=== PATIENT | male | born 1960 | race Caucasian/White ===

== ENCOUNTER 2017-01-05 01:29 | Inpatient (IN) | payer MEDICARE ==
--- NOTE | 2017-01-05 01:46 | ERPHSYRPT ---
- History of Present Illness Time Seen by Provider: 01/05/17 01:40 Source: patient Exam Limitations: no limitations Physician History: The patient is a 56-year-old male who has increasing shortness of breath for 2 days. He denies cough or fevers. He also complains of abdominal pain. He has past medical history of deep vein phlebitis and DVTs. His past medical history is also of COPD, pneumonia, HTN, DM, and prostatic disease. Timing/Duration: day(s) (2) Activities at Onset: none Severity of Dyspnea-Max: moderate Severity of Dyspnea-Current: moderate Possible Cause: frequent episodes, chronic episodes Modifying Factors: Improves With: exertion Associated Symptoms: wheezing Allergies/Adverse Reactions: No Known Drug Allergies Allergy (Verified 01/05/17 01:47) Home Medications: Diltiazem HCl [Diltiazem ER] 240 mg PO DAILY 05/14/14 [History] Gabapentin 400 mg [Neurontin 400 MG] 400 mg PO TID 05/14/14 [History] Losartan Potassium 50 mg [Cozaar 50 MG] 50 mg PO DAILY 05/14/14 [History] Warfarin Sodium 5 mg [Coumadin 5 MG] 5 mg PO UD 05/14/14 [History] Albuterol Common Canister [Proventil Common Canister] 2 puff IH BID [History] Albuterol/Ipratropium 3ml Neb* [DUONEB 0.5-3 MG/3 ml Neb] 3 ml IH QIDPRN 11/18 [History] Citalopram Hydrobromide [ceLEXa] 20 mg PO BID 11/18/14 [History] Hydrocodone/APAP 10/325 mg [[place] 10/325 MG Tablet] 1 tab PO Q4-6HPRN PRN 11/18/14 [History] Omeprazole 20 MG [Prilosec 20 mg] 20 mg PO BID 11/18/14 [History] Sennosides/Docusate Sodium [Stool Soft-Stimulant Lax Tab] 1 each PO DAILY PRN PRN 11/18/14 [History] Metformin HCl 500 mg [Glucophage 500 MG] 500 mg PO BID 09/13/15 [History] Tamsulosin HCl 0.4 mg [Flomax 0.4 MG] 1 tab PO DAILY 09/13/15 [History] Metoprolol Tartrate 50 mg [Lopressor 50 MG] 25 mg PO BID 01/17/16 [History ] Mirtazapine 15 mg PO HS 01/05/17 [History] Hx Tetanus, Diphtheria Vaccination/Date Given: Yes (w/i last 10 years) Hx Influenza Vaccination/Date Given: Yes Hx Pneumococcal Vaccination/Date Given: Yes - Review of Systems Constitutional: No Fever, No Chills Eyes: No Symptoms Ears, Nose, & Throat: No Symptoms Respiratory: Dyspnea, Dyspnea on Exertion ([place]) Cardiac: No Chest Pain, No Edema, No Syncope Abdominal/Gastrointestinal: Abdominal Pain Genitourinary Symptoms: No Dysuria Musculoskeletal: No Back Pain, No Neck Pain Skin: No Rash Neurological: No Dizziness, No Focal Weakness, No Sensory Changes Psychological: No Symptoms Endocrine: No Symptoms Hematologic/Lymphatic: No Symptoms, Easy Bruising Immunological/Allergic: No Symptoms All Other Systems: Reviewed and Negative - Past Medical History Pertinent Past Medical History: Yes Neurological History: Stroke ENT History: No Pertinent History Cardiac History: Arrhythmia, Hypertension, Myocardial Infarction (VT) Respiratory History: Asthma, Bronchitis, COPD, Pneumonia Endocrine Medical History: Adrenal Insufficiency, Diabetes Type II Musculoskeletal History: Arthritis GI Medical History: GERD, GI Bleed History: No Pertinent History Psycho-Social History: Anxiety, Bipolar, Depression, Panic Disorder Male Reproductive Disorders: No Pertinent History Other Medical History: Strokes in 2013, 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 Ponce. - Past Surgical History Past Surgical History: Yes Neuro Surgical History: No Pertinent History Cardiac: No Pertinent History Respiratory: No Pertinent History Gastrointestinal: Appendectomy, Hernia Repair Genitourinary: No Pertinent History Musculoskeletal: No Pertinent History Male Surgical History: No Pertinent History Other Surgical History: Right leg surgery, Sinus surgery - Social History Smoking Status: Former smoker Exposure to second hand smoke: No (occassional) Drug Use: none Patient Lives Alone: No - Nursing Vital Signs Nursing Vital Signs: Initial Vital Signs Pulse Rate 80 Respiratory Rate 22 Blood Pressure [] 136/77 Pain Intensity 7 - Physical Exam General Appearance: moderate distress Eye Exam: PERRL/EOMI Ears, Nose, Throat Exam: normal pharynx Neck Exam: normal inspection, supple Respiratory Exam: diminished breath sounds, wheezing Cardiovascular/Chest Exam: tachycardia Abdominal/Gastrointestinal Exam: tenderness Rectal Exam: not done Extremity Exam: non-tender, normal range of motion, normal inspection, no calf tenderness, no pedal edema Neurologic Exam: alert, oriented x 3, 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, 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, sensation nml, No motor deficits Skin Exam: normal color, warm, No dry SpO2 Interpretation: borderline oxygenation - Course EKG Interpreted by Me: RATE, Sinus Tach, NORMAL AXIS, NORMAL INTERVALS, NORMAL QRS, NORMAL ST-T, Other (No change compared to EKG 07/09/16) - Radiology Exams Chest X-ray Interpretation: Interpreted by me, Negative, Other (flattened hemidiaphragms, bibasilar atelecstasis, no change compared to 07/09/16) Abdomen X-ray Interpretation: Interpreted by me, Negative Ordered Tests: Active Orders 24 hr Category Date Time Status [employer] Operator STAT Care 01/05/17 01:50 Active EKG-ER Only STAT Care 01/05/17 01:50 Active IV Insertion STAT Care 01/05/17 01:50 Active Oxygen-ED Only NASAL CANNULA 5 lpm Care 01/05/17 01:50 Active Pulse Oximetry (ED) STAT Care 01/05/17 01:50 Active CHEST 1 VIEW (PORTABLE) Stat Exams 01/05/17 01:52 Taken KUB Stat Exams 01/05/17 01:53 Taken CBC W DIFF Stat Lab 01/05/17 01:50 Completed CMP Stat Lab 01/05/17 01:50 Completed LIPASE Stat Lab 01/05/17 01:50 Completed Lactic Acid Stat Lab 01/05/17 02:32 Completed NT PRO BNP Stat Lab 01/05/17 01:50 Completed TROPONIN Stat Lab 01/05/17 01:50 Completed UA W/ MICROSCOPIC Stat Lab 01/05/17 03:35 Completed Respiratory Nebulizer STAT RT 01/05/17 01:53 Completed Medication Summary Discontinued Medications Generic Name Dose Route Start Last Admin Trade Name Freq PRN Reason Stop Dose Admin Acetaminophen 1,000 mg 01/05/17 02:13 01/05/17 02:17 Tylenol Extra Strength 500 Mg PO 01/05/17 02:14 1,000 mg STAT STA Administration Acetaminophen Confirm 01/05/17 02:16 Tylenol Extra Strength 500 Mg Administered 01/05/17 02:17 Dose 1,000 mg .ROUTE .STK-MED ONE Albuterol/Ipratropium 3 ml 01/05/17 01:50 01/05/17 02:05 Duoneb 0.5-3 Mg/3 Ml Neb IH 01/05/17 01:51 3 ml STAT ONE Administration Albuterol/Ipratropium Confirm 01/05/17 02:04 Duoneb 0.5-3 Mg/3 Ml Neb Administered 01/05/17 02:05 Dose 3 ml IH .STK-MED ONE Methylprednisolone Sodium Succinate 125 mg 01/05/17 01:50 01/05/17 02:00 Solu-Medrol 125 Mg IV 01/05/17 01:51 125 mg STAT ONE Administration Methylprednisolone Sodium Succinate Confirm 01/05/17 01:56 Solu-Medrol 125 Mg Administered 01/05/17 01:57 Dose 125 mg .ROUTE .STK-MED ONE Lab/Rad Data: Laboratory Result Diagrams 01/05/17 01:50 01/05/17 01:50 Laboratory Results 01/05/17 01/05/17 01/05/17 Range/Units 03:35 02:32 01:50 WBC (4.0-10.5) K/mm3 RBC (4.1-5.6) M/mm3 Hgb (12.5-18.0) gm/dl Hct (42-50) % MCV (78-100) fl MCH (26-32) pg MCHC (32-36) g/dl RDW (11.5-14.0) % Plt Count (150-450) K/mm3 MPV (6-9.5) fl Gran % (36.0-66.0) % Lymphocytes % (24.0-44.0) % Monocytes % (0.0-12.0) % Eosinophils % (0.00-5.0) % Basophils % (0.0-0.4) % Basophils # (0-0.4) Sodium 143 (136-145) mEq/L Potassium 3.9 (3.5-5.1) mEq/L Chloride 104 (98-107) mEq/L Carbon Dioxide 34.5 H (21-32) mEq/L Anion Gap 8.3 (5-15) MEQ/L BUN 16 (9-20) mg/dL Creatinine 0.95 (0.55-1.30) mg/dl Estimated GFR > 60 ML/MIN Glucose 196 H (70-110) MG/DL Lactic Acid 1.3 (0.4-2.0) Calcium 8.9 (8.5-10.1) mg/dL Total Bilirubin 0.1 L (0.2-1.0) mg/dL AST 10 L (15-37) U/L ALT 22 (12-78) U/L Alkaline Phosphatase 99 (46-116) U/L Troponin I < 0.017 (0.000-0.056) ng/ml NT-Pro-B Natriuret Pep 21 (0-125) pg/ml Serum Total Protein 6.9 (6.4-8.2) gm/dL Albumin 3.5 (3.4-5.0) g/dL Lipase 136 (73-393) U/L Ur Collection Type CLEAN CATCH Urine Color YELLOW (YELLOW) Urine Appearance CLEAR (CLEAR) Urine pH 7.0 (5-6) Ur Specific [place] 1.020 (1.005-1.025) Urine Protein TRACE (Negative) Urine Glucose (UA) NEGATIVE (NEGATIVE) mg/dL Urine Ketones TRACE (NEGATIVE) Urine Nitrite NEGATIVE (NEGATIVE) Urine Bilirubin NEGATIVE (NEGATIVE) Urine Urobilinogen 1 (0-1) mg/dL Urine WBC (Auto) NEGATIVE (NEGATIVE) Urine RBC (Auto) TRACE NON-HEM (0-5) Alexy/ul Urine Microscopic RBC 0-2 (0-2) /HPF Ur Epithelial Cells FEW (FEW) /HPF Urine Bacteria RARE (NEGATIVE) /HPF Urine Mucus SLIGHT (NEGATIVE) /HPF Specimen Received 01/05/17:0330 01/05/17 Range/Units 01:50 WBC 7.5 (4.0-10.5) K/mm3 RBC 4.13 (4.1-5.6) M/mm3 Hgb 11.7 L (12.5-18.0) gm/dl Hct 39.4 L (42-50) % MCV 95.4 (78-100) fl MCH 28.3 (26-32) pg MCHC 29.7 L (32-36) g/dl RDW 15.9 H (11.5-14.0) % Plt Count 235 (150-450) K/mm3 MPV 8.5 (6-9.5) fl Gran % 60.5 (36.0-66.0) % Lymphocytes % 25.4 (24.0-44.0) % Monocytes % 11.3 (0.0-12.0) % Eosinophils % 2.4 (0.00-5.0) % Basophils % 0.4 (0.0-0.4) % Basophils # 0.03 (0-0.4) Sodium (136-145) mEq/L Potassium (3.5-5.1) mEq/L Chloride (98-107) mEq/L Carbon Dioxide (21-32) mEq/L Anion Gap (5-15) MEQ/L BUN (9-20) mg/dL Creatinine (0.55-1.30) mg/dl Estimated GFR ML/MIN Glucose (70-110) MG/DL Lactic Acid (0.4-2.0) Calcium (8.5-10.1) mg/dL Total Bilirubin (0.2-1.0) mg/dL AST (15-37) U/L ALT (12-78) U/L Alkaline Phosphatase (46-116) U/L Troponin I (0.000-0.056) ng/ml NT-Pro-B Natriuret Pep (0-125) pg/ml Serum Total Protein (6.4-8.2) gm/dL Albumin (3.4-5.0) g/dL Lipase (73-393) U/L Ur Collection Type Urine Color (YELLOW) Urine Appearance (CLEAR) Urine pH (5-6) Ur Specific [place] (1.005-1.025) Urine Protein (Negative) Urine Glucose (UA) (NEGATIVE) mg/dL Urine Ketones (NEGATIVE) Urine Nitrite (NEGATIVE) Urine Bilirubin (NEGATIVE) Urine Urobilinogen (0-1) mg/dL Urine WBC (Auto) (NEGATIVE) Urine RBC (Auto) (0-5) Alexy/ul Urine Microscopic RBC (0-2) /HPF Ur Epithelial Cells (FEW) /HPF Urine Bacteria (NEGATIVE) /HPF Urine Mucus (NEGATIVE) /HPF Specimen Received - Progress Progress: unchanged Air Movement: good Progress Note: 01/05/17 03:18 Pt given solumedrol 125 mg IV and duo neb. Lungs auscultation shows no wheezing and better air movement; however, pt states he is no better. Pt is on O2 5 L NC. Pt is usually on 3 L O2 per NC at home. 01/05/17 03:19 Blood Culture(s) Obtained: No Antibiotics given: No Discussed with : Zhanna Will see patient in: hospital (full admit) Counseled pt/family regarding: lab results, diagnosis, rad results - Departure Time of Disposition: 04:01 Departure Disposition: In-patient Admission Clinical Impression: COPD exacerbation Condition: Stable Critical Care Time: No Instructions: Chronic Obstructive Pulmonary Disease
[2017-01-05] MEDS ORDERED: DUONEB 0.5-3 MG/3 ml Neb IH ONE ×3 (01:50→05:42)
[2017-01-05] MEDS ORDERED: solu-MEDROL 125 MG IV ONE (01:50)
[2017-01-05] MEDS ORDERED: solu-MEDROL 125 MG ONE (01:56)
[2017-01-05 01:59] LABS: BASOPHIL % 0.4 % (0.0-0.4); Eosinophil % 2.4 % (0.00-5.0); Granulocytes % 60.5 % (36.0-66.0); Lymphocytes % 25.4 % (24.0-44.0); Mean Cell Volume 95.4 fl (78-100); Mean Corpuscular Hemoglobin 28.3 pg (26-32); Mean Platelet Volume 8.5 fl (6-9.5); Monocytes % 11.3 % (0.0-12.0); Platelet Count 235 K/mm3 (150-450); Red Blood Count 4.13 M/mm3 (4.1-5.6); Red Cell Distribution Width 15.9 % (11.5-14.0); White Blood Count 7.5 K/mm3 (4.0-10.5)
[2017-01-05] MEDS ORDERED: TYLENOL EXTRA STRENGTH 500 MG PO STA (02:13)
[2017-01-05] MEDS ORDERED: TYLENOL EXTRA STRENGTH 500 MG ONE (02:16)
[2017-01-05 02:25] LABS: ALBUMIN 3.5 g/dL (3.4-5.0); ALKALINE PHOSPHATASE 99 U/L (46-116); ANION GAP 8.3 MEQ/L (5-15); BILIRUBIN,TOTAL 0.1 mg/dL (0.2-1.0); BLOOD UREA NITROGEN 16 mg/dL (9-20); CHLORIDE 104 mEq/L (98-107); Carbon Dioxide 34.5 mEq/L (21-32); Glucose 196 MG/DL (70-110); LIPASE 136 U/L (73-393); Potassium 3.9 mEq/L (3.5-5.1); SGOT/AST 10 U/L (15-37); SGPT/ALT 22 U/L (12-78); SODIUM 143 mEq/L (136-145); TROPONIN < 0.017 ng/ml (0.000-0.056); Total Protein 6.9 gm/dL (6.4-8.2)
[2017-01-05 03:41] LABS: Collection Type CLEAN CATCH
[2017-01-05 03:51] LABS: Bacteria RARE /HPF (NEGATIVE); COMPLETE URINE MICROSCOPIC? YES; Epithelial Cells FEW /HPF (FEW); Mucus SLIGHT /HPF (NEGATIVE)
[2017-01-05] MEDS ORDERED: PROVENTIL 2.5 MG/3 ML NEB IH PRN (05:46)
[2017-01-05] MEDS: DUONEB 0.5-3 MG/3 ml Neb IH SCH ×5 (05:58→22:54)
[2017-01-05] MEDS: Advair Hfa 230/21 Mcg COMMON CANISTER IH SCH ×2 (05:58→18:52)
[2017-01-05] MEDS ORDERED: PROVENTIL 2.5 MG/3 ML NEB IH SCH (07:00)
[2017-01-05] MEDS ORDERED: DUONEB 0.5-3 MG/3 ml Neb IH SCH (07:00)
[2017-01-05] MEDS: solu-MEDROL 125 MG IV SCH ×3 (07:29→17:25)
[2017-01-05] MEDS ORDERED: Senokot-S Tablet PO PRN (07:50)
[2017-01-05] MEDS: Glucophage 500 MG PO SCH ×2 (08:08→17:25)
[2017-01-05] MEDS: NovoLOG Insulin SQ PRN ×4 (08:09→22:26)
[2017-01-05] MEDS: MORPHINE SULFATE 2 MG INJ IV PRN ×4 (08:09→22:22)
--- NOTE | 2017-01-05 08:47 | XRAY ---
Indication: Mid abdominal pain. Emesis. Comparison: July 09, 2016. Single frontal chest unchanged again demonstrating a few scattered calcified granulomas and bibasilar infiltrates/atelectasis. Heart and mediastinal structures within normal limits. No new abnormalities.
--- NOTE | 2017-01-05 08:49 | XRAY ---
Indication: Mid abdominal pain and emesis. Comparison: May 14, 2014. KUB again nonacute and nonobstructed. Solid organs unremarkable. Osseous structures again demonstrates mild osteopenia and multilevel spinal degenerative changes. Impression: Stable negative KUB.
[2017-01-05] MEDS: Flomax 0.4 MG PO SCH (09:48)
[2017-01-05] MEDS: ceLEXa 20 MG PO SCH ×2 (09:48→22:25)
[2017-01-05] MEDS: Neurontin 400 MG PO SCH ×3 (09:48→22:26)
[2017-01-05] MEDS: Cardizem CD 240 MG PO SCH (09:48)
[2017-01-05] MEDS: Cozaar 50 MG PO SCH (09:48)
[2017-01-05] MEDS: Lopressor 25MG Tab PO SCH ×2 (09:48→22:25)
[2017-01-05] MEDS: Protonix 40MG Tablet PO SCH ×2 (09:48→22:25)
[2017-01-05] MEDS ORDERED: DILTIAZEM HCL 240 MG PO SCH (10:00)
[2017-01-05] MEDS ORDERED: NON-FORMULARY ITEM (Citalopram Hydrobromide [Celexa] 20 MG) PO SCH (10:00)
[2017-01-05] MEDS ORDERED: NON-FORMULARY ITEM (Omeprazole 20 Mg [Prilosec 20 Mg] 20 MG) PO SCH (10:00)
[2017-01-05] MEDS: Levofloxacin 500MG/100ML D5W 100 ML IV SCH (13:42)
[2017-01-05] MEDS ORDERED: PROVENTIL COMMON CANISTER IH SCH (19:00)
--- NOTE | 2017-01-05 19:58 | PCM.HP ---
History of Present Illness - Chief Complaint Chief Complaint: Shortness of Breath for 2-3 days History of Present Illness: is a 56 year old male patient who has increasing shortness of breath for 2 days. He denies cough or fevers. He also complains of abdominal pain. He has past medical history of deep vein phlebitis and DVTs. His past medical history is also of COPD, pneumonia, HTN, DM, and prostatic disease. Timing/Duration: day(s) (2) Activities at Onset: none Severity of Dyspnea-Max: moderate Severity of Dyspnea-Current: moderate Possible Cause: frequent episodes, chronic episodes Modifying Factors: Improves With: exertion Associated Symptoms: wheezing. - Review of Systems Constitutional: Fatigue, Lethargy, No Fever, No Chills Eyes: No Symptoms Ears, Nose, & Throat: No Symptoms Respiratory: Cough, Orthopnea, Short Of Breath, Wheezing Cardiac: No Chest Pain, No Edema, No Syncope Abdominal/Gastrointestinal: No Abdominal Pain, No Nausea, No Vomiting, No Diarrhea Genitourinary Symptoms: No Dysuria Musculoskeletal: No Back Pain, No Neck Pain Skin: No Rash Neurological: No Dizziness, No Focal Weakness, No Sensory Changes Psychological: No Symptoms Endocrine: No Symptoms Hematologic/Lymphatic: No Symptoms Immunological/Allergic: No Symptoms Medications & Allergies Home Medications: Home Medication List Diltiazem HCl [Diltiazem ER] 240 mg PO DAILY 05/14/14 [History Confirmed ] Gabapentin 400 mg [Neurontin 400 MG] 400 mg PO TID 05/14/14 [History Confirmed 01/05/17] Losartan Potassium 50 mg [Cozaar 50 MG] 50 mg PO DAILY 05/14/14 [History Confirmed 01/05/17] Warfarin Sodium 5 mg [Coumadin 5 MG] 5 mg PO UD 05/14/14 [History Confirmed 01/05/17] Albuterol Common Canister [Proventil Common Canister] 2 puff IH BID [History Confirmed 01/05/17] Albuterol/Ipratropium 3ml Neb* [DUONEB 0.5-3 MG/3 ml Neb] 3 ml IH QIDPRN 11/18 [History Confirmed 01/05/17] Citalopram Hydrobromide [ceLEXa] 20 mg PO BID 11/18/14 [History Confirmed ] Hydrocodone/APAP 10/325 mg [[place] 10/325 MG Tablet] 1 tab PO Q4-6HPRN PRN 11/18/14 [History Confirmed 01/05/17] Omeprazole 20 MG [Prilosec 20 mg] 20 mg PO BID 11/18/14 [History Confirmed 01/05] Sennosides/Docusate Sodium [Stool Soft-Stimulant Lax Tab] 1 each PO DAILY PRN PRN 11/18/14 [History Confirmed 01/05/17] Metformin HCl 500 mg [Glucophage 500 MG] 500 mg PO BID 09/13/15 [History Confirmed 01/05/17] Tamsulosin HCl 0.4 mg [Flomax 0.4 MG] 1 tab PO DAILY 09/13/15 [History Confirmed 01/05/17] Metoprolol Tartrate 50 mg [Lopressor 50 MG] 25 mg PO BID 01/17/16 [ History Confirmed 01/05/17] Mirtazapine 15 mg PO HS 01/05/17 [History Confirmed 01/05/17] Allergies/Adverse Reactions: Allergies Allergy/AdvReac Type Severity Reaction Status Date / Time No Known Drug Allergies Allergy Verified 01/05/17 01:47 - Past Medical History Past Medical History: Yes Neurological History: Stroke ENT History: No Pertinent History Cardiac History: Arrhythmia, Hypertension, Myocardial Infarction (HI) Respiratory History: Asthma, Bronchitis, COPD, Pneumonia Endocrine Medical History: Adrenal Insufficiency, Diabetes Type II Musculoskelatal History: Arthritis GI Medical History: GERD, GI Bleed History: No Pertinent History Pyscho-Social History: Anxiety, Bipolar, Depression, Panic Disorder Male Reproductive Disorders: No Pertinent History Comment: Strokes in 2014, 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 Ponce. - Past Surgical History Past Surgical History: Yes Neuro Surgical History: No Pertinent History Cardiac History: No Pertinent History Respiratory Surgery: No Pertinent History GI Surgical History: Appendectomy, Hernia Repair Genitourinary Surgical Hx: No Pertinent History Musculskeletal Surgical Hx: No Pertinent History Male Surgical History: No Pertinent History Other Surgical History: Right leg surgery, Sinus surgery - Social History Smoking Status: Former smoker Exposure to second hand smoke: No Alcohol: None Drug Use: none - Physical Exam Vital Signs: Vital Signs - 24 hr Temp Pulse Resp BP Pulse Ox 01/05/17 18:55 97 01/05/17 18:52 141 H 22 97 01/05/17 16:00 97.7 F 111 H 22 129/73 94 L 01/05/17 14:37 106 H 22 94 L 01/05/17 12:00 98 F 99 H 20 133/88 100 01/05/17 10:44 99 H 22 97 01/05/17 08:10 97.6 F 115 H 22 136/89 90 L 01/05/17 08:00 97.6 F 115 H 22 136/89 90 L 01/05/17 05:58 98 H 26 H 88 L 01/05/17 04:35 89 22 141/82 90 L 01/05/17 04:03 98 H 24 125/77 91 L 01/05/17 02:57 80 22 136/77 90 L 01/05/17 02:23 104 H 20 140/71 94 L 01/05/17 02:05 103 H 26 H 94 L 01/05/17 02:03 86 L 01/05/17 01:31 112 H 28 H 140/71 89 L Oxygen-Last 24 hours O2 Percentage 5 Liters = 40% O2 Percentage 5 Liters = 40% O2 Percentage 5 Liters = 40% O2 Percentage 5 Liters = 40% O2 Percentage 5 Liters = 40% O2 Percentage 5 Liters = 40% O2 Percentage 5 Liters = 40% General Appearance: no apparent distress, alert Neurologic Exam: alert, oriented x 3, cooperative, normal mood/affect, nml cerebellar function, nml station & gait, sensation nml, No motor deficits Eye Exam: PERRL/EOMI, eyes nml inspection Ears, Nose, Throat Exam: normal ENT inspection, TMs normal, pharynx normal, moist mucous membranes Neck Exam: normal inspection, non-tender, supple, full range of motion Respiratory Exam: diminished breath sounds, prolonged expirations, crackles/ rales, rhonchi, wheezing, No respiratory distress Cardiovascular Exam: regular rate/rhythm, normal heart sounds, normal peripheral pulses Gastrointestinal/Abdomen Exam: soft, normal bowel sounds, No tenderness, No mass Back Exam: normal inspection, normal range of motion, No CVA tenderness, No vertebral tenderness Extremity Exam: normal inspection, normal range of motion, pelvis stable Skin Exam: normal color, warm, dry, No rash Lymphatic Exam: No adenopathy Results - Labs Lab/Micro Results: Accuchecks Date 01/05/17 Date 01/05/17 Date 01/05/17 Time 16:30 Time 11:30 Time 07:30 Accucheck Value: 266 Accucheck Value: 317 Accucheck Value: 226 Accuchecks Date 01/05/17 Date 01/05/17 Date 01/05/17 Time 16:30 Time 11:30 Time 07:30 Accucheck Value: 266 Accucheck Value: 317 Accucheck Value: 226 - Other Procedures and Tests Respiratory Therapy 01/05/17 05:46 Respiratory Nebulizer 01/05/17 07:00 Respiratory MDI BID Respiratory Nebulizer Q4H Assessment/Plan (1) COPD exacerbation Current Visit: Yes Status: Acute Assessment & Plan: will admit patient , start him on iv steroid, iv abx, o2 Code(s): J44.1 - CHRONIC OBSTRUCTIVE PULMONARY DISEASE W (ACUTE) EXACERBATION (2) Atelectasis of both lungs Current Visit: Yes Status: Chronic Code(s): J98.11 - ATELECTASIS
[2017-01-05] MEDS: Norco 10/325 MG Tablet PO PRN (20:56)
[2017-01-05] MEDS ORDERED: NON-FORMULARY ITEM (Mirtazapine [Mirtazapine] 15 MG) PO SCH (22:00)
[2017-01-05] MEDS: REMERON 30 MG PO SCH (22:25)
[2017-01-06] MEDS: solu-MEDROL 125 MG IV SCH ×4 (00:17→17:59)
[2017-01-06] MEDS: DUONEB 0.5-3 MG/3 ml Neb IH SCH ×6 (03:07→23:33)
[2017-01-06] MEDS: MORPHINE SULFATE 2 MG INJ IV PRN ×5 (03:23→21:02)
[2017-01-06 03:59] LABS: A-aADO2 437; ARTERIAL BLD GAS O2 SATURATION 98.8 % (95-100); ARTERIAL BLOOD GAS FIO2 82 %; ARTERIAL BLOOD GAS PO2 90 mmHg (75-100); ARTERIAL BLOOD GAS pH 7.45 (7.35-7.45)
[2017-01-06] MEDS: Norco 10/325 MG Tablet PO PRN (05:34)
[2017-01-06] MEDS: Advair Hfa 230/21 Mcg COMMON CANISTER IH SCH ×2 (06:37→17:25)
[2017-01-06] MEDS: Flomax 0.4 MG PO SCH (08:18)
[2017-01-06] MEDS: ceLEXa 20 MG PO SCH ×2 (08:18→20:16)
[2017-01-06] MEDS: Glucophage 500 MG PO SCH ×2 (08:18→16:41)
[2017-01-06] MEDS: Cozaar 50 MG PO SCH (08:18)
[2017-01-06] MEDS: Cardizem CD 240 MG PO SCH (08:18)
[2017-01-06] MEDS: Lopressor 25MG Tab PO SCH ×2 (08:18→20:16)
[2017-01-06] MEDS: Protonix 40MG Tablet PO SCH ×2 (08:18→20:16)
[2017-01-06] MEDS: NovoLOG Insulin SQ PRN ×4 (08:19→22:17)
[2017-01-06] MEDS: Neurontin 400 MG PO SCH ×3 (08:19→20:16)
[2017-01-06] MEDS: Levofloxacin 500MG/100ML D5W 100 ML IV SCH (09:59)
--- NOTE | 2017-01-06 12:23 | PCM.NOTE ---
Date and Time: 01/06/17 1220 Subjective Assessment: severe shortness of breath. - Review of Systems Constitutional: No Fever, No Chills Eyes: No Symptoms Ears, Nose, & Throat: No Symptoms Respiratory: Cough, Orthopnea, Short Of Breath, Wheezing Cardiac: No Chest Pain, No Edema, No Syncope Abdominal/Gastrointestinal: No Abdominal Pain, No Nausea, No Vomiting, No Diarrhea Genitourinary Symptoms: No Dysuria Musculoskeletal: No Back Pain, No Neck Pain Skin: No Rash Neurological: No Dizziness, No Focal Weakness, No Sensory Changes Psychological: No Symptoms Endocrine: No Symptoms Hematologic/Lymphatic: No Symptoms Immunological/Allergic: No Symptoms Objective Exam General Appearance: no apparent distress, alert Neurologic Exam: alert, oriented x 3, cooperative, normal mood/affect, nml cerebellar function, sensation nml, No motor deficits Skin Exam: normal color, warm, dry Eye Exam: PERRL, EOMI, eyes nml inspection Ears, Nose, Throat Exam: normal ENT inspection, pharynx normal, moist mucous membranes Neck Exam: normal inspection, non-tender, supple, full range of motion Respiratory Exam: diminished breath sounds, accessory muscle use, prolonged expirations, rhonchi, wheezing, No respiratory distress Cardiovascular Exam: regular rate/rhythm, normal heart sounds Gastrointestinal/Abdomen Exam: soft, No tenderness, No mass Extremity Exam: normal inspection, normal range of motion Back Exam: normal inspection, normal range of motion, No CVA tenderness, No vertebral tenderness Male Genitalia Exam: deferred Rectal Exam: deferred OBJECTIVE DATA Vital Signs: Vital Signs - 24 hr Temp Pulse Resp BP Pulse Ox 01/06/17 11:48 98.2 F 107 H 24 129/68 90 L 01/06/17 10:34 104 H 22 92 L 01/06/17 07:29 98.7 F 109 H 22 132/74 91 L 01/06/17 06:37 108 H 16 90 L 01/06/17 04:00 97.9 F 117 H 25 H 134/79 86 L 01/06/17 03:07 110 H 25 H 83 L 01/06/17 00:00 22 93 L 01/05/17 22:54 125 H 23 92 L 01/05/17 21:35 98.4 F 131 H 22 117/79 92 L 01/05/17 20:00 23 01/05/17 18:55 97 01/05/17 18:52 141 H 22 97 01/05/17 16:00 97.7 F 111 H 22 129/73 94 L 01/05/17 14:37 106 H 22 94 L Oxygen-Last 24 hours O2 Percentage 5 Liters = 40% Pain Assessment - Last Documented Pain Intensity 4 Pain Scale Used 0-10 Pain Scale Intake and Output: Intake & Output 01/04/17 01/05/17 01/06/17 01/07/17 11:59 11:59 11:59 11:59 Intake Total 1200 2230 Output Total 500 1600 Balance 700 630 Weight 116.755 kg Lab Results: Accuchecks Date 01/05/17 Date 01/05/17 Time 22:00 Time 16:30 Accucheck Value: 236 Accucheck Value: 265 Accucheck Value: 266 Lab Results-Last 24 Hours 01/06/17 Range/Units 03:51 Puncture Site LEFT BRACHIAL pCO2 46 H (35-45) mmHg pO2 90 (75-100) mmHg Base Excess 7.0 H (-2.0-2.0) O2 Saturation 96.1 (94-100) g/dF ABG pH 7.45 (7.35-7.45) ABG HCO3 32.0 H* (22-28) ABG O2 Sat (Measured) 98.8 (95-100) % Keo Test NOT APPLICABLE A-a Gradient 437 a/A Ratio 0.17 Hemoglobin 12.6 Carboxyhemoglobin 1.5 (0.0-6.9) % THgb Methemoglobin 1.1 L (1.4-1.5) % Potassium 5.4 H (3.5-5.1) Temperature 37.0 C POC O2 Flow Rate 82 % Assessment/Plan (1) COPD exacerbation Current Visit: Yes Status: Acute Assessment & Plan: continue present management Code(s): J44.1 - CHRONIC OBSTRUCTIVE PULMONARY DISEASE W (ACUTE) EXACERBATION (2) Atelectasis of both lungs Current Visit: Yes Status: Chronic Code(s): J98.11 - ATELECTASIS
[2017-01-06] MEDS: PULMICORT 0.5 MG/2 ML RESPULES IH SCH (17:25)
[2017-01-06] MEDS: Coumadin 5 MG PO SCH (17:59)
[2017-01-06] MEDS: REMERON 30 MG PO SCH (20:16)
[2017-01-07] MEDS: solu-MEDROL 125 MG IV SCH ×4 (00:17→17:09)
[2017-01-07] MEDS: MORPHINE SULFATE 2 MG INJ IV PRN ×4 (02:48→20:31)
[2017-01-07] MEDS: DUONEB 0.5-3 MG/3 ml Neb IH SCH ×6 (03:10→22:46)
[2017-01-07] MEDS: Advair Hfa 230/21 Mcg COMMON CANISTER IH SCH ×2 (06:27→18:53)
[2017-01-07] MEDS: PULMICORT 0.5 MG/2 ML RESPULES IH SCH ×2 (06:27→18:53)
[2017-01-07] MEDS: Glucophage 500 MG PO SCH ×2 (07:38→17:09)
[2017-01-07] MEDS: NovoLOG Insulin SQ PRN ×3 (07:38→17:10)
[2017-01-07] MEDS: Cozaar 50 MG PO SCH (09:44)
[2017-01-07] MEDS: Cardizem CD 240 MG PO SCH (09:44)
[2017-01-07] MEDS: Neurontin 400 MG PO SCH ×3 (09:44→22:39)
[2017-01-07] MEDS: ceLEXa 20 MG PO SCH ×2 (09:45→22:39)
[2017-01-07] MEDS: Lopressor 25MG Tab PO SCH ×2 (09:45→22:40)
[2017-01-07] MEDS: Protonix 40MG Tablet PO SCH ×2 (09:45→22:39)
[2017-01-07] MEDS: Flomax 0.4 MG PO SCH (09:45)
[2017-01-07] MEDS: Levofloxacin 500MG/100ML D5W 100 ML IV SCH (09:47)
[2017-01-07] MEDS: Norco 10/325 MG Tablet PO PRN ×3 (11:49→22:40)
--- NOTE | 2017-01-07 17:17 | PCM.NOTE ---
Date and Time: 01/07/171715 Subjective Assessment: still very hypoxic and short of breath, still requires higher flow of oxygen - Review of Systems Constitutional: No Fever, No Chills Eyes: No Symptoms Ears, Nose, & Throat: No Symptoms Respiratory: Short Of Breath, Wheezing, No Cough Cardiac: No Chest Pain, No Edema, No Syncope Abdominal/Gastrointestinal: No Abdominal Pain, No Nausea, No Vomiting, No Diarrhea Genitourinary Symptoms: No Dysuria Musculoskeletal: No Back Pain, No Neck Pain Skin: No Rash Neurological: No Dizziness, No Focal Weakness, No Sensory Changes Psychological: No Symptoms Endocrine: No Symptoms Hematologic/Lymphatic: No Symptoms Immunological/Allergic: No Symptoms Objective Exam General Appearance: mild distress, alert Neurologic Exam: alert, oriented x 3, cooperative, normal mood/affect, nml cerebellar function, sensation nml, No motor deficits Skin Exam: normal color, warm, dry Eye Exam: PERRL, EOMI, eyes nml inspection Ears, Nose, Throat Exam: normal ENT inspection, pharynx normal, moist mucous membranes Neck Exam: normal inspection, non-tender, supple, full range of motion Respiratory Exam: diminished breath sounds, accessory muscle use, rhonchi, wheezing, No respiratory distress Cardiovascular Exam: regular rate/rhythm, normal heart sounds Gastrointestinal/Abdomen Exam: soft, No tenderness, No mass Extremity Exam: normal inspection, normal range of motion Back Exam: normal inspection, normal range of motion, No CVA tenderness, No vertebral tenderness Male Genitalia Exam: deferred Rectal Exam: deferred OBJECTIVE DATA Vital Signs: Vital Signs - 24 hr Temp Pulse Resp BP Pulse Ox 01/07/17 16:00 21 01/07/17 15:54 98 F 101 H 21 126/69 91 L 01/07/17 14:26 106 H 20 92 L 01/07/17 12:00 20 01/07/17 11:29 98.3 F 99 H 20 114/70 90 L 01/07/17 10:40 109 H 22 92 L 01/07/17 08:00 24 01/07/17 07:36 97.7 F 103 H 22 135/77 92 L 01/07/17 06:30 103 H 22 93 L 01/07/17 04:00 98.5 F 101 H 25 H 142/89 86 L 01/07/17 03:10 101 H 25 H 89 L 01/07/17 00:00 21 01/06/17 23:43 98.7 F 91 H 21 131/60 96 01/06/17 23:33 88 22 96 01/06/17 20:00 98.6 F 118 H 26 H 134/66 90 L 01/06/17 17:27 86 L 01/06/17 17:26 114 H 18 86 L Oxygen-Last 24 hours O2 Percentage 100% O2 Percentage 100% O2 Percentage 100% O2 Percentage 100% Pain Assessment - Last Documented Pain Intensity 5 Pain Scale Used 0-10 Pain Scale Intake and Output: Intake & Output 01/05/17 01/06/17 01/07/17 01/08/17 11:59 11:59 11:59 11:59 Intake Total 1200 2230 1490 420 Output Total 500 1600 2525 600 Balance 700 630 -1035 -180 Weight 116.755 kg 116.755 kg Lab Results: Accuchecks Date 01/07/17 Date 01/07/17 Date 01/06/17 Time 11:30 Time 07:30 Time 22:00 Accucheck Value: 341 Accucheck Value: 279 Accucheck Value: 281 Multi-Disciplinary Progress Notes: Multi-Disciplinary Progress Notes 01/07/17 09:15 (created 01/07/17 14:15) Case Management Note by Ashley Ballard REVIEWED DISCHARGE PLAN, CONTINUE TO DECLINE NEEDS ON DISCHARGE. PLAN TO RETURN HOME WITH FAMILY TO PRE EPISODIC LEVEL OF [place]. REPORTS THAT HE HAS ALL EQUIP IN PLACE THAT HE NEEDS. HOME OXYGEN TO CONTINUE. DISCUSSED DX: COPD, S/S , TAKE MEDS PRESCRIBED, VERBALIZED UNDERSTANDING AND ABLE TO REPEAT INFORMATION BACK. WILL CONTINUE TO FOLLOW AND ASSESS FOR ALL DC NEEDS. Initialized on 01/07/17 14:15 - END OF NOTE Assessment/Plan (1) COPD exacerbation Current Visit: Yes Status: Acute Assessment & Plan: still very hypoxic, will continue present management Code(s): J44.1 - CHRONIC OBSTRUCTIVE PULMONARY DISEASE W (ACUTE) EXACERBATION (2) Atelectasis of both lungs Current Visit: Yes Status: Chronic Assessment & Plan: stable Code(s): J98.11 - ATELECTASIS
[2017-01-07] MEDS: REMERON 30 MG PO SCH (22:39)
[2017-01-08] MEDS: solu-MEDROL 125 MG IV SCH ×4 (00:30→17:31)
[2017-01-08] MEDS: MORPHINE SULFATE 2 MG INJ IV PRN ×3 (00:30→19:35)
[2017-01-08] MEDS: DUONEB 0.5-3 MG/3 ml Neb IH SCH ×6 (02:44→23:05)
[2017-01-08] MEDS: PULMICORT 0.5 MG/2 ML RESPULES IH SCH ×2 (07:00→18:14)
[2017-01-08] MEDS: Glucophage 500 MG PO SCH ×2 (08:50→17:32)
[2017-01-08] MEDS: Neurontin 400 MG PO SCH ×3 (08:51→21:38)
[2017-01-08] MEDS: Flomax 0.4 MG PO SCH (08:51)
[2017-01-08] MEDS: Lopressor 25MG Tab PO SCH ×2 (08:51→21:38)
[2017-01-08] MEDS: Protonix 40MG Tablet PO SCH ×2 (08:51→21:39)
[2017-01-08] MEDS: ceLEXa 20 MG PO SCH ×2 (08:51→21:38)
[2017-01-08] MEDS: Cardizem CD 240 MG PO SCH (08:51)
[2017-01-08] MEDS: Cozaar 50 MG PO SCH (08:51)
[2017-01-08] MEDS: Norco 10/325 MG Tablet PO PRN ×3 (08:54→21:38)
[2017-01-08] MEDS: Levofloxacin 500MG/100ML D5W 100 ML IV SCH (09:29)
[2017-01-08] MEDS: Advair Hfa 230/21 Mcg COMMON CANISTER IH SCH ×2 (10:34→18:14)
[2017-01-08 11:11] LABS: ALBUMIN 3.6 g/dL (3.4-5.0); ALKALINE PHOSPHATASE 77 U/L (46-116); ANION GAP 8.8 MEQ/L (5-15); BILIRUBIN,TOTAL 0.3 mg/dL (0.2-1.0); BLOOD UREA NITROGEN 26 mg/dL (9-20); CHLORIDE 99 mEq/L (98-107); Carbon Dioxide 39.7 mEq/L (21-32); Glucose 373 MG/DL (70-110); SGOT/AST 30 U/L (15-37); SGPT/ALT 52 U/L (12-78); SODIUM 141 mEq/L (136-145); Total Protein 7.1 gm/dL (6.4-8.2)
[2017-01-08 11:42] LABS: Mean Corpuscular Hemoglobin 28.2 pg (26-32); Mean Platelet Volume 9.3 fl (6-9.5); Platelet Count 244 K/mm3 (150-450); Red Blood Count 4.11 M/mm3 (4.1-5.6); White Blood Count 12.4 K/mm3 (4.0-10.5)
[2017-01-08 11:43] LABS: Potassium 6.2 mEq/L (3.5-5.1)
[2017-01-08] MEDS: NovoLOG Insulin SQ PRN ×3 (12:11→21:39)
[2017-01-08] MEDS ORDERED: PHARMACY DOSING REQUEST MC ONE (12:44)
[2017-01-08 14:21] LABS: BLOOD UREA NITROGEN 29 mg/dL (9-20); CHLORIDE 98 mEq/L (98-107); Carbon Dioxide 37.5 mEq/L (21-32); Glucose 402 MG/DL (70-110); Potassium 5.9 mEq/L (3.5-5.1); SODIUM 140 mEq/L (136-145)
[2017-01-08] MEDS ORDERED: Kayexylate 15 GM/60 ML PO ONE (14:56)
[2017-01-08] MEDS: Aminophylline 500 MG/20 ML*** 500 MG in Sodium Chloride 0.9% 500 ML 500 ML IV SCH (15:16)
[2017-01-08] MEDS: Coumadin 5 MG PO SCH (17:48)
[2017-01-08] MEDS: REMERON 30 MG PO SCH (21:38)
[2017-01-09] MEDS: MORPHINE SULFATE 2 MG INJ IV PRN ×4 (00:51→22:08)
[2017-01-09] MEDS: solu-MEDROL 125 MG IV SCH ×5 (00:52→23:16)
[2017-01-09] MEDS: Norco 10/325 MG Tablet PO PRN ×2 (03:07→13:30)
[2017-01-09] MEDS: DUONEB 0.5-3 MG/3 ml Neb IH SCH ×6 (03:13→22:47)
[2017-01-09] MEDS: Aminophylline 500 MG/20 ML*** 500 MG in Sodium Chloride 0.9% 500 ML 500 ML IV SCH ×2 (05:33→23:16)
[2017-01-09 06:00] LABS: Mean Cell Volume 97.5 fl (78-100); Mean Corpuscular Hemoglobin 27.9 pg (26-32); Mean Platelet Volume 8.8 fl (6-9.5); Platelet Count 225 K/mm3 (150-450); Red Blood Count 3.94 M/mm3 (4.1-5.6); Red Cell Distribution Width 15.5 % (11.5-14.0); White Blood Count 9.5 K/mm3 (4.0-10.5)
[2017-01-09 06:17] LABS: INR 2.26 (0.8-3.0); PROTIME 24.7 SECONDS (8.83-12.87)
[2017-01-09 06:27] LABS: ALBUMIN 3.5 g/dL (3.4-5.0); ALKALINE PHOSPHATASE 72 U/L (46-116); ANION GAP 7.6 MEQ/L (5-15); BILIRUBIN,TOTAL 0.3 mg/dL (0.2-1.0); BLOOD UREA NITROGEN 24 mg/dL (9-20); CHLORIDE 98 mEq/L (98-107); Carbon Dioxide 39.1 mEq/L (21-32); Glucose 291 MG/DL (70-110); MAGNESIUM 2.1 mg/dL (1.8-2.4); Potassium 5.3 mEq/L (3.5-5.1); SGOT/AST 26 U/L (15-37); SGPT/ALT 65 U/L (12-78); SODIUM 139 mEq/L (136-145); THEOPHYLLINE 6.2 ug/ml (10-20.0); Total Protein 6.6 gm/dL (6.4-8.2)
[2017-01-09] MEDS: PULMICORT 0.5 MG/2 ML RESPULES IH SCH ×2 (06:40→18:29)
[2017-01-09] MEDS: Advair Hfa 230/21 Mcg COMMON CANISTER IH SCH ×2 (07:43→18:31)
[2017-01-09 07:51] LABS: ANISOCYTOSIS 1+; Platelet Estimate NORMAL (NORMAL); Poikilocytosis 1+; Total Cells Counted 100
[2017-01-09] MEDS: Glucophage 500 MG PO SCH ×2 (08:28→16:55)
[2017-01-09] MEDS: Lopressor 25MG Tab PO SCH ×2 (08:29→21:07)
[2017-01-09] MEDS: NovoLOG Insulin SQ PRN ×4 (08:29→21:09)
[2017-01-09] MEDS: Cozaar 50 MG PO SCH (08:29)
[2017-01-09] MEDS: Protonix 40MG Tablet PO SCH ×2 (08:30→21:07)
[2017-01-09] MEDS: THEO-DUR 200 MG PO SCH ×2 (08:30→21:08)
[2017-01-09] MEDS: Cardizem CD 240 MG PO SCH (08:30)
[2017-01-09] MEDS: ceLEXa 20 MG PO SCH ×2 (08:30→21:07)
[2017-01-09] MEDS: Flomax 0.4 MG PO SCH (08:30)
[2017-01-09] MEDS: Neurontin 400 MG PO SCH ×3 (08:30→21:07)
[2017-01-09] MEDS: Levofloxacin 500MG/100ML D5W 100 ML IV SCH (08:31)
[2017-01-09] MEDS ORDERED: THEODUR PO SCH (10:00)
[2017-01-09] MEDS: Coumadin 5 MG PO SCH (16:55)
--- NOTE | 2017-01-09 18:09 | PCM.NOTE ---
Date and Time: 01/09/171806 Subjective Assessment: slept better last night with Bi-PAP. doing better - Review of Systems Constitutional: No Fever, No Chills Eyes: No Symptoms Ears, Nose, & Throat: No Symptoms Respiratory: Orthopnea, Short Of Breath, Wheezing, No Cough Cardiac: No Chest Pain, No Edema, No Syncope Abdominal/Gastrointestinal: No Abdominal Pain, No Nausea, No Vomiting, No Diarrhea Genitourinary Symptoms: No Dysuria Musculoskeletal: No Back Pain, No Neck Pain Skin: No Rash Neurological: No Dizziness, No Focal Weakness, No Sensory Changes Psychological: No Symptoms Endocrine: No Symptoms Hematologic/Lymphatic: No Symptoms Immunological/Allergic: No Symptoms Objective Exam General Appearance: no apparent distress, alert Neurologic Exam: alert, oriented x 3, cooperative, normal mood/affect, nml cerebellar function, sensation nml, No motor deficits Skin Exam: normal color, warm, dry Eye Exam: PERRL, EOMI, eyes nml inspection Ears, Nose, Throat Exam: normal ENT inspection, pharynx normal, moist mucous membranes Neck Exam: normal inspection, non-tender, supple, full range of motion Respiratory Exam: diminished breath sounds, rhonchi, wheezing, No respiratory distress Cardiovascular Exam: regular rate/rhythm, normal heart sounds Gastrointestinal/Abdomen Exam: soft, No tenderness, No mass Extremity Exam: normal inspection, normal range of motion Back Exam: normal inspection, normal range of motion, No CVA tenderness, No vertebral tenderness Male Genitalia Exam: deferred Rectal Exam: deferred OBJECTIVE DATA Vital Signs: Vital Signs - 24 hr Temp Pulse Resp BP Pulse Ox 01/09/17 16:00 98.3 F 98 H 18 134/84 89 L 01/09/17 14:40 101 H 20 90 L 01/09/17 14:38 18 01/09/17 14:30 98.4 F 01/09/17 12:00 18 01/09/17 11:27 101 H 18 132/83 95 01/09/17 10:48 90 20 93 L 01/09/17 10:47 93 L 01/09/17 07:59 18 01/09/17 07:22 98.4 F 102 H 18 135/77 98 01/09/17 07:00 90 20 98 01/09/17 04:00 16 01/09/17 03:56 98.2 F 95 H 22 128/81 94 L 01/09/17 03:16 83 20 96 01/09/17 00:00 16 01/08/17 23:47 98.1 F 94 H 16 123/77 96 01/08/17 23:08 92 H 16 98 01/08/17 20:00 15 01/08/17 19:52 98.6 F 99 H 15 143/76 95 01/08/17 18:25 110 H 20 86 L Oxygen-Last 24 hours O2 Percentage 4 Liters = 36% Pain Assessment - Last Documented Pain Intensity 3 Pain Scale Used 0-10 Pain Scale Intake and Output: Intake & Output 01/07/17 01/08/17 01/09/17 01/10/17 11:59 11:59 11:59 11:59 Intake Total 1490 2320 2344 1260 Output Total 2525 2400 Balance -1035 -80 2344 1260 Weight 116.755 kg Lab Results: Accuchecks Date 01/09/17 Date 01/09/17 Date 01/09/17 Date 01/08/17 Time 16:30 Time 11:30 Time 07:30 Time 22:00 Accucheck Value: 263 Accucheck Value: 287 Accucheck Value: 287 Accucheck Value: 285 Lab Results-Last 24 Hours 01/09/17 01/09/17 01/09/17 Range/Units 05:46 05:46 05:46 WBC 9.5 (4.0-10.5) K/mm3 RBC 3.94 L (4.1-5.6) M/mm3 Hgb 11.0 L (12.5-18.0) gm/dl Hct 38.4 L (42-50) % MCV 97.5 (78-100) fl MCH 27.9 (26-32) pg MCHC 28.6 L (32-36) g/dl RDW 15.5 H (11.5-14.0) % Plt Count 225 (150-450) K/mm3 MPV 8.8 (6-9.5) fl Segmented Neutrophils 93 H (36.-66.) % Lymphocytes (Manual) 7 L (24-44) % Platelet Estimate NORMAL (NORMAL) Poikilocytosis 1+ Anisocytosis 1+ INR 2.26 (0.8-3.0) Sodium 139 (136-145) mEq/L Potassium 5.3 H (3.5-5.1) mEq/L Chloride 98 (98-107) mEq/L Carbon Dioxide 39.1 H (21-32) mEq/L Anion Gap 7.6 (5-15) MEQ/L BUN 24 H (9-20) mg/dL Creatinine 0.87 (0.55-1.30) mg/dl Estimated GFR > 60 ML/MIN Glucose 291 H (70-110) MG/DL Calcium 8.0 L (8.5-10.1) mg/dL Magnesium 2.1 (1.8-2.4) mg/dL Total Bilirubin 0.3 (0.2-1.0) mg/dL AST 26 (15-37) U/L ALT 65 (12-78) U/L Alkaline Phosphatase 72 (46-116) U/L Serum Total Protein 6.6 (6.4-8.2) gm/dL Albumin 3.5 (3.4-5.0) g/dL Theophylline 6.2 L (10-20.0) ug/ml Assessment/Plan (1) COPD exacerbation Current Visit: Yes Status: Acute Assessment & Plan: doing better on theophylline, solumedrol, duoneb neb treatment, continue abx Code(s): J44.1 - CHRONIC OBSTRUCTIVE PULMONARY DISEASE W (ACUTE) EXACERBATION (2) Atelectasis of both lungs Current Visit: Yes Status: Chronic Code(s): J98.11 - ATELECTASIS
[2017-01-09] MEDS: REMERON 30 MG PO SCH (21:07)
[2017-01-10] MEDS: MORPHINE SULFATE 2 MG INJ IV PRN ×2 (02:22→07:04)
[2017-01-10] MEDS: DUONEB 0.5-3 MG/3 ml Neb IH SCH ×4 (02:34→14:08)
[2017-01-10] MEDS: solu-MEDROL 125 MG IV SCH (05:39)
[2017-01-10] MEDS: Norco 10/325 MG Tablet PO PRN (05:51)
[2017-01-10] MEDS: Advair Hfa 230/21 Mcg COMMON CANISTER IH SCH (07:04)
[2017-01-10] MEDS: Levofloxacin 500MG/100ML D5W 100 ML IV SCH (08:27)
[2017-01-10] MEDS: Flomax 0.4 MG PO SCH (08:28)
[2017-01-10] MEDS: Glucophage 500 MG PO SCH (08:28)
[2017-01-10] MEDS: ceLEXa 20 MG PO SCH (08:28)
[2017-01-10] MEDS: Lopressor 25MG Tab PO SCH (08:28)
[2017-01-10] MEDS: Cardizem CD 240 MG PO SCH (08:28)
[2017-01-10] MEDS: Cozaar 50 MG PO SCH (08:28)
[2017-01-10] MEDS: Protonix 40MG Tablet PO SCH (08:28)
[2017-01-10] MEDS: Neurontin 400 MG PO SCH ×2 (08:28→14:38)
[2017-01-10] MEDS: THEO-DUR 200 MG PO SCH (08:28)
[2017-01-10] MEDS: NovoLOG Insulin SQ PRN ×2 (08:29→11:47)
[2017-01-10 11:33] VITALS: BP 112/67
[2017-01-10] MEDS ORDERED: solu-MEDROL 40 MG IV SCH (12:00)
--- NOTE | 2017-01-10 12:35 | PCM.DS ---
Discharge Summary Date of Admission: 01/05/17 05:25 Admitting Physician: GEE FERNANDES Primary Care Provider: GEE FERNANDES Allergies Allergies No Known Drug Allergies Allergy (Verified 01/05/17 01:47) Hospital Summary - Hospital Course Hospital Course: patient is still very short of breath and his O2 saturation drops to 80 % . Patient is on BIPAP for last 48 hours and not showing any signs of improvement, will transfer him to [facility] for further pulmonary assistance. - Vitals & Intake/Output Vital Signs: Vital Signs Temperature 98.0 F 01/10/17 11:32 Pulse Rate 105 H 01/10/17 11:32 Respiratory Rate 18 01/10/17 11:32 Blood Pressure 112/67 01/10/17 11:32 O2 Sat by Pulse Oximetry 91 L 01/10/17 11:32 Oxygen-Last Documented O2 Percentage 100% Intake & Output: Intake & Output 01/08/17 01/09/17 01/10/17 01/11/17 11:59 11:59 11:59 11:59 Intake Total 2320 2344 3388 Output Total 2400 Balance -80 2344 3388 - Lab Result Diagrams: 01/09/17 05:46 01/09/17 05:46 Lab Results-Last 24 Hrs: Accuchecks Date 01/10/17 Date 01/09/17 Date 01/09/17 Time 07:30 Time 16:30 Accucheck Value: 267 Accucheck Value: 328 Accucheck Value: 263 Lab Results-Last 24 Hours 01/10/17 Range/Units 05:15 Theophylline 12.7 (10-20.0) ug/ml Micro Results-Entire Visit: Accuchecks Date 01/10/17 Date 01/09/17 Date 01/09/17 Time 07:30 Time 16:30 Accucheck Value: 267 Accucheck Value: 328 Accucheck Value: 263 - Procedures and Test Procedures and Tests throughout Hospitalization: Therapy Orders & Screens 01/05/17 05:46 Respiratory Nebulizer Comment: ALBUTEROL Q2PRN FOR SOB/WHEEZING Diagnosis: Shortness of Breath 01/05/17 05:47 Respiratory Therapy Consult ROUTINE Comment: Reason For Exam: Diagnosis: Shortness of Breath 01/05/17 07:00 Respiratory MDI BID Comment: ADVAIR 230/21 2 PUFFS BID Diagnosis: Shortness of Breath Respiratory Nebulizer Q4H Comment: DUONEB Q4 HOURS Diagnosis: Shortness of Breath 01/07/17 23:00 BiPap/CPAP Assessment ROUTINE Comment: Diagnosis: Shortness of Breath for 2-3 days Discharge Exam General Appearance: no apparent distress, alert Neurologic Exam: alert, oriented x 3, cooperative, normal mood/affect, nml cerebellar function, sensation nml, No motor deficits Skin Exam: normal color, warm, dry Eye Exam: PERRL, EOMI, eyes nml inspection Ears, Nose, Throat Exam: normal ENT inspection, pharynx normal, moist mucous membranes Neck Exam: normal inspection, non-tender, supple, full range of motion Respiratory Exam: respiratory distress, diminished breath sounds, prolonged expirations, crackles/rales, rhonchi Cardiovascular Exam: regular rate/rhythm, normal heart sounds Gastrointestinal/Abdomen Exam: soft, No tenderness, No mass Extremity Exam: normal inspection, normal range of motion Back Exam: normal inspection, normal range of motion, No CVA tenderness, No vertebral tenderness Male Genitalia Exam: deferred Rectal Exam: deferred Final Diagnosis/Problem List - Final Discharge Diagnosis/Problem (1) Chronic respiratory failure Current Visit: Yes Status: Acute Assessment & Plan: patient is still very short of breath and his O2 saturation drops to 80 % . Patient is on BIPAP for last 48 hours and not showing any signs of improvement, will transfer him to [facility] for further pulmonary assistance. (2) COPD exacerbation Current Visit: Yes Status: Acute (3) Atelectasis of both lungs Current Visit: Yes Status: Chronic - Discharge Discharge Date: 01/10/17 [facility]position[facility] Condition: Stable Prescriptions: No Action Gabapentin 400 mg [Neurontin 400 MG] 400 mg PO TID Diltiazem HCl [Diltiazem ER] 240 mg PO DAILY Losartan Potassium 50 mg [Cozaar 50 MG] 50 mg PO DAILY Warfarin Sodium 5 mg [Coumadin 5 MG] 5 mg PO UD Albuterol/Ipratropium 3ml Neb* [DUONEB 0.5-3 MG/3 ml Neb] 3 ml IH QIDPRN Citalopram Hydrobromide [ceLEXa] 20 mg PO BID Hydrocodone/APAP 10/325 mg [Allyn 10/325 MG Tablet] 1 tab PO Q4-6HPRN PRN PRN Reason: Pain Omeprazole 20 MG [Prilosec 20 mg] 20 mg PO BID Albuterol Common Canister [Proventil Common Canister] 2 puff IH BID Sennosides/Docusate Sodium [Stool Soft-Stimulant Lax Tab] 1 each PO DAILY PRN PRN PRN Reason: Constipation Tamsulosin HCl 0.4 mg [Flomax 0.4 MG] 1 tab PO DAILY Metformin HCl 500 mg [Glucophage 500 MG] 500 mg PO BID Metoprolol Tartrate 50 mg [Lopressor 50 MG] 25 mg PO BID Mirtazapine 15 mg PO HS Instructions: Chronic Obstructive Pulmonary Disease Follow up with: GEE FERNANDES MD [Primary Care Provider] -
[2017-01-10 14:12] VITALS: PULSE 115; O2SAT 90
[2017-01-10] MEDS ORDERED: MORPHINE SULFATE 2 MG INJ IV ONE (14:15)
== END 2017-01-10 15:00 | disposition short-term general hospital (02) | DRG 189 ==
LOC: ED 01:29 → MED SURG 05:24 → UNDOADMOB 05:24 → OBSVTOIN 05:25 → MED SURG 05:25
PROVIDERS: ADMIT General Practice; ATTEND General Practice
DX: J96.10 Chronic respiratory failure, unspecified whether with hypoxia or hypercapnia (principal); J44.1 Chronic obstructive pulmonary disease with (acute) exacerbation; J98.11 Atelectasis; Z79.899 Other long term (current) drug therapy; I10 Essential (primary) hypertension; E11.9 Type 2 diabetes mellitus without complications; Z79.4 Long term (current) use of insulin; N42.9 Disorder of prostate, unspecified; Z79.01 Long term (current) use of anticoagulants; Z86.73 Personal history of transient ischemic attack (TIA), and cerebral infarction without residual deficits; I25.2 Old myocardial infarction; J45.909 Unspecified asthma, uncomplicated; F41.8 Other specified anxiety disorders; M19.90 Unspecified osteoarthritis, unspecified site; K21.9 Gastro-esophageal reflux disease without esophagitis
CPT/HCPCS: 36000; 36415; 36600; 71010; 74000; 80048; 80053; 80198; 81000; 82375; 82803; 82962; 83036; 83605; 83690; 83735; 83880; 84484; 85025; 85027; 85610; 93005; 93041; 94002; 94003; 94640; 94762; 96374; 99285; J0280; J1956; J2270; J2920; J2930; A9270-GY

== ENCOUNTER 2017-04-18 14:53 | Inpatient (IN) | payer MEDICARE ==
[2017-04-18] MEDS ORDERED: PROVENTIL 2.5 MG/3 ML NEB IH ONE ×2 (14:56→14:57)
[2017-04-18 15:06] LABS: A-aADO2 471; ALLEN TEST OK? YES; ARTERIAL BLD GAS O2 SATURATION 97.6 % (95-100); ARTERIAL BLOOD GAS BASE EXCESS 12.5 (-2.0-2.0); ARTERIAL BLOOD GAS FIO2 100 %; ARTERIAL BLOOD GAS PO2 112 mmHg (75-100); ARTERIAL BLOOD GAS pH 7.23 (7.35-7.45); BIPAP(E) 6; BIPAP(I) 12; Lactic Acid 0.7 (0.4-2.0)
--- NOTE | 2017-04-18 15:12 | ERPHSYRPT ---
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 PT NORMALLY HAS HOME O2. Triage Nursing Assessment: PT PALE, WARM, DRY. CRACKLES AND DIMINISHED LUNG SOUNDS NOTED. PT ALERT AND ORIENTED X3. Physician History: CC: short of air Hx: 56 y/o patient of dr Chao. He has hx of COPD, CHF, DM. He has 2 days increased shortness of breath. No fever. Some cough. No chest pain. Feels this is COPD. He has frequent COPD exac. Timing/Duration: day(s) (2) Severity of Dyspnea-Max: severe Severity of Dyspnea-Current: moderate Allergies/Adverse Reactions: No Known Drug Allergies Allergy (Verified 04/18/17 15:00) Home Medications: Warfarin Sodium 5 mg [Coumadin 5 MG] 5 mg PO UD 05/14/14 [History] Sennosides/Docusate Sodium [Stool Soft-Stimulant Lax Tab] 1 each PO DAILY PRN PRN 11/18/14 [History] Metformin HCl 500 mg [Glucophage 500 MG] 500 mg PO BID 09/13/15 [History] Metoprolol Tartrate 50 mg [Lopressor 50 MG] 25 mg PO BID 01/17/16 [History ] Mirtazapine 15 mg PO HS 01/05/17 [History] Albuterol Sulfate [Proair Hfa] 8.5 gm IH BID 04/18/17 [History] Albuterol Sulfate [Ventolin Hfa] 18 gm IH BID 04/18/17 [History] Buspirone HCl 5 mg [Buspar 5 mg] 5 mg PO DAILY 04/18/17 [History] Citalopram Hydrobromide [Citalopram HBr] 20 mg PO BID 04/18/17 [History] Tamsulosin HCl 0.4 mg [Flomax 0.4 MG] 0.4 mg PO HS 04/18/17 [History] Theophylline Anhydrous 300 mg PO BID 04/18/17 [History] Hx Tetanus, Diphtheria Vaccination/Date Given: Yes (UP TO DATE) Hx Influenza Vaccination/Date Given: Yes Hx Pneumococcal Vaccination/Date Given: Yes Immunizations Up to Date: Yes - Review of Systems Constitutional: Fatigue, Malaise, Weakness, No Fever, No Chills Eyes: No Symptoms Ears, Nose, & Throat: No Symptoms Respiratory: Dyspnea, No Cough Cardiac: No Chest Pain Abdominal/Gastrointestinal: No Abdominal Pain, No Nausea, No Vomiting Neurological: No Focal Weakness, No Parasthesia All Other Systems: Reviewed and Negative - Past Medical History Pertinent Past Medical History: Yes Neurological History: Stroke ENT History: No Pertinent History Cardiac History: Arrhythmia, Hypertension, Myocardial Infarction (HI) Respiratory History: Asthma, Bronchitis, COPD, Pneumonia Endocrine Medical History: Adrenal Insufficiency, Diabetes Type II Musculoskeletal History: Arthritis GI Medical History: GERD, GI Bleed History: No Pertinent History Psycho-Social History: Anxiety, Bipolar, Depression, Panic Disorder Male Reproductive Disorders: No Pertinent History Other Medical History: Strokes in 2013, 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 Ponce. - Past Surgical History Past Surgical History: Yes Neuro Surgical History: No Pertinent History Cardiac: No Pertinent History Respiratory: No Pertinent History Gastrointestinal: Appendectomy, Hernia Repair Genitourinary: No Pertinent History Musculoskeletal: No Pertinent History Male Surgical History: No Pertinent History Other Surgical History: Right leg surgery, Sinus surgery - Social History Smoking Status: Former smoker Exposure to second hand smoke: No Drug Use: none Patient Lives Alone: No - Nursing Vital Signs Nursing Vital Signs: Initial Vital Signs Temperature 97.9 F Temperature Source Oral Pulse Rate 114 Respiratory Rate 18 Blood Pressure [Right Arm] 138/83 Pain Intensity 0 - Physical Exam General Appearance: alert Eye Exam: PERRL/EOMI Respiratory Exam: respiratory distress (mild), wheezing Cardiovascular/Chest Exam: regular rate/rhythm Abdominal/Gastrointestinal Exam: soft, No tenderness, No distention Extremity Exam: pedal edema Neurologic Exam: alert, cooperative, No motor deficits Skin Exam: warm, dry, No rash SpO2 Interpretation: hypoxic, ABG ordered, O2 applied SpO2: 76 Oxygen Delivery: Room Air - Course Nursing assessment & vital signs reviewed: Yes EKG Interpreted by Me: RATE (118), Sinus Tach, NORMAL AXIS, NORMAL INTERVALS ( QTc 425), Q-wave (inferior- old), Non-specific ST Changes - Radiology Exams cxr X-ray Interpretation: Discussed w/ radiologist (COPD, no pneumonia) Ordered Tests: Active Orders 24 hr Category Date Time 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 [employer]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 STAT Care 04/18/17 14:56 Active Clean Catch Urine Specimen STAT Care 04/18/17 14:56 Active EKG-ER Only STAT Care 04/18/17 14:56 Active IV Insertion STAT Care 04/18/17 14:56 Active CHEST 1 VIEW (PORTABLE) Stat Exams 04/18/17 14:56 Completed ARTERIAL BLOOD GASES Stat Lab 04/18/17 15:03 Completed BLOOD CULTURE Stat Lab 04/18/17 15:08 Received CBC W DIFF Stat Lab 04/18/17 15:05 Completed CMP Stat Lab 04/18/17 15:05 Completed Lactic Acid Stat Lab 04/18/17 15:03 Completed NT PRO BNP Stat Lab 04/18/17 15:05 Completed PROTIME WITH INR Stat Lab 04/18/17 15:05 Completed THEOPHYLLINE Stat Lab 04/18/17 15:05 Completed TROPONIN Stat Lab 04/18/17 15:05 Completed UA W/RFX UR CULTURE Stat Lab 04/18/17 14:56 Ordered BiPap/CPAP Assessment STAT RT 04/18/17 14:56 Active Respiratory Nebulizer STAT RT 04/18/17 14:57 Completed Medication Summary Discontinued Medications Generic Name Dose Route Start Last Admin Trade Name Freq PRN Reason Stop Dose Admin Albuterol Sulfate 2.5 mg 04/18/17 14:56 04/18/17 15:13 Proventil 2.5 Mg/3 Ml Neb IH 04/18/17 14:57 2.5 mg STAT ONE Administration Albuterol Sulfate Confirm 04/18/17 14:57 Proventil 2.5 Mg/3 Ml Neb Administered 04/18/17 14:58 Dose 2.5 mg IH .STK-MED ONE Lab/Rad Data: Laboratory Result Diagrams 04/18/17 15:05 04/18/17 15:05 Laboratory Results 04/18/17 04/18/17 04/18/17 Range/Units 15:05 15:05 15:05 WBC 9.8 (4.0-10.5) K/mm3 RBC 3.93 L (4.1-5.6) M/mm3 Hgb 10.9 L (12.5-18.0) gm/dl Hct 38.2 L (42-50) % MCV 97.2 (78-100) fl MCH 27.7 (26-32) pg MCHC 28.5 L (32-36) g/dl RDW 15.2 H (11.5-14.0) % Plt Count 242 (150-450) K/mm3 MPV 8.6 (6-9.5) fl Gran % 81.5 H (36.0-66.0) % Lymphocytes % 7.6 L (24.0-44.0) % Monocytes % 10.6 (0.0-12.0) % Eosinophils % 0.1 (0.00-5.0) % Basophils % 0.2 (0.0-0.4) % Basophils # 0.02 (0-0.4) INR 2.22 (0.8-3.0) Puncture Site pCO2 (35-45) mmHg pO2 (75-100) mmHg Base Excess (-2.0-2.0) O2 Saturation (94-100) g/dF ABG pH (7.35-7.45) ABG HCO3 (22-28) ABG O2 Sat (Measured) (95-100) % Keo Test A-a Gradient a/A Ratio Hemoglobin Carboxyhemoglobin (0.0-6.9) % THgb Methemoglobin (1.4-1.5) % Potassium 4.8 (3.5-5.1) Temperature C POC O2 Flow Rate % Vent Mode Inspiratory BiPAP Expiratory BiPAP Sodium 142 (136-145) mEq/L Chloride 97 L (98-107) mEq/L Carbon Dioxide 39.4 H (21-32) mEq/L Anion Gap 10.4 (5-15) MEQ/L BUN 8 L (9-20) mg/dL Creatinine 0.68 (0.55-1.30) mg/dl Estimated GFR > 60 ML/MIN Glucose 162 H (70-110) MG/DL Lactic Acid (0.4-2.0) Calcium 9.0 (8.5-10.1) mg/dL Total Bilirubin 0.20 (0.2-1.0) mg/dL AST 13 L (15-37) U/L ALT 18 (12-78) U/L Alkaline Phosphatase 101 (46-116) U/L Troponin I < 0.017 (0.000-0.056) ng/ml NT-Pro-B Natriuret Pep 206 H (0-125) pg/ml Serum Total Protein 7.7 (6.4-8.2) gm/dL Albumin 3.7 (3.4-5.0) g/dL Theophylline 4.2 L (10-20.0) ug/ml 04/18/17 Range/Units 15:03 WBC (4.0-10.5) K/mm3 RBC (4.1-5.6) M/mm3 Hgb (12.5-18.0) gm/dl Hct (42-50) % MCV (78-100) fl MCH (26-32) pg MCHC (32-36) g/dl RDW (11.5-14.0) % Plt Count (150-450) K/mm3 MPV (6-9.5) fl Gran % (36.0-66.0) % Lymphocytes % (24.0-44.0) % Monocytes % (0.0-12.0) % Eosinophils % (0.00-5.0) % Basophils % (0.0-0.4) % Basophils # (0-0.4) INR (0.8-3.0) Puncture Site RIGHT RADIAL pCO2 104 H* (35-45) mmHg pO2 112 H (75-100) mmHg Base Excess 12.5 H (-2.0-2.0) O2 Saturation 95.8 (94-100) g/dF ABG pH 7.23 L* (7.35-7.45) ABG HCO3 43.6 H* (22-28) ABG O2 Sat (Measured) 97.6 (95-100) % Keo Test YES A-a Gradient 471 a/A Ratio 0.19 Hemoglobin 11.2 Carboxyhemoglobin 1.1 (0.0-6.9) % THgb Methemoglobin 0.8 L (1.4-1.5) % Potassium 4.4 (3.5-5.1) Temperature 37.0 C POC O2 Flow Rate 100 % Vent Mode BiPAP Inspiratory BiPAP 12 Expiratory BiPAP 6 Sodium (136-145) mEq/L Chloride (98-107) mEq/L Carbon Dioxide (21-32) mEq/L Anion Gap (5-15) MEQ/L BUN (9-20) mg/dL Creatinine (0.55-1.30) mg/dl Estimated GFR ML/MIN Glucose (70-110) MG/DL Lactic Acid 0.7 (0.4-2.0) Calcium (8.5-10.1) mg/dL Total Bilirubin (0.2-1.0) mg/dL AST (15-37) U/L ALT (12-78) U/L Alkaline Phosphatase (46-116) U/L Troponin I (0.000-0.056) ng/ml NT-Pro-B Natriuret Pep (0-125) pg/ml Serum Total Protein (6.4-8.2) gm/dL Albumin (3.4-5.0) g/dL Theophylline (10-20.0) ug/ml - Progress Progress Note: 04/18/17 16:46 Repeat ABG pending. Bipap in place. Called Dr Chao and will admit to IP ICU for bipap support, COPD treatment. Will see patient in: hospital (full admit) Counseled pt/family regarding: lab results, diagnosis, need for follow-up, rad results - Departure Time of Disposition: 16:47 Departure Disposition: In-patient Admission Clinical Impression: COPD exacerbation, Acute on chronic respiratory failure Condition: Fair Critical Care Time: Yes Critical Care Time(excluding separately billable procedures): 30-74 minutes
[2017-04-18 15:16] LABS: BASOPHIL % 0.2 % (0.0-0.4); Eosinophil % 0.1 % (0.00-5.0); Granulocytes % 81.5 % (36.0-66.0); Lymphocytes % 7.6 % (24.0-44.0); Mean Cell Volume 97.2 fl (78-100); Mean Corpuscular Hemoglobin 27.7 pg (26-32); Mean Platelet Volume 8.6 fl (6-9.5); Monocytes % 10.6 % (0.0-12.0); Platelet Count 242 K/mm3 (150-450); Red Blood Count 3.93 M/mm3 (4.1-5.6); Red Cell Distribution Width 15.2 % (11.5-14.0); White Blood Count 9.8 K/mm3 (4.0-10.5)
--- NOTE | 2017-04-18 15:21 | XRAY ---
Indication: Short of breath. Comparison: January 05, 2017. Portable chest less inflated today but unchanged again demonstrating calcified granulomas and bibasilar infiltrates/atelectasis. Heart not enlarged for AP portable technique. No new abnormalities.
[2017-04-18 15:31] LABS: INR 2.22 (0.8-3.0); PROTIME 25.3 SECONDS (8.83-12.87)
[2017-04-18 15:38] LABS: ALBUMIN 3.7 g/dL (3.4-5.0); ALKALINE PHOSPHATASE 101 U/L (46-116); ANION GAP 10.4 MEQ/L (5-15); BLOOD UREA NITROGEN 8 mg/dL (9-20); CHLORIDE 97 mEq/L (98-107); Carbon Dioxide 39.4 mEq/L (21-32); Glucose 162 MG/DL (70-110); Potassium 4.8 mEq/L (3.5-5.1); SGOT/AST 13 U/L (15-37); SGPT/ALT 18 U/L (12-78); SODIUM 142 mEq/L (136-145); THEOPHYLLINE 4.2 ug/ml (10-20.0); Total Protein 7.7 gm/dL (6.4-8.2)
[2017-04-18 15:39] LABS: TROPONIN < 0.017 ng/ml (0.000-0.056)
[2017-04-18] MEDS ORDERED: ROCEPHIN 1 Gm-D5w 50 ml Bag** 1 G/50 ML IVPB IV STA (16:47)
[2017-04-18] MEDS ORDERED: Zithromax 500 MG/ 250 ML NaCl Premix 500 MG/250 ML IVPB IV STA (16:47)
[2017-04-18] MEDS ORDERED: ROCEPHIN 1 Gm-D5w 50 ml Bag** 1 G/50 ML IVPB IV ONE (16:49)
[2017-04-18 16:51] LABS: A-aADO2 506; ARTERIAL BLD GAS O2 SATURATION 93.4 % (95-100); ARTERIAL BLOOD GAS BASE EXCESS 12.8 (-2.0-2.0); ARTERIAL BLOOD GAS FIO2 100 %; ARTERIAL BLOOD GAS PO2 67 mmHg (75-100); BIPAP(E) 6; BIPAP(I) 14
[2017-04-18 16:52] LABS: ALLEN TEST OK? YES; ARTERIAL BLOOD GAS pH 7.21 (7.35-7.45)
[2017-04-18] MEDS: solu-MEDROL 125 MG IV SCH ×2 (18:26→23:57)
[2017-04-18] MEDS: DUONEB 0.5-3 MG/3 ml Neb IH SCH ×2 (19:05→23:56)
[2017-04-18] MEDS: Advair Hfa 230/21 Mcg COMMON CANISTER IH SCH (19:05)
[2017-04-18] MEDS: TYLENOL 325 MG PO PRN (20:25)
[2017-04-18 20:36] LABS: Bilirubin NEGATIVE (NEGATIVE); Collection Type CLEAN CATCH; Glucose NEGATIVE (NEGATIVE); Leukocyte Esterase NEGATIVE (NEGATIVE)
[2017-04-18 20:37] LABS: ADD URINE CULTURE? YES (NO); Bacteria FEW /HPF (NEGATIVE); Blood TRACE NON-HEM Ery/ul (0-5); COMPLETE URINE MICROSCOPIC? YES; Epithelial Cells RARE /HPF (FEW); Mucus SLIGHT /HPF (NEGATIVE); WBC 0-2 /HPF (0-5)
[2017-04-18] MEDS ORDERED: Lopressor 50 MG ONE (20:54)
[2017-04-18] MEDS: Flomax 0.4 MG PO SCH (20:58)
[2017-04-18] MEDS: ceLEXa 20 MG PO SCH (20:59)
[2017-04-18] MEDS: Pepcid 20 MG VIAL IV SCH (21:00)
[2017-04-18] MEDS: THEODUR PO SCH ×2 (21:14→22:55)
[2017-04-18] MEDS ORDERED: Lopressor 50 MG PO SCH (22:00)
[2017-04-18] MEDS ORDERED: BUSPAR 5 MG PO ONE (22:00)
[2017-04-18] MEDS: REMERON 30 MG PO SCH (22:52)
[2017-04-18] MEDS: NEURONTIN 300 MG PO SCH (22:52)
[2017-04-19] MEDS: NovoLOG Insulin SQ PRN ×3 (01:40→21:49)
[2017-04-19] MEDS: DUONEB 0.5-3 MG/3 ml Neb IH SCH ×6 (03:50→22:51)
[2017-04-19] MEDS: solu-MEDROL 125 MG IV SCH ×4 (05:47→23:29)
[2017-04-19 05:56] LABS: A-aADO2 470; ARTERIAL BLD GAS O2 SATURATION 98.1 % (95-100); ARTERIAL BLOOD GAS FIO2 100 %; ARTERIAL BLOOD GAS PO2 127 mmHg (75-100); ARTERIAL BLOOD GAS pH 7.31 (7.35-7.45)
[2017-04-19 05:57] LABS: ALLEN TEST OK? YES
[2017-04-19] MEDS ORDERED: DUONEB 0.5-3 MG/3 ml Neb IH ONE (06:59)
[2017-04-19] MEDS ORDERED: Senokot-S Tablet PO PRN (07:25)
[2017-04-19] MEDS ORDERED: TAPENTADOL HCL 100 MG PO PRN (07:25)
[2017-04-19] MEDS: Advair Hfa 230/21 Mcg COMMON CANISTER IH SCH ×2 (07:31→19:05)
[2017-04-19] MEDS ORDERED: MEDICATION INTERVENTION MC PRN (07:38)
[2017-04-19] MEDS: Glucophage 500 MG PO SCH ×2 (07:39→16:04)
[2017-04-19] MEDS: BUSPAR 5 MG PO SCH (09:10)
[2017-04-19] MEDS: Pepcid 20 MG VIAL IV SCH ×2 (09:10→21:07)
[2017-04-19] MEDS: Lopressor 25MG Tab PO SCH ×2 (09:10→21:08)
[2017-04-19] MEDS: ceLEXa 20 MG PO SCH ×2 (09:10→21:07)
[2017-04-19] MEDS: Cardizem CD 240 MG PO SCH (09:10)
[2017-04-19] MEDS: PATIENT OWN MEDICATION PO SCH ×2 (09:10→21:08)
[2017-04-19] MEDS: NEURONTIN 300 MG PO SCH ×3 (09:10→21:07)
[2017-04-19] MEDS: TYLENOL 325 MG PO PRN (09:11)
[2017-04-19] MEDS: Zithromax 500 MG/ 250 ML NaCl Premix 500 MG/250 ML IVPB IV SCH (09:11)
[2017-04-19] MEDS: ROCEPHIN 1 Gm-D5w 50 ml Bag** 1 G/50 ML IVPB IV SCH (09:17)
[2017-04-19] MEDS ORDERED: Ventolin Hfa MDI IH SCH (10:00)
[2017-04-19] MEDS ORDERED: THEODUR PO SCH (10:00)
[2017-04-19] MEDS ORDERED: DILTIAZEM HCL 240 MG PO SCH (10:00)
[2017-04-19] MEDS: PATIENT OWN MEDICATION PO PRN ×3 (12:30→22:23)
--- NOTE | 2017-04-19 12:38 | PCM.HP ---
History of Present Illness - Chief Complaint Chief Complaint: Shortness of Breath for 2-3 days History of Present Illness: is a 56 year old male. has hx of COPD, CHF, DM. He has 2 days increased shortness of breath. No fever. Some cough. No chest pain. Feels this is COPD. He has frequent COPD exac. Timing/Duration: day(s) (2) Severity of Dyspnea-Max: severe Severity of Dyspnea-Current: moderate - Review of Systems Constitutional: No Fever, No Chills Eyes: No Symptoms Ears, Nose, & Throat: No Symptoms Respiratory: Cough, Orthopnea, Short Of Breath, Wheezing Cardiac: No Chest Pain, No Edema, No Syncope Abdominal/Gastrointestinal: No Abdominal Pain, No Nausea, No Vomiting, No Diarrhea Genitourinary Symptoms: No Dysuria Musculoskeletal: No Back Pain, No Neck Pain Skin: No Rash Neurological: No Dizziness, No Focal Weakness, No Sensory Changes Psychological: No Symptoms Endocrine: No Symptoms Hematologic/Lymphatic: No Symptoms Immunological/Allergic: No Symptoms Medications & Allergies Home Medications: Home Medication List Warfarin Sodium 5 mg [Coumadin 5 MG] 5 mg PO UD 05/14/14 [History Confirmed 04/18/17] Sennosides/Docusate Sodium [Stool Soft-Stimulant Lax Tab] 1 each PO DAILY PRN PRN 11/18/14 [History Confirmed 04/18/17] Metformin HCl 500 mg [Glucophage 500 MG] 500 mg PO BID 09/13/15 [History Confirmed 04/18/17] Metoprolol Tartrate 50 mg [Lopressor 50 MG] 25 mg PO BID 01/17/16 [ History Confirmed 04/18/17] Mirtazapine 15 mg PO HS 01/05/17 [History Confirmed 04/18/17] Albuterol Sulfate [Proair Hfa] 8.5 gm IH BID 04/18/17 [History Confirmed ] Albuterol Sulfate [Ventolin Hfa] 18 gm IH BID 04/18/17 [History Confirmed ] Buspirone HCl 5 mg [Buspar 5 mg] 5 mg PO DAILY 04/18/17 [History Confirmed 04/18/17] Citalopram Hydrobromide [Citalopram HBr] 20 mg PO BID 04/18/17 [History Confirmed 04/18/17] Diltiazem HCl [Dilt-Xr] 240 mg PO DAILY 04/18/17 [History Confirmed 04/19/17] Gabapentin [Neurontin] 600 mg PO TID 04/18/17 [History Confirmed 04/18/17] Tamsulosin HCl 0.4 mg [Flomax 0.4 MG] 0.4 mg PO HS 04/18/17 [History Confirmed 04/18/17] Tapentadol HCl [Nucynta] 100 mg PO QIDPRN PRN 04/18/17 [History Confirmed ] Theophylline Anhydrous 300 mg PO BID 04/18/17 [History Confirmed 04/18/17] Allergies/Adverse Reactions: Allergies Allergy/AdvReac Type Severity Reaction Status Date / Time No Known Drug Allergies Allergy Verified 04/18/17 15:00 - Past Medical History Past Medical History: Yes Neurological History: Stroke ENT History: No Pertinent History Cardiac History: Arrhythmia, Hypertension, Myocardial Infarction ([place]) Respiratory History: Asthma, Bronchitis, COPD, Pneumonia Endocrine Medical History: Adrenal Insufficiency, Diabetes Type II Musculoskelatal History: Arthritis GI Medical History: GERD, GI Bleed History: No Pertinent History Pyscho-Social History: Anxiety, Bipolar, Depression, Panic Disorder Male Reproductive Disorders: No Pertinent History Comment: Strokes in 2013, 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 Ponce. - Past Surgical History Past Surgical History: Yes Neuro Surgical History: No Pertinent History Cardiac History: No Pertinent History Respiratory Surgery: No Pertinent History GI Surgical History: Appendectomy, Hernia Repair Genitourinary Surgical Hx: No Pertinent History Musculskeletal Surgical Hx: No Pertinent History Male Surgical History: No Pertinent History Other Surgical History: Right leg surgery, Sinus surgery - Social History Smoking Status: Former smoker Exposure to second hand smoke: No Alcohol: None Drug Use: none - Physical Exam Vital Signs: Vital Signs - 24 hr Temp Pulse Resp BP Pulse Ox 04/19/17 12:00 98 F 93 H 22 120/77 92 L 04/19/17 11:00 95 H 24 97 04/19/17 09:27 110 H 19 114/72 98 04/19/17 07:35 103 H 04/19/17 07:34 98.4 F 103 H 18 127/80 96 04/19/17 07:00 104 H 24 97 04/19/17 05:59 96.9 F 100 H 24 128/86 97 04/19/17 04:00 96.8 F 101 H 18 128/80 98 04/19/17 03:50 101 H 19 98 04/19/17 01:55 97 H 22 125/81 96 04/19/17 00:01 95 H 04/19/17 00:00 98.7 F 92 H 24 113/82 97 04/18/17 23:57 97 H 23 98 04/18/17 22:00 100.1 F 97 H 22 135/88 94 L 04/18/17 20:00 100.1 F 114 H 24 133/88 94 L 04/18/17 19:05 120 H 18 95 04/18/17 17:58 112 H 20 96 04/18/17 17:53 97.3 F 113 H 22 149/92 96 04/18/17 17:38 113 H 16 146/91 04/18/17 16:47 76 L 04/18/17 16:45 114 H 18 146/79 04/18/17 15:49 114 H 18 138/83 04/18/17 15:29 120 H 18 97 04/18/17 14:54 97.9 F 116 H 28 H 118/78 76 L Oxygen-Last 24 hours O2 Percentage 50% O2 Percentage 100% O2 Percentage 100% O2 Percentage 100% O2 Percentage 100% O2 Percentage 100% O2 Percentage 100% O2 Percentage 100% O2 Percentage 100% O2 Percentage 100% General Appearance: no apparent distress, alert Neurologic Exam: alert, oriented x 3, cooperative, normal mood/affect, nml cerebellar function, nml station & gait, sensation nml, No motor deficits Eye Exam: PERRL/EOMI, eyes nml inspection Ears, Nose, Throat Exam: normal ENT inspection, TMs normal, pharynx normal, moist mucous membranes Neck Exam: normal inspection, non-tender, supple, full range of motion Respiratory Exam: crackles/rales, rhonchi, wheezing, No respiratory distress Cardiovascular Exam: regular rate/rhythm, normal heart sounds, normal peripheral pulses Gastrointestinal/Abdomen Exam: soft, normal bowel sounds, No tenderness, No mass Back Exam: normal inspection, normal range of motion, No CVA tenderness, No vertebral tenderness Extremity Exam: normal inspection, normal range of motion, pelvis stable Skin Exam: normal color, warm, dry, No rash Lymphatic Exam: No adenopathy Results - Labs Lab/Micro Results: Accuchecks Date 04/19/17 Date 04/19/17 Date 04/18/17 Time 07:35 Time 01:44 Time 20:06 Accucheck Value: 189 Accucheck Value: 202 Accucheck Value: 188 Lab Results-Last 24 Hours 04/19/17 Range/Units 06:00 Puncture Site LEFT RADIAL pCO2 93 H* (35-45) mmHg pO2 127 H* (75-100) mmHg Base Excess 17.0 H (-2.0-2.0) O2 Saturation 96.7 (94-100) g/dF ABG pH 7.31 L (7.35-7.45) ABG HCO3 46.8 H* (22-28) ABG O2 Sat (Measured) 98.1 (95-100) % Keo Test YES A-a Gradient 470 a/A Ratio 0.21 Hemoglobin 10.6 Carboxyhemoglobin 0.5 (0.0-6.9) % THgb Methemoglobin 0.9 L (1.4-1.5) % Potassium 4.3 (3.5-5.1) Temperature 37.0 C POC O2 Flow Rate 100 % Accuchecks Date 04/19/17 Date 04/19/17 Date 04/18/17 Time 07:35 Time 01:44 Time 20:06 Accucheck Value: 189 Accucheck Value: 202 Accucheck Value: 188 - Other Procedures and Tests Respiratory Therapy 04/18/17 19:00 Respiratory MDI Q12H Respiratory Nebulizer Q4H Assessment/Plan (1) Acute on chronic respiratory failure Current Visit: Yes Status: Acute Qualifiers: Respiratory failure complication: hypercapnia Qualified Code(s): J96.22 - Acute and chronic respiratory failure with hypercapnia Code(s): J96.20 - ACUTE AND CHR RESP FAILURE, UNSP W HYPOXIA OR HYPERCAPNIA (2) COPD exacerbation Current Visit: Yes Status: Acute Code(s): J44.1 - CHRONIC OBSTRUCTIVE PULMONARY DISEASE W (ACUTE) EXACERBATION (3) Chronic respiratory failure Current Visit: No Status: Acute Qualifiers: Respiratory failure complication: hypoxia and hypercapnia Qualified Code(s) : J96.11 - Chronic respiratory failure with hypoxia; J96.12 - Chronic respiratory failure with hypercapnia Code(s): J96.10 - CHRONIC RESPIRATORY FAILURE, UNSP W HYPOXIA OR HYPERCAPNIA
[2017-04-19] MEDS: Zofran 4 MG/2 ML VIAL IV PRN (14:01)
[2017-04-19] MEDS: Coumadin 5 MG PO SCH (17:02)
[2017-04-19] MEDS: Flomax 0.4 MG PO SCH (21:07)
[2017-04-19] MEDS: REMERON 30 MG PO SCH (21:09)
[2017-04-20] MEDS: TYLENOL 325 MG PO PRN ×3 (00:35→20:02)
[2017-04-20] MEDS: DUONEB 0.5-3 MG/3 ml Neb IH SCH ×6 (03:01→23:02)
[2017-04-20] MEDS: solu-MEDROL 125 MG IV SCH ×3 (05:30→17:18)
[2017-04-20 05:34] LABS: A-aADO2 437; ARTERIAL BLD GAS O2 SATURATION 92.1 % (95-100); ARTERIAL BLOOD GAS BASE EXCESS 15.8 (-2.0-2.0); ARTERIAL BLOOD GAS FIO2 82 %; ARTERIAL BLOOD GAS PO2 55 mmHg (75-100)
[2017-04-20 05:35] LABS: ARTERIAL BLOOD GAS pH 7.38 (7.35-7.45)
[2017-04-20] MEDS: Advair Hfa 230/21 Mcg COMMON CANISTER IH SCH ×2 (07:03→19:01)
[2017-04-20] MEDS: Glucophage 500 MG PO SCH ×2 (07:09→16:09)
[2017-04-20] MEDS: NovoLOG Insulin SQ PRN ×4 (07:11→22:22)
[2017-04-20] MEDS: PATIENT OWN MEDICATION PO PRN ×3 (07:13→18:49)
[2017-04-20 07:42] LABS: Mean Cell Volume 94.7 fl (78-100); Mean Corpuscular Hemoglobin 27.2 pg (26-32); Mean Platelet Volume 9.5 fl (6-9.5); Platelet Count 287 K/mm3 (150-450); Red Blood Count 3.75 M/mm3 (4.1-5.6); Red Cell Distribution Width 15.3 % (11.5-14.0); White Blood Count 9.7 K/mm3 (4.0-10.5)
[2017-04-20 07:52] LABS: ALBUMIN 3.3 g/dL (3.4-5.0); ALKALINE PHOSPHATASE 83 U/L (46-116); ANION GAP 6.4 MEQ/L (5-15); BLOOD UREA NITROGEN 19 mg/dL (9-20); CHLORIDE 99 mEq/L (98-107); Carbon Dioxide 41.1 mEq/L (21-32); Glucose 248 MG/DL (70-110); Potassium 4.5 mEq/L (3.5-5.1); SGOT/AST 9 U/L (15-37); SGPT/ALT 15 U/L (12-78); SODIUM 142 mEq/L (136-145); THEOPHYLLINE 7.4 ug/ml (10-20.0)
[2017-04-20 08:46] LABS: Total Cells Counted 100
[2017-04-20 08:49] LABS: ANISOCYTOSIS 1+; Poikilocytosis 1+; Polychromasia 1+
[2017-04-20 08:50] LABS: Basophilic Stippling 1+; Platelet Estimate NORMAL (NORMAL)
[2017-04-20] MEDS: ceLEXa 20 MG PO SCH ×2 (09:26→22:21)
[2017-04-20] MEDS: NEURONTIN 300 MG PO SCH ×3 (09:26→22:21)
[2017-04-20] MEDS: Pepcid 20 MG VIAL IV SCH ×2 (09:26→22:20)
[2017-04-20] MEDS: Lopressor 25MG Tab PO SCH ×2 (09:26→22:22)
[2017-04-20] MEDS: BUSPAR 5 MG PO SCH (09:26)
[2017-04-20] MEDS: Cardizem CD 240 MG PO SCH (09:26)
[2017-04-20] MEDS: Zithromax 500 MG/ 250 ML NaCl Premix 500 MG/250 ML IVPB IV SCH (09:26)
[2017-04-20] MEDS: ROCEPHIN 1 Gm-D5w 50 ml Bag** 1 G/50 ML IVPB IV SCH (09:26)
[2017-04-20] MEDS: PATIENT OWN MEDICATION PO SCH ×2 (09:26→22:31)
--- NOTE | 2017-04-20 13:26 | PCM.NOTE ---
Date and Time: 04/20/17 1325 Subjective Assessment: doing better, - Review of Systems Constitutional: No Fever, No Chills Eyes: No Symptoms Ears, Nose, & Throat: No Symptoms Respiratory: Orthopnea, No Cough, No Short Of Breath Cardiac: No Chest Pain, No Edema, No Syncope Abdominal/Gastrointestinal: No Abdominal Pain, No Nausea, No Vomiting, No Diarrhea Genitourinary Symptoms: No Dysuria Musculoskeletal: No Back Pain, No Neck Pain Skin: No Rash Neurological: No Dizziness, No Focal Weakness, No Sensory Changes Psychological: No Symptoms Endocrine: No Symptoms Hematologic/Lymphatic: No Symptoms Immunological/Allergic: No Symptoms Objective Exam General Appearance: no apparent distress, alert Neurologic Exam: alert, oriented x 3, cooperative, normal mood/affect, nml cerebellar function, sensation nml, No motor deficits Skin Exam: normal color, warm, dry Eye Exam: PERRL, EOMI, eyes nml inspection Ears, Nose, Throat Exam: normal ENT inspection, pharynx normal, moist mucous membranes Neck Exam: normal inspection, non-tender, supple, full range of motion Respiratory Exam: normal breath sounds, lungs clear, No respiratory distress Cardiovascular Exam: regular rate/rhythm, normal heart sounds Gastrointestinal/Abdomen Exam: soft, No tenderness, No mass Extremity Exam: normal inspection, normal range of motion Back Exam: normal inspection, normal range of motion, No CVA tenderness, No vertebral tenderness Male Genitalia Exam: deferred Rectal Exam: deferred OBJECTIVE DATA Vital Signs: Vital Signs - 24 hr Temp Pulse Resp BP Pulse Ox 04/20/17 12:14 109 H 20 97 04/20/17 11:47 112 H 21 111/74 86 L 04/20/17 11:02 97 H 20 111/74 97 04/20/17 10:26 103 H 20 95 04/20/17 10:00 100 H 19 111/74 94 L 04/20/17 08:31 98 F 04/20/17 08:29 18 96 04/20/17 07:51 119 H 23 118/86 88 L 04/20/17 07:22 92 H 04/20/17 07:03 90 21 97 04/20/17 05:53 97.7 F 106 H 19 143/98 91 L 04/20/17 04:00 85 14 97/59 95 04/20/17 03:01 84 21 91 L 04/20/17 02:00 95 H 18 88/59 92 L 04/20/17 00:00 98.3 F 125 H 22 122/83 86 L 04/19/17 22:51 96 H 17 99 04/19/17 22:00 100 H 18 116/72 96 04/19/17 19:51 98.6 F 123 H 20 124/76 93 L 04/19/17 18:57 124 H 23 93 L 04/19/17 18:00 114 H 19 120/75 94 L 04/19/17 16:00 113 H 24 132/70 91 L 04/19/17 15:00 98 H 24 94 L 04/19/17 14:00 112 H 22 124/76 94 L Oxygen-Last 24 hours O2 Percentage 80% O2 Percentage 100% O2 Percentage 80% O2 Percentage 80% O2 Percentage 80% O2 Percentage 100% O2 Percentage 100% O2 Percentage 80% O2 Percentage 80% O2 Percentage 100% O2 Percentage 80% O2 Percentage 80% O2 Percentage 80% O2 Percentage 100% O2 Percentage 80% Pain Assessment - Last Documented Pain Intensity 70 Pain Scale Used 0-10 Pain Scale,FLACC Intake and Output: Intake & Output 04/18/17 04/19/17 04/20/17 04/21/17 11:59 11:59 11:59 11:59 Intake Total 1120 1520 Output Total 1320 3350 Balance -200 -1830 Weight 113.761 kg Lab Results: Accuchecks Date 04/20/17 Date 04/20/17 Date 04/19/17 Date 04/19/17 Time 10:59 Time 07:11 Time 21:45 Time 16:03 Accucheck Value: 256 Accucheck Value: 256 Accucheck Value: 302 Accucheck Value: 243 Lab Results-Last 24 Hours 04/20/17 04/20/17 04/20/17 Range/Units 05:00 05:00 05:20 WBC 9.7 (4.0-10.5) K/mm3 RBC 3.75 L (4.1-5.6) M/mm3 Hgb 10.2 L (12.5-18.0) gm/dl Hct 35.5 L (42-50) % MCV 94.7 (78-100) fl MCH 27.2 (26-32) pg MCHC 28.7 L (32-36) g/dl RDW 15.3 H (11.5-14.0) % Plt Count 287 (150-450) K/mm3 MPV 9.5 (6-9.5) fl Segmented Neutrophils 98 H (36.-66.) % Lymphocytes (Manual) 2 L (24-44) % Differential Comment ABNORMAL Platelet Estimate NORMAL (NORMAL) Polychromasia 1+ Poikilocytosis 1+ Basophilic Stippling 1+ Anisocytosis 1+ Puncture Site RIGHT BRACHIAL pCO2 74 H* (35-45) mmHg pO2 55 L (75-100) mmHg Base Excess 15.8 H (-2.0-2.0) O2 Saturation 90.1 L (94-100) g/dF ABG pH 7.38 (7.35-7.45) ABG HCO3 43.8 H* (22-28) ABG O2 Sat (Measured) 92.1 L (95-100) % Keo Test NOT APPLICABLE A-a Gradient 437 a/A Ratio 0.11 Hemoglobin 10.4 Carboxyhemoglobin 1.4 (0.0-6.9) % THgb Methemoglobin 0.8 L (1.4-1.5) % Temperature 37.0 C POC O2 Flow Rate 82 % Sodium 142 (136-145) mEq/L Potassium 4.5 4.4 (3.5-5.1) mEq/L Chloride 99 (98-107) mEq/L Carbon Dioxide 41.1 H (21-32) mEq/L Anion Gap 6.4 (5-15) MEQ/L BUN 19 (9-20) mg/dL Creatinine 0.86 (0.55-1.30) mg/dl Estimated GFR > 60 ML/MIN Glucose 248 H (70-110) MG/DL Calcium 9.0 (8.5-10.1) mg/dL Total Bilirubin 0.10 L (0.2-1.0) mg/dL AST 9 L (15-37) U/L ALT 15 (12-78) U/L Alkaline Phosphatase 83 (46-116) U/L Serum Total Protein 7.0 (6.4-8.2) gm/dL Albumin 3.3 L (3.4-5.0) g/dL Theophylline 7.4 L (10-20.0) ug/ml Assessment/Plan (1) Acute on chronic respiratory failure Current Visit: Yes Status: Acute Qualifiers: Respiratory failure complication: hypercapnia Qualified Code(s): J96.22 - Acute and chronic respiratory failure with hypercapnia Code(s): J96.20 - ACUTE AND CHR RESP FAILURE, UNSP W HYPOXIA OR HYPERCAPNIA (2) COPD exacerbation Current Visit: Yes Status: Acute Code(s): J44.1 - CHRONIC OBSTRUCTIVE PULMONARY DISEASE W (ACUTE) EXACERBATION (3) Chronic respiratory failure Current Visit: Yes Status: Acute Qualifiers: Respiratory failure complication: hypoxia and hypercapnia Qualified Code(s) : J96.11 - Chronic respiratory failure with hypoxia; J96.12 - Chronic respiratory failure with hypercapnia Code(s): J96.10 - CHRONIC RESPIRATORY FAILURE, UNSP W HYPOXIA OR HYPERCAPNIA
[2017-04-20] MEDS: Flomax 0.4 MG PO SCH (22:21)
[2017-04-20] MEDS: REMERON 30 MG PO SCH (22:22)
[2017-04-21] MEDS: solu-MEDROL 125 MG IV SCH ×4 (00:02→17:41)
[2017-04-21] MEDS: DUONEB 0.5-3 MG/3 ml Neb IH SCH ×6 (02:32→23:19)
[2017-04-21] MEDS: TYLENOL 325 MG PO PRN (02:51)
[2017-04-21 05:30] LABS: A-aADO2 390; ARTERIAL BLD GAS O2 SATURATION 97.7 % (95-100); ARTERIAL BLOOD GAS BASE EXCESS 17.5 (-2.0-2.0); ARTERIAL BLOOD GAS FIO2 80 %; ARTERIAL BLOOD GAS PO2 94 mmHg (75-100); ARTERIAL BLOOD GAS pH 7.42 (7.35-7.45); BIPAP(E) 6; BIPAP(I) 14
[2017-04-21 05:36] LABS: Mean Corpuscular Hemoglobin 26.9 pg (26-32); Platelet Count 267 K/mm3 (150-450); Red Blood Count 3.68 M/mm3 (4.1-5.6); Red Cell Distribution Width 15.4 % (11.5-14.0); White Blood Count 9.2 K/mm3 (4.0-10.5)
[2017-04-21 06:45] LABS: ANION GAP 7.3 MEQ/L (5-15); BLOOD UREA NITROGEN 16 mg/dL (9-20); CHLORIDE 100 mEq/L (98-107); Carbon Dioxide 39.2 mEq/L (21-32); Glucose 270 MG/DL (70-110); Potassium 4.3 mEq/L (3.5-5.1); SODIUM 142 mEq/L (136-145); THEOPHYLLINE 9.5 ug/ml (10-20.0)
[2017-04-21] MEDS: Advair Hfa 230/21 Mcg COMMON CANISTER IH SCH ×2 (07:15→19:25)
[2017-04-21] MEDS: Glucophage 500 MG PO SCH ×2 (08:15→16:48)
[2017-04-21] MEDS: PATIENT OWN MEDICATION PO PRN ×2 (08:15→17:42)
[2017-04-21] MEDS: NovoLOG Insulin SQ PRN ×4 (08:15→21:06)
[2017-04-21] MEDS: ROCEPHIN 1 Gm-D5w 50 ml Bag** 1 G/50 ML IVPB IV SCH (10:57)
[2017-04-21] MEDS: NEURONTIN 300 MG PO SCH ×3 (11:06→21:10)
[2017-04-21] MEDS: ceLEXa 20 MG PO SCH ×2 (11:06→21:11)
[2017-04-21] MEDS: BUSPAR 5 MG PO SCH (11:06)
[2017-04-21] MEDS: Lopressor 25MG Tab PO SCH ×2 (11:07→21:10)
[2017-04-21] MEDS: Cardizem CD 240 MG PO SCH (11:07)
[2017-04-21] MEDS: PATIENT OWN MEDICATION PO SCH ×2 (11:08→21:08)
[2017-04-21] MEDS: Pepcid 20 MG VIAL IV SCH ×2 (11:08→11:14)
[2017-04-21] MEDS: Zofran 4 MG/2 ML VIAL IV PRN (11:14)
[2017-04-21] MEDS: Zithromax 500 MG/ 250 ML NaCl Premix 500 MG/250 ML IVPB IV SCH (11:43)
[2017-04-21] MEDS: Coumadin 5 MG PO SCH (17:41)
[2017-04-21] MEDS: Flomax 0.4 MG PO SCH (21:09)
[2017-04-21] MEDS: REMERON 30 MG PO SCH (21:10)
[2017-04-22] MEDS: solu-MEDROL 125 MG IV SCH ×2 (00:52→06:31)
[2017-04-22] MEDS: PATIENT OWN MEDICATION PO PRN ×2 (00:57→09:12)
[2017-04-22] MEDS: DUONEB 0.5-3 MG/3 ml Neb IH SCH ×3 (03:14→10:41)
[2017-04-22] MEDS: Advair Hfa 230/21 Mcg COMMON CANISTER IH SCH (06:28)
[2017-04-22 07:21] VITALS: BP 132/86; O2SAT 90
[2017-04-22] MEDS: NovoLOG Insulin SQ PRN (08:35)
[2017-04-22] MEDS: Glucophage 500 MG PO SCH (08:35)
[2017-04-22] MEDS: ceLEXa 20 MG PO SCH (09:11)
[2017-04-22] MEDS: Lopressor 25MG Tab PO SCH (09:11)
[2017-04-22] MEDS: BUSPAR 5 MG PO SCH (09:11)
[2017-04-22] MEDS: Pepcid 20 MG VIAL IV SCH (09:11)
[2017-04-22] MEDS: Cardizem CD 240 MG PO SCH (09:11)
[2017-04-22] MEDS: ROCEPHIN 1 Gm-D5w 50 ml Bag** 1 G/50 ML IVPB IV SCH (09:11)
[2017-04-22] MEDS: NEURONTIN 300 MG PO SCH (09:11)
[2017-04-22] MEDS: PATIENT OWN MEDICATION PO SCH (09:12)
[2017-04-22] MEDS: Zithromax 500 MG/ 250 ML NaCl Premix 500 MG/250 ML IVPB IV SCH (10:02)
[2017-04-22 10:43] VITALS: PULSE 108
== END 2017-04-22 11:00 | disposition swing bed (61) | DRG 189 ==
LOC: ED 14:53 → ICU 17:35 → MED SURG 04-20 17:00
PROVIDERS: ADMIT General Practice; ATTEND General Practice
DX: J96.22 Acute and chronic respiratory failure with hypercapnia (principal); J44.1 Chronic obstructive pulmonary disease with (acute) exacerbation; J96.11 Chronic respiratory failure with hypoxia; J96.12 Chronic respiratory failure with hypercapnia; I50.9 Heart failure, unspecified; E11.9 Type 2 diabetes mellitus without complications; Z79.4 Long term (current) use of insulin; I10 Essential (primary) hypertension; J45.909 Unspecified asthma, uncomplicated; K21.9 Gastro-esophageal reflux disease without esophagitis; F41.9 Anxiety disorder, unspecified; M19.90 Unspecified osteoarthritis, unspecified site; F31.9 Bipolar disorder, unspecified; Z79.01 Long term (current) use of anticoagulants; Z79.899 Other long term (current) drug therapy; Z86.73 Personal history of transient ischemic attack (TIA), and cerebral infarction without residual deficits; I25.2 Old myocardial infarction
CPT/HCPCS: 36000; 36415; 36600; 71010; 80048; 80053; 80198; 81000; 82375; 82803; 82962; 83036; 83605; 83880; 84484; 85025; 85027; 85610; 87040; 87086; 93005; 93041; 94002; 94003; 94640; 94760; 96365; 99285; J0456; J0696; J2405; J2930; A9270-GY

== ENCOUNTER 2017-04-22 11:00 | Inpatient (IN) | payer MEDICARE ==
[2017-04-22] MEDS ORDERED: Senokot-S Tablet PO PRN (12:59)
[2017-04-22] MEDS ORDERED: TAPENTADOL HCL 100 MG PO PRN (12:59)
--- NOTE | 2017-04-22 13:32 | PCM.HP ---
History of Present Illness - Chief Complaint Chief Complaint: Deconditioning r/t chronic respiratory distress/failure History of Present Illness: is a 56 year old male.admitted for rehab on swing bed - Review of Systems Constitutional: No Fever, No Chills Eyes: No Symptoms Ears, Nose, & Throat: No Symptoms Respiratory: Cough, Orthopnea, Short Of Breath, Wheezing Cardiac: No Chest Pain, No Edema, No Syncope Abdominal/Gastrointestinal: No Abdominal Pain, No Nausea, No Vomiting, No Diarrhea Genitourinary Symptoms: No Dysuria Musculoskeletal: No Back Pain, No Neck Pain Skin: No Rash Neurological: No Dizziness, No Focal Weakness, No Sensory Changes Psychological: No Symptoms Endocrine: No Symptoms Hematologic/Lymphatic: No Symptoms Immunological/Allergic: No Symptoms Medications & Allergies Home Medications: Home Medication List Warfarin Sodium 5 mg [Coumadin 5 MG] 5 mg PO UD 05/14/14 [History Confirmed 04/22/17] Sennosides/Docusate Sodium [Stool Soft-Stimulant Lax Tab] 1 each PO DAILY PRN PRN 11/18/14 [History Confirmed 04/22/17] Metformin HCl 500 mg [Glucophage 500 MG] 500 mg PO BID 09/13/15 [History Confirmed 04/22/17] Metoprolol Tartrate 50 mg [Lopressor 50 MG] 25 mg PO BID 01/17/16 [ History Confirmed 04/22/17] Mirtazapine 15 mg PO HS 01/05/17 [History Confirmed 04/22/17] Albuterol Sulfate [Proair Hfa] 8.5 gm IH BID 04/18/17 [History Confirmed ] Albuterol Sulfate [Ventolin Hfa] 18 gm IH BID 04/18/17 [History Confirmed ] Buspirone HCl 5 mg [Buspar 5 mg] 5 mg PO DAILY 04/18/17 [History Confirmed 04/22/17] Citalopram Hydrobromide [Citalopram HBr] 20 mg PO BID 04/18/17 [History Confirmed 04/22/17] Diltiazem HCl [Dilt-Xr] 240 mg PO DAILY 04/18/17 [History Confirmed 04/22/17] Gabapentin [Neurontin] 600 mg PO TID 04/18/17 [History Confirmed 04/22/17] Tamsulosin HCl 0.4 mg [Flomax 0.4 MG] 0.4 mg PO HS 04/18/17 [History Confirmed 04/22/17] Tapentadol HCl [Nucynta] 100 mg PO QIDPRN PRN 04/18/17 [History Confirmed ] Theophylline Anhydrous 300 mg PO BID 04/18/17 [History Confirmed 04/22/17] Prednisone 10 mg [Deltasone 10 mg] 10 mg PO DAILY 04/20/17 [History Confirmed 04/22/17] Allergies/Adverse Reactions: Allergies Allergy/AdvReac Type Severity Reaction Status Date / Time No Known Drug Allergies Allergy Verified 04/18/17 15:00 - Past Medical History Past Medical History: Yes Neurological History: Stroke ENT History: No Pertinent History Cardiac History: Arrhythmia, Hypertension, Myocardial Infarction ([place]) Respiratory History: Asthma, Bronchitis, COPD, Pneumonia Endocrine Medical History: Adrenal Insufficiency, Diabetes Type II Musculoskelatal History: Arthritis GI Medical History: GERD, GI Bleed History: No Pertinent History Pyscho-Social History: Anxiety, Bipolar, Depression, Panic Disorder Male Reproductive Disorders: No Pertinent History Comment: Strokes in 2014, 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 Ponce. - Past Surgical History Past Surgical History: Yes Neuro Surgical History: No Pertinent History Cardiac History: No Pertinent History Respiratory Surgery: No Pertinent History GI Surgical History: Appendectomy, Hernia Repair Genitourinary Surgical Hx: No Pertinent History Musculskeletal Surgical Hx: No Pertinent History Male Surgical History: No Pertinent History Other Surgical History: Right leg surgery, Sinus surgery - Social History Smoking Status: Former smoker Exposure to second hand smoke: No Alcohol: None Drug Use: none - Physical Exam Vital Signs: Vital Signs - 24 hr Temp Pulse Resp BP Pulse Ox 04/22/17 11:25 98.9 F 101 H 22 137/86 90 L 04/22/17 11:16 98.9 F 101 H 22 157/86 90 L Oxygen-Last 24 hours O2 Percentage 5 Liters = 40% General Appearance: no apparent distress, alert Neurologic Exam: alert, oriented x 3, cooperative, normal mood/affect, nml cerebellar function, nml station & gait, sensation nml, No motor deficits Eye Exam: PERRL/EOMI, eyes nml inspection Ears, Nose, Throat Exam: normal ENT inspection, TMs normal, pharynx normal, moist mucous membranes Neck Exam: normal inspection, non-tender, supple, full range of motion Respiratory Exam: lungs clear, diminished breath sounds, crackles/rales, rhonchi , No respiratory distress Cardiovascular Exam: regular rate/rhythm, normal heart sounds, normal peripheral pulses Gastrointestinal/Abdomen Exam: soft, normal bowel sounds, No tenderness, No mass Back Exam: normal inspection, normal range of motion, No CVA tenderness, No vertebral tenderness Extremity Exam: normal inspection, normal range of motion, pelvis stable Skin Exam: normal color, warm, dry, No rash Lymphatic Exam: No adenopathy Results - Other Procedures and Tests Respiratory Therapy 04/22/17 11:26 BiPap/CPAP Assessment RT Miscellaneous Order ROUTINE 04/22/17 11:27 Oxygen OXYMIZER-LPM 15% 04/22/17 15:00 Respiratory Nebulizer Q4H 04/22/17 19:00 Respiratory MDI BID Assessment/Plan (1) Acute on chronic respiratory failure Current Visit: Yes Status: Acute Qualifiers: Respiratory failure complication: hypoxia and hypercapnia Qualified Code(s) : J96.21 - Acute and chronic respiratory failure with hypoxia; J96.22 - Acute and chronic respiratory failure with hypercapnia Code(s): J96.20 - ACUTE AND CHR RESP FAILURE, UNSP W HYPOXIA OR HYPERCAPNIA (2) COPD exacerbation Current Visit: Yes Status: Acute Code(s): J44.1 - CHRONIC OBSTRUCTIVE PULMONARY DISEASE W (ACUTE) EXACERBATION (3) Hypertension Current Visit: No Status: Chronic Qualifiers: Hypertension type: essential hypertension Code(s): I10 - ESSENTIAL (PRIMARY) HYPERTENSION
[2017-04-22] MEDS: NovoLOG Insulin SQ PRN ×3 (14:21→21:49)
[2017-04-22] MEDS: solu-MEDROL 125 MG IV SCH ×3 (14:21→23:47)
[2017-04-22] MEDS: DUONEB 0.5-3 MG/3 ml Neb IH SCH ×3 (14:55→23:37)
[2017-04-22] MEDS ORDERED: NON-FORMULARY ITEM (Gabapentin [Neurontin] 600 MG) PO SCH (15:00)
[2017-04-22] MEDS: NEURONTIN 300 MG PO SCH ×2 (15:33→21:09)
[2017-04-22] MEDS: PATIENT OWN MEDICATION PO PRN ×2 (15:34→21:09)
[2017-04-22] MEDS: Glucophage 500 MG PO SCH (16:49)
[2017-04-22] MEDS: Advair Hfa 230/21 Mcg COMMON CANISTER IH SCH (18:58)
[2017-04-22] MEDS: ceLEXa 20 MG PO SCH (21:07)
[2017-04-22] MEDS: REMERON 30 MG PO SCH (21:07)
[2017-04-22] MEDS: Flomax 0.4 MG PO SCH (21:08)
[2017-04-22] MEDS: Lopressor 25MG Tab PO SCH (21:08)
[2017-04-22] MEDS: Pepcid 20 MG VIAL IV SCH (21:10)
[2017-04-22] MEDS: PATIENT OWN MEDICATION PO SCH (21:10)
[2017-04-22] MEDS ORDERED: NON-FORMULARY ITEM (Mirtazapine [Mirtazapine] 15 MG) PO SCH (22:00)
[2017-04-22] MEDS ORDERED: THEODUR PO SCH (22:00)
[2017-04-23] MEDS: solu-MEDROL 125 MG IV SCH ×4 (05:17→23:20)
--- NOTE | 2017-04-23 06:02 | PCM.NOTE ---
Date and Time: 04/23/17 06 Subjective Assessment: doing better, slept well last night - Review of Systems Constitutional: No Fever, No Chills Eyes: No Symptoms Ears, Nose, & Throat: No Symptoms Respiratory: No Cough, No Short Of Breath Cardiac: No Chest Pain, No Edema, No Syncope Abdominal/Gastrointestinal: No Abdominal Pain, No Nausea, No Vomiting, No Diarrhea Genitourinary Symptoms: No Dysuria Musculoskeletal: No Back Pain, No Neck Pain Skin: No Rash Neurological: No Dizziness, No Focal Weakness, No Sensory Changes Psychological: No Symptoms Endocrine: No Symptoms Hematologic/Lymphatic: No Symptoms Immunological/Allergic: No Symptoms Objective Exam General Appearance: no apparent distress, alert Neurologic Exam: alert, oriented x 3, cooperative, normal mood/affect, nml cerebellar function, sensation nml, No motor deficits Skin Exam: normal color, warm, dry Eye Exam: PERRL, EOMI, eyes nml inspection Ears, Nose, Throat Exam: normal ENT inspection, pharynx normal, moist mucous membranes Neck Exam: normal inspection, non-tender, supple, full range of motion Respiratory Exam: diminished breath sounds, rhonchi, wheezing, No respiratory distress Cardiovascular Exam: regular rate/rhythm, normal heart sounds Gastrointestinal/Abdomen Exam: soft, No tenderness, No mass Extremity Exam: normal inspection, normal range of motion Back Exam: normal inspection, normal range of motion, No CVA tenderness, No vertebral tenderness Male Genitalia Exam: deferred Rectal Exam: deferred OBJECTIVE DATA Vital Signs: Vital Signs - 24 hr Temp Pulse Resp BP Pulse Ox 04/23/17 03:52 85 19 98 04/22/17 23:38 92 H 24 97 04/22/17 19:56 98.5 F 98 H 19 134/75 97 04/22/17 18:58 98 H 19 97 04/22/17 15:00 99 H 19 95 04/22/17 11:25 98.9 F 101 H 22 137/86 90 L 04/22/17 11:16 98.9 F 101 H 22 157/86 90 L Oxygen-Last 24 hours O2 Percentage 100% O2 Percentage 5 Liters = 40% Pain Assessment - Last Documented Pain Intensity 4 Pain Scale Used [facility] Intake and Output: Intake & Output 04/20/17 04/21/17 04/22/17 04/23/17 11:59 11:59 11:59 11:59 Intake Total 0 3580 Output Total 4800 Balance 0 -1220 Weight 118.614 kg Lab Results: Accuchecks Date 04/22/17 Time 22:00 Accucheck Value: 338 Accucheck Value: 354 Accucheck Value: 297 Assessment/Plan (1) Acute on chronic respiratory failure Current Visit: Yes Status: Acute Qualifiers: Respiratory failure complication: hypoxia and hypercapnia Qualified Code(s) : J96.21 - Acute and chronic respiratory failure with hypoxia; J96.22 - Acute and chronic respiratory failure with hypercapnia Assessment & Plan: Chief Complaint Diagnosis Deconditioning r/t chronic respiratory distress / failure Allergies Allergy/AdvReac Type Severity Reaction Status Date / Time No Known Drug Allergies Allergy Verified 04/18/17 15:00 Vital Signs (Last 24 hours) Temp Pulse Resp BP Pulse Ox 04/23/17 03:52 85 19 98 04/22/17 23:38 92 H 24 97 04/22/17 19:56 98.5 F 98 H 19 134/75 97 04/22/17 18:58 98 H 19 97 04/22/17 15:00 99 H 19 95 04/22/17 11:25 98.9 F 101 H 22 137/86 90 L 04/22/17 11:16 98.9 F 101 H 22 157/86 90 L Current Medications Generic Name Dose Route Start Last Admin Trade Name Freq PRN Reason Stop Dose Admin Acetaminophen 650 mg 04/22/17 13:21 Tylenol 325 Mg PO 05/22/17 13:20 Q4H PRN PRN Albuterol/Ipratropium 3 ml 04/22/17 15:00 04/22/17 23:37 Duoneb 0.5-3 Mg/3 Ml Neb IH 05/22/17 14:59 3 ml Q4HRT JUAN Administration Buspirone HCl 5 mg 04/23/17 10:00 Buspar 5 Mg PO 05/23/17 09:59 DAILY JUAN Citalopram Hydrobromide 20 mg 04/22/17 22:00 04/22/17 21:07 Celexa 20 Mg PO 05/22/17 21:59 20 mg BID JUAN Administration Diltiazem HCl 240 mg 04/23/17 10:00 Cardizem Cd 240 Mg PO 05/23/17 09:59 DAILY JUAN Famotidine 20 mg 04/22/17 22:00 04/22/17 21:10 Pepcid 20 Mg Vial IV 05/22/17 21:59 20 mg Q12HT JUAN Administration Gabapentin 600 mg 04/22/17 15:00 04/22/17 21:09 Neurontin 300 Mg PO 05/22/17 14:59 600 mg TID JUAN Administration Azithromycin 500 mg in 250 mls @ 167 mls/hr 04/23/17 10:00 Zithromax 500 Mg/ 250 Ml Nacl Premix IV 05/23/17 09:59 Q24H10 JUAN Ceftriaxone Sodium/Dextrose 1 g in 50 mls @ 100 mls/hr 04/23/17 10:00 Rocephin 1 Gm-D5w 50 Ml Bag IV 05/23/17 09:59 Q24H10 JUAN Insulin Aspart 0 unit 04/22/17 13:23 04/22/17 21:49 Novolog Insulin SQ 05/22/17 13:22 6 unit UD PRN Administration Metformin HCl 500 mg 04/22/17 17:00 04/22/17 16:49 Glucophage 500 Mg PO 05/22/17 16:59 500 mg BIDWM JUAN Administration Methylprednisolone Sodium Succinate 80 mg 04/22/17 13:30 04/23/17 05:17 Solu-Medrol 125 Mg IV 05/22/17 13:29 80 mg Q6HT JUAN Administration Metoprolol Tartrate 25 mg 04/22/17 22:00 04/22/17 21:08 Lopressor 25mg Tab PO 05/22/17 21:59 25 mg BID JUAN Administration Mirtazapine 15 mg 04/22/17 22:00 04/22/17 21:07 Remeron 30 Mg PO 05/22/17 21:59 15 mg HS JUAN Administration Ondansetron HCl 4 mg 04/22/17 13:21 Zofran 4 Mg/2 Ml Vial IV 05/22/17 13:20 Q4H PRN PRN Theophylline 300mg 1 each 04/22/17 22:00 04/22/17 21:10 Tablet PO 05/22/17 21:59 1 each BID JUAN Administration Nucynta 100mg Tablet 1 each 04/22/17 13:13 04/22/17 21:09 PO 05/22/17 13:12 1 each Q4H PRN PRN Administration PAIN Fluticasone/Salmeterol 2 puff 04/22/17 19:00 04/22/17 18:58 Advair Hfa 230/21 Mcg Common Canister* IH 05/22/17 18:59 2 puff BIDRT JUAN Administration Senna/Docusate Sodium 1 udtab 04/22/17 12:59 Senokot-S Tablet PO 05/22/17 12:58 DAILY PRN PRN CONSTIPATION Tamsulosin HCl 0.4 mg 04/22/17 22:00 04/22/17 21:08 Flomax 0.4 Mg PO 05/22/17 21:59 0.4 mg HS JUAN Administration Tuberculin PPD 5 unit 04/23/17 10:00 Aplisol ID 04/23/17 10:01 DAILY JUAN Tuberculin PPD 5 unit 05/04/17 10:00 Aplisol ID 05/04/17 10:01 DAILY JUAN Warfarin Sodium 5 mg 04/23/17 18:00 Coumadin 5 Mg PO 05/23/17 17:59 SuTuThSa JUAN Intake & Output (Last 24 hours) 04/20/17 04/21/17 04/22/17 04/23/17 11:59 11:59 11:59 11:59 Intake Total 0 3580 Output Total 4800 Balance 0 -1220 Weight 118.614 kg Orders (Last 24 hours) Category Date Time Status ACCUCHECK [Accucheck] ACHS Care 04/22/17 11:26 Active Admission/Status Order ROUTINE Care 04/22/17 11:00 Active Ambulate Patient TID Care 04/22/17 11:24 Active Intake [Intake and Output] Q12H Care 04/22/17 11:26 Active Vital Signs Q12H Care 04/22/17 11:25 Active Weight,Swingbed Q7D Care 04/22/17 11:24 Active 2000 Calorie ADA Diet 04/22/17 Lunch Active BMP Routine Lab 05/06/17 04:00 Ordered Acetaminophen 325 mg [Tylenol 325 mg] Med 04/22/17 13:21 Active 650 mg PO Q4H PRN PRN Albuterol/Ipratropium 3ml Neb* [DUONEB 0.5-3 MG/3 ml Med 04/22/17 15:00 Active Neb] 3 ml IH Q4HRT Azithromycin 500 mg/250 ml [Zithromax 500 MG/ 250 ML Med 04/23/17 10:00 Active NaCl Premix] 500 mg in 250 ml IV Q24H10 Buspirone HCl 5 mg [Buspar 5 mg] Med 04/23/17 10:00 Active 5 mg PO DAILY Ceftriaxone 1 GM/50 ML PREMIX* [ROCEPHIN 1 Gm-D5w 50 ml Med 04/23/17 10:00 Active Bag] 1 g in 50 ml IV Q24H10 Citalopram Hydrobromide 20 mg* [ceLEXa 20 MG] Med 04/22/17 22:00 Active 20 mg PO BID Diltiazem HCl 240 mg [Cardizem CD 240 MG] Med 04/23/17 10:00 Active 240 mg PO DAILY Famotidine 20 mg Vial [Pepcid 20 MG VIAL] Med 04/22/17 22:00 Active 20 mg IV Q12HT Fluticasone/Salmeterol 230/21 [Advair Hfa 230/21 Mcg Med 04/22/17 19:00 Active COMMON CANISTER*] 2 puff IH BIDRT Gabapentin 300 mg [Neurontin 300 mg] Med 04/22/17 15:00 Active 600 mg PO TID Insulin Aspart [NovoLOG Insulin] Med 04/22/17 13:23 Active 0 unit SQ UD PRN Metformin HCl 500 mg [Glucophage 500 MG] Med 04/22/17 17:00 Active 500 mg PO BIDWM Methylprednis Sod Succ 125 mg* [solu-MEDROL 125 MG] Med 04/22/17 13:30 Active 80 mg IV Q6HT Metoprolol Tartrate 25 mg [Lopressor 25MG Tab] Med 04/22/17 22:00 Active 25 mg PO BID Mirtazapine 30 mg [Remeron 30 mg] Med 04/22/17 22:00 Active 15 mg PO HS Ondansetron HCl 4 mg/2 ml [Zofran 4 MG/2 ML VIAL] Med 04/22/17 13:21 Active 4 mg IV Q4H PRN PRN Patient Own Med [Patient Own Medication] Med 04/22/17 22:00 Active 1 each PO BID Patient Own Med [Patient Own Medication] Med 04/22/17 13:13 Active 1 each PO Q4H PRN PRN Senna/Docusate Sodium Tab [Senokot-S Tablet] Med 04/22/17 12:59 Active 1 udtab PO DAILY PRN PRN Tamsulosin HCl 0.4 mg [Flomax 0.4 MG] Med 04/22/17 22:00 Active 0.4 mg PO HS Tuberculin,Purif.prot.deriv. [Aplisol] Med 04/23/17 10:00 Active 5 unit ID DAILY Tuberculin,Purif.prot.deriv. [Aplisol] Med 05/04/17 10:00 Active 5 unit ID DAILY Warfarin Sodium 5 mg [Coumadin 5 MG] Med 04/23/17 18:00 Active 5 mg PO SuTuThSa BiPap/CPAP Assessment RT 04/22/17 11:26 Active Oxygen OXYMIZER-LPM 15% RT 04/22/17 11:27 Active RT Miscellaneous Order ROUTINE RT 04/22/17 11:26 Completed Respiratory MDI BID RT 04/22/17 19:00 Active Respiratory Nebulizer Q4H RT 04/22/17 15:00 Active Patient Care Notes (Last 24 hours) 04/22/17 14:45 Nursing Note by Stuppy,Dinah lungs remain clear/ diminished throughout. pt has been on and off his bipap per self. Initialized on 04/22/17 14:45 - END OF NOTE Code(s): J96.20 - ACUTE AND CHR RESP FAILURE, UNSP W HYPOXIA OR HYPERCAPNIA (2) COPD exacerbation Current Visit: Yes Status: Acute Code(s): J44.1 - CHRONIC OBSTRUCTIVE PULMONARY DISEASE W (ACUTE) EXACERBATION (3) Hypertension Current Visit: No Status: Chronic Qualifiers: Hypertension type: essential hypertension Code(s): I10 - ESSENTIAL (PRIMARY) HYPERTENSION
[2017-04-23] MEDS: DUONEB 0.5-3 MG/3 ml Neb IH SCH ×5 (07:10→23:10)
[2017-04-23] MEDS: Advair Hfa 230/21 Mcg COMMON CANISTER IH SCH ×2 (07:10→19:14)
[2017-04-23] MEDS: NovoLOG Insulin SQ PRN ×4 (07:47→21:31)
[2017-04-23] MEDS: Glucophage 500 MG PO SCH ×2 (07:47→16:00)
[2017-04-23] MEDS: PATIENT OWN MEDICATION PO PRN ×3 (07:48→19:13)
[2017-04-23] MEDS: NEURONTIN 300 MG PO SCH ×3 (09:58→21:31)
[2017-04-23] MEDS: ROCEPHIN 1 Gm-D5w 50 ml Bag** 1 G/50 ML IVPB IV SCH (09:58)
[2017-04-23] MEDS: Cardizem CD 240 MG PO SCH (09:59)
[2017-04-23] MEDS: Pepcid 20 MG VIAL IV SCH ×2 (09:59→21:31)
[2017-04-23] MEDS: ceLEXa 20 MG PO SCH ×2 (09:59→21:31)
[2017-04-23] MEDS: PATIENT OWN MEDICATION PO SCH ×2 (09:59→21:54)
[2017-04-23] MEDS ORDERED: DILTIAZEM HCL 240 MG PO SCH (10:00)
[2017-04-23] MEDS: Lopressor 25MG Tab PO SCH ×2 (10:00→21:31)
[2017-04-23] MEDS ORDERED: Aplisol ID SCH (10:00)
[2017-04-23] MEDS: BUSPAR 5 MG PO SCH (10:03)
[2017-04-23] MEDS: Zithromax 500 MG/ 250 ML NaCl Premix 500 MG/250 ML IVPB IV SCH (10:58)
[2017-04-23] MEDS: TYLENOL 325 MG PO PRN ×2 (11:42→21:05)
[2017-04-23] MEDS: Zofran 4 MG/2 ML VIAL IV PRN (11:43)
[2017-04-23] MEDS: Coumadin 5 MG PO SCH (17:56)
[2017-04-23] MEDS: REMERON 30 MG PO SCH (21:30)
[2017-04-23] MEDS: Flomax 0.4 MG PO SCH (21:31)
[2017-04-24] MEDS: DUONEB 0.5-3 MG/3 ml Neb IH SCH ×6 (03:09→22:48)
[2017-04-24] MEDS: solu-MEDROL 125 MG IV SCH ×4 (05:58→23:07)
[2017-04-24] MEDS: Glucophage 500 MG PO SCH ×2 (08:02→16:08)
[2017-04-24] MEDS: NovoLOG Insulin SQ PRN ×4 (08:03→21:15)
[2017-04-24] MEDS: PATIENT OWN MEDICATION PO PRN ×3 (08:03→19:59)
[2017-04-24] MEDS: Advair Hfa 230/21 Mcg COMMON CANISTER IH SCH ×2 (08:21→18:51)
[2017-04-24] MEDS: ROCEPHIN 1 Gm-D5w 50 ml Bag** 1 G/50 ML IVPB IV SCH (09:37)
[2017-04-24] MEDS: ceLEXa 20 MG PO SCH ×2 (09:37→20:50)
[2017-04-24] MEDS: NEURONTIN 300 MG PO SCH ×3 (09:37→20:50)
[2017-04-24] MEDS: Pepcid 20 MG VIAL IV SCH ×2 (09:37→20:50)
[2017-04-24] MEDS: Lopressor 25MG Tab PO SCH ×2 (09:37→20:50)
[2017-04-24] MEDS: Cardizem CD 240 MG PO SCH (09:37)
[2017-04-24] MEDS: BUSPAR 5 MG PO SCH (09:38)
[2017-04-24] MEDS: PATIENT OWN MEDICATION PO SCH ×2 (09:38→22:52)
[2017-04-24] MEDS: Zithromax 500 MG/ 250 ML NaCl Premix 500 MG/250 ML IVPB IV SCH (10:14)
--- NOTE | 2017-04-24 10:42 | PCM.NOTE ---
Date and Time: 04/24/17 1041 Subjective Assessment: doing better - Review of Systems Constitutional: No Fever, No Chills Eyes: No Symptoms Ears, Nose, & Throat: No Symptoms Respiratory: Orthopnea, Short Of Breath, Wheezing, No Cough Cardiac: No Chest Pain, No Edema, No Syncope Abdominal/Gastrointestinal: No Abdominal Pain, No Nausea, No Vomiting, No Diarrhea Genitourinary Symptoms: No Dysuria Musculoskeletal: No Back Pain, No Neck Pain Skin: No Rash Neurological: No Dizziness, No Focal Weakness, No Sensory Changes Psychological: No Symptoms Endocrine: No Symptoms Hematologic/Lymphatic: No Symptoms Immunological/Allergic: No Symptoms Objective Exam General Appearance: no apparent distress, alert Neurologic Exam: alert, oriented x 3, cooperative, normal mood/affect, nml cerebellar function, sensation nml, No motor deficits Skin Exam: normal color, warm, dry Eye Exam: PERRL, EOMI, eyes nml inspection Ears, Nose, Throat Exam: normal ENT inspection, pharynx normal, moist mucous membranes Neck Exam: normal inspection, non-tender, supple, full range of motion Respiratory Exam: diminished breath sounds, accessory muscle use, rhonchi, wheezing, No respiratory distress Cardiovascular Exam: regular rate/rhythm, normal heart sounds Gastrointestinal/Abdomen Exam: soft, No tenderness, No mass Extremity Exam: normal inspection, normal range of motion Back Exam: normal inspection, normal range of motion, No CVA tenderness, No vertebral tenderness Male Genitalia Exam: deferred Rectal Exam: deferred OBJECTIVE DATA Vital Signs: Vital Signs - 24 hr Temp Pulse Resp BP Pulse Ox 04/24/17 08:00 98.3 F 117 H 20 147/81 93 L 04/24/17 06:54 91 H 20 96 04/24/17 04:00 20 04/24/17 03:00 96 H 20 96 04/24/17 00:00 18 04/23/17 23:00 88 18 98 04/23/17 19:44 22 04/23/17 19:43 98.4 F 112 H 22 134/76 92 L 04/23/17 19:00 114 H 24 93 L 04/23/17 15:00 94 H 20 95 04/23/17 11:00 94 H 22 91 L Oxygen-Last 24 hours O2 Percentage 100% Pain Assessment - Last Documented Pain Intensity 4 Pain Scale Used 0-10 Pain Scale Intake and Output: Intake & Output 04/21/17 04/22/17 04/23/17 04/24/17 11:59 11:59 11:59 11:59 Intake Total 0 4300 960 Output Total 5450 1600 Balance 0 -1150 -640 Weight 118.614 kg Lab Results: Accuchecks Date 04/23/17 Time 21:22 Accucheck Value: 305 Accucheck Value: 413 Accucheck Value: 424 Accucheck Value: 339 Assessment/Plan (1) Acute on chronic respiratory failure Current Visit: Yes Status: Acute Qualifiers: Respiratory failure complication: hypoxia and hypercapnia Qualified Code(s) : J96.21 - Acute and chronic respiratory failure with hypoxia; J96.22 - Acute and chronic respiratory failure with hypercapnia Assessment & Plan: improving with BiPAP. Code(s): J96.20 - ACUTE AND CHR RESP FAILURE, UNSP W HYPOXIA OR HYPERCAPNIA (2) COPD exacerbation Current Visit: Yes Status: Resolved Code(s): J44.1 - CHRONIC OBSTRUCTIVE PULMONARY DISEASE W (ACUTE) EXACERBATION (3) Hypertension Current Visit: Yes Status: Chronic Qualifiers: Hypertension type: essential hypertension Code(s): I10 - ESSENTIAL (PRIMARY) HYPERTENSION
[2017-04-24] MEDS: TYLENOL 325 MG PO PRN (13:57)
[2017-04-24] MEDS: Coumadin 5 MG PO SCH (18:46)
[2017-04-24] MEDS: REMERON 30 MG PO SCH (20:50)
[2017-04-24] MEDS: Flomax 0.4 MG PO SCH (20:50)
[2017-04-25] MEDS: PATIENT OWN MEDICATION PO PRN ×5 (00:11→21:22)
[2017-04-25] MEDS: DUONEB 0.5-3 MG/3 ml Neb IH SCH ×6 (03:10→23:13)
[2017-04-25] MEDS: solu-MEDROL 125 MG IV SCH ×3 (05:42→17:58)
[2017-04-25] MEDS: Advair Hfa 230/21 Mcg COMMON CANISTER IH SCH ×2 (06:56→19:15)
[2017-04-25] MEDS: NovoLOG Insulin SQ PRN ×3 (07:48→16:45)
[2017-04-25] MEDS: Glucophage 500 MG PO SCH ×2 (07:50→16:44)
[2017-04-25] MEDS: TYLENOL 325 MG PO PRN ×2 (07:51→15:09)
[2017-04-25] MEDS: Zofran 4 MG/2 ML VIAL IV PRN ×2 (07:52→20:17)
[2017-04-25] MEDS: ROCEPHIN 1 Gm-D5w 50 ml Bag** 1 G/50 ML IVPB IV SCH (10:18)
[2017-04-25] MEDS: ceLEXa 20 MG PO SCH ×2 (10:37→21:21)
[2017-04-25] MEDS: BUSPAR 5 MG PO SCH (10:37)
[2017-04-25] MEDS: Cardizem CD 240 MG PO SCH (10:37)
[2017-04-25] MEDS: NEURONTIN 300 MG PO SCH ×3 (10:38→21:21)
[2017-04-25] MEDS: Lopressor 25MG Tab PO SCH ×2 (10:38→21:21)
[2017-04-25] MEDS: PATIENT OWN MEDICATION PO SCH ×2 (10:39→21:22)
[2017-04-25] MEDS: Pepcid 20 MG VIAL IV SCH ×2 (10:40→21:22)
[2017-04-25] MEDS: Zithromax 500 MG/ 250 ML NaCl Premix 500 MG/250 ML IVPB IV SCH (11:02)
[2017-04-25] MEDS: Flomax 0.4 MG PO SCH (21:20)
[2017-04-25] MEDS: REMERON 30 MG PO SCH (21:20)
--- NOTE | 2017-04-25 23:32 | PCM.NOTE ---
Date and Time: 04/25/17 4705 Subjective Assessment: doing better - Review of Systems Constitutional: No Fever, No Chills Eyes: No Symptoms Ears, Nose, & Throat: No Symptoms Respiratory: Orthopnea, Short Of Breath, No Cough Cardiac: No Chest Pain, No Edema, No Syncope Abdominal/Gastrointestinal: No Abdominal Pain, No Nausea, No Vomiting, No Diarrhea Genitourinary Symptoms: No Dysuria Musculoskeletal: No Back Pain, No Neck Pain Skin: No Rash Neurological: No Dizziness, No Focal Weakness, No Sensory Changes Psychological: No Symptoms Endocrine: No Symptoms Hematologic/Lymphatic: No Symptoms Immunological/Allergic: No Symptoms Objective Exam General Appearance: no apparent distress, alert Neurologic Exam: alert, oriented x 3, cooperative, normal mood/affect, nml cerebellar function, sensation nml, No motor deficits Skin Exam: normal color, warm, dry Eye Exam: PERRL, EOMI, eyes nml inspection Ears, Nose, Throat Exam: normal ENT inspection, pharynx normal, moist mucous membranes Neck Exam: normal inspection, non-tender, supple, full range of motion Respiratory Exam: diminished breath sounds, crackles/rales, rhonchi, wheezing, No respiratory distress Cardiovascular Exam: regular rate/rhythm, normal heart sounds Gastrointestinal/Abdomen Exam: soft, No tenderness, No mass Extremity Exam: normal inspection, normal range of motion Back Exam: normal inspection, normal range of motion, No CVA tenderness, No vertebral tenderness Male Genitalia Exam: deferred Rectal Exam: deferred OBJECTIVE DATA Vital Signs: Vital Signs - 24 hr Temp Pulse Resp BP Pulse Ox 04/25/17 23:16 95 H 22 93 L 04/25/17 20:55 98.9 F 111 H 22 152/90 94 L 04/25/17 19:48 22 04/25/17 19:18 111 H 24 91 L 04/25/17 16:00 20 04/25/17 15:23 108 H 20 94 L 04/25/17 11:30 89 20 93 L 04/25/17 07:04 100 H 22 91 L 04/25/17 03:37 20 04/25/17 03:11 79 21 95 04/25/17 00:11 20 Pain Assessment - Last Documented Pain Intensity 7 Pain Scale Used 0-10 Pain Scale Intake and Output: Intake & Output 04/23/17 04/24/17 04/25/17 04/26/17 11:59 11:59 11:59 11:59 Intake Total 4300 960 2400 Output Total 5450 1600 2350 425 Balance -1150 -640 50 -425 Weight 118.614 kg Lab Results: Accuchecks Date 04/25/17 Time 11:58 Accucheck Value: 393 Accucheck Value: 303 Accucheck Value: 360 Lab Results-Last 24 Hours 04/25/17 Range/Units 22:08 Glucose 528 H* (70-110) MG/DL Assessment/Plan (1) Acute on chronic respiratory failure Current Visit: Yes Status: Resolved Qualifiers: Respiratory failure complication: hypoxia and hypercapnia Qualified Code(s) : J96.21 - Acute and chronic respiratory failure with hypoxia; J96.22 - Acute and chronic respiratory failure with hypercapnia Code(s): J96.20 - ACUTE AND CHR RESP FAILURE, UNSP W HYPOXIA OR HYPERCAPNIA (2) COPD exacerbation Current Visit: Yes Status: Resolved Code(s): J44.1 - CHRONIC OBSTRUCTIVE PULMONARY DISEASE W (ACUTE) EXACERBATION (3) Hypertension Current Visit: Yes Status: Chronic Qualifiers: Hypertension type: essential hypertension Code(s): I10 - ESSENTIAL (PRIMARY) HYPERTENSION
[2017-04-26] MEDS: solu-MEDROL 125 MG IV SCH ×5 (00:35→23:36)
[2017-04-26] MEDS ORDERED: NovoLOG Insulin SQ ONE (00:57)
[2017-04-26] MEDS: PATIENT OWN MEDICATION PO PRN ×4 (03:28→20:14)
[2017-04-26] MEDS: DUONEB 0.5-3 MG/3 ml Neb IH SCH ×5 (03:47→20:08)
[2017-04-26 05:29] LABS: VBG BASE EXCESS 14.7 (-2.0-2.0); VBG CARBOXYHEMOGLOBIN 3.1 % T HGB (0.0-6.9); VBG HCO3- 42.1 meq/L (22-28); VBG HEMOGLOBIN 10.8; VBG O2 SATURATION 97.6 (95-100); VBG POTASSIUM 4.4 (3.5-5.1); VBG pH 7.4 (7.32-7.42)
[2017-04-26 07:14] LABS: INR 2.33 (0.8-3.0); PROTIME 26.5 SECONDS (8.83-12.87)
[2017-04-26] MEDS: NovoLOG Insulin SQ PRN ×4 (07:34→21:34)
[2017-04-26] MEDS: Advair Hfa 230/21 Mcg COMMON CANISTER IH SCH ×2 (07:48→20:08)
[2017-04-26] MEDS: Glucophage 500 MG PO SCH ×2 (08:15→16:54)
[2017-04-26] MEDS: ROCEPHIN 1 Gm-D5w 50 ml Bag** 1 G/50 ML IVPB IV SCH (09:59)
[2017-04-26] MEDS: Lopressor 25MG Tab PO SCH ×2 (10:00→21:36)
[2017-04-26] MEDS: NEURONTIN 300 MG PO SCH ×3 (10:00→21:36)
[2017-04-26] MEDS: BUSPAR 5 MG PO SCH (10:00)
[2017-04-26] MEDS: ceLEXa 20 MG PO SCH ×2 (10:00→21:36)
[2017-04-26] MEDS: Pepcid 20 MG VIAL IV SCH ×2 (10:00→21:37)
[2017-04-26] MEDS: Cardizem CD 240 MG PO SCH (10:00)
[2017-04-26] MEDS: PATIENT OWN MEDICATION PO SCH ×2 (10:00→21:37)
[2017-04-26] MEDS: TYLENOL 325 MG PO PRN (10:02)
[2017-04-26] MEDS: Zithromax 500 MG/ 250 ML NaCl Premix 500 MG/250 ML IVPB IV SCH (10:41)
--- NOTE | 2017-04-26 12:35 | PCM.NOTE ---
Date and Time: 04/26/17 1234 - Review of Systems Constitutional: No Fever, No Chills Eyes: No Symptoms Ears, Nose, & Throat: No Symptoms Respiratory: Cough, Orthopnea, Short Of Breath, Wheezing Cardiac: No Chest Pain, No Edema, No Syncope Abdominal/Gastrointestinal: No Abdominal Pain, No Nausea, No Vomiting, No Diarrhea Genitourinary Symptoms: No Dysuria Musculoskeletal: No Back Pain, No Neck Pain Skin: No Rash Neurological: No Dizziness, No Focal Weakness, No Sensory Changes Psychological: No Symptoms Endocrine: No Symptoms Hematologic/Lymphatic: No Symptoms Immunological/Allergic: No Symptoms Objective Exam General Appearance: no apparent distress, alert Neurologic Exam: alert, oriented x 3, cooperative, normal mood/affect, nml cerebellar function, sensation nml, No motor deficits Skin Exam: normal color, warm, dry Eye Exam: PERRL, EOMI, eyes nml inspection Ears, Nose, Throat Exam: normal ENT inspection, pharynx normal, moist mucous membranes Neck Exam: normal inspection, non-tender, supple, full range of motion Respiratory Exam: respiratory distress, diminished breath sounds, prolonged expirations, crackles/rales, rhonchi Cardiovascular Exam: regular rate/rhythm, normal heart sounds Gastrointestinal/Abdomen Exam: soft, No tenderness, No mass Extremity Exam: normal inspection, normal range of motion Back Exam: normal inspection, normal range of motion, No CVA tenderness, No vertebral tenderness Male Genitalia Exam: deferred Rectal Exam: deferred OBJECTIVE DATA Vital Signs: Vital Signs - 24 hr Temp Pulse Resp BP Pulse Ox 04/26/17 11:04 96 H 18 04/26/17 07:51 108 H 24 94 L 04/26/17 07:12 97.7 F 96 H 20 125/77 96 04/26/17 04:00 20 04/26/17 03:49 93 H 20 98 04/26/17 00:00 22 04/25/17 23:16 95 H 22 93 L 04/25/17 20:55 98.9 F 111 H 22 152/90 94 L 04/25/17 19:48 22 04/25/17 19:18 111 H 24 91 L 04/25/17 16:00 20 04/25/17 15:23 108 H 20 94 L Pain Assessment - Last Documented Pain Intensity 9 Pain Scale Used 0-10 Pain Scale Intake and Output: Intake & Output 04/24/17 04/25/17 04/26/17 04/27/17 11:59 11:59 11:59 11:59 Intake Total 960 2400 1040 Output Total 1600 2350 1325 Balance -640 50 -285 Weight 118.614 kg Lab Results: Accuchecks Date 04/26/17 Date 04/26/17 Date 04/25/17 Time 06:59 Time 00:20 Time 22:00 Accucheck Value: 256 Accucheck Value: 413 Accucheck Value: 517 Accucheck Value: 393 Lab Results-Last 24 Hours 04/25/17 04/26/17 04/26/17 Range/Units 22:08 05:15 05:20 INR 2.33 (0.8-3.0) VBG pH 7.40 (7.32-7.42) VBG pCO2 at Pat Temp 68 H* (42-55) mm/Hg VBG pO2 at Pat Temp 85 H (25-40) mm/Hg VBG HCO3 42.1 H* (22-28) meq/L VBG O2 Sat (Billie) 97.6 (95-100) VBG Base Excess 14.7 H (-2.0-2.0) VBG Hemoglobin 10.8 VBG Carboxyhemoglobin 3.1 (0.0-6.9) % T HGB POC Potassium 4.4 (3.5-5.1) Glucose 528 H* (70-110) MG/DL Assessment/Plan (1) Acute on chronic respiratory failure Current Visit: Yes Status: Resolved Qualifiers: Respiratory failure complication: hypoxia and hypercapnia Qualified Code(s) : J96.21 - Acute and chronic respiratory failure with hypoxia; J96.22 - Acute and chronic respiratory failure with hypercapnia Assessment & Plan: Plan for non-invasive home ventilation on discharge. Pt has failed with BiPap this visit and continues hypercapneic. Has history of chronic respiratory failure and COPD. Without non-invasive home ventilator, this pt is at risk for readmission and it could be detrimental to his health. Referral has been made to [facility], this is pt's choice of provider. Code(s): J96.20 - ACUTE AND CHR RESP FAILURE, UNSP W HYPOXIA OR HYPERCAPNIA (2) COPD exacerbation Current Visit: Yes Status: Resolved Code(s): J44.1 - CHRONIC OBSTRUCTIVE PULMONARY DISEASE W (ACUTE) EXACERBATION (3) Hypertension Current Visit: Yes Status: Chronic Qualifiers: Hypertension type: essential hypertension Qualified Code(s): I10 - Essential (primary) hypertension Code(s): I10 - ESSENTIAL (PRIMARY) HYPERTENSION
[2017-04-26] MEDS: Coumadin 5 MG PO SCH (16:54)
[2017-04-26] MEDS: Zofran 4 MG/2 ML VIAL IV PRN (20:41)
[2017-04-26] MEDS: Flomax 0.4 MG PO SCH (21:36)
[2017-04-26] MEDS: REMERON 30 MG PO SCH (21:36)
[2017-04-27] MEDS: DUONEB 0.5-3 MG/3 ml Neb IH SCH ×7 (00:05→23:54)
[2017-04-27] MEDS: PATIENT OWN MEDICATION PO PRN ×4 (04:20→23:18)
[2017-04-27] MEDS: NovoLOG Insulin SQ PRN ×5 (04:25→23:12)
[2017-04-27] MEDS: solu-MEDROL 125 MG IV SCH ×4 (06:10→23:08)
[2017-04-27] MEDS: Advair Hfa 230/21 Mcg COMMON CANISTER IH SCH ×2 (07:20→19:37)
[2017-04-27] MEDS: Glucophage 500 MG PO SCH ×2 (08:07→18:12)
[2017-04-27 08:17] LABS: ANION GAP 3.9 MEQ/L (5-15); BLOOD UREA NITROGEN 18 mg/dL (9-20); CHLORIDE 101 mEq/L (98-107); Carbon Dioxide 41.5 mEq/L (21-32); Glucose 261 MG/DL (70-110); Potassium 4.4 mEq/L (3.5-5.1); SODIUM 142 mEq/L (136-145)
[2017-04-27 10:32] LABS: Mean Cell Volume 89.8 fl (78-100); Mean Platelet Volume 9.2 fl (6-9.5); Platelet Count 301 K/mm3 (150-450); Red Cell Distribution Width 15.4 % (11.5-14.0); White Blood Count 15.3 K/mm3 (4.0-10.5)
[2017-04-27 10:38] LABS: Mean Corpuscular Hemoglobin 26.5 pg (26-32)
[2017-04-27] MEDS: Pepcid 20 MG VIAL IV SCH ×2 (10:38→23:05)
[2017-04-27] MEDS: ceLEXa 20 MG PO SCH ×2 (10:45→23:07)
[2017-04-27] MEDS: Cardizem CD 240 MG PO SCH (10:45)
[2017-04-27] MEDS: Lopressor 25MG Tab PO SCH ×2 (10:45→23:06)
[2017-04-27] MEDS: BUSPAR 5 MG PO SCH (10:45)
[2017-04-27] MEDS: NEURONTIN 300 MG PO SCH ×3 (10:45→23:06)
[2017-04-27] MEDS: PATIENT OWN MEDICATION PO SCH ×2 (10:47→23:17)
[2017-04-27 11:11] LABS: ALBUMIN 3.2 g/dL (3.4-5.0); BILIRUBIN,TOTAL 0.3 mg/dL (0.2-1.0); Direct Bilirubin 0.07 MG/DL (0.0-0.2); THEOPHYLLINE 7.3 ug/ml (10-20.0); Total Protein 6.1 gm/dL (6.4-8.2)
[2017-04-27] MEDS: ROCEPHIN 1 Gm-D5w 50 ml Bag** 1 G/50 ML IVPB IV SCH (11:13)
[2017-04-27] MEDS: Zithromax 500 MG/ 250 ML NaCl Premix 500 MG/250 ML IVPB IV SCH (11:55)
--- NOTE | 2017-04-27 13:18 | PCM.NOTE ---
Date and Time: 04/27/17 1317 Subjective Assessment: doing better - Review of Systems Constitutional: No Fever, No Chills Eyes: No Symptoms Ears, Nose, & Throat: No Symptoms Respiratory: Cough, Orthopnea, Short Of Breath, Wheezing Cardiac: No Chest Pain, No Edema, No Syncope Abdominal/Gastrointestinal: No Abdominal Pain, No Nausea, No Vomiting, No Diarrhea Genitourinary Symptoms: No Dysuria Musculoskeletal: No Back Pain, No Neck Pain Skin: No Rash Neurological: No Dizziness, No Focal Weakness, No Sensory Changes Psychological: No Symptoms Endocrine: No Symptoms Hematologic/Lymphatic: No Symptoms Immunological/Allergic: No Symptoms Objective Exam General Appearance: no apparent distress, alert Neurologic Exam: alert, oriented x 3, cooperative, normal mood/affect, nml cerebellar function, sensation nml, No motor deficits Skin Exam: normal color, warm, dry Eye Exam: PERRL, EOMI, eyes nml inspection Ears, Nose, Throat Exam: normal ENT inspection, pharynx normal, moist mucous membranes Neck Exam: normal inspection, non-tender, supple, full range of motion Respiratory Exam: lungs clear, diminished breath sounds, prolonged expirations, crackles/rales, No respiratory distress Cardiovascular Exam: regular rate/rhythm, normal heart sounds Gastrointestinal/Abdomen Exam: soft, No tenderness, No mass Extremity Exam: normal inspection, normal range of motion Back Exam: normal inspection, normal range of motion, No CVA tenderness, No vertebral tenderness Male Genitalia Exam: deferred Rectal Exam: deferred OBJECTIVE DATA Vital Signs: Vital Signs - 24 hr Temp Pulse Resp BP Pulse Ox 04/27/17 11:02 105 H 22 96 04/27/17 07:25 98.6 F 99 H 20 141/88 94 L 04/27/17 07:22 95 H 20 94 L 04/27/17 04:20 100 H 22 92 L 04/27/17 04:00 21 04/27/17 00:09 89 21 97 04/26/17 23:56 20 04/26/17 20:08 105 H 20 92 L 04/26/17 20:00 20 04/26/17 19:44 97.7 F 112 H 20 156/84 91 L 04/26/17 15:00 100 H 20 Pain Assessment - Last Documented Pain Intensity 5 Pain Scale Used 0-10 Pain Scale Intake and Output: Intake & Output 04/25/17 04/26/17 04/27/17 04/28/17 11:59 11:59 11:59 11:59 Intake Total 2400 1040 2940 Output Total 2330 1325 1200 Balance 50 -285 1740 Weight 118.614 kg Lab Results: Accuchecks Date 04/27/17 Date 04/26/17 Time 04:28 Time 21:00 Accucheck Value: 247 Accucheck Value: 307 Accucheck Value: 385 Accucheck Value: 315 Lab Results-Last 24 Hours 04/27/17 04/27/17 04/27/17 Range/Units 05:00 05:00 05:00 WBC 15.3 H (4.0-10.5) K/mm3 RBC 4.10 (4.1-5.6) M/mm3 Hgb 10.9 L (12.5-18.0) gm/dl Hct 36.8 L (42-50) % MCV 89.8 (78-100) fl MCH 26.5 (26-32) pg MCHC 29.6 L (32-36) g/dl RDW 15.4 H (11.5-14.0) % Plt Count 301 (150-450) K/mm3 MPV 9.2 (6-9.5) fl Sodium 142 (136-145) mEq/L Potassium 4.4 (3.5-5.1) mEq/L Chloride 101 (98-107) mEq/L Carbon Dioxide 41.5 H (21-32) mEq/L Anion Gap 3.9 L (5-15) MEQ/L BUN 18 (9-20) mg/dL Creatinine 0.79 (0.55-1.30) mg/dl Estimated GFR > 60 ML/MIN Glucose 261 H (70-110) MG/DL Calcium 8.6 (8.5-10.1) mg/dL Total Bilirubin 0.30 (0.2-1.0) mg/dL Direct Bilirubin 0.07 (0.0-0.2) MG/DL AST 20 (15-37) U/L ALT 18 (12-78) U/L Alkaline Phosphatase 88 (46-116) U/L Serum Total Protein 6.1 L (6.4-8.2) gm/dL Albumin 3.2 L (3.4-5.0) g/dL Theophylline 7.3 L (10-20.0) ug/ml Assessment/Plan (1) Acute on chronic respiratory failure Current Visit: Yes Status: Resolved Qualifiers: Respiratory failure complication: hypoxia and hypercapnia Qualified Code(s) : J96.21 - Acute and chronic respiratory failure with hypoxia; J96.22 - Acute and chronic respiratory failure with hypercapnia Code(s): J96.20 - ACUTE AND CHR RESP FAILURE, UNSP W HYPOXIA OR HYPERCAPNIA (2) COPD exacerbation Current Visit: Yes Status: Resolved Code(s): J44.1 - CHRONIC OBSTRUCTIVE PULMONARY DISEASE W (ACUTE) EXACERBATION (3) Hypertension Current Visit: Yes Status: Chronic Qualifiers: Hypertension type: essential hypertension Qualified Code(s): I10 - Essential (primary) hypertension Code(s): I10 - ESSENTIAL (PRIMARY) HYPERTENSION
--- NOTE | 2017-04-27 19:25 | PCM.NOTE ---
Date and Time: 04/27/171923 Subjective Assessment: doing better - Review of Systems Constitutional: No Fever, No Chills Eyes: No Symptoms Ears, Nose, & Throat: No Symptoms Respiratory: No Cough, No Short Of Breath Cardiac: No Chest Pain, No Edema, No Syncope Abdominal/Gastrointestinal: No Abdominal Pain, No Nausea, No Vomiting, No Diarrhea Genitourinary Symptoms: No Dysuria Musculoskeletal: No Back Pain, No Neck Pain Skin: No Rash Neurological: No Dizziness, No Focal Weakness, No Sensory Changes Psychological: No Symptoms Endocrine: No Symptoms Hematologic/Lymphatic: No Symptoms Immunological/Allergic: No Symptoms Objective Exam General Appearance: no apparent distress, alert Neurologic Exam: alert, oriented x 3, cooperative, normal mood/affect, nml cerebellar function, sensation nml, No motor deficits Skin Exam: normal color, warm, dry Eye Exam: PERRL, EOMI, eyes nml inspection Ears, Nose, Throat Exam: normal ENT inspection, pharynx normal, moist mucous membranes Neck Exam: normal inspection, non-tender, supple, full range of motion Respiratory Exam: normal breath sounds, lungs clear, No respiratory distress Cardiovascular Exam: regular rate/rhythm, normal heart sounds Gastrointestinal/Abdomen Exam: soft, No tenderness, No mass Extremity Exam: normal inspection, normal range of motion Back Exam: normal inspection, normal range of motion, No CVA tenderness, No vertebral tenderness Male Genitalia Exam: deferred Rectal Exam: deferred OBJECTIVE DATA Vital Signs: Vital Signs - 24 hr Temp Pulse Resp BP Pulse Ox 04/27/17 14:41 102 H 22 97 04/27/17 11:02 105 H 22 96 04/27/17 07:25 98.6 F 99 H 20 141/88 94 L 04/27/17 07:22 95 H 20 94 L 04/27/17 04:20 100 H 22 92 L 04/27/17 04:00 21 04/27/17 00:09 89 21 97 04/26/17 23:56 20 04/26/17 20:08 105 H 20 92 L 04/26/17 20:00 20 04/26/17 19:44 97.7 F 112 H 20 156/84 91 L Pain Assessment - Last Documented Pain Intensity 6 Pain Scale Used 0-10 Pain Scale Intake and Output: Intake & Output 04/25/17 04/26/17 04/27/17 04/28/17 11:59 11:59 11:59 11:59 Intake Total 2400 1040 2940 Output Total 1860 1327 1200 Balance 50 -285 1740 Weight 118.614 kg Lab Results: Accuchecks Date 04/27/17 Time 04:28 Accucheck Value: 384 Accucheck Value: 269 Accucheck Value: 247 Accucheck Value: 307 Lab Results-Last 24 Hours 04/27/17 04/27/17 04/27/17 Range/Units 05:00 05:00 05:00 WBC 15.3 H (4.0-10.5) K/mm3 RBC 4.10 (4.1-5.6) M/mm3 Hgb 10.9 L (12.5-18.0) gm/dl Hct 36.8 L (42-50) % MCV 89.8 (78-100) fl MCH 26.5 (26-32) pg MCHC 29.6 L (32-36) g/dl RDW 15.4 H (11.5-14.0) % Plt Count 301 (150-450) K/mm3 MPV 9.2 (6-9.5) fl Sodium 142 (136-145) mEq/L Potassium 4.4 (3.5-5.1) mEq/L Chloride 101 (98-107) mEq/L Carbon Dioxide 41.5 H (21-32) mEq/L Anion Gap 3.9 L (5-15) MEQ/L BUN 18 (9-20) mg/dL Creatinine 0.79 (0.55-1.30) mg/dl Estimated GFR > 60 ML/MIN Glucose 261 H (70-110) MG/DL Calcium 8.6 (8.5-10.1) mg/dL Total Bilirubin 0.30 (0.2-1.0) mg/dL Direct Bilirubin 0.07 (0.0-0.2) MG/DL AST 20 (15-37) U/L ALT 18 (12-78) U/L Alkaline Phosphatase 88 (46-116) U/L Serum Total Protein 6.1 L (6.4-8.2) gm/dL Albumin 3.2 L (3.4-5.0) g/dL Theophylline 7.3 L (10-20.0) ug/ml Assessment/Plan (1) Acute on chronic respiratory failure Current Visit: Yes Status: Resolved Qualifiers: Respiratory failure complication: hypoxia and hypercapnia Qualified Code(s) : J96.21 - Acute and chronic respiratory failure with hypoxia; J96.22 - Acute and chronic respiratory failure with hypercapnia Code(s): J96.20 - ACUTE AND CHR RESP FAILURE, UNSP W HYPOXIA OR HYPERCAPNIA (2) COPD exacerbation Current Visit: Yes Status: Resolved Code(s): J44.1 - CHRONIC OBSTRUCTIVE PULMONARY DISEASE W (ACUTE) EXACERBATION (3) Hypertension Current Visit: Yes Status: Chronic Qualifiers: Hypertension type: essential hypertension Qualified Code(s): I10 - Essential (primary) hypertension Code(s): I10 - ESSENTIAL (PRIMARY) HYPERTENSION
[2017-04-27] MEDS: Ativan 2 MG/1 ML VIAL IV PRN (22:48)
[2017-04-27] MEDS: REMERON 30 MG PO SCH (23:06)
[2017-04-27] MEDS: Flomax 0.4 MG PO SCH (23:06)
[2017-04-28] MEDS: DUONEB 0.5-3 MG/3 ml Neb IH SCH ×6 (03:04→23:55)
[2017-04-28] MEDS: NovoLOG Insulin SQ PRN ×5 (04:34→22:20)
[2017-04-28] MEDS: solu-MEDROL 125 MG IV SCH ×4 (05:49→23:53)
[2017-04-28] MEDS: Advair Hfa 230/21 Mcg COMMON CANISTER IH SCH ×2 (06:52→20:07)
[2017-04-28] MEDS: Glucophage 500 MG PO SCH ×2 (08:02→17:32)
[2017-04-28] MEDS: BUSPAR 5 MG PO SCH (09:03)
[2017-04-28] MEDS: Cardizem CD 240 MG PO SCH (09:03)
[2017-04-28] MEDS: ceLEXa 20 MG PO SCH ×2 (09:03→22:08)
[2017-04-28] MEDS: Lopressor 25MG Tab PO SCH ×2 (09:03→22:07)
[2017-04-28] MEDS: NEURONTIN 300 MG PO SCH ×3 (09:03→22:06)
[2017-04-28] MEDS: Pepcid 20 MG VIAL IV SCH ×2 (09:03→22:13)
[2017-04-28] MEDS: ROCEPHIN 1 Gm-D5w 50 ml Bag** 1 G/50 ML IVPB IV SCH (09:03)
[2017-04-28] MEDS: Zithromax 500 MG/ 250 ML NaCl Premix 500 MG/250 ML IVPB IV SCH (09:59)
[2017-04-28] MEDS: PATIENT OWN MEDICATION PO SCH ×2 (09:59→22:10)
[2017-04-28] MEDS: PATIENT OWN MEDICATION PO PRN ×3 (10:00→22:13)
--- NOTE | 2017-04-28 11:53 | PCM.NOTE ---
Date and Time: 04/28/17 1152 Subjective Assessment: doing better - Review of Systems Constitutional: No Fever, No Chills Eyes: No Symptoms Ears, Nose, & Throat: No Symptoms Respiratory: Cough, Orthopnea, Short Of Breath, Wheezing Cardiac: No Chest Pain, No Edema, No Syncope Abdominal/Gastrointestinal: No Abdominal Pain, No Nausea, No Vomiting, No Diarrhea Genitourinary Symptoms: No Dysuria Musculoskeletal: No Back Pain, No Neck Pain Skin: No Rash Neurological: No Dizziness, No Focal Weakness, No Sensory Changes Psychological: No Symptoms Endocrine: No Symptoms Hematologic/Lymphatic: No Symptoms Immunological/Allergic: No Symptoms Objective Exam General Appearance: no apparent distress, alert Neurologic Exam: alert, oriented x 3, cooperative, normal mood/affect, nml cerebellar function, sensation nml, No motor deficits Skin Exam: normal color, warm, dry Eye Exam: PERRL, EOMI, eyes nml inspection Ears, Nose, Throat Exam: normal ENT inspection, pharynx normal, moist mucous membranes Neck Exam: normal inspection, non-tender, supple, full range of motion Respiratory Exam: normal breath sounds, lungs clear, No respiratory distress Cardiovascular Exam: regular rate/rhythm, normal heart sounds Gastrointestinal/Abdomen Exam: soft, No tenderness, No mass Extremity Exam: normal inspection, normal range of motion Back Exam: normal inspection, normal range of motion, No CVA tenderness, No vertebral tenderness Male Genitalia Exam: deferred Rectal Exam: deferred OBJECTIVE DATA Vital Signs: Vital Signs - 24 hr Temp Pulse Resp BP Pulse Ox 04/28/17 11:32 92 L 04/28/17 10:26 97 H 21 93 L 04/28/17 08:00 98 F 100 H 26 H 136/80 91 L 04/28/17 06:54 89 19 95 04/28/17 04:00 25 H 04/28/17 03:00 95 H 25 H 96 04/27/17 23:56 92 H 22 93 L 04/27/17 23:50 22 04/27/17 20:00 98.5 F 113 H 22 140/90 92 L 04/27/17 19:43 114 H 20 95 04/27/17 14:41 102 H 22 97 Oxygen-Last 24 hours O2 Percentage 100% Pain Assessment - Last Documented Pain Intensity 5 Pain Scale Used 0-10 Pain Scale Intake and Output: Intake & Output 04/25/17 04/26/17 04/27/17 04/28/17 11:59 11:59 11:59 11:59 Intake Total 2400 1040 2940 1260 Output Total 2350 1325 1200 1800 Balance 50 -285 1740 -540 Weight 118.614 kg Lab Results: Accuchecks Date 04/28/17 Date 04/27/17 Date 04/27/17 Time 04:30 Time 22:00 Time 22:00 Accucheck Value: 231 Accucheck Value: 251 Accucheck Value: 341 Accucheck Value: 341 Accucheck Value: 384 Accucheck Value: 269 Assessment/Plan (1) Acute on chronic respiratory failure Current Visit: Yes Status: Resolved Qualifiers: Respiratory failure complication: hypoxia and hypercapnia Qualified Code(s) : J96.21 - Acute and chronic respiratory failure with hypoxia; J96.22 - Acute and chronic respiratory failure with hypercapnia Code(s): J96.20 - ACUTE AND CHR RESP FAILURE, UNSP W HYPOXIA OR HYPERCAPNIA (2) COPD exacerbation Current Visit: Yes Status: Resolved Code(s): J44.1 - CHRONIC OBSTRUCTIVE PULMONARY DISEASE W (ACUTE) EXACERBATION (3) Hypertension Current Visit: Yes Status: Chronic Qualifiers: Hypertension type: essential hypertension Qualified Code(s): I10 - Essential (primary) hypertension Code(s): I10 - ESSENTIAL (PRIMARY) HYPERTENSION
[2017-04-28] MEDS: Ativan 2 MG/1 ML VIAL IV PRN ×3 (11:57→23:56)
[2017-04-28] MEDS: Coumadin 5 MG PO SCH (17:32)
[2017-04-28] MEDS: TYLENOL 325 MG PO PRN (17:37)
[2017-04-28] MEDS: Flomax 0.4 MG PO SCH (22:07)
[2017-04-28] MEDS: REMERON 30 MG PO SCH (22:08)
[2017-04-29] MEDS: NovoLOG Insulin SQ PRN ×7 (00:02→23:46)
[2017-04-29] MEDS: DUONEB 0.5-3 MG/3 ml Neb IH SCH ×6 (03:06→23:04)
[2017-04-29] MEDS: solu-MEDROL 125 MG IV SCH ×4 (06:12→23:41)
[2017-04-29] MEDS: PATIENT OWN MEDICATION PO PRN ×4 (06:19→21:47)
[2017-04-29] MEDS: Advair Hfa 230/21 Mcg COMMON CANISTER IH SCH ×2 (07:00→20:11)
[2017-04-29] MEDS: Glucophage 500 MG PO SCH ×2 (08:06→17:19)
[2017-04-29] MEDS: Cardizem CD 240 MG PO SCH (10:26)
[2017-04-29] MEDS: Pepcid 20 MG VIAL IV SCH ×2 (10:26→21:49)
[2017-04-29] MEDS: NEURONTIN 300 MG PO SCH ×3 (10:26→21:46)
[2017-04-29] MEDS: ceLEXa 20 MG PO SCH ×2 (10:26→21:46)
[2017-04-29] MEDS: ROCEPHIN 1 Gm-D5w 50 ml Bag** 1 G/50 ML IVPB IV SCH (10:26)
[2017-04-29] MEDS: Lopressor 25MG Tab PO SCH ×2 (10:26→21:46)
[2017-04-29] MEDS: BUSPAR 5 MG PO SCH (10:26)
[2017-04-29] MEDS: PATIENT OWN MEDICATION PO SCH ×2 (10:27→21:48)
[2017-04-29] MEDS: Ativan 2 MG/1 ML VIAL IV PRN ×3 (10:31→23:44)
[2017-04-29] MEDS: Zithromax 500 MG/ 250 ML NaCl Premix 500 MG/250 ML IVPB IV SCH (11:19)
[2017-04-29] MEDS: Flomax 0.4 MG PO SCH (21:46)
[2017-04-29] MEDS: REMERON 30 MG PO SCH (21:46)
[2017-04-30] MEDS: TYLENOL 325 MG PO PRN ×2 (00:08→17:41)
[2017-04-30] MEDS: DUONEB 0.5-3 MG/3 ml Neb IH SCH ×6 (03:45→23:22)
[2017-04-30] MEDS: solu-MEDROL 125 MG IV SCH ×3 (05:23→21:15)
[2017-04-30] MEDS: NovoLOG Insulin SQ PRN ×5 (05:23→21:16)
[2017-04-30] MEDS: Advair Hfa 230/21 Mcg COMMON CANISTER IH SCH ×2 (07:17→19:32)
[2017-04-30] MEDS: ROCEPHIN 1 Gm-D5w 50 ml Bag** 1 G/50 ML IVPB IV SCH (08:31)
[2017-04-30] MEDS: Lopressor 25MG Tab PO SCH ×2 (08:53→21:10)
[2017-04-30] MEDS: BUSPAR 5 MG PO SCH (08:53)
[2017-04-30] MEDS: Glucophage 500 MG PO SCH ×2 (08:53→17:05)
[2017-04-30] MEDS: ceLEXa 20 MG PO SCH ×2 (08:53→21:11)
[2017-04-30] MEDS: NEURONTIN 300 MG PO SCH ×3 (08:53→21:09)
[2017-04-30] MEDS: Pepcid 20 MG VIAL IV SCH ×2 (08:54→21:19)
[2017-04-30] MEDS: PATIENT OWN MEDICATION PO SCH ×2 (08:54→21:12)
[2017-04-30] MEDS: Cardizem CD 240 MG PO SCH (08:54)
[2017-04-30] MEDS: Zithromax 500 MG/ 250 ML NaCl Premix 500 MG/250 ML IVPB IV SCH (08:56)
[2017-04-30] MEDS: PATIENT OWN MEDICATION PO PRN ×3 (09:02→21:12)
[2017-04-30] MEDS: Ativan 2 MG/1 ML VIAL IV PRN ×3 (09:11→22:36)
[2017-04-30 13:40] LABS: INR 1.95 (0.8-3.0); PROTIME 22.2 SECONDS (8.83-12.87)
[2017-04-30 13:43] LABS: Mean Cell Volume 89.2 fl (78-100); Mean Platelet Volume 9.1 fl (6-9.5); Platelet Count 297 K/mm3 (150-450); Red Blood Count 4.25 M/mm3 (4.1-5.6); Red Cell Distribution Width 16.2 % (11.5-14.0)
[2017-04-30 13:45] LABS: ANION GAP 9.7 MEQ/L (5-15); BLOOD UREA NITROGEN 18 mg/dL (9-20); CHLORIDE 99 mEq/L (98-107); Carbon Dioxide 35.6 mEq/L (21-32); Glucose 259 MG/DL (70-110); Potassium 4.3 mEq/L (3.5-5.1); SODIUM 140 mEq/L (136-145)
[2017-04-30 14:34] LABS: BAND 4 % (0.0-2.0); Platelet Estimate NORMAL (NORMAL); Total Cells Counted 100
--- NOTE | 2017-04-30 16:11 | PROG NOTE ---
DATE: 04/30/17 Chart reviewed. Events noted. At the time of this evaluation, patient is alert, awake, and comfortable on BIPAP. States his shortness of breath has improved. Complains of occasional cough. Denied chest pain. VITALS: BP 97/58, heart rate 101, respiratory rate 20, temperature 97.7, O2 saturations 91-96% on BIPAP. HEENT: Pallor present. No icterus noted. NECK: No JVD present. CVS: S1 and S2 present. RESPIRATORY: Breath sounds bilaterally diminished. Occasional rhonchi present. ABDOMEN: Obese, soft, nontender. NEURO: He is alert and wake. Answers simple questions. EXTREMITIES: Reveals no edema on bilateral lower extremities. LABORATORY DATA: There were no new labs today. Medications were reviewed. ASSESSMENT: 56 y/o male with impression: 1. CHRONIC RESPIRATORY FAILURE. 2. CHRONIC OBSTRUCTIVE PULMONARY DISEASE WITH EXACERBATION. 3. HISTORY OF HYPERTENSION/CONGESTIVE HEART FAILURE. 4. HISTORY OF DEEP VEIN THROMBOSIS. 5. CHRONIC PAIN SYNDROME. PLAN: 1. Continue broad spectrum IV antibiotics, BIPAP supplemental O2. 2. Continue to follow-up labs and chest x-ray. 3. PT/OT evaluation. Plan was discussed with patient. He seems to be in understanding and agreement. Discussed with wrapper caser.
--- NOTE | 2017-04-30 16:25 | XRAY ---
Indication: Short of breath. COPD. Comparison: April 18, 2017. PA/lateral chest unchanged again demonstrating bibasilar infiltrates/atelectasis and a few scattered calcified granulomas. Heart is not enlarged. No new cardiopulmonary abnormalities.
[2017-04-30] MEDS: Coumadin 5 MG PO SCH (17:39)
[2017-04-30] MEDS: Zofran 4 MG/2 ML VIAL IV PRN (18:29)
[2017-04-30] MEDS: Flomax 0.4 MG PO SCH (21:09)
[2017-04-30] MEDS: REMERON 30 MG PO SCH (21:10)
[2017-05-01] MEDS: PATIENT OWN MEDICATION PO PRN ×3 (02:40→18:31)
[2017-05-01] MEDS: DUONEB 0.5-3 MG/3 ml Neb IH SCH ×6 (02:44→23:12)
[2017-05-01] MEDS: solu-MEDROL 125 MG IV SCH ×3 (05:31→21:27)
[2017-05-01] MEDS: Ativan 2 MG/1 ML VIAL IV PRN ×3 (05:33→17:27)
[2017-05-01] MEDS: Advair Hfa 230/21 Mcg COMMON CANISTER IH SCH ×2 (07:00→18:50)
[2017-05-01] MEDS: Glucophage 500 MG PO SCH ×2 (07:52→17:23)
[2017-05-01] MEDS: NovoLOG Insulin SQ PRN ×4 (07:52→21:31)
--- NOTE | 2017-05-01 10:04 | PCM.NOTE ---
Date and Time: 05/01/17 1003 - Review of Systems Constitutional: No Fever, No Chills Eyes: No Symptoms Ears, Nose, & Throat: No Symptoms Respiratory: No Cough, No Short Of Breath Cardiac: No Chest Pain, No Edema, No Syncope Abdominal/Gastrointestinal: No Abdominal Pain, No Nausea, No Vomiting, No Diarrhea Genitourinary Symptoms: No Dysuria Musculoskeletal: No Back Pain, No Neck Pain Skin: No Rash Neurological: No Dizziness, No Focal Weakness, No Sensory Changes Psychological: No Symptoms Endocrine: No Symptoms Hematologic/Lymphatic: No Symptoms Immunological/Allergic: No Symptoms Objective Exam General Appearance: no apparent distress, alert Neurologic Exam: alert, oriented x 3, cooperative, normal mood/affect, nml cerebellar function, sensation nml, No motor deficits Skin Exam: normal color, warm, dry Eye Exam: PERRL, EOMI, eyes nml inspection Ears, Nose, Throat Exam: normal ENT inspection, pharynx normal, moist mucous membranes Neck Exam: normal inspection, non-tender, supple, full range of motion Respiratory Exam: normal breath sounds, lungs clear, No respiratory distress Cardiovascular Exam: regular rate/rhythm, normal heart sounds Gastrointestinal/Abdomen Exam: soft, No tenderness, No mass Extremity Exam: normal inspection, normal range of motion Back Exam: normal inspection, normal range of motion, No CVA tenderness, No vertebral tenderness Male Genitalia Exam: deferred Rectal Exam: deferred OBJECTIVE DATA Vital Signs: Vital Signs - 24 hr Temp Pulse Resp BP Pulse Ox 05/01/17 08:00 97.8 F 116 H 20 132/78 91 L 05/01/17 07:00 100 H 20 95 05/01/17 02:44 106 H 24 92 L 04/30/17 23:22 91 H 18 97 04/30/17 20:00 98.1 F 133 H 18 131/82 92 L 04/30/17 19:30 126 H 24 97 04/30/17 16:00 20 04/30/17 15:00 78 20 93 L 04/30/17 11:53 20 04/30/17 11:15 101 H 20 91 L Pain Assessment - Last Documented Pain Intensity 7 Pain Scale Used 0-10 Pain Scale Intake and Output: Intake & Output 04/28/17 04/29/17 04/30/17 05/01/17 11:59 11:59 11:59 11:59 Intake Total 1260 1280 2400 1320 Output Total 1800 600 800 Balance -606 931 3568 520 Lab Results: Accuchecks Date 05/01/17 Date 04/30/17 Date 04/30/17 Date 04/30/17 Time 07:30 Time 16:30 Time 11:52 Accucheck Value: 393 Accucheck Value: 364 Accucheck Value: 383 Accucheck Value: 196 Lab Results-Last 24 Hours 04/30/17 04/30/17 04/30/17 Range/Units 13:05 13:05 13:05 WBC 26.0 H* (4.0-10.5) K/mm3 RBC 4.25 (4.1-5.6) M/mm3 Hgb 11.5 L (12.5-18.0) gm/dl Hct 37.9 L (42-50) % MCV 89.2 (78-100) fl MCH 27.0 (26-32) pg MCHC 30.3 L (32-36) g/dl RDW 16.2 H (11.5-14.0) % Plt Count 297 (150-450) K/mm3 MPV 9.1 (6-9.5) fl Segmented Neutrophils 91 H (36.-66.) % Band Neutrophils 4 H (0.0-2.0) % Lymphocytes (Manual) 5 L (24-44) % Differential Comment NORMAL Platelet Estimate NORMAL (NORMAL) INR 1.95 (0.8-3.0) Sodium 140 (136-145) mEq/L Potassium 4.3 (3.5-5.1) mEq/L Chloride 99 (98-107) mEq/L Carbon Dioxide 35.6 H (21-32) mEq/L Anion Gap 9.7 (5-15) MEQ/L BUN 18 (9-20) mg/dL Creatinine 0.93 (0.55-1.30) mg/dl Estimated GFR > 60 ML/MIN Glucose 259 H (70-110) MG/DL Calcium 8.6 (8.5-10.1) mg/dL Radiology Exams: Radiology Procedures Category Date Time Status CHEST 2 VIEWS (PA AND LAT) Routine Exams 04/30/17 11:52 Completed Assessment/Plan (1) Acute on chronic respiratory failure Current Visit: Yes Status: Resolved Qualifiers: Respiratory failure complication: hypoxia and hypercapnia Qualified Code(s) : J96.21 - Acute and chronic respiratory failure with hypoxia; J96.22 - Acute and chronic respiratory failure with hypercapnia Code(s): J96.20 - ACUTE AND CHR RESP FAILURE, UNSP W HYPOXIA OR HYPERCAPNIA (2) COPD exacerbation Current Visit: Yes Status: Resolved Code(s): J44.1 - CHRONIC OBSTRUCTIVE PULMONARY DISEASE W (ACUTE) EXACERBATION (3) Hypertension Current Visit: Yes Status: Chronic Qualifiers: Hypertension type: essential hypertension Qualified Code(s): I10 - Essential (primary) hypertension Code(s): I10 - ESSENTIAL (PRIMARY) HYPERTENSION
[2017-05-01] MEDS: ceLEXa 20 MG PO SCH ×2 (10:20→21:21)
[2017-05-01] MEDS: Lopressor 25MG Tab PO SCH ×2 (10:20→21:21)
[2017-05-01] MEDS: NEURONTIN 300 MG PO SCH ×3 (10:20→21:22)
[2017-05-01] MEDS: Pepcid 20 MG VIAL IV SCH ×2 (10:21→21:27)
[2017-05-01] MEDS: ROCEPHIN 1 Gm-D5w 50 ml Bag** 1 G/50 ML IVPB IV SCH (10:21)
[2017-05-01] MEDS: PATIENT OWN MEDICATION PO SCH ×2 (10:21→21:22)
[2017-05-01] MEDS: Cardizem CD 240 MG PO SCH (10:21)
[2017-05-01] MEDS: Zithromax 500 MG/ 250 ML NaCl Premix 500 MG/250 ML IVPB IV SCH (10:21)
[2017-05-01] MEDS: BUSPAR 5 MG PO SCH (10:21)
[2017-05-01] MEDS: Coumadin 5 MG PO SCH (17:23)
[2017-05-01] MEDS: REMERON 30 MG PO SCH (21:21)
[2017-05-01] MEDS: Flomax 0.4 MG PO SCH (21:22)
[2017-05-02] MEDS: Ativan 2 MG/1 ML VIAL IV PRN (02:28)
[2017-05-02] MEDS: DUONEB 0.5-3 MG/3 ml Neb IH SCH ×6 (03:01→23:06)
[2017-05-02] MEDS: PATIENT OWN MEDICATION PO PRN ×3 (06:22→20:20)
[2017-05-02] MEDS: solu-MEDROL 125 MG IV SCH (06:26)
[2017-05-02] MEDS: Advair Hfa 230/21 Mcg COMMON CANISTER IH SCH ×2 (06:35→19:01)
[2017-05-02] MEDS: Lopressor 25MG Tab PO SCH ×2 (09:05→20:17)
[2017-05-02] MEDS: BUSPAR 5 MG PO SCH (09:05)
[2017-05-02] MEDS: NEURONTIN 300 MG PO SCH ×3 (09:05→20:17)
[2017-05-02] MEDS: Glucophage 500 MG PO SCH ×2 (09:05→16:11)
[2017-05-02] MEDS: Cardizem CD 240 MG PO SCH (09:06)
[2017-05-02] MEDS: TYLENOL 325 MG PO PRN ×2 (09:06→16:39)
[2017-05-02] MEDS: ceLEXa 20 MG PO SCH ×2 (09:06→20:17)
[2017-05-02] MEDS: NovoLOG Insulin SQ PRN ×4 (09:07→23:02)
[2017-05-02] MEDS: PATIENT OWN MEDICATION PO SCH ×2 (09:07→20:18)
[2017-05-02] MEDS: Ativan 1 MG PO PRN ×3 (09:13→23:02)
[2017-05-02] MEDS: DELTASONE 10 MG PO SCH (09:13)
[2017-05-02] MEDS: REMERON 30 MG PO SCH (20:16)
[2017-05-02] MEDS: Flomax 0.4 MG PO SCH (20:17)
[2017-05-03] MEDS: DUONEB 0.5-3 MG/3 ml Neb IH SCH ×6 (03:11→22:52)
[2017-05-03] MEDS: PATIENT OWN MEDICATION PO PRN ×4 (05:21→18:51)
[2017-05-03] MEDS: Advair Hfa 230/21 Mcg COMMON CANISTER IH SCH ×2 (07:32→18:51)
[2017-05-03] MEDS: Glucophage 500 MG PO SCH ×2 (07:57→17:11)
--- NOTE | 2017-05-03 08:18 | PCM.NOTE ---
Date and Time: 05/03/17816 Subjective Assessment: doing better - Review of Systems Constitutional: No Fever, No Chills Eyes: No Symptoms Ears, Nose, & Throat: No Symptoms Respiratory: Orthopnea, Short Of Breath, No Cough Cardiac: No Chest Pain, No Edema, No Syncope Abdominal/Gastrointestinal: No Abdominal Pain, No Nausea, No Vomiting, No Diarrhea Genitourinary Symptoms: No Dysuria Musculoskeletal: No Back Pain, No Neck Pain Skin: No Rash Neurological: No Dizziness, No Focal Weakness, No Sensory Changes Psychological: No Symptoms Endocrine: No Symptoms Hematologic/Lymphatic: No Symptoms Immunological/Allergic: No Symptoms Objective Exam General Appearance: no apparent distress Neurologic Exam: alert, oriented x 3 Skin Exam: normal color Eye Exam: PERRL, EOMI Respiratory Exam: diminished breath sounds, wheezing OBJECTIVE DATA Vital Signs: Vital Signs - 24 hr Temp Pulse Resp BP Pulse Ox 05/03/17 08:00 98.3 F 123 H 22 137/84 90 L 05/03/17 07:00 123 H 20 90 L 05/03/17 03:11 93 H 18 95 05/02/17 23:06 65 27 H 98 05/02/17 20:00 97.9 F 83 19 127/79 96 05/02/17 19:00 102 H 19 99 05/02/17 16:19 92 L 05/02/17 16:00 21 05/02/17 14:26 102 H 21 96 05/02/17 12:00 19 05/02/17 11:20 97 H 19 96 05/02/17 08:57 91 L Pain Assessment - Last Documented Pain Intensity 9 Pain Scale Used 0-10 Pain Scale Intake and Output: Intake & Output 04/30/17 05/01/17 05/02/17 05/03/17 11:59 11:59 11:59 11:59 Intake Total 2400 1320 1020 1640 Output Total 800 1200 Balance 2400 520 1020 440 Lab Results: Accuchecks Date 05/02/17 Date 05/02/17 Time 16:30 Time 12:00 Accucheck Value: 326 Accucheck Value: 284 Assessment/Plan (1) Acute on chronic respiratory failure Current Visit: Yes Status: Resolved Qualifiers: Respiratory failure complication: hypoxia and hypercapnia Qualified Code(s) : J96.21 - Acute and chronic respiratory failure with hypoxia; J96.22 - Acute and chronic respiratory failure with hypercapnia Code(s): J96.20 - ACUTE AND CHR RESP FAILURE, UNSP W HYPOXIA OR HYPERCAPNIA (2) COPD exacerbation Current Visit: Yes Status: Resolved Code(s): J44.1 - CHRONIC OBSTRUCTIVE PULMONARY DISEASE W (ACUTE) EXACERBATION (3) Hypertension Current Visit: Yes Status: Chronic Qualifiers: Hypertension type: essential hypertension Qualified Code(s): I10 - Essential (primary) hypertension Code(s): I10 - ESSENTIAL (PRIMARY) HYPERTENSION
[2017-05-03] MEDS: ceLEXa 20 MG PO SCH ×2 (09:06→21:52)
[2017-05-03] MEDS: Lopressor 25MG Tab PO SCH ×2 (09:06→21:52)
[2017-05-03] MEDS: BUSPAR 5 MG PO SCH (09:06)
[2017-05-03] MEDS: NEURONTIN 300 MG PO SCH ×3 (09:06→21:52)
[2017-05-03] MEDS: Ativan 1 MG PO PRN ×2 (09:06→17:14)
[2017-05-03] MEDS: DELTASONE 10 MG PO SCH (09:07)
[2017-05-03] MEDS: Cardizem CD 240 MG PO SCH (09:07)
[2017-05-03] MEDS: PATIENT OWN MEDICATION PO SCH ×2 (09:08→21:52)
[2017-05-03] MEDS: NovoLOG Insulin SQ PRN ×3 (11:18→21:53)
[2017-05-03] MEDS: Coumadin 5 MG PO SCH (17:11)
[2017-05-03] MEDS: TYLENOL 325 MG PO PRN (19:54)
[2017-05-03] MEDS: Flomax 0.4 MG PO SCH (21:51)
[2017-05-03] MEDS: REMERON 30 MG PO SCH (21:51)
[2017-05-04] MEDS: DUONEB 0.5-3 MG/3 ml Neb IH SCH ×3 (03:03→10:53)
[2017-05-04 07:38] VITALS: BP 116/72
[2017-05-04] MEDS: Glucophage 500 MG PO SCH (08:35)
[2017-05-04] MEDS: NovoLOG Insulin SQ PRN (08:36)
[2017-05-04] MEDS ORDERED: Aplisol ID SCH (10:00)
[2017-05-04 10:56] VITALS: PULSE 112; O2SAT 94
[2017-05-04] MEDS: Advair Hfa 230/21 Mcg COMMON CANISTER IH SCH (11:29)
[2017-05-04] MEDS: Lopressor 25MG Tab PO SCH (11:47)
[2017-05-04] MEDS: BUSPAR 5 MG PO SCH (11:47)
[2017-05-04] MEDS: Cardizem CD 240 MG PO SCH (11:47)
[2017-05-04] MEDS: NEURONTIN 300 MG PO SCH (11:47)
[2017-05-04] MEDS: ceLEXa 20 MG PO SCH (11:47)
[2017-05-04] MEDS: DELTASONE 10 MG PO SCH (11:47)
[2017-05-04] MEDS: PATIENT OWN MEDICATION PO SCH (11:48)
[2017-05-04] MEDS: PATIENT OWN MEDICATION PO PRN (11:50)
--- NOTE | 2017-05-04 12:25 | PCM.DS ---
Discharge Summary Date of Admission: 04/22/17 11:00 Admitting Physician: GEE FERNANDES Primary Care Provider: GEE FERNANDES Allergies Allergies No Known Drug Allergies Allergy (Verified 04/18/17 15:00) Hospital Summary - Hospital Course Hospital Course: Chief Complaint Diagnosis Deconditioning r/t chronic respiratory distress / failure Allergies Allergy/AdvReac Type Severity Reaction Status Date / Time No Known Drug Allergies Allergy Verified 04/18/17 15:00 Vital Signs (Last 24 hours) Temp Pulse Resp BP Pulse Ox 05/04/17 10:53 112 H 20 94 L 05/04/17 10:00 20 05/04/17 07:37 98.2 F 111 H 20 116/72 89 L 05/04/17 07:00 88 20 89 L 05/04/17 03:03 98 H 23 93 L 05/03/17 22:52 93 H 18 94 L 05/03/17 20:00 98.8 F 110 H 20 127/75 92 L 05/03/17 18:51 110 H 20 92 L 05/03/17 17:08 20 05/03/17 15:00 118 H 20 92 L 05/03/17 14:00 20 Current Medications Generic Name Dose Route Start Last Admin Trade Name Freq PRN Reason Stop Dose Admin Acetaminophen 650 mg 04/22/17 13:21 05/03/17 19:54 Tylenol 325 Mg PO 05/22/17 13:20 650 mg Q4H PRN PRN Administration Albuterol/Ipratropium 3 ml 04/22/17 15:00 05/04/17 10:53 Duoneb 0.5-3 Mg/3 Ml Neb IH 05/22/17 14:59 3 ml Q4HRT JUAN Administration Buspirone HCl 5 mg 04/23/17 10:00 05/04/17 11:47 Buspar 5 Mg PO 05/23/17 09:59 5 mg DAILY JUAN Administration Citalopram Hydrobromide 20 mg 04/22/17 22:00 05/04/17 11:47 Celexa 20 Mg PO 05/22/17 21:59 20 mg BID JUAN Administration Diltiazem HCl 240 mg 04/23/17 10:00 05/04/17 11:47 Cardizem Cd 240 Mg PO 05/23/17 09:59 240 mg DAILY JUAN Administration Gabapentin 600 mg 04/22/17 15:00 05/04/17 11:47 Neurontin 300 Mg PO 05/22/17 14:59 600 mg TID JUAN Administration Insulin Aspart 0 unit 04/26/17 00:59 05/04/17 08:36 Novolog Insulin SQ 05/26/17 00:58 4 unit UD PRN Administration HYPERGLYCEMIA Lorazepam 1 mg 05/02/17 08:41 05/03/17 17:14 Ativan 1 Mg PO 06/01/17 08:40 1 mg Q6H PRN PRN Administration ANXIETY Metformin HCl 500 mg 04/22/17 17:00 05/04/17 08:35 Glucophage 500 Mg PO 05/22/17 16:59 500 mg BIDWM JUAN Administration Metoprolol Tartrate 25 mg 04/22/17 22:00 05/04/17 11:47 Lopressor 25mg Tab PO 05/22/17 21:59 25 mg BID JUAN Administration Mirtazapine 15 mg 04/22/17 22:00 05/03/17 21:51 Remeron 30 Mg PO 05/22/17 21:59 15 mg HS JUAN Administration Theophylline 300mg 1 each 04/22/17 22:00 05/04/17 11:48 Tablet PO 05/22/17 21:59 1 each BID JUAN Administration Nucynta 100mg Tablet 1 each 04/22/17 13:13 05/04/17 11:50 PO 05/22/17 13:12 1 each Q4H PRN PRN Administration PAIN Prednisone 10 mg 05/02/17 10:00 05/04/17 11:47 Deltasone 10 Mg PO 06/01/17 09:59 10 mg DAILY JUAN Administration Fluticasone/Salmeterol 2 puff 04/22/17 19:00 05/04/17 11:29 Advair Hfa 230/21 Mcg Common Canister* IH 05/22/17 18:59 2 puff BIDRT JUAN Administration Senna/Docusate Sodium 1 udtab 04/22/17 12:59 05/02/17 09:15 Senokot-S Tablet PO 05/22/17 12:58 1 udtab DAILY PRN PRN Administration CONSTIPATION Tamsulosin HCl 0.4 mg 04/22/17 22:00 05/03/17 21:51 Flomax 0.4 Mg PO 05/22/17 21:59 0.4 mg HS JUAN Administration Warfarin Sodium 5 mg 04/23/17 18:00 05/03/17 17:11 Coumadin 5 Mg PO 05/23/17 17:59 5 mg SuTuThSa JUAN Administration Discontinued Medications Generic Name Dose Route Start Last Admin Trade Name Freq PRN Reason Stop Dose Admin Famotidine 20 mg 04/22/17 22:00 05/01/17 21:27 Pepcid 20 Mg Vial IV 05/22/17 21:59 20 mg Q12HT JUAN Administration Azithromycin 500 mg in 250 mls @ 167 mls/hr 04/23/17 10:00 05/01/17 10:21 Zithromax 500 Mg/ 250 Ml Nacl Premix IV 05/23/17 09:59 167 mls/hr Q24H10 JUAN Administration Ceftriaxone Sodium/Dextrose 1 g in 50 mls @ 100 mls/hr 04/23/17 10:00 10:21 Rocephin 1 Gm-D5w 50 Ml Bag IV 05/23/17 09:59 100 mls/hr Q24H10 JUAN Administration Insulin Aspart 0 unit 04/22/17 13:23 04/25/17 16:45 Novolog Insulin SQ 05/22/17 13:22 8 unit UD PRN Administration Insulin Aspart 15 unit 04/26/17 00:57 04/26/17 00:30 Novolog Insulin SQ 04/26/17 00:58 15 unit STAT ONE Administration Lorazepam 1 mg 04/27/17 22:38 05/02/17 02:28 Ativan 2 Mg/1 Ml Vial IV 05/27/17 22:37 1 mg Q6H PRN PRN Administration ANXIETY Methylprednisolone Sodium Succinate 80 mg 04/22/17 13:30 04/30/17 11:48 Solu-Medrol 125 Mg IV 05/22/17 13:29 80 mg Q6HT JUAN Administration Methylprednisolone Sodium Succinate 60 mg 04/30/17 22:00 05/02/17 06:26 Solu-Medrol 125 Mg IV 05/30/17 21:59 Not Given Q8HT JUAN Ondansetron HCl 4 mg 04/22/17 13:21 04/30/17 18:29 Zofran 4 Mg/2 Ml Vial IV 05/22/17 13:20 4 mg Q4H PRN PRN Administration Tuberculin PPD 5 unit 04/23/17 10:00 04/23/17 10:59 Aplisol ID 04/23/17 10:01 5 unit DAILY JUAN Administration Tuberculin PPD 5 unit 05/04/17 10:00 05/04/17 11:46 Aplisol ID 05/04/17 10:01 Not Given DAILY JUAN Intake & Output (Last 24 hours) 05/02/17 05/03/17 05/04/17 05/05/17 11:59 11:59 11:59 11:59 Intake Total 1020 2360 1400 Output Total 1700 Balance 1254 018 [id number] Orders (Last 24 hours) Category Date Time Status Discharge Routine Discharge 05/04/17 10:39 Ordered Discharge/Telephone Order Routine Discharge 05/04/17 10:39 Active BMP Routine Lab 05/06/17 04:00 Ordered PT INR [PROTIME WITH INR] Urgent Lab 05/06/17 05:30 Ordered Tuberculin,Purif.prot.deriv. [Aplisol] Med 05/04/17 10:00 Discontinued 5 unit ID DAILY Patient Care Notes (Last 24 hours) 05/03/17 16:11 Respiratory Note by Racquel Harper [id number] OXMIZER DEC FROM 8LPM TO 4LPM SPO2 DROPPED TO 83/%. TURNED OXMIZER BACK TO 8LPM SPO2 INC TO 92%. Addendum entered by Racquel Harper 05/04/17 10:48: ALL SPO2 READINGS WERE DONE AT REST Initialized on 05/03/17 16:11 - END OF NOTE 05/03/17 12:44 Case Management Note by Ashley Ballard FOLLOWUP WITH [facility] ON HOME EQUIPMENT AND STATUS OF. SPOKE WITH [facility]. REPORTS THAT THEY HAVE APPROVAL FOR HOME EQUIPMENT. REPORTS THAT THEY FEEL IT WOULD BE BEST (BECAUSE OF THE HIGH LITER FLOW) THAT PT IS USING THAT THEY DELIVER HOME VENTILATOR TO PT HERE AND LET HIM USE OVERNIGHT TO MAKE SURE THAT IT WILL BE SUCCESSFUL. FEEL IT WOULD BE BEST BEING MONITORED OVERNIGHT. REPORTS THAT THEIR RESPIRATORY THERAPIST WILL DELIVER TO HOSPITAL TODAY. DISCUSSED THAT DR. FERNANDES IS READY FOR DISCHARGE. ALSO, REPORTS THAT THEY WILL BE UNABLE TO TRANSFER THE HOME OXYGEN, HE WILL NEED TO CONTINUE TO GET THAT WITH [facility]. [facility] REPORTS THAT THEY HAVE DISCUSSED WITH [facility] AND THAT THEY ARE AWARE OF HIS OXYGEN NEEDS. Initialized on 05/03/17 12:44 - END OF NOTE - Vitals & Intake/Output Vital Signs: Vital Signs Temperature 98.2 F 05/04/17 07:37 Pulse Rate 112 H 05/04/17 10:53 Respiratory Rate 20 05/04/17 10:53 Blood Pressure 116/72 05/04/17 07:37 O2 Sat by Pulse Oximetry 94 L 05/04/17 10:53 Oxygen-Last Documented O2 Percentage 50% Intake & Output: Intake & Output 05/02/17 05/03/17 05/04/17 05/05/17 11:59 11:59 11:59 11:59 Intake Total 1020 2360 1400 Output Total 1700 Balance 8714 143 9246 - Lab Result Diagrams: 04/30/17 13:05 04/30/17 13:05 Lab Results-Last 24 Hrs: Accuchecks Date 05/04/17 Date 05/04/17 Date 05/03/17 Date 05/03/17 Time 11:30 Time 07:30 Time 16:30 Accucheck Value: 147 Accucheck Value: 156 Accucheck Value: 330 Micro Results-Entire Visit: Accuchecks Date 05/04/17 Date 05/04/17 Date 05/03/17 Date 05/03/17 Time 11:30 Time 07:30 Time 16:30 Accucheck Value: 147 Accucheck Value: 156 Accucheck Value: 330 - Procedures and Test Procedures and Tests throughout Hospitalization: Therapy Orders & Screens 04/22/17 11:26 BiPap/CPAP Assessment Comment: Diagnosis: Deconditioning r/t chronic respiratory distress/failure RT Miscellaneous Order ROUTINE Comment: Physician Instructions: Reason For Exam: 15 L oxymizer/keep SPO2 >92 Diagnosis: Deconditioning r/t chronic respiratory distress/failure 04/22/17 11:27 Oxygen OXYMIZER-LPM 15% Comment: Diagnosis: Deconditioning r/t chronic respiratory distress/failure 04/22/17 15:00 Respiratory Nebulizer Q4H Comment: DUONEB Q4 Diagnosis: Deconditioning r/t chronic respiratory distress/failure 04/22/17 19:00 Respiratory MDI BID Comment: MARC BID Diagnosis: Deconditioning r/t chronic respiratory distress/failure Discharge Exam General Appearance: no apparent distress, alert Neurologic Exam: alert, oriented x 3, cooperative, normal mood/affect, nml cerebellar function, sensation nml, No motor deficits Skin Exam: normal color, warm, dry Eye Exam: PERRL, EOMI, eyes nml inspection Ears, Nose, Throat Exam: normal ENT inspection, pharynx normal, moist mucous membranes Neck Exam: normal inspection, non-tender, supple, full range of motion Respiratory Exam: normal breath sounds, lungs clear, No respiratory distress Cardiovascular Exam: regular rate/rhythm, normal heart sounds Gastrointestinal/Abdomen Exam: soft, No tenderness, No mass Extremity Exam: normal inspection, normal range of motion Back Exam: normal inspection, normal range of motion, No CVA tenderness, No vertebral tenderness Male Genitalia Exam: deferred Rectal Exam: deferred Final Diagnosis/Problem List - Final Discharge Diagnosis/Problem (1) Acute on chronic respiratory failure Current Visit: Yes Status: Resolved (2) COPD exacerbation Current Visit: Yes Status: Resolved (3) Hypertension Current Visit: Yes Status: Chronic - Discharge Discharge Date: 05/04/17 Disposition: Home, Self-Care Condition: Stable Prescriptions: Continue Warfarin Sodium 5 mg [Coumadin 5 MG] 5 mg PO UD Sennosides/Docusate Sodium [Stool Soft-Stimulant Lax Tab] 1 each PO DAILY PRN PRN PRN Reason: Constipation Metformin HCl 500 mg [Glucophage 500 MG] 500 mg PO BID Metoprolol Tartrate 50 mg [Lopressor 50 MG] 25 mg PO BID Mirtazapine 15 mg PO HS Theophylline Anhydrous 300 mg PO BID Tamsulosin HCl 0.4 mg [Flomax 0.4 MG] 0.4 mg PO HS Buspirone HCl 5 mg [Buspar 5 mg] 5 mg PO DAILY Citalopram Hydrobromide [Citalopram HBr] 20 mg PO BID Albuterol Sulfate [Ventolin Hfa] 18 gm IH BID Albuterol Sulfate [Proair Hfa] 8.5 gm IH BID Diltiazem HCl [Dilt-Xr] 240 mg PO DAILY Gabapentin [Neurontin] 600 mg PO TID Tapentadol HCl [Nucynta] 100 mg PO QIDPRN PRN PRN Reason: Pain Prednisone 10 mg [Deltasone 10 mg] 10 mg PO DAILY Instructions: Carbohydrate-Counting Diet, Chronic Obstructive Pulmonary Disease Additional Instructions: Follow up with at [facility] on 05/10/17@3:15p.mJacoby [facility] TO CONTINUE FOR HOME OXYGEN NEEDS. YOU MAY REACH THEM AT . [facility] TO PROVIDE/SERVICE YOUR TRILOGY UNIT. YOU MAY REACH THEM AT . Follow up with: GEE FERNANDES MD [Primary Care Provider] - 05/10/17 3:15 pm Forms: Discharge Instructions, Patient Portal Information
== END 2017-05-04 13:00 | disposition home or self-care (01) | DRG 189 ==
LOC: MED SURG 11:00
PROVIDERS: ADMIT General Practice; ATTEND General Practice
DX: J96.22 Acute and chronic respiratory failure with hypercapnia (principal); J44.1 Chronic obstructive pulmonary disease with (acute) exacerbation; J96.21 Acute and chronic respiratory failure with hypoxia; I11.0 Hypertensive heart disease with heart failure; I50.9 Heart failure, unspecified; E11.9 Type 2 diabetes mellitus without complications; Z79.4 Long term (current) use of insulin; K21.9 Gastro-esophageal reflux disease without esophagitis; F41.9 Anxiety disorder, unspecified; F31.9 Bipolar disorder, unspecified; M19.90 Unspecified osteoarthritis, unspecified site; G89.4 Chronic pain syndrome; F45.42 Pain disorder with related psychological factors; Z79.01 Long term (current) use of anticoagulants; Z79.899 Other long term (current) drug therapy; I25.2 Old myocardial infarction; Z86.718 Personal history of other venous thrombosis and embolism
CPT/HCPCS: 36415; 71020; 80048; 80076; 80198; 82805; 82947; 82962; 85025; 85027; 85610; 94003; 94640; 94760; J0456; J0696; J2060; J2405; J2930; A9270-GY; J7506

== ENCOUNTER 2017-07-09 21:06 | Observation (INO) | payer MEDICARE ==
[2017-07-09] MEDS ORDERED: BABY ASPIRIN 81 MG CHEW PO ONE (21:20)
[2017-07-09] MEDS ORDERED: Nitrostat 0.4 MG (ED) SL ONE ×2 (21:20→21:33)
[2017-07-09] MEDS ORDERED: solu-MEDROL 125 MG IV ONE (21:22)
[2017-07-09] MEDS ORDERED: Zithromax 500 MG/ 250 ML NaCl Premix 500 MG/250 ML IVPB IV STA (21:22)
[2017-07-09] MEDS ORDERED: Xopenex 1.25 MG/0.5 ML UD NEBULE IH ONE ×2 (21:22→21:36)
[2017-07-09] MEDS ORDERED: ROCEPHIN 1 Gm-D5w 50 ml Bag** 1 G/50 ML IVPB IV STA (21:22)
[2017-07-09] MEDS ORDERED: Sodium Chloride 0.9% 1000 ML 1,000 ML IV SCH (21:30)
--- NOTE | 2017-07-09 21:30 | ERPHSYRPT ---
- History of Present Illness Time Seen by Provider: 07/09/17 21:10 Source: patient, family () Exam Limitations: no limitations Patient Subjective Stated Complaint: pt states he has been feeling unwell for a few days. states he has been having sob at home, rash to arm s and legs and swelling in his legs and rt elbow. c/o tenderness in rt elbow. Triage Nursing Assessment: pt alert and oriented, answers questions approp. sob with speaking and exertion. accessory muscle use noted. skin warm and dry. rash with raised red bumps noted to bilat arms and legs. swelling noted to rt elbow. Physician History: FOR THE PAST 2 DAYS PT HAS HAD SHORTNESS OF AIR, LOWER ANTERIOR CHEST PAIN, MID BACK PAIN, PRURITIC RASH ON ARMS AND LEGS, DIAPHORESIS, CHILLS AND DIARRHEA. THIS AM PT NOTICED HIS RIGHT ELBOW WAS SWOLLEN AND TENDER. Allergies/Adverse Reactions: No Known Drug Allergies Allergy (Verified 07/09/17 21:26) Home Medications: Warfarin Sodium 5 mg [Coumadin 5 MG] 5 mg PO DAILY 05/14/14 [History] Sennosides/Docusate Sodium [Stool Soft-Stimulant Lax Tab] 1 each PO DAILY PRN PRN 11/18/14 [History] Metformin HCl 500 mg [Glucophage 500 MG] 500 mg PO BID 09/13/15 [History] Metoprolol Tartrate 50 mg [Lopressor 50 MG] 25 mg PO BID 01/17/16 [History ] Mirtazapine 15 mg PO HS 01/05/17 [History] Albuterol Sulfate [Proair Hfa] 8.5 gm IH BID 04/18/17 [History] Albuterol Sulfate [Ventolin Hfa] 18 gm IH BID 04/18/17 [History] Buspirone HCl 5 mg [Buspar 5 mg] 5 mg PO DAILY 04/18/17 [History] Citalopram Hydrobromide [Citalopram HBr] 20 mg PO BID 04/18/17 [History] Diltiazem HCl [Dilt-Xr] 240 mg PO DAILY 04/18/17 [History] Gabapentin [Neurontin] 600 mg PO TID 04/18/17 [History] Tamsulosin HCl 0.4 mg [Flomax 0.4 MG] 0.4 mg PO HS 04/18/17 [History] Tapentadol HCl [Nucynta] 100 mg PO QIDPRN PRN 04/18/17 [History] Theophylline Anhydrous 300 mg PO BID 04/18/17 [History] Prednisone 10 mg [Deltasone 10 mg] 10 mg PO DAILY 04/20/17 [History] Hx Tetanus, Diphtheria Vaccination/Date Given: Yes (UP TO DATE) Hx Influenza Vaccination/Date Given: No Hx Pneumococcal Vaccination/Date Given: Yes Immunizations Up to Date: Yes - Review of Systems Constitutional: Chills, No Fever Respiratory: Dyspnea Cardiac: Chest Pain Abdominal/Gastrointestinal: Diarrhea, No Abdominal Pain, No Nausea, No Vomiting Musculoskeletal: Back Pain, Joint Swelling (RIGHT ELBOW SWELLING) Skin: Pruritis, Rash Endocrine: Excessive Sweating All Other Systems: Reviewed and Negative - Past Medical History Pertinent Past Medical History: Yes Neurological History: Stroke ENT History: No Pertinent History Cardiac History: Arrhythmia, Hypertension, Myocardial Infarction ([place]) Respiratory History: Asthma, Bronchitis, COPD, Pneumonia Endocrine Medical History: Adrenal Insufficiency, Diabetes Type II Musculoskeletal History: Arthritis GI Medical History: GERD, GI Bleed History: No Pertinent History Psycho-Social History: Anxiety, Bipolar, Depression, Panic Disorder Male Reproductive Disorders: No Pertinent History Other Medical History: Strokes in 2013, 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 Ponce. - Past Surgical History Past Surgical History: Yes Neuro Surgical History: No Pertinent History Cardiac: No Pertinent History Respiratory: No Pertinent History Gastrointestinal: Appendectomy, Hernia Repair Genitourinary: No Pertinent History Musculoskeletal: No Pertinent History Male Surgical History: No Pertinent History Other Surgical History: Right leg surgery, Sinus surgery - Social History Smoking Status: Former smoker How long have you smoked: 2006 Exposure to second hand smoke: No Drug Use: none Patient Lives Alone: No - Nursing Vital Signs Nursing Vital Signs: Initial Vital Signs Temperature 97.6 F 07/09/17 21:13 Pulse Rate 134 H 07/09/17 21:13 Respiratory Rate 22 07/09/17 21:13 Blood Pressure 121/78 07/09/17 21:13 O2 Sat by Pulse Oximetry 93 L 07/09/17 21:13 Pain Scale Pain Intensity 8 - Physical Exam General Appearance: alert Eye Exam: PERRL/EOMI Ears, Nose, Throat Exam: moist mucous membranes, pharyngeal erythema (MILD) Neck Exam: normal inspection Respiratory Exam: wheezing (MINIMAL EXPIRATORY WHEEZING OVER POSTERIOR BASES) Cardiovascular Exam: tachycardia Gastrointestinal/Abdomen Exam: soft, normal bowel sounds Back Exam: normal range of motion Extremity Exam: other (DISCRETE 2-3MM DIAMETER ERYTHEMATOUS PAPULES OVER ARMS & LEGS) Neurologic Exam: alert, cooperative Skin Exam: warm, dry, No cyanosis SpO2 Interpretation: borderline oxygenation SpO2: 93 Oxygen Delivery: Nasal Cannula - Course Nursing assessment & vital signs reviewed: Yes EKG Interpreted by Me: RATE ([id number]), Sinus Tach, NORMAL AXIS, NORMAL INTERVALS - Radiology Exams Chest X-ray Interpretation: Interpreted by me (RLL INFILTRATE) Ordered Tests: Active Orders 24 hr Category Date Time Status Tetryl Screen Operator STAT Care 07/09/17 21:21 Active EKG-ER Only STAT Care 07/09/17 21:20 Active IV Insertion STAT Care 07/09/17 21:20 Active Oxygen-ED Only NASAL CANNULA 6 lpm Care 07/09/17 21:20 Active Pulse Oximetry (ED) STAT Care 07/09/17 21:20 Active CHEST 2 VIEWS (PA AND LAT) Stat Exams 07/09/17 21:21 Taken AMYLASE Stat Lab 07/09/17 21:47 Completed ARTERIAL BLOOD GASES Urgent Lab 07/09/17 Results BLOOD CULTURE Stat Lab 07/09/17 21:49 Received CBC W DIFF Stat Lab 07/09/17 21:47 Completed CMP Stat Lab 07/09/17 21:47 Completed CULTURE, THROAT Stat Lab 07/09/17 21:49 Received CULTURE,SPUTUM Stat Lab 07/09/17 21:22 Uncollected LIPASE Stat Lab 07/09/17 21:47 Completed Lactic Acid Stat Lab 07/09/17 Results MAGNESIUM Stat Lab 07/09/17 21:47 Completed [place] Screen Stat Lab 07/09/17 21:47 Completed NT PRO BNP Stat Lab 07/09/17 21:47 Completed PROTIME WITH INR Stat Lab 07/09/17 21:47 Completed PTT Stat Lab 07/09/17 21:47 Completed STREP SCREEN-BETA A Stat Lab 07/09/17 21:49 Completed TROPONIN Q3H Lab 07/09/17 21:47 Completed TROPONIN Q3H Lab 07/10/17 00:30 Ordered TROPONIN Q3H Lab 07/10/17 03:30 Ordered TROPONIN Q3H Lab 07/10/17 06:30 Ordered TROPONIN Q3H Lab 07/10/17 09:30 Ordered UA W/RFX UR CULTURE Stat Lab 07/09/17 22:59 Received Medication Summary Generic Name Dose Route Start Last Admin Trade Name Larry PRN Reason Stop Dose Admin Sodium Chloride 1,000 mls @ 100 mls/hr 07/09/17 21:30 07/09/17 21:39 Sodium Chloride 0.9% 1000 Ml IV 08/08/17 21:29 100 mls/hr .Q10H JUAN Administration Discontinued Medications Generic Name Dose Route Start Last Admin Trade Name Larry PRN Reason Stop Dose Admin Aspirin 324 mg 07/09/17 21:20 07/09/17 21:39 Baby Aspirin 81 Mg Chew PO 07/09/17 21:21 324 mg STAT ONE Administration Aspirin Confirm 07/09/17 21:33 Baby Aspirin 81 Mg Chew Administered 07/09/17 21:34 Dose 324 mg .ROUTE .STK-MED ONE Ceftriaxone Sodium/Dextrose 1 g in 50 mls @ 100 mls/hr 07/09/17 21:22 21:39 Rocephin 1 Gm-D5w 50 Ml Bag IV 07/09/17 21:51 100 mls/hr STAT STA Administration Azithromycin 500 mg in 250 mls @ 250 mls/hr 07/09/17 21:22 07/09/17 22:40 Zithromax 500 Mg/ 250 Ml Nacl Premix IV 07/09/17 22:21 500 mls/hr STAT STA Administration Ceftriaxone Sodium/Dextrose Confirm 07/09/17 21:33 Rocephin 1 Gm-D5w 50 Ml Bag Administered 07/09/17 21:34 Dose 1 g in 50 mls @ ud IV .STK-MED ONE Azithromycin Confirm 07/09/17 22:00 Zithromax 500 Mg/ 250 Ml Nacl Premix Administered 07/09/17 22:01 Dose 500 mg in 250 mls @ ud IV .STK-MED ONE Levalbuterol HCl 1.25 mg 07/09/17 21:22 Xopenex 1.25 Mg/0.5 Ml Ud Nebule IH 07/09/17 21:23 STAT ONE Levalbuterol HCl Confirm 07/09/17 21:36 Xopenex 1.25 Mg/0.5 Ml Ud Nebule Administered 07/09/17 21:37 Dose 1.25 mg IH .STK-MED ONE Methylprednisolone Sodium Succinate 125 mg 07/09/17 21:22 07/09/17 22:05 Solu-Medrol 125 Mg IV 07/09/17 21:23 125 mg STAT ONE Administration Methylprednisolone Sodium Succinate Confirm 07/09/17 21:59 Solu-Medrol 125 Mg Administered 07/09/17 22:00 Dose 125 mg .ROUTE .STK-MED ONE Nitroglycerin 0.4 mg 07/09/17 21:20 07/09/17 21:39 Nitrostat 0.4 Mg (Ed) SL 07/09/17 21:21 0.4 mg STAT ONE Administration Nitroglycerin Confirm 07/09/17 21:33 Nitrostat 0.4 Mg (Ed) Administered 07/09/17 21:34 Dose 0.4 mg SL .STK-MED ONE Sodium Chloride Confirm 07/09/17 21:36 Sodium Chloride 3 Ml Ud Nebules Administered 07/09/17 21:37 Dose 3 ml IH .STK-MED ONE Lab/Rad Data: Laboratory Result Diagrams 07/09/17 21:47 07/09/17 21:47 Laboratory Results 07/09/17 07/09/17 07/09/17 Range/Units Unknown Unknown 21:49 WBC (4.0-10.5) K/mm3 RBC (4.1-5.6) M/mm3 Hgb (12.5-18.0) gm/dl Hct (42-50) % MCV (78-100) fl MCH (26-32) pg MCHC (32-36) g/dl RDW (11.5-14.0) % Plt Count (150-450) K/mm3 MPV (6-9.5) fl Gran % (36.0-66.0) % Lymphocytes % (24.0-44.0) % Monocytes % (0.0-12.0) % Eosinophils % (0.00-5.0) % Basophils % (0.0-0.4) % Basophils # (0-0.4) INR (0.8-3.0) APTT (24.1-36.1) SECONDS Puncture Site RIGHT BRACHIAL pCO2 53 H (35-45) mmHg pO2 77 (75-100) mmHg Base Excess 5.2 H (-2.0-2.0) O2 Saturation 94.5 (94-100) g/dF ABG pH 7.38 (7.35-7.45) ABG HCO3 31.4 H* (22-28) ABG O2 Sat (Measured) 96.7 (95-100) % Keo Test Pending A-a Gradient 213 a/A Ratio 0.27 Hemoglobin 11.2 Carboxyhemoglobin 1.4 (0.0-6.9) % THgb Methemoglobin 1.0 L (1.4-1.5) % Temperature 37.0 C POC O2 Flow Rate 50 % Sodium (136-145) mEq/L Potassium 4.6 (3.5-5.1) mEq/L Chloride (98-107) mEq/L Carbon Dioxide (21-32) mEq/L Anion Gap (5-15) MEQ/L BUN (9-20) mg/dL Creatinine (0.55-1.30) mg/dl Estimated GFR ML/MIN Glucose (70-110) MG/DL Lactic Acid 2.0 (0.4-2.0) Calcium (8.5-10.1) mg/dL Magnesium (1.8-2.4) mg/dL Total Bilirubin (0.2-1.0) mg/dL AST (15-37) U/L ALT (12-78) U/L Alkaline Phosphatase (46-116) U/L Troponin I (0.000-0.056) ng/ml NT-Pro-B Natriuret Pep (0-125) pg/ml Serum Total Protein (6.4-8.2) gm/dL Albumin (3.4-5.0) g/dL Amylase (25-115) U/L Lipase (73-393) U/L Monoscreen (Negative) Influenza Type A Ag NEGATIVE (NEGATIVE) Influenza Type B Ag NEGATIVE (NEGATIVE) RSV (PCR) NEGATIVE (Negative) Streptococcus Screen (Negative) 07/09/17 07/09/17 07/09/17 Range/Units 21:49 21:47 21:47 WBC (4.0-10.5) K/mm3 RBC (4.1-5.6) M/mm3 Hgb (12.5-18.0) gm/dl Hct (42-50) % MCV (78-100) fl MCH (26-32) pg MCHC (32-36) g/dl RDW (11.5-14.0) % Plt Count (150-450) K/mm3 MPV (6-9.5) fl Gran % (36.0-66.0) % Lymphocytes % (24.0-44.0) % Monocytes % (0.0-12.0) % Eosinophils % (0.00-5.0) % Basophils % (0.0-0.4) % Basophils # (0-0.4) INR (0.8-3.0) APTT (24.1-36.1) SECONDS Puncture Site pCO2 (35-45) mmHg pO2 (75-100) mmHg Base Excess (-2.0-2.0) O2 Saturation (94-100) g/dF ABG pH (7.35-7.45) ABG HCO3 (22-28) ABG O2 Sat (Measured) (95-100) % Keo Test A-a Gradient a/A Ratio Hemoglobin Carboxyhemoglobin (0.0-6.9) % THgb Methemoglobin (1.4-1.5) % Temperature C POC O2 Flow Rate % Sodium (136-145) mEq/L Potassium (3.5-5.1) mEq/L Chloride (98-107) mEq/L Carbon Dioxide (21-32) mEq/L Anion Gap (5-15) MEQ/L BUN (9-20) mg/dL Creatinine (0.55-1.30) mg/dl Estimated GFR ML/MIN Glucose (70-110) MG/DL Lactic Acid (0.4-2.0) Calcium (8.5-10.1) mg/dL Magnesium (1.8-2.4) mg/dL Total Bilirubin (0.2-1.0) mg/dL AST (15-37) U/L ALT (12-78) U/L Alkaline Phosphatase (46-116) U/L Troponin I < 0.017 (0.000-0.056) ng/ml NT-Pro-B Natriuret Pep (0-125) pg/ml Serum Total Protein (6.4-8.2) gm/dL Albumin (3.4-5.0) g/dL Amylase (25-115) U/L Lipase (73-393) U/L Monoscreen NEGATIVE (Negative) Influenza Type A Ag (NEGATIVE) Influenza Type B Ag (NEGATIVE) RSV (PCR) (Negative) Streptococcus Screen NEGATIVE (Negative) 07/09/17 07/09/17 07/09/17 Range/Units 21:47 21:47 21:47 WBC 12.0 H (4.0-10.5) K/mm3 RBC 4.28 (4.1-5.6) M/mm3 Hgb 11.3 L (12.5-18.0) gm/dl Hct 37.0 L (42-50) % MCV 86.4 (78-100) fl MCH 26.4 (26-32) pg MCHC 30.5 L (32-36) g/dl RDW 18.4 H (11.5-14.0) % Plt Count 306 (150-450) K/mm3 MPV 8.6 (6-9.5) fl Gran % 78.0 H (36.0-66.0) % Lymphocytes % 14.6 L (24.0-44.0) % Monocytes % 6.3 (0.0-12.0) % Eosinophils % 0.9 (0.00-5.0) % Basophils % 0.2 (0.0-0.4) % Basophils # 0.02 (0-0.4) INR 2.18 (0.8-3.0) APTT 39.1 H (24.1-36.1) SECONDS Puncture Site pCO2 (35-45) mmHg pO2 (75-100) mmHg Base Excess (-2.0-2.0) O2 Saturation (94-100) g/dF ABG pH (7.35-7.45) ABG HCO3 (22-28) ABG O2 Sat (Measured) (95-100) % Keo Test A-a Gradient a/A Ratio Hemoglobin Carboxyhemoglobin (0.0-6.9) % THgb Methemoglobin (1.4-1.5) % Temperature C POC O2 Flow Rate % Sodium 143 (136-145) mEq/L Potassium 4.1 (3.5-5.1) mEq/L Chloride 105 (98-107) mEq/L Carbon Dioxide 31.6 (21-32) mEq/L Anion Gap 10.0 (5-15) MEQ/L BUN 10 (9-20) mg/dL Creatinine 1.04 (0.55-1.30) mg/dl Estimated GFR > 60 ML/MIN Glucose 198 H (70-110) MG/DL Lactic Acid (0.4-2.0) Calcium 9.0 (8.5-10.1) mg/dL Magnesium 1.7 L (1.8-2.4) mg/dL Total Bilirubin 0.10 L (0.2-1.0) mg/dL AST 17 (15-37) U/L ALT 11 L (12-78) U/L Alkaline Phosphatase 105 (46-116) U/L Troponin I (0.000-0.056) ng/ml NT-Pro-B Natriuret Pep 19 (0-125) pg/ml Serum Total Protein 7.4 (6.4-8.2) gm/dL Albumin 3.8 (3.4-5.0) g/dL Amylase 77 (25-115) U/L Lipase 90 (73-393) U/L Monoscreen (Negative) Influenza Type A Ag (NEGATIVE) Influenza Type B Ag (NEGATIVE) RSV (PCR) (Negative) Streptococcus Screen (Negative) - Progress Discussed with DrJacoby: Other (DR MONTIEL - [id number]) - Departure Time of Disposition: 23:04 Departure Disposition: Observation Clinical Impression: RESPIRATORY DISTRESS, RLL PNEUMONIA, SCABIES, COPD, DM, HTN, ARTHRITIS, GERD, ANXIETY, BIPOLAR Condition: Stable Critical Care Time: No Referrals: GEE FERNANDES MD [Primary Care Provider] -
[2017-07-09] MEDS ORDERED: ROCEPHIN 1 Gm-D5w 50 ml Bag** 1 G/50 ML IVPB IV ONE (21:33)
[2017-07-09] MEDS ORDERED: BABY ASPIRIN 81 MG CHEW ONE (21:33)
[2017-07-09] MEDS ORDERED: Sodium Chloride 0.9% 1000 ML 1,000 ML ONE (21:34)
[2017-07-09] MEDS ORDERED: Sodium Chloride 3 ML UD NEBULES IH ONE (21:36)
[2017-07-09 21:52] LABS: A-aADO2 213; ARTERIAL BLD GAS O2 SATURATION 96.7 % (95-100); ARTERIAL BLOOD GAS BASE EXCESS 5.2 (-2.0-2.0); ARTERIAL BLOOD GAS FIO2 50 %; ARTERIAL BLOOD GAS PO2 77 mmHg (75-100); ARTERIAL BLOOD GAS pH 7.38 (7.35-7.45)
[2017-07-09 21:52] LABS: BASOPHIL % 0.2 % (0.0-0.4); Eosinophil % 0.9 % (0.00-5.0); Lymphocytes % 14.6 % (24.0-44.0); Mean Cell Volume 86.4 fl (78-100); Mean Corpuscular Hemoglobin 26.4 pg (26-32); Mean Platelet Volume 8.6 fl (6-9.5); Monocytes % 6.3 % (0.0-12.0); Platelet Count 306 K/mm3 (150-450); Red Blood Count 4.28 M/mm3 (4.1-5.6); Red Cell Distribution Width 18.4 % (11.5-14.0)
[2017-07-09] MEDS ORDERED: solu-MEDROL 125 MG ONE (21:59)
[2017-07-09] MEDS ORDERED: Zithromax 500 MG/ 250 ML NaCl Premix 500 MG/250 ML IVPB IV ONE (22:00)
[2017-07-09 22:12] LABS: INR 2.18 (0.8-3.0); PROTIME 24.4 SECONDS (8.83-12.87)
[2017-07-09 22:14] LABS: PTT 39.1 SECONDS (24.1-36.1)
[2017-07-09 22:23] LABS: ALBUMIN 3.8 g/dL (3.4-5.0); ALKALINE PHOSPHATASE 105 U/L (46-116); BLOOD UREA NITROGEN 10 mg/dL (9-20); CHLORIDE 105 mEq/L (98-107); Carbon Dioxide 31.6 mEq/L (21-32); Glucose 198 MG/DL (70-110); LIPASE 90 U/L (73-393); MAGNESIUM 1.7 mg/dL (1.8-2.4); Potassium 4.1 mEq/L (3.5-5.1); SGOT/AST 17 U/L (15-37); SGPT/ALT 11 U/L (12-78); SODIUM 143 mEq/L (136-145); Total Protein 7.4 gm/dL (6.4-8.2)
[2017-07-09 23:03] LABS: ADD URINE CULTURE? NO (NO); Bilirubin NEGATIVE (NEGATIVE); Blood NEGATIVE Ery/ul (0-5); COMPLETE URINE MICROSCOPIC? NO; Collection Type VOID; Glucose 100 mg/dL (NEGATIVE); Leukocyte Esterase NEGATIVE (NEGATIVE)
[2017-07-10] MEDS ORDERED: PROVENTIL 2.5 MG/3 ML NEB IH PRN (00:04)
[2017-07-10] MEDS ORDERED: Phenergan 25 MG INJ IV PRN (00:04)
[2017-07-10] MEDS ORDERED: TYLENOL 325 MG PO PRN (00:04)
[2017-07-10] MEDS ORDERED: Elimite CREAM TP ONE (00:04)
[2017-07-10] MEDS: DILAUDID 2 MG INJECTION IV PRN ×5 (00:23→21:14)
[2017-07-10] MEDS: Sodium Chloride 0.9% 1000 ML 1,000 ML IV SCH ×2 (00:26→14:36)
[2017-07-10] MEDS ORDERED: DUONEB 0.5-3 MG/3 ml Neb IH PRN (01:17)
[2017-07-10] MEDS ORDERED: DUONEB 0.5-3 MG/3 ml Neb IH SCH (03:00)
[2017-07-10 05:56] LABS: Mean Cell Volume 88.1 fl (78-100); Mean Platelet Volume 8.7 fl (6-9.5); Platelet Count 280 K/mm3 (150-450); Red Blood Count 4.03 M/mm3 (4.1-5.6); Red Cell Distribution Width 18.1 % (11.5-14.0); White Blood Count 9.5 K/mm3 (4.0-10.5)
[2017-07-10 05:59] LABS: Mean Corpuscular Hemoglobin 26.5 pg (26-32)
[2017-07-10 06:15] LABS: ALBUMIN 3.5 g/dL (3.4-5.0); ALKALINE PHOSPHATASE 93 U/L (46-116); ANION GAP 10.5 MEQ/L (5-15); BLOOD UREA NITROGEN 12 mg/dL (9-20); CHLORIDE 104 mEq/L (98-107); Carbon Dioxide 32.1 mEq/L (21-32); Glucose 227 MG/DL (70-110); MAGNESIUM 1.9 mg/dL (1.8-2.4); Potassium 5.4 mEq/L (3.5-5.1); SGOT/AST 16 U/L (15-37); SGPT/ALT 18 U/L (12-78); SODIUM 141 mEq/L (136-145); Total Protein 7.2 gm/dL (6.4-8.2)
[2017-07-10 06:38] LABS: TROPONIN < 0.017 ng/ml (0.000-0.056)
--- NOTE | 2017-07-10 08:01 | PCM.HP ---
History of Present Illness - Chief Complaint Chief Complaint: Resp Distress for 1-2 days History of Present Illness: is a 56 year old male.Came to the emergency room with complaining of shortness of breath for last 1-2 days as well as complaining of fever, chills, diarrhea, and swollen right elbow for next 3-4 days. Patient has a long history of chronic respiratory failure due to severe COPD and emphysema for which patient has been on high flow oxygen and CPAP. Patient is also complaining of some rash on his back and on his arms. - Review of Systems Constitutional: Fever, Chills, Fatigue, Lethargy, Malaise Eyes: No Symptoms Ears, Nose, & Throat: No Symptoms Respiratory: Cough, Short Of Breath Cardiac: No Chest Pain, No Edema, No Syncope Abdominal/Gastrointestinal: Diarrhea, No Abdominal Pain, No Nausea, No Vomiting Genitourinary Symptoms: No Dysuria Musculoskeletal: No Back Pain, No Neck Pain Skin: Rash Neurological: No Dizziness, No Focal Weakness, No Sensory Changes Psychological: No Symptoms Endocrine: No Symptoms Hematologic/Lymphatic: No Symptoms Immunological/Allergic: No Symptoms Medications & Allergies Home Medications: Home Medication List Warfarin Sodium 5 mg [Coumadin 5 MG] 5 mg PO DAILY 05/14/14 [History Confirmed 07/09/17] Sennosides/Docusate Sodium [Stool Soft-Stimulant Lax Tab] 1 each PO DAILY PRN PRN 11/18/14 [History Confirmed 07/09/17] Metformin HCl 500 mg [Glucophage 500 MG] 500 mg PO BID 09/13/15 [History Confirmed 07/09/17] Metoprolol Tartrate 50 mg [Lopressor 50 MG] 25 mg PO BID 01/17/16 [ History Confirmed 07/09/17] Mirtazapine 15 mg PO HS 01/05/17 [History Confirmed 07/09/17] Albuterol Sulfate [Proair Hfa] 8.5 gm IH BID PRN PRN 04/18/17 [History Confirmed 07/10/17] Albuterol Sulfate [Ventolin Hfa] 18 gm IH BID PRN PRN 04/18/17 [History Confirmed 07/10/17] Buspirone HCl 5 mg [Buspar 5 mg] 5 mg PO BID 04/18/17 [History Confirmed 07/10/17] Citalopram Hydrobromide [Citalopram HBr] 20 mg PO BID 04/18/17 [History Confirmed 07/09/17] Diltiazem HCl [Dilt-Xr] 240 mg PO DAILY 04/18/17 [History Confirmed 07/09/17] Gabapentin [Neurontin] 600 mg PO TID 04/18/17 [History Confirmed 07/09/17] Tamsulosin HCl 0.4 mg [Flomax 0.4 MG] 0.4 mg PO QAM 04/18/17 [History Confirmed 07/10/17] Tapentadol HCl [Nucynta] 100 mg PO QIDPRN PRN 04/18/17 [History Confirmed ] Theophylline Anhydrous 300 mg PO BID 04/18/17 [History Confirmed 07/09/17] Prednisone 10 mg [Deltasone 10 mg] 10 mg PO DAILY 04/20/17 [History Confirmed 07/09/17] Allergies/Adverse Reactions: Allergies Allergy/AdvReac Type Severity Reaction Status Date / Time No Known Drug Allergies Allergy Verified 07/09/17 21:26 - Past Medical History Past Medical History: Yes Neurological History: Stroke ENT History: No Pertinent History Cardiac History: Arrhythmia, Hypertension, Myocardial Infarction (NH) Respiratory History: Asthma, Bronchitis, COPD, Pneumonia Endocrine Medical History: Adrenal Insufficiency, Diabetes Type II Musculoskelatal History: Arthritis GI Medical History: GERD, GI Bleed History: No Pertinent History Pyscho-Social History: Anxiety, Bipolar, Depression, Panic Disorder Male Reproductive Disorders: No Pertinent History Comment: Strokes in 2013, 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 Ponce. - Past Surgical History Past Surgical History: Yes Neuro Surgical History: No Pertinent History Cardiac History: No Pertinent History Respiratory Surgery: No Pertinent History GI Surgical History: Appendectomy, Hernia Repair Genitourinary Surgical Hx: No Pertinent History Musculskeletal Surgical Hx: No Pertinent History Male Surgical History: No Pertinent History Other Surgical History: Right leg surgery, Sinus surgery - Social History Smoking Status: Former smoker How long have you smoked: 2006 Exposure to second hand smoke: No Alcohol: None Drug Use: none - Physical Exam Vital Signs: Vital Signs - 24 hr Temp Pulse Resp BP Pulse Ox 07/10/17 06:53 94 H 18 92 L 07/10/17 04:00 70 18 114/69 95 07/10/17 01:18 89 22 95 07/10/17 00:59 97.6 F 86 24 128/72 94 L 07/10/17 00:04 93 L 07/09/17 23:15 98 H 24 120/78 93 L 07/09/17 23:08 98 H 24 94 L 07/09/17 23:04 93 L 07/09/17 22:11 99 H 224 H 99/64 94 L 07/09/17 21:56 99 H 24 122/80 94 L 07/09/17 21:55 95 07/09/17 21:13 97.6 F 134 H 22 121/78 93 L Oxygen-Last 24 hours O2 Percentage 50% O2 Percentage 6 Liters = 44% O2 Percentage 6 Liters = 44% O2 Percentage 6 Liters = 44% O2 Percentage 6 Liters = 44% O2 Percentage 6 Liters = 44% Oxygen Flowrate (L/min)-RT 10 General Appearance: moderate distress, alert Neurologic Exam: alert, oriented x 3, cooperative, normal mood/affect, sensation nml, No motor deficits Eye Exam: PERRL/EOMI, eyes nml inspection Ears, Nose, Throat Exam: normal ENT inspection, TMs normal, pharynx normal, moist mucous membranes Neck Exam: normal inspection, non-tender, supple, full range of motion Respiratory Exam: respiratory distress, diminished breath sounds, rhonchi, wheezing Cardiovascular Exam: regular rate/rhythm, normal heart sounds, normal peripheral pulses Gastrointestinal/Abdomen Exam: soft, normal bowel sounds, No tenderness, No mass Back Exam: normal inspection, normal range of motion, rash, No CVA tenderness, No vertebral tenderness Extremity Exam: normal inspection, normal range of motion, pelvis stable, other (rash) Skin Exam: normal color, warm, dry, No rash Lymphatic Exam: No adenopathy Results - Labs Lab/Micro Results: Accuchecks Date 07/10/17 Time 07:23 Lab Results-Last 24 Hours 07/09/17 07/09/17 07/09/17 Range/Units 23:54 Unknown Unknown WBC (4.0-10.5) K/mm3 RBC (4.1-5.6) M/mm3 Hgb (12.5-18.0) gm/dl Hct (42-50) % MCV (78-100) fl MCH (26-32) pg MCHC (32-36) g/dl RDW (11.5-14.0) % Plt Count (150-450) K/mm3 MPV (6-9.5) fl Puncture Site RIGHT BRACHIAL pCO2 53 H (35-45) mmHg pO2 77 (75-100) mmHg Base Excess 5.2 H (-2.0-2.0) O2 Saturation 94.5 (94-100) g/dF ABG pH 7.38 (7.35-7.45) ABG HCO3 31.4 H* (22-28) ABG O2 Sat (Measured) 96.7 (95-100) % Keo Test NOT APPLICABLE A-a Gradient 213 a/A Ratio 0.27 Hemoglobin 11.2 Carboxyhemoglobin 1.4 (0.0-6.9) % THgb Methemoglobin 1.0 L (1.4-1.5) % Potassium 4.6 (3.5-5.1) Temperature 37.0 C POC O2 Flow Rate 50 % Sodium (136-145) mEq/L Chloride (98-107) mEq/L Carbon Dioxide (21-32) mEq/L Anion Gap (5-15) MEQ/L BUN (9-20) mg/dL Creatinine (0.55-1.30) mg/dl Estimated GFR ML/MIN Glucose (70-110) MG/DL Lactic Acid 1.5 2.0 (0.4-2.0) Calcium (8.5-10.1) mg/dL Magnesium (1.8-2.4) mg/dL Total Bilirubin (0.2-1.0) mg/dL AST (15-37) U/L ALT (12-78) U/L Alkaline Phosphatase (46-116) U/L Troponin I (0.000-0.056) ng/ml Serum Total Protein (6.4-8.2) gm/dL Albumin (3.4-5.0) g/dL 07/10/17 07/10/17 Range/Units 05:15 05:15 WBC 9.5 (4.0-10.5) K/mm3 RBC 4.03 L (4.1-5.6) M/mm3 Hgb 10.7 L (12.5-18.0) gm/dl Hct 35.5 L (42-50) % MCV 88.1 (78-100) fl MCH 26.5 (26-32) pg MCHC 30.1 L (32-36) g/dl RDW 18.1 H (11.5-14.0) % Plt Count 280 (150-450) K/mm3 MPV 8.7 (6-9.5) fl Puncture Site pCO2 (35-45) mmHg pO2 (75-100) mmHg Base Excess (-2.0-2.0) O2 Saturation (94-100) g/dF ABG pH (7.35-7.45) ABG HCO3 (22-28) ABG O2 Sat (Measured) (95-100) % Keo Test A-a Gradient a/A Ratio Hemoglobin Carboxyhemoglobin (0.0-6.9) % THgb Methemoglobin (1.4-1.5) % Potassium 5.4 H (3.5-5.1) Temperature C POC O2 Flow Rate % Sodium 141 (136-145) mEq/L Chloride 104 (98-107) mEq/L Carbon Dioxide 32.1 H (21-32) mEq/L Anion Gap 10.5 (5-15) MEQ/L BUN 12 (9-20) mg/dL Creatinine 0.95 (0.55-1.30) mg/dl Estimated GFR > 60 ML/MIN Glucose 227 H (70-110) MG/DL Lactic Acid (0.4-2.0) Calcium 8.5 (8.5-10.1) mg/dL Magnesium 1.9 (1.8-2.4) mg/dL Total Bilirubin 0.10 L (0.2-1.0) mg/dL AST 16 (15-37) U/L ALT 18 (12-78) U/L Alkaline Phosphatase 93 (46-116) U/L Troponin I < 0.017 (0.000-0.056) ng/ml Serum Total Protein 7.2 (6.4-8.2) gm/dL Albumin 3.5 (3.4-5.0) g/dL Accuchecks Date 07/10/17 Time 07:23 - Other Procedures and Tests Respiratory Therapy 07/10/17 01:18 Respiratory Nebulizer PRN 07/10/17 01:39 BiPap/CPAP Assessment ROUTINE Assessment/Plan (1) COPD exacerbation Current Visit: Yes Status: Acute Code(s): J44.1 - CHRONIC OBSTRUCTIVE PULMONARY DISEASE W (ACUTE) EXACERBATION (2) Cellulitis of right elbow Current Visit: Yes Status: Acute Code(s): L03.113 - CELLULITIS OF RIGHT UPPER LIMB (3) Scabies exposure Current Visit: Yes Status: Acute Code(s): Z20.89 - CONTACT W AND EXPOSURE TO OTH COMMUNICABLE DISEASES (4) Chronic respiratory failure Current Visit: Yes Status: Chronic Qualifiers: Code(s): J96.10 - CHRONIC RESPIRATORY FAILURE, UNSP W HYPOXIA OR HYPERCAPNIA (5) Acute on chronic respiratory failure Current Visit: Yes Status: Acute Qualifiers: Respiratory failure complication: hypoxia and hypercapnia Code(s): J96.20 - ACUTE AND CHR RESP FAILURE, UNSP W HYPOXIA OR HYPERCAPNIA
[2017-07-10] MEDS: NovoLOG Insulin SQ PRN ×4 (08:14→21:15)
[2017-07-10] MEDS ORDERED: TAPENTADOL HCL 100 MG PO PRN (08:36)
[2017-07-10] MEDS ORDERED: Senokot-S Tablet PO PRN (08:36)
[2017-07-10 09:04] LABS: Total Cells Counted 100
[2017-07-10 09:05] LABS: ANISOCYTOSIS 1+; Basophilic Stippling 1+; Platelet Estimate NORMAL (NORMAL)
[2017-07-10] MEDS: MAG-OX 400 PO SCH (09:17)
[2017-07-10] MEDS: NEURONTIN 300 MG PO SCH ×3 (09:17→21:14)
[2017-07-10] MEDS: ceLEXa 20 MG PO SCH ×2 (09:18→21:14)
[2017-07-10] MEDS: BUSPAR 5 MG PO SCH ×2 (09:18→21:13)
[2017-07-10] MEDS: Cardizem CD 240 MG PO SCH (09:18)
[2017-07-10] MEDS: DELTASONE 10 MG PO SCH (09:18)
[2017-07-10] MEDS: Lopressor 25MG Tab PO SCH ×2 (09:18→21:14)
[2017-07-10] MEDS ORDERED: MEDICATION INTERVENTION MC SCH (09:45)
[2017-07-10] MEDS ORDERED: Lopressor 50 MG PO SCH (10:00)
[2017-07-10] MEDS ORDERED: THEODUR PO SCH ×2 (10:00→21:45)
[2017-07-10] MEDS ORDERED: DILTIAZEM HCL 240 MG PO SCH (10:00)
[2017-07-10] MEDS ORDERED: MAG-OX 400 PO SCH (10:00)
[2017-07-10] MEDS ORDERED: NON-FORMULARY ITEM (Gabapentin [Neurontin] 600 MG) PO SCH (10:00)
[2017-07-10] MEDS: Glucophage 500 MG PO SCH ×2 (10:07→17:01)
[2017-07-10] MEDS: Flomax 0.4 MG PO SCH (10:07)
--- NOTE | 2017-07-10 10:21 | XRAY ---
Indication: Short of breath. Comparison: April 30, 2017. PA/lateral chest again demonstrates bibasilar infiltrates/atelectasis worsened on the right. Remaining heart and lungs stable and unremarkable again with incidental calcified granulomas.
[2017-07-10] MEDS ORDERED: Coumadin 5 MG PO SCH (18:00)
[2017-07-10] MEDS ORDERED: ROCEPHIN 1 Gm-D5w 50 ml Bag** 1 G/50 ML IVPB IV SCH (22:00)
[2017-07-10] MEDS ORDERED: REMERON 30 MG PO SCH (22:00)
[2017-07-10] MEDS ORDERED: NON-FORMULARY ITEM (Mirtazapine [Mirtazapine] 15 MG) PO SCH (22:00)
[2017-07-10] MEDS ORDERED: Zithromax 500 MG/ 250 ML NaCl Premix 500 MG/250 ML IVPB IV SCH (22:00)
[2017-07-11 07:07] VITALS: O2SAT 91
[2017-07-11] MEDS: Cardizem CD 240 MG PO SCH (08:08)
[2017-07-11] MEDS: NEURONTIN 300 MG PO SCH ×2 (08:08→13:39)
[2017-07-11] MEDS: Flomax 0.4 MG PO SCH (08:08)
[2017-07-11] MEDS: DELTASONE 10 MG PO SCH (08:09)
[2017-07-11] MEDS: BUSPAR 5 MG PO SCH (08:09)
[2017-07-11] MEDS: Lopressor 25MG Tab PO SCH (08:09)
[2017-07-11] MEDS: ceLEXa 20 MG PO SCH (08:09)
[2017-07-11] MEDS: MAG-OX 400 PO SCH (08:09)
[2017-07-11] MEDS: Glucophage 500 MG PO SCH (08:10)
[2017-07-11] MEDS: DILAUDID 2 MG INJECTION IV PRN ×2 (08:18→12:26)
--- NOTE | 2017-07-11 09:44 | XRAY ---
Indication: Pneumonia. Comparison: July 09, 2017. PA/lateral chest unchanged again demonstrating bibasilar infiltrates/atelectasis and a few scattered calcified granulomas. Heart is not enlarged. No new/acute findings.
[2017-07-11 09:49] LABS: ANION GAP 10.5 MEQ/L (5-15); BLOOD UREA NITROGEN 13 mg/dL (9-20); CHLORIDE 107 mEq/L (98-107); Carbon Dioxide 32.8 mEq/L (21-32); Glucose 169 MG/DL (70-110); SODIUM 146 mEq/L (136-145)
[2017-07-11] MEDS ORDERED: FLUZONE HIGH-DOSE 2017-18 SYR IM ONE (10:00)
[2017-07-11] MEDS ORDERED: PATIENT OWN MEDICATION PO SCH (10:00)
[2017-07-11 11:44] VITALS: BP 126/76; PULSE 85
--- NOTE | 2017-07-11 13:26 | PCM.DS ---
Discharge Summary Date of Admission: 07/09/17 23:41 Admitting Physician: GEE FERNANDES Primary Care Provider: GEE FERNANDES Allergies Allergies No Known Drug Allergies Allergy (Verified 07/09/17 21:26) Hospital Summary - Hospital Course Hospital Course: Chief Complaint Diagnosis Resp Distress for 1-2 days Allergies Allergy/AdvReac Type Severity Reaction Status Date / Time No Known Drug Allergies Allergy Verified 07/09/17 21:26 Vital Signs (Last 24 hours) Temp Pulse Resp BP Pulse Ox 07/11/17 11:43 98.3 F 85 18 126/76 91 L 07/11/17 07:06 98.0 F 67 18 111/62 91 L 07/11/17 03:47 98.9 F 71 17 108/63 92 L 07/10/17 23:50 98.2 F 93 H 17 126/86 94 L 07/10/17 19:52 97.6 F 90 22 128/76 92 L 07/10/17 19:46 98 H 20 92 L 07/10/17 16:00 98.2 F 94 H 18 129/82 95 Current Medications Generic Name Dose Route Start Last Admin Trade Name Freq PRN Reason Stop Dose Admin Acetaminophen 650 mg 07/10/17 00:04 Tylenol 325 Mg PO 08/09/17 00:03 Q4H PRN PRN PAIN AND/OR FEVER Albuterol Sulfate 2.5 mg 07/10/17 00:04 Proventil 2.5 Mg/3 Ml Neb IH 08/09/17 00:03 Q2H PRN PRN SHORTNESS OF BREATH/WHEEZING Albuterol/Ipratropium 3 ml 07/10/17 01:17 Duoneb 0.5-3 Mg/3 Ml Neb IH 08/09/17 01:16 Q4HPRN PRN SHORTNESS OF BREATH/WHEEZING Buspirone HCl 5 mg 07/10/17 10:00 07/11/17 08:09 Buspar 5 Mg PO 08/09/17 09:59 5 mg BID JUAN Administration Citalopram Hydrobromide 20 mg 07/10/17 10:00 07/11/17 08:09 Celexa 20 Mg PO 08/09/17 09:59 20 mg BID JUAN Administration Diltiazem HCl 240 mg 07/10/17 10:00 07/11/17 08:08 Cardizem Cd 240 Mg PO 08/09/17 09:59 240 mg DAILY JUAN Administration Gabapentin 600 mg 07/10/17 10:00 07/11/17 08:08 Neurontin 300 Mg PO 08/09/17 09:59 600 mg TID JUAN Administration Hydromorphone HCl 0.5 mg 07/10/17 00:04 07/11/17 12:26 Dilaudid 2 Mg Injection IV 07/15/17 00:03 0.5 mg Q4H PRN PRN Administration PAIN Azithromycin 500 mg in 250 mls @ 250 mls/hr 07/10/17 22:00 07/10/17 21:16 Zithromax 500 Mg/ 250 Ml Nacl Premix IV 08/09/17 21:59 250 mls/hr Q24H22 JUAN Administration Ceftriaxone Sodium/Dextrose 1 g in 50 mls @ 100 mls/hr 07/10/17 22:00 21:16 Rocephin 1 Gm-D5w 50 Ml Bag IV 08/09/17 21:59 100 mls/hr Q24H22 JUAN Administration Sodium Chloride 1,000 mls @ 50 mls/hr 07/10/17 00:04 07/10/17 14:36 Sodium Chloride 0.9% 1000 Ml IV 08/09/17 00:03 50 mls/hr .Q20H JUAN Administration Insulin Aspart 0 unit 07/10/17 00:04 07/10/17 21:15 Novolog Insulin SQ 08/09/17 00:03 3 unit UD PRN Administration HYPERGLYCEMIA Magnesium Oxide 400 mg 07/10/17 10:00 07/11/17 08:09 Mag-Ox 400 PO 08/09/17 09:59 400 mg DAILY JUAN Administration Metformin HCl 500 mg 07/10/17 10:00 07/11/17 08:10 Glucophage 500 Mg PO 08/09/17 09:59 500 mg BIDWM JUAN Administration Metoprolol Tartrate 25 mg 07/10/17 10:00 07/11/17 08:09 Lopressor 25mg Tab PO 08/09/17 09:59 25 mg BID JUAN Administration Mirtazapine 15 mg 07/10/17 22:00 07/10/17 21:14 Remeron 30 Mg PO 08/09/17 21:59 15 mg HS JUAN Administration Non-Formulary Dru mg 07/10/17 08:36 (Tapentadol Hcl [ PO Nucynta] 100 Mg) QIDPRN PRN PAIN Patient Own Medication 0 each 07/11/17 10:00 07/11/17 08:10 Patient Own Medication PO 08/10/17 09:59 1 each Q12HT JUAN Administration Prednisone 10 mg 07/10/17 10:00 07/11/17 08:09 Deltasone 10 Mg PO 08/09/17 09:59 10 mg DAILY JUAN Administration Promethazine HCl 12.5 mg 07/10/17 00:04 Phenergan 25 Mg Inj IV 08/09/17 00:03 Q6H PRN PRN NAUSEA/VOMITING Senna/Docusate Sodium 1 udtab 07/10/17 08:36 Senokot-S Tablet PO 08/09/17 08:35 DAILY PRN PRN CONSTIPATION Tamsulosin HCl 0.4 mg 07/10/17 10:00 07/11/17 08:08 Flomax 0.4 Mg PO 08/09/17 09:59 0.4 mg QAM [facility] Administration Warfarin Sodium 5 mg 07/10/17 18:00 07/10/17 17:01 Coumadin 5 Mg PO 08/09/17 17:59 5 mg DAILY AT 1800 [facility] Administration Discontinued Medications Generic Name Dose Route Start Last Admin Trade Name Freq PRN Reason Stop Dose Admin Albuterol/Ipratropium 3 ml 07/10/17 03:00 Duoneb 0.5-3 Mg/3 Ml Neb IH 08/09/17 02:59 Q4HRT [facility] Aspirin 324 mg 07/09/17 21:20 07/09/17 21:39 Baby Aspirin 81 Mg Chew PO 07/09/17 21:21 324 mg STAT ONE Administration Aspirin Confirm 07/09/17 21:33 Baby Aspirin 81 Mg Chew Administered 07/09/17 21:34 Dose 324 mg .ROUTE .STK-MED ONE Ceftriaxone Sodium/Dextrose 1 g in 50 mls @ 100 mls/hr 07/09/17 21:22 21:39 Rocephin 1 Gm-D5w 50 Ml Bag IV 07/09/17 21:51 100 mls/hr STAT STA Administration Sodium Chloride 1,000 mls @ 100 mls/hr 07/09/17 21:30 07/09/17 21:39 Sodium Chloride 0.9% 1000 Ml IV 08/08/17 21:29 100 mls/hr .Q10H JUAN Administration Azithromycin 500 mg in 250 mls @ 250 mls/hr 07/09/17 21:22 07/09/17 22:40 Zithromax 500 Mg/ 250 Ml Nacl Premix IV 07/09/17 22:21 500 mls/hr STAT STA Administration Ceftriaxone Sodium/Dextrose Confirm 07/09/17 21:33 Rocephin 1 Gm-D5w 50 Ml Bag Administered 07/09/17 21:34 Dose 1 g in 50 mls @ ud IV .STK-MED ONE Azithromycin Confirm 07/09/17 22:00 Zithromax 500 Mg/ 250 Ml Nacl Premix Administered 07/09/17 22:01 Dose 500 mg in 250 mls @ ud IV .STK-MED ONE Sodium Chloride Confirm 07/09/17 21:34 Sodium Chloride 0.9% 1000 Ml Administered 07/09/17 21:35 Dose 1,000 mls @ ud .ROUTE .STK-MED ONE Influenza Virus Vaccine 180 mcg 07/11/17 10:00 07/11/17 08:19 Fluzone High-Dose 2017-18 Syr IM 07/11/17 10:01 180 mcg .ONCE ONE Administration Levalbuterol HCl 1.25 mg 07/09/17 21:22 07/09/17 21:30 Xopenex 1.25 Mg/0.5 Ml Ud Nebule IH 07/09/17 21:23 1.25 mg STAT ONE Administration Levalbuterol HCl Confirm 07/09/17 21:36 Xopenex 1.25 Mg/0.5 Ml Ud Nebule Administered 07/09/17 21:37 Dose 1.25 mg IH .STK-MED ONE Magnesium Oxide 400 mg 07/10/17 10:00 Mag-Ox 400 PO 07/10/17 00:04 BID JUAN Methylprednisolone Sodium Succinate 125 mg 07/09/17 21:22 07/09/17 22:05 Solu-Medrol 125 Mg IV 07/09/17 21:23 125 mg STAT ONE Administration Methylprednisolone Sodium Succinate Confirm 07/09/17 21:59 Solu-Medrol 125 Mg Administered 07/09/17 22:00 Dose 125 mg .ROUTE .STK-MED ONE Nitroglycerin 0.4 mg 07/09/17 21:20 07/09/17 21:39 Nitrostat 0.4 Mg (Ed) SL 07/09/17 21:21 0.4 mg STAT ONE Administration Nitroglycerin Confirm 07/09/17 21:33 Nitrostat 0.4 Mg (Ed) Administered 07/09/17 21:34 Dose 0.4 mg SL .STK-MED ONE Permethrin 60 gm 07/10/17 00:04 07/10/17 00:33 Elimite Cream TP 07/10/17 00:05 60 gm STAT ONE Administration Sodium Chloride Confirm 07/09/17 21:36 Sodium Chloride 3 Ml Ud Nebules Administered 07/09/17 21:37 Dose 3 ml IH .STK-MED ONE Theophylline 300 mg 07/10/17 10:00 Theodur 300mg PO 08/09/17 09:59 BID JUAN Theophylline 300 mg 07/10/17 21:45 07/10/17 21:42 Theodur 300mg PO 08/09/17 21:44 300 mg Q12H JUAN Administration Intake & Output (Last 24 hours) 07/09/17 07/10/17 07/11/17 07/12/17 11:59 11:59 11:59 11:59 Intake Total 1139 2632 Output Total 375 2175 Balance 764 457 Weight 111.3 kg Microbiology Results (Last 24 hours) 07/09/17 21:49 Blood - Pending 07/09/17 21:49 Blood Blood Culture - Preliminary NO GROWTH TO DATE 07/09/17 21:47 Blood - Pending 07/09/17 21:47 Blood Blood Culture - Preliminary NO GROWTH TO DATE 07/09/17 21:49 Throat Throat Culture - Preliminary NO BETA GROWTH TO DATE Laboratory Results (Last 24 hours) 07/11/17 09:29 Sodium 146 H Potassium 4.0 Chloride 107 Carbon Dioxide 32.8 H Anion Gap 10.5 BUN 13 Creatinine 0.75 Estimated GFR > 60 Glucose 169 H Calcium 8.7 Orders (Last 24 hours) Category Date Time Status CHEST 2 VIEWS (PA AND LAT) Urgent Exams 07/11/17 Completed BMP Urgent Lab 07/11/17 09:29 Completed Azithromycin 500 mg/250 ml [Zithromax 500 MG/ 250 ML Med 07/10/17 22:00 Active NaCl Premix] 500 mg in 250 ml IV Q24H22 Ceftriaxone 1 GM/50 ML PREMIX* [ROCEPHIN 1 Gm-D5w 50 ml Med 07/10/17 22:00 Active Bag] 1 g in 50 ml IV Q24H22 Flu Vacc [id number](65Yr Up)/Pf [Fluzone High-Dose 2017- Med 07/11/17 10:00 Discontinued 18 Syr] 180 mcg IM .ONCE ONE Mirtazapine 30 mg [Remeron 30 mg] Med 07/10/17 22:00 Active 15 mg PO HS Patient Own Med [Patient Own Medication] Med 07/11/17 10:00 Active 0 each PO Q12HT Theophylline Anhydrous 300 mg* [Theodur 300MG] Med 07/10/17 21:45 Discontinued 300 mg PO Q12H Warfarin Sodium 5 mg [Coumadin 5 MG] Med 07/10/17 18:00 Active 5 mg PO DAILY AT 1800 Patient Care Notes (Last 24 hours) 07/10/17 19:28 Nursing Note by Nina Roger theophylline er 300mg home med verified by this rn. Initialized on 07/10/17 19:28 - END OF NOTE - Vitals & Intake/Output Vital Signs: Vital Signs Temperature 98.3 F 07/11/17 11:43 Pulse Rate 85 07/11/17 11:43 Respiratory Rate 18 07/11/17 11:43 Blood Pressure 126/76 07/11/17 11:43 O2 Sat by Pulse Oximetry 91 L 07/11/17 11:43 Oxygen-Last Documented O2 Percentage 6 Liters = 44% Intake & Output: Intake & Output 07/09/17 07/10/17 07/11/17 07/12/17 11:59 11:59 11:59 11:59 Intake Total 1139 2632 Output Total 394 8165 Balance 764 457 Weight 111.3 kg - Lab Result Diagrams: 07/10/17 05:15 07/11/17 09:29 Lab Results-Last 24 Hrs: Accuchecks Date 07/11/17 Date 07/11/17 Date 07/10/17 Date 07/10/17 Time 11:30 Time 07:30 Time 21:00 Time 17:00 Accucheck Value: 125 Accucheck Value: 179 Accucheck Value: 175 Lab Results-Last 24 Hours 07/11/17 Range/Units 09:29 Sodium 146 H (136-145) mEq/L Potassium 4.0 (3.5-5.1) mEq/L Chloride 107 (98-107) mEq/L Carbon Dioxide 32.8 H (21-32) mEq/L Anion Gap 10.5 (5-15) MEQ/L BUN 13 (9-20) mg/dL Creatinine 0.75 (0.55-1.30) mg/dl Estimated GFR > 60 ML/MIN Glucose 169 H (70-110) MG/DL Calcium 8.7 (8.5-10.1) mg/dL Micro Results-Entire Visit: Accuchecks Date 07/11/17 Date 07/11/17 Date 07/10/17 Date 07/10/17 Time 11:30 Time 07:30 Time 21:00 Time 17:00 Accucheck Value: 125 Accucheck Value: 179 Accucheck Value: 175 - Radiology Exams Ordered Rad Exams-Entire Visit: Radiology Procedures Category Date Time Status CHEST 2 VIEWS (PA AND LAT) Urgent Exams 07/11/17 Completed - Procedures and Test Procedures and Tests throughout Hospitalization: Therapy Orders & Screens 07/10/17 00:04 Oxygen NASAL CANNULA 6 lpm Comment: 07/10/17 01:18 Respiratory Nebulizer PRN Comment: 07/10/17 01:39 BiPap/CPAP Assessment ROUTINE Comment: Diagnosis: Resp Distress Discharge Exam General Appearance: no apparent distress, alert Neurologic Exam: alert, oriented x 3, cooperative, normal mood/affect, nml cerebellar function, sensation nml, No motor deficits Skin Exam: normal color, warm, dry Eye Exam: PERRL, EOMI, eyes nml inspection Ears, Nose, Throat Exam: normal ENT inspection, pharynx normal, moist mucous membranes Neck Exam: normal inspection, non-tender, supple, full range of motion Respiratory Exam: normal breath sounds, lungs clear, No respiratory distress Cardiovascular Exam: regular rate/rhythm, normal heart sounds Gastrointestinal/Abdomen Exam: soft, No tenderness, No mass Extremity Exam: normal inspection, normal range of motion Back Exam: normal inspection, normal range of motion, No CVA tenderness, No vertebral tenderness Male Genitalia Exam: deferred Rectal Exam: deferred Final Diagnosis/Problem List - Final Discharge Diagnosis/Problem (1) COPD exacerbation Current Visit: Yes Status: Resolved (2) Cellulitis of right elbow Current Visit: Yes Status: Resolved (3) Scabies exposure Current Visit: Yes Status: Acute (4) Chronic respiratory failure Current Visit: Yes Status: Chronic (5) Acute on chronic respiratory failure Current Visit: Yes Status: Acute - Discharge Discharge Date: 07/11/17 Disposition: Home, Self-Care Condition: Stable Prescriptions: New Levofloxacin [Levaquin] 250 mg PO DAILY #7 tablet Continue Warfarin Sodium 5 mg [Coumadin 5 MG] 5 mg PO DAILY Sennosides/Docusate Sodium [Stool Soft-Stimulant Lax Tab] 1 each PO DAILY PRN PRN PRN Reason: Constipation Metformin HCl 500 mg [Glucophage 500 MG] 500 mg PO BID Metoprolol Tartrate 50 mg [Lopressor 50 MG] 25 mg PO BID Mirtazapine 15 mg PO HS Theophylline Anhydrous 300 mg PO BID Tamsulosin HCl 0.4 mg [Flomax 0.4 MG] 0.4 mg PO QAM Buspirone HCl 5 mg [Buspar 5 mg] 5 mg PO BID Citalopram Hydrobromide [Citalopram HBr] 20 mg PO BID Albuterol Sulfate [Ventolin Hfa] 18 gm IH BID PRN PRN PRN Reason: Shortness Of Breath/Wheezing Albuterol Sulfate [Proair Hfa] 8.5 gm IH BID PRN PRN PRN Reason: Shortness Of Breath/Wheezing Diltiazem HCl [Dilt-Xr] 240 mg PO DAILY Gabapentin [Neurontin] 600 mg PO TID Tapentadol HCl [Nucynta] 100 mg PO QIDPRN PRN PRN Reason: Pain Prednisone 10 mg [Deltasone 10 mg] 10 mg PO DAILY Follow up with: GEE FERNANDES MD [Primary Care Provider] -
== END 2017-07-11 15:15 | disposition home or self-care (01) ==
LOC: ED 21:06 → ICU 23:41 → MED SURG 07-10 12:51
PROVIDERS: ADMIT General Practice; ATTEND General Practice
DX: J44.1 Chronic obstructive pulmonary disease with (acute) exacerbation (principal); L03.113 Cellulitis of right upper limb; Z20.89 Contact with and (suspected) exposure to other communicable diseases; J96.20 Acute and chronic respiratory failure, unspecified whether with hypoxia or hypercapnia; I10 Essential (primary) hypertension; E11.9 Type 2 diabetes mellitus without complications; Z79.4 Long term (current) use of insulin; J45.909 Unspecified asthma, uncomplicated; K21.9 Gastro-esophageal reflux disease without esophagitis; F41.9 Anxiety disorder, unspecified; F31.9 Bipolar disorder, unspecified; Z23 Encounter for immunization; Z79.01 Long term (current) use of anticoagulants; Z79.899 Other long term (current) drug therapy; I25.2 Old myocardial infarction; Z86.73 Personal history of transient ischemic attack (TIA), and cerebral infarction without residual deficits; Z87.891 Personal history of nicotine dependence
CPT/HCPCS: 36000; 36415; 36600; 71020; 80048; 80053; 81002; 82150; 82375; 82803; 82962; 83605; 83690; 83735; 83880; 84484; 85025; 85610; 85730; 86308; 87040; 87070; 87169; 87430; 87631; 93005; 93041; 93268; 94640; 94760; 96360; 96365; 96367; 96374; 99285; G0008; G0378; J0456; J0696; J1170; J2930; 90662; A9270-GY; J7506

== ENCOUNTER 2018-01-24 10:38 | Observation (INO) | payer MEDICARE ==
[2018-01-24] MEDS ORDERED: Zofran 4 MG/2 ML VIAL IV PRN (11:53)
[2018-01-24] MEDS ORDERED: NovoLOG Insulin SQ PRN (11:53)
--- NOTE | 2018-01-24 12:12 | PCM.HP.ADD ---
Addendum to History & Physical - History & Physical Addendum Addendum to History & Physical: This certifies that the History & Physical in the electronic chart reflects the current health status of the patient. If there are changes in the H&P these changes/exceptions are listed as follows.
[2018-01-24 12:15] LABS: BASOPHIL % 0.6 % (0.0-0.4); Basophil (Absolute #) 0.03 (0-0.4); Eosinophil % 3.1 % (0.00-5.0); Eosinophil (Absolute #) 0.16 (0-0.5); Granulocyte Absolute (ANC) 2.91 (1.4-6.9); Granulocytes % 56.3 % (36.0-66.0); Hematocrit 39.6 % (42-50); Hemoglobin 12.6 gm/dl (12.5-18.0); Lymphocyte (Absolute #) 1.34 (1.0-4.6); Mean Cell Volume 88.4 fl (78-100); Mean Corpuscular Hemoglobin 28.1 pg (26-32); Mean Corpuscular Hgb Concent. 31.8 g/dl (32-36); Mean Platelet Volume 8.6 fl (6-9.5); Monocyte (Absolute #) 0.72 (0.0-1.3); Platelet Count 288 K/mm3 (150-450); Red Blood Count 4.48 M/mm3 (4.1-5.6); Red Cell Distribution Width 15.7 % (11.5-14.0); White Blood Count 5.2 K/mm3 (4.0-10.5)
[2018-01-24 12:31] LABS: ALBUMIN 4.4 g/dL (3.5-5.0); ALKALINE PHOSPHATASE 96 U/L (38-126); BLOOD UREA NITROGEN 8 mg/dL (9-20); CHLORIDE 106 mmol/L (98-107); Calcium 9.6 mg/dL (8.4-10.2); Carbon Dioxide 28 mmol/L (22-30); Creatinine 1 0.66 mg/dL (0.66-1.25); Glucose 111 mg/dL (74-106); Potassium 4.1 mmol/L (3.5-5.1); SGOT/AST 21 U/L (17-59); SGPT/ALT 20 U/L (0-50); SODIUM 145 mmol/L (137-145); Total Protein 7.4 g/dL (6.3-8.2)
[2018-01-24 12:32] LABS: A-aADO2 179; ABG HEMOGLOBIN 12.4; ABG POTASSIUM 3.9 (3.5-5.1); ABG SITE RIGHT RADIAL; ALLEN TEST OK? YES; ARTERIAL BLD GAS O2 SATURATION 97.5 % (95-100); ARTERIAL BLOOD GAS BASE EXCESS 4.3 (-2.0-2.0); ARTERIAL BLOOD GAS FIO2 44 %; ARTERIAL BLOOD GAS PCO2 47 mmHg (35-45); ARTERIAL BLOOD GAS PO2 76 mmHg (75-100); ARTERIAL BLOOD GAS pH 7.41 (7.35-7.45); CARBOXYHEMOGLOBIN 1.5 % THgb (0.0-6.9); HCO3- 29.8 (22-28); HGB O2 SAT 95.1 g/dF (94-100)
--- NOTE | 2018-01-24 12:32 | XRAY ---
Indication: Short of breath. Comparison: July 11, 2017. PA/lateral chest unchanged again demonstrating bibasilar infiltrates/atelectasis and a few incidental scattered calcified granulomas. Remaining heart and lungs unremarkable. No new/acute findings.
[2018-01-24 12:40] LABS: NT PRO BNP < 11.1 pg/mL (0-900)
[2018-01-24] MEDS: Sodium Chloride 0.9% 1000 ML 1,000 ML IV SCH (13:15)
[2018-01-24] MEDS ORDERED: Senokot-S Tablet PO PRN (13:54)
[2018-01-24] MEDS ORDERED: TAPENTADOL HCL 100 MG PO PRN (13:54)
[2018-01-24] MEDS ORDERED: Ventolin Hfa MDI IH PRN ×2 (13:54)
[2018-01-24] MEDS ORDERED: PROVENTIL COMMON CANISTER IH PRN (14:23)
[2018-01-24 14:40] LABS: INR 5.19 (0.8-3.0)
[2018-01-24] MEDS ORDERED: MEDICATION INTERVENTION PO SCH (14:45)
[2018-01-24] MEDS ORDERED: MEDICATION INTERVENTION MC SCH (14:45)
[2018-01-24] MEDS ORDERED: NON-FORMULARY ITEM (Gabapentin [Neurontin] 600 MG) PO SCH (15:00)
[2018-01-24] MEDS: MORPHINE SULFATE 2 MG INJ IV PRN ×3 (15:17→23:25)
[2018-01-24] MEDS: BUSPAR 5 MG PO SCH ×2 (15:18→22:02)
[2018-01-24] MEDS: NEURONTIN 300 MG PO SCH ×2 (15:18→22:02)
[2018-01-24] MEDS: ROCEPHIN 1 Gm-D5w 50 ml Bag** 1 G/50 ML IVPB IV SCH (16:48)
[2018-01-24] MEDS: Glucophage 500 MG PO SCH (16:48)
[2018-01-24] MEDS: Zithromax 500 MG/ 250 ML NaCl Premix 500 MG/250 ML IVPB IV SCH (17:42)
[2018-01-24] MEDS ORDERED: Coumadin 5 MG PO SCH (18:00)
[2018-01-24] MEDS ORDERED: Coumadin 2 MG PO SCH (18:00)
[2018-01-24] MEDS: Advair Hfa 230/21 Mcg COMMON CANISTER IH SCH (21:28)
[2018-01-24] MEDS ORDERED: NON-FORMULARY ITEM (Theophylline Anhydrous [Theophylline Anhydrous] 300 MG) PO SCH (22:00)
[2018-01-24] MEDS ORDERED: REMERON 30 MG PO SCH (22:00)
[2018-01-24] MEDS ORDERED: MIRTAZAPINE 30 MG PO SCH (22:00)
[2018-01-24] MEDS ORDERED: NON-FORMULARY ITEM (Budesonide/Formoterol Fumarate [Symbicort 160-4.5 Mcg Inhaler] 2 PUFF) IH SCH (22:00)
[2018-01-24] MEDS: ceLEXa 20 MG PO SCH (22:02)
[2018-01-24] MEDS: PATIENT OWN MEDICATION PO SCH (22:03)
[2018-01-25] MEDS: Sodium Chloride 0.9% 1000 ML 1,000 ML IV SCH ×2 (00:52→10:58)
[2018-01-25] MEDS: MORPHINE SULFATE 2 MG INJ IV PRN ×2 (05:42→09:45)
[2018-01-25 06:10] LABS: INR 4.6 (0.8-3.0)
[2018-01-25] MEDS: Glucophage 500 MG PO SCH (07:52)
[2018-01-25] MEDS ORDERED: Amaryl 2 MG PO SCH (08:00)
[2018-01-25] MEDS: Advair Hfa 230/21 Mcg COMMON CANISTER IH SCH (08:43)
[2018-01-25] MEDS: NEURONTIN 300 MG PO SCH (09:43)
[2018-01-25] MEDS: PATIENT OWN MEDICATION PO SCH (09:44)
[2018-01-25] MEDS: ROCEPHIN 1 Gm-D5w 50 ml Bag** 1 G/50 ML IVPB IV SCH (09:44)
[2018-01-25] MEDS: BUSPAR 5 MG PO SCH (09:44)
[2018-01-25] MEDS: ceLEXa 20 MG PO SCH (09:44)
[2018-01-25] MEDS ORDERED: Zocor 10MG PO SCH (10:00)
[2018-01-25] MEDS ORDERED: DILTIAZEM HCL 240 MG PO SCH (10:00)
[2018-01-25] MEDS ORDERED: Cardizem CD 240 MG PO SCH (10:00)
[2018-01-25] MEDS ORDERED: ZOCOR 20MG PO SCH (10:00)
[2018-01-25] MEDS ORDERED: NON-FORMULARY ITEM (Rosuvastatin Calcium [Crestor] 20 MG) PO SCH (10:00)
[2018-01-25] MEDS ORDERED: Lopressor 25MG Tab PO SCH (10:00)
[2018-01-25] MEDS ORDERED: Cozaar 50 MG PO SCH (10:00)
[2018-01-25] MEDS ORDERED: Flomax 0.4 MG PO SCH (10:00)
[2018-01-25] MEDS: Zithromax 500 MG/ 250 ML NaCl Premix 500 MG/250 ML IVPB IV SCH (10:58)
[2018-01-25 11:38] VITALS: BP 132/84; PULSE 104; O2SAT 91
--- NOTE | 2018-01-25 11:51 | PCM.NOTE ---
Date and Time: 01/25/18 1150 Subjective Assessment: doing ok - Review of Systems Constitutional: No Fever, No Chills Eyes: No Symptoms Ears, Nose, & Throat: No Symptoms Respiratory: Cough, Short Of Breath Cardiac: No Chest Pain, No Edema, No Syncope Abdominal/Gastrointestinal: No Abdominal Pain, No Nausea, No Vomiting, No Diarrhea Genitourinary Symptoms: No Dysuria Musculoskeletal: No Back Pain, No Neck Pain Skin: No Rash Neurological: No Dizziness, No Focal Weakness, No Sensory Changes Psychological: No Symptoms Endocrine: No Symptoms Hematologic/Lymphatic: No Symptoms Immunological/Allergic: No Symptoms Objective Exam General Appearance: no apparent distress, alert Neurologic Exam: alert, oriented x 3, cooperative, normal mood/affect, nml cerebellar function, sensation nml, No motor deficits Skin Exam: normal color, warm, dry Eye Exam: PERRL, EOMI, eyes nml inspection Ears, Nose, Throat Exam: normal ENT inspection, pharynx normal, moist mucous membranes Neck Exam: normal inspection, non-tender, supple, full range of motion Respiratory Exam: normal breath sounds, lungs clear, No respiratory distress Cardiovascular Exam: regular rate/rhythm, normal heart sounds Gastrointestinal/Abdomen Exam: soft, No tenderness, No mass Extremity Exam: normal inspection, normal range of motion Back Exam: normal inspection, normal range of motion, No CVA tenderness, No vertebral tenderness Male Genitalia Exam: deferred Rectal Exam: deferred OBJECTIVE DATA Vital Signs: Vital Signs - 24 hr Temp Pulse Resp BP Pulse Ox 01/25/18 11:37 97.9 F 104 H 20 132/84 91 L 01/25/18 10:00 20 01/25/18 08:43 88 20 92 L 01/25/18 07:20 97.5 F 85 20 110/67 94 L 01/25/18 06:00 16 01/25/18 04:00 98.1 F 85 16 92/58 93 L 01/25/18 02:00 16 01/25/18 00:00 97.9 F 106 H 17 111/65 93 L 01/24/18 22:00 19 01/24/18 21:26 100 H 22 94 L 01/24/18 20:00 98.0 F 110 H 18 123/71 94 L 01/24/18 16:00 98.6 F 102 H 22 107/66 95 01/24/18 14:00 28 H 04/10/18 12:47 97.8 F 107 H 12384 97 01/24/18 11:53 97.8 F 107 H 97 Oxygen-Last 24 hours O2 Percentage 6 Liters = 44% O2 Percentage 6 Liters = 44% O2 Percentage 6 Liters = 44% O2 Percentage 6 Liters = 44% O2 Percentage 6 Liters = 44% O2 Percentage 6 Liters = 44% Oxygen Flowrate (L/min)-RT 6 Pain Assessment - Last Documented Pain Intensity 9 Pain Scale Used 0-10 Pain Scale Intake and Output: Intake & Output 01/22/18 01/23/18 01/24/18 01/25/18 11:59 11:59 11:59 11:59 Intake Total 4022 Output Total 500 Balance 3522 Weight 117.3 kg Lab Results: Accuchecks Date 01/25/18 Date 01/24/18 Date 01/24/18 Date 01/24/18 Time 11:30 Time 07:30 Time 16:52 Accucheck Value: 93 Accucheck Value: 118 Accucheck Value: 127 Accucheck Value: 99 Lab Results-Last 24 Hours 01/24/18 01/24/18 01/24/18 Range/Units 12:11 12:11 12:11 WBC 5.2 (4.0-10.5) K/mm3 RBC 4.48 (4.1-5.6) M/mm3 Hgb 12.6 (12.5-18.0) gm/dl Hct 39.6 L (42-50) % MCV 88.4 (78-100) fl MCH 28.1 (26-32) pg MCHC 31.8 L (32-36) g/dl RDW 15.7 H (11.5-14.0) % Plt Count 288 (150-450) K/mm3 MPV 8.6 (6-9.5) fl Gran % 56.3 (36.0-66.0) % Eos # (Auto) 0.16 (0-0.5) Absolute Lymphs (auto) 1.34 (1.0-4.6) Absolute Monos (auto) 0.72 (0.0-1.3) Lymphocytes % 26.0 (24.0-44.0) % Monocytes % 14.0 H (0.0-12.0) % Eosinophils % 3.1 (0.00-5.0) % Basophils % 0.6 (0.0-0.4) % Absolute Granulocytes 2.91 (1.4-6.9) Basophils # 0.03 (0-0.4) PT 57.6 H (8.83-12.87) SECONDS INR 5.19 H* (0.8-3.0) Puncture Site pCO2 (35-45) mmHg pO2 (75-100) mmHg Base Excess (-2.0-2.0) O2 Saturation (94-100) g/dF ABG pH (7.35-7.45) ABG HCO3 (22-28) ABG O2 Sat (Measured) (95-100) % Keo Test A-a Gradient a/A Ratio Hemoglobin Carboxyhemoglobin (0.0-6.9) % THgb Methemoglobin (1.4-1.5) % Temperature C POC O2 Flow Rate % Sodium 145 (137-145) mmol/L Potassium 4.1 (3.5-5.1) mmol/L Chloride 106 (98-107) mmol/L Carbon Dioxide 28 (22-30) mmol/L Anion Gap 15.0 (5-15) MEQ/L BUN 8 L (9-20) mg/dL Creatinine 0.66 (0.66-1.25) mg/dL Estimated GFR > 60.0 ML/MIN Glucose 111 H (74-106) mg/dL Hemoglobin A1c (4.5-6.0) % Calcium 9.6 (8.4-10.2) mg/dL Total Bilirubin 0.20 (0.2-1.3) mg/dL AST 21 (17-59) U/L ALT 20 (0-50) U/L Alkaline Phosphatase 96 (38-126) U/L NT-Pro-B Natriuret Pep < 11.1 (0-900) pg/mL Serum Total Protein 7.4 (6.3-8.2) g/dL Albumin 4.4 (3.5-5.0) g/dL 01/24/18 01/24/18 01/25/18 Range/Units 12:11 12:30 05:35 WBC (4.0-10.5) K/mm3 RBC (4.1-5.6) M/mm3 Hgb (12.5-18.0) gm/dl Hct (42-50) % MCV (78-100) fl MCH (26-32) pg MCHC (32-36) g/dl RDW (11.5-14.0) % Plt Count (150-450) K/mm3 MPV (6-9.5) fl Gran % (36.0-66.0) % Eos # (Auto) (0-0.5) Absolute Lymphs (auto) (1.0-4.6) Absolute Monos (auto) (0.0-1.3) Lymphocytes % (24.0-44.0) % Monocytes % (0.0-12.0) % Eosinophils % (0.00-5.0) % Basophils % (0.0-0.4) % Absolute Granulocytes (1.4-6.9) Basophils # (0-0.4) PT 52.0 H (8.83-12.87) SECONDS INR 4.60 H (0.8-3.0) Puncture Site RIGHT RADIAL pCO2 47 H (35-45) mmHg pO2 76 (75-100) mmHg Base Excess 4.3 H (-2.0-2.0) O2 Saturation 95.1 (94-100) g/dF ABG pH 7.41 (7.35-7.45) ABG HCO3 29.8 H* (22-28) ABG O2 Sat (Measured) 97.5 (95-100) % Keo Test YES A-a Gradient 179 a/A Ratio 0.30 Hemoglobin 12.4 Carboxyhemoglobin 1.5 (0.0-6.9) % THgb Methemoglobin 1.0 L (1.4-1.5) % Temperature 37.0 C POC O2 Flow Rate 44 % Sodium (137-145) mmol/L Potassium 3.9 (3.5-5.1) mmol/L Chloride (98-107) mmol/L Carbon Dioxide (22-30) mmol/L Anion Gap (5-15) MEQ/L BUN (9-20) mg/dL Creatinine (0.66-1.25) mg/dL Estimated GFR ML/MIN Glucose (74-106) mg/dL Hemoglobin A1c 6.42 H (4.5-6.0) % Calcium (8.4-10.2) mg/dL Total Bilirubin (0.2-1.3) mg/dL AST (17-59) U/L ALT (0-50) U/L Alkaline Phosphatase (38-126) U/L NT-Pro-B Natriuret Pep (0-900) pg/mL Serum Total Protein (6.3-8.2) g/dL Albumin (3.5-5.0) g/dL Radiology Exams: Radiology Procedures Category Date Time Status CHEST 2 VIEWS (PA AND LAT) Stat Exams 01/24/18 12:11 Completed Multi-Disciplinary Progress Notes: Multi-Disciplinary Progress Notes 01/24/18 16:36 Pharmacy Note by Ravin Garay Please be aware of possible drug interaction with Coumadin and Zithromax. 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
== END 2018-01-25 14:30 | disposition home or self-care (01) ==
LOC: MED SURG 11:20
PROVIDERS: ADMIT General Practice; ATTEND General Practice
DX: J44.1 Chronic obstructive pulmonary disease with (acute) exacerbation (principal); R09.02 Hypoxemia; I10 Essential (primary) hypertension; D68.9 Coagulation defect, unspecified; T45.511A Poisoning by anticoagulants, accidental (unintentional), initial encounter; F31.9 Bipolar disorder, unspecified; Z79.01 Long term (current) use of anticoagulants; Z86.718 Personal history of other venous thrombosis and embolism; J96.11 Chronic respiratory failure with hypoxia; Z79.899 Other long term (current) drug therapy
CPT/HCPCS: 36415; 36600; 71046; 80053; 82375; 82803; 82962; 83036; 83880; 85025; 85610; 87040; 93268; 94640; 94760; G0378; J0456; J0696; J2270; J2405; A9270-GY

== ENCOUNTER 2018-05-16 15:52 | Observation (INO) | payer MEDICARE ==
[2018-05-16 17:17] LABS: ALBUMIN 4.5 g/dL (3.5-5.0); ALKALINE PHOSPHATASE 101 U/L (38-126); ANION GAP 14.8 MEQ/L (5-15); BLOOD UREA NITROGEN 8 mg/dL (9-20); CHLORIDE 103 mmol/L (98-107); Calcium 9.5 mg/dL (8.4-10.2); Carbon Dioxide 30 mmol/L (22-30); Creatinine 1 0.73 mg/dL (0.66-1.25); Glucose 122 mg/dL (74-106); Hematocrit 42.1 % (42-50); Hemoglobin 13.4 gm/dl (12.5-18.0); Mean Cell Volume 88.3 fl (78-100); Mean Corpuscular Hemoglobin 28.1 pg (26-32); Mean Corpuscular Hgb Concent. 31.8 g/dl (32-36); Mean Platelet Volume 9.1 fl (6-9.5); Platelet Count 244 K/mm3 (150-450); Potassium 4.1 mmol/L (3.5-5.1); Red Blood Count 4.77 M/mm3 (4.1-5.6); Red Cell Distribution Width 15.8 % (11.5-14.0); SGOT/AST 18 U/L (17-59); SGPT/ALT 18 U/L (0-50); SODIUM 143 mmol/L (137-145); Total Protein 7.4 g/dL (6.3-8.2); White Blood Count 9.1 K/mm3 (4.0-10.5)
[2018-05-16] MEDS ORDERED: TYLENOL 325 MG PO PRN (17:50)
[2018-05-16] MEDS: Sodium Chloride 0.9% 1000 ML 1,000 ML IV SCH (18:19)
[2018-05-16] MEDS: solu-MEDROL 125 MG IV SCH (18:19)
[2018-05-16 19:14] LABS: Hematocrit 43.5 % (42-50); Hemoglobin 13.9 gm/dl (12.5-18.0); Red Blood Count 4.93 M/mm3 (4.1-5.6); White Blood Count 9.2 K/mm3 (4.0-10.5)
[2018-05-16 19:15] LABS: BASOPHIL % 0.4 % (0.0-0.4); Basophil (Absolute #) 0.04 (0-0.4); Eosinophil % 1.6 % (0.00-5.0); Eosinophil (Absolute #) 0.15 (0-0.5); Granulocyte Absolute (ANC) 6.98 (1.4-6.9); Granulocytes % 75.9 % (36.0-66.0); Lymphocyte (Absolute #) 1.11 (1.0-4.6); Lymphocytes % 12.1 % (24.0-44.0); Mean Cell Volume 88.2 fl (78-100); Mean Corpuscular Hemoglobin 28.2 pg (26-32); Monocyte (Absolute #) 0.92 (0.0-1.3); Platelet Count 247 K/mm3 (150-450); Red Cell Distribution Width 15.8 % (11.5-14.0)
[2018-05-16 19:17] LABS: INR 2.02 (0.8-3.0)
[2018-05-16 19:32] LABS: ALBUMIN 4.9 g/dL (3.5-5.0); ALKALINE PHOSPHATASE 110 U/L (38-126); ANION GAP 13.9 MEQ/L (5-15); BLOOD UREA NITROGEN 7 mg/dL (9-20); CHLORIDE 101 mmol/L (98-107); Calcium 9.9 mg/dL (8.4-10.2); Carbon Dioxide 32 mmol/L (22-30); Creatinine 1 0.75 mg/dL (0.66-1.25); Glucose 109 mg/dL (74-106); NT PRO BNP < 11.1 pg/mL (0-900); Potassium 4.1 mmol/L (3.5-5.1); SGOT/AST 20 U/L (17-59); SGPT/ALT 19 U/L (0-50); SODIUM 143 mmol/L (137-145)
[2018-05-16] MEDS ORDERED: ROCEPHIN 2 Gm-D5w 50ML BAG** 2 G/50 ML IVPB IV ONE (20:10)
[2018-05-16] MEDS ORDERED: Zithromax 500 MG/ 250 ML NaCl Premix 500 MG/250 ML IVPB IV ONE (20:10)
[2018-05-16] MEDS: NON-FORMULARY ITEM PO PRN (20:22)
[2018-05-16] MEDS: DUONEB 0.5-3 MG/3 ml Neb IH SCH (20:31)
[2018-05-16] MEDS: Advair Hfa 230/21 Mcg COMMON CANISTER IH SCH (20:36)
[2018-05-16] MEDS: xanAX 0.5 MG PO SCH (20:46)
[2018-05-16] MEDS: NEURONTIN 300 MG PO SCH (20:46)
[2018-05-16] MEDS: REMERON 30 MG PO SCH (20:46)
--- NOTE | 2018-05-16 21:47 | XRAY ---
Indication: Cough. History COPD. Comparison: January 24, 2018. PA/lateral chest unchanged again demonstrating bibasilar infiltrates/atelectasis again right greater than left. Heart and mediastinal structures stable and within normal limits. No new/acute findings. Comment: Preliminary interpretation was made by [facility]. No discrepancy.
[2018-05-16] MEDS: NovoLOG Insulin SQ PRN (21:59)
[2018-05-16] MEDS ORDERED: THEOPHYLLINE ER 24HR PO SCH (22:00)
[2018-05-17] MEDS: solu-MEDROL 125 MG IV SCH ×4 (00:12→17:02)
[2018-05-17] MEDS: DUONEB 0.5-3 MG/3 ml Neb IH SCH ×4 (01:16→19:46)
[2018-05-17] MEDS: NON-FORMULARY ITEM PO PRN (06:46)
[2018-05-17] MEDS ORDERED: Senokot-S Tablet PO PRN (06:58)
[2018-05-17] MEDS: NovoLOG Insulin SQ PRN ×3 (07:51→21:58)
[2018-05-17] MEDS: Advair Hfa 230/21 Mcg COMMON CANISTER IH SCH ×2 (08:09→19:47)
[2018-05-17] MEDS: Glucophage 500 MG PO SCH ×2 (09:06→17:02)
[2018-05-17] MEDS: Cozaar 50 MG PO SCH (09:06)
[2018-05-17] MEDS: xanAX 0.5 MG PO SCH ×2 (09:06→22:10)
[2018-05-17] MEDS: NEURONTIN 300 MG PO SCH ×3 (09:06→22:10)
[2018-05-17] MEDS: Cardizem CD 240 MG PO SCH (09:06)
[2018-05-17] MEDS: Amaryl 2 MG PO SCH (09:06)
[2018-05-17] MEDS: PATIENT OWN MEDICATION PO SCH ×2 (09:07→22:12)
[2018-05-17] MEDS: Flomax 0.4 MG PO SCH (09:07)
[2018-05-17] MEDS ORDERED: NON-FORMULARY ITEM (Rosuvastatin Calcium [Crestor] 20 MG) PO SCH (10:00)
[2018-05-17] MEDS ORDERED: Lopressor 50 MG PO SCH (10:00)
[2018-05-17] MEDS ORDERED: Zithromax 500 MG/ 250 ML NaCl Premix 500 MG/250 ML IVPB IV SCH ×2 (10:00→22:00)
[2018-05-17] MEDS ORDERED: DILTIAZEM HCL 240 MG PO SCH (10:00)
[2018-05-17] MEDS ORDERED: ROCEPHIN 2 Gm-D5w 50ML BAG** 2 G/50 ML IVPB IV SCH ×2 (10:00→22:00)
--- NOTE | 2018-05-17 11:49 | PCM.NOTE ---
Date and Time: 05/17/18 1148 Subjective Assessment: doing better - Review of Systems Constitutional: No Fever, No Chills Eyes: No Symptoms Ears, Nose, & Throat: No Symptoms Respiratory: Orthopnea, Short Of Breath, Wheezing, No Cough Cardiac: No Chest Pain, No Edema, No Syncope Abdominal/Gastrointestinal: No Abdominal Pain, No Nausea, No Vomiting, No Diarrhea Genitourinary Symptoms: No Dysuria Musculoskeletal: No Back Pain, No Neck Pain Skin: No Rash Neurological: No Dizziness, No Focal Weakness, No Sensory Changes Psychological: No Symptoms Endocrine: No Symptoms Hematologic/Lymphatic: No Symptoms Immunological/Allergic: No Symptoms Objective Exam General Appearance: no apparent distress, alert Neurologic Exam: alert, oriented x 3, cooperative, normal mood/affect, nml cerebellar function, sensation nml, No motor deficits Skin Exam: normal color, warm, dry Eye Exam: PERRL, EOMI, eyes nml inspection Ears, Nose, Throat Exam: normal ENT inspection, pharynx normal, moist mucous membranes Neck Exam: normal inspection, non-tender, supple, full range of motion Respiratory Exam: normal breath sounds, lungs clear, No respiratory distress Cardiovascular Exam: regular rate/rhythm, normal heart sounds Gastrointestinal/Abdomen Exam: soft, No tenderness, No mass Extremity Exam: normal inspection, normal range of motion Back Exam: normal inspection, normal range of motion, No CVA tenderness, No vertebral tenderness Male Genitalia Exam: deferred Rectal Exam: deferred OBJECTIVE DATA Vital Signs: Vital Signs - 24 hr Temp Pulse Resp BP Pulse Ox 05/17/18 11:40 97.5 F 111 H 18 95/52 90 L 05/17/18 07:05 98.4 F 115 H 20 119/56 90 L 05/17/18 07:00 120 H 24 88 L 05/17/18 04:00 97.5 F 112 H 18 118/58 91 L 05/17/18 01:17 110 H 18 89 L 05/17/18 00:00 105 H 18 108/56 90 L 05/16/18 20:37 113 H 18 93 L 05/16/18 20:00 18 05/16/18 19:36 98.3 F 113 H 18 130/78 93 L Oxygen-Last 24 hours O2 Percentage 3 Liters = 32% Pain Assessment - Last Documented Pain Intensity 5 Pain Scale Used 0-10 Pain Scale Intake and Output: Intake & Output 05/14/18 05/15/18 05/16/18 05/17/18 11:59 11:59 11:59 11:59 Intake Total 2786 Output Total 200 Balance 2586 Weight 121.9 kg Lab Results: Accuchecks Date 05/16/18 Accucheck Value: 245 Accucheck Value: 258 Accucheck Value: 197 Lab Results-Last 24 Hours 05/16/18 05/16/18 05/16/18 Range/Units 16:45 16:45 18:50 WBC 9.1 9.2 (4.0-10.5) K/mm3 RBC 4.77 4.93 (4.1-5.6) M/mm3 Hgb 13.4 13.9 (12.5-18.0) gm/dl Hct 42.1 43.5 (42-50) % MCV 88.3 88.2 (78-100) fl MCH 28.1 28.2 (26-32) pg MCHC 31.8 L 32.0 (32-36) g/dl RDW 15.8 H 15.8 H (11.5-14.0) % Plt Count 244 247 (150-450) K/mm3 MPV 9.1 9.0 (6-9.5) fl Gran % 75.9 H (36.0-66.0) % Eos # (Auto) 0.15 (0-0.5) Absolute Lymphs (auto) 1.11 (1.0-4.6) Absolute Monos (auto) 0.92 (0.0-1.3) Lymphocytes % 12.1 L (24.0-44.0) % Monocytes % 10.0 (0.0-12.0) % Eosinophils % 1.6 (0.00-5.0) % Basophils % 0.4 (0.0-0.4) % Absolute Granulocytes 6.98 H (1.4-6.9) Basophils # 0.04 (0-0.4) PT (8.83-12.87) SECONDS INR (0.8-3.0) Sodium 143 (137-145) mmol/L Potassium 4.1 (3.5-5.1) mmol/L Chloride 103 (98-107) mmol/L Carbon Dioxide 30 (22-30) mmol/L Anion Gap 14.8 (5-15) MEQ/L BUN 8 L (9-20) mg/dL Creatinine 0.73 (0.66-1.25) mg/dL Estimated GFR > 60.0 ML/MIN Glucose 122 H (74-106) mg/dL Calcium 9.5 (8.4-10.2) mg/dL Total Bilirubin 0.30 (0.2-1.3) mg/dL AST 18 (17-59) U/L ALT 18 (0-50) U/L Alkaline Phosphatase 101 (38-126) U/L NT-Pro-B Natriuret Pep (0-900) pg/mL Serum Total Protein 7.4 (6.3-8.2) g/dL Albumin 4.5 (3.5-5.0) g/dL 05/16/18 05/16/18 Range/Units 18:50 18:50 WBC (4.0-10.5) K/mm3 RBC (4.1-5.6) M/mm3 Hgb (12.5-18.0) gm/dl Hct (42-50) % MCV (78-100) fl MCH (26-32) pg MCHC (32-36) g/dl RDW (11.5-14.0) % Plt Count (150-450) K/mm3 MPV (6-9.5) fl Gran % (36.0-66.0) % Eos # (Auto) (0-0.5) Absolute Lymphs (auto) (1.0-4.6) Absolute Monos (auto) (0.0-1.3) Lymphocytes % (24.0-44.0) % Monocytes % (0.0-12.0) % Eosinophils % (0.00-5.0) % Basophils % (0.0-0.4) % Absolute Granulocytes (1.4-6.9) Basophils # (0-0.4) PT 23.7 H (8.83-12.87) SECONDS INR 2.02 (0.8-3.0) Sodium 143 (137-145) mmol/L Potassium 4.1 (3.5-5.1) mmol/L Chloride 101 (98-107) mmol/L Carbon Dioxide 32 H (22-30) mmol/L Anion Gap 13.9 (5-15) MEQ/L BUN 7 L (9-20) mg/dL Creatinine 0.75 (0.66-1.25) mg/dL Estimated GFR > 60.0 ML/MIN Glucose 109 H (74-106) mg/dL Calcium 9.9 (8.4-10.2) mg/dL Total Bilirubin 0.40 (0.2-1.3) mg/dL AST 20 (17-59) U/L ALT 19 (0-50) U/L Alkaline Phosphatase 110 (38-126) U/L NT-Pro-B Natriuret Pep < 11.1 (0-900) pg/mL Serum Total Protein 8.0 (6.3-8.2) g/dL Albumin 4.9 (3.5-5.0) g/dL Radiology Exams: Radiology Procedures Category Date Time Status CHEST 2 VIEWS (PA AND LAT) Routine Exams 05/16/18 17:00 Completed Multi-Disciplinary Progress Notes: Multi-Disciplinary Progress Notes 05/17/18 00:11 Respiratory Note by Robinson Santana ASSISTED PT WITH PUTTING 6LPM O2 INLINE W/ HIS TRILOGY VENT AND GETTING HIS MASK ON COMFORTABLY. AFTER ABOUT FIVE MINUTES PT SATS JOJO TO 92% W/ A HR OF 106. Initialized on 05/17/18 00:11 - END OF NOTE Assessment/Plan (1) COPD exacerbation Current Visit: No Status: Acute Onset Date: ~05/17/18 Assessment & Plan: Chief Complaint Diagnosis exac copd Allergies Allergy/AdvReac Type Severity Reaction Status Date / Time No Known Drug Allergies Allergy Verified 07/09/17 21:26 Vital Signs (Last 24 hours) Temp Pulse Resp BP Pulse Ox 05/17/18 11:40 97.5 F 111 H 18 95/52 90 L 05/17/18 07:05 98.4 F 115 H 20 119/56 90 L 05/17/18 07:00 120 H 24 88 L 05/17/18 04:00 97.5 F 112 H 18 118/58 91 L 05/17/18 01:17 110 H 18 89 L 05/17/18 00:00 105 H 18 108/56 90 L 05/16/18 20:37 113 H 18 93 L 05/16/18 20:00 18 05/16/18 19:36 98.3 F 113 H 18 130/78 93 L Home Medications Medication Instructions Recorded Confirmed Last Taken Type ALPRAZolam [Xanax ER 0.5MG] 0.5 mg PO BID 05/16/18 05/16/18 05/16/18 08:00 History Current Medications Generic Name Dose Route Start Last Admin Trade Name Freq PRN Reason Stop Dose Admin Acetaminophen 325 mg 05/16/18 17:50 05/16/18 20:27 Tylenol 325 Mg PO 06/15/18 17:49 325 mg Q4H PRN PRN Administration PAIN, FEVER, HEADACHE Albuterol/Ipratropium 3 ml 05/16/18 19:00 05/17/18 08:08 Duoneb 0.5-3 Mg/3 Ml Neb IH 06/15/18 18:59 3 ml Q6HRT JUAN Administration Alprazolam 0.5 mg 05/16/18 22:00 05/17/18 09:06 Xanax 0.5 Mg PO 06/15/18 21:59 0.5 mg BID JUAN Administration Diltiazem HCl 240 mg 05/17/18 10:00 05/17/18 09:06 Cardizem Cd 240 Mg PO 06/16/18 09:59 240 mg DAILY JUAN Administration Gabapentin 600 mg 05/16/18 22:00 05/17/18 09:06 Neurontin 300 Mg PO 06/15/18 21:59 600 mg TID JUAN Administration Glimepiride 2 mg 05/17/18 10:00 05/17/18 09:06 Amaryl 2 Mg PO 06/16/18 09:59 2 mg DAILY JUAN Administration Sodium Chloride 1,000 mls @ 50 mls/hr 05/16/18 18:00 05/16/18 18:19 Sodium Chloride 0.9% 1000 Ml IV 06/15/18 17:59 50 mls/hr .Q20H JUAN Administration Ceftriaxone Sodium/Dextrose 2 g in 50 mls @ 100 mls/hr 05/17/18 22:00 Rocephin 2 Gm-D5w 50ml Bag IV 06/16/18 09:59 Q24H22 JUAN Azithromycin 500 mg in 250 mls @ 250 mls/hr 05/17/18 22:00 Zithromax 500 Mg/ 250 Ml Nacl Premix IV 06/16/18 09:59 Q24H22 JUAN Insulin Aspart 0 unit 05/16/18 17:50 05/17/18 07:51 Novolog Insulin SQ 06/15/18 17:49 7 unit UD PRN Administration ACCUCHEK Losartan Potassium 50 mg 05/17/18 10:00 05/17/18 09:06 Cozaar 50 Mg PO 06/16/18 09:59 50 mg DAILY JUAN Administration Metformin HCl 500 mg 05/17/18 08:00 05/17/18 09:06 Glucophage 500 Mg PO 06/16/18 07:59 500 mg BIDWMEALS JUAN Administration Methylprednisolone Sodium Succinate 60 mg 05/16/18 18:00 05/17/18 06:06 Solu-Medrol 125 Mg IV 06/15/18 17:59 60 mg Q6H JUAN Administration Metoprolol Tartrate 25 mg 05/18/18 10:00 Lopressor 25mg Tab PO 06/17/18 09:59 DAILY JUAN Mirtazapine 30 mg 05/16/18 22:00 05/16/18 20:46 Remeron 30 Mg PO 06/15/18 21:59 30 mg HS JUAN Administration Patient Own Med ( 0 each 05/17/18 06:55 Nucynta) PO 06/16/18 06:54 Q6H PRN PRN PAIN Patient Own Med ( 0 each 05/17/18 10:00 05/17/18 09:07 Theophylline Er 300 PO 06/16/18 09:59 1 each Mg) Q12HT JUAN Administration Fluticasone/Salmeterol 2 puff 05/16/18 19:00 05/17/18 08:09 Advair Hfa 230/21 Mcg Common Canister* IH 06/15/18 18:59 2 puff BIDRT JUAN Administration Senna/Docusate Sodium 1 udtab 05/17/18 06:58 Senokot-S Tablet PO 06/16/18 06:57 DAILY PRN PRN CONSTIPATION Simvastatin 40 mg 05/17/18 22:00 Zocor 20mg PO 06/16/18 21:59 HS JUAN Tamsulosin HCl 0.4 mg 05/17/18 10:00 05/17/18 09:07 Flomax 0.4 Mg PO 06/16/18 09:59 0.4 mg QAM JUAN Administration Warfarin Sodium 5 mg 05/17/18 18:00 Coumadin 5 Mg PO 06/16/18 17:59 COU JUAN Warfarin Sodium 2 mg 05/17/18 18:00 Coumadin 2 Mg PO 06/16/18 17:59 COU JUAN Discontinued Medications Generic Name Dose Route Start Last Admin Trade Name Freq PRN Reason Stop Dose Admin Azithromycin 500 mg in 250 mls @ 250 mls/hr 05/17/18 10:00 05/16/18 20:50 Zithromax 500 Mg/ 250 Ml Nacl Premix IV 06/16/18 09:59 250 mls/hr Q24H10 JUAN Administration Ceftriaxone Sodium/Dextrose 2 g in 50 mls @ 100 mls/hr 05/17/18 10:00 20:24 Rocephin 2 Gm-D5w 50ml Bag IV 06/16/18 09:59 100 mls/hr Q24H10 JUAN Administration Azithromycin Confirm 05/16/18 20:10 Zithromax 500 Mg/ 250 Ml Nacl Premix Administered 05/16/18 20:11 Dose 500 mg in 250 mls @ ud IV .STK-MED ONE Ceftriaxone Sodium/Dextrose Confirm 05/16/18 20:10 Rocephin 2 Gm-D5w 50ml Bag Administered 05/16/18 20:11 Dose 2 g in 50 mls @ ud IV .STK-MED ONE Metoprolol Tartrate 25 mg 05/17/18 10:00 05/17/18 09:07 Lopressor 50 Mg PO 06/16/18 09:59 25 mg DAILY JUAN Administration Non-Formulary Medication 1 each 05/16/18 18:10 05/17/18 06:46 Non-Formulary Item PO 06/15/18 18:29 1 each Q6H PRN Administration PAIN Theophylline 300 mg 05/16/18 22:00 05/16/18 21:05 Theophylline Er 24hr PO 06/15/18 21:59 300 mg BID JUAN Administration Intake & Output (Last 24 hours) 05/14/18 05/15/18 05/16/18 05/17/18 11:59 11:59 11:59 11:59 Intake Total 2786 Output Total 200 Balance 2586 Weight 121.9 kg Microbiology Results (Last 24 hours) 05/16/18 16:45 Blood Blood Culture Gram Stain - Pending 05/16/18 16:45 Blood Blood Culture - Pending 05/16/18 18:50 Blood Blood Culture Gram Stain - Pending 05/16/18 18:50 Blood Blood Culture - Pending Laboratory Results (Last 24 hours) 05/16/18 05/16/18 05/16/18 18:50 18:50 18:50 WBC 9.2 RBC 4.93 Hgb 13.9 Hct 43.5 MCV 88.2 MCH 28.2 MCHC 32.0 RDW 15.8 H Plt Count 247 MPV 9.0 Gran % 75.9 H Eos # (Auto) 0.15 Absolute Lymphs (auto) 1.11 Absolute Monos (auto) 0.92 Lymphocytes % 12.1 L Monocytes % 10.0 Eosinophils % 1.6 Basophils % 0.4 Absolute Granulocytes 6.98 H Basophils # 0.04 PT 23.7 H INR 2.02 Sodium 143 Potassium 4.1 Chloride 101 Carbon Dioxide 32 H Anion Gap 13.9 BUN 7 L Creatinine 0.75 Estimated GFR > 60.0 Glucose 109 H Calcium 9.9 Total Bilirubin 0.40 AST 20 ALT 19 Alkaline Phosphatase 110 NT-Pro-B Natriuret Pep < 11.1 Serum Total Protein 8.0 Albumin 4.9 05/16/18 05/16/18 16:45 16:45 WBC 9.1 RBC 4.77 Hgb 13.4 Hct 42.1 MCV 88.3 MCH 28.1 MCHC 31.8 L RDW 15.8 H Plt Count 244 MPV 9.1 Gran % Eos # (Auto) Absolute Lymphs (auto) Absolute Monos (auto) Lymphocytes % Monocytes % Eosinophils % Basophils % Absolute Granulocytes Basophils # PT INR Sodium 143 Potassium 4.1 Chloride 103 Carbon Dioxide 30 Anion Gap 14.8 BUN 8 L Creatinine 0.73 Estimated GFR > 60.0 Glucose 122 H Calcium 9.5 Total Bilirubin 0.30 AST 18 ALT 18 Alkaline Phosphatase 101 NT-Pro-B Natriuret Pep Serum Total Protein 7.4 Albumin 4.5 Orders (Last 24 hours) Category Date Time Status Accucheck ACHS Care 05/16/18 17:51 Active Miscellaneous Nursing Order ROUTINE Care 05/16/18 18:[address] in Observation ROUTINE Care 05/16/18 16:26 Active Blaise AdrianjosepAtilio ROUTINE Care 05/17/18 09:58 Active 2000 Calorie ADA Diet 05/16/18 Dinner Active CHEST 2 VIEWS (PA AND LAT) Routine Exams 05/16/18 17:00 Completed BLOOD CULTURE Stat Lab 05/16/18 16:45 Received CBC Routine Lab 05/16/18 16:45 Completed CBC W DIFF Stat Lab 05/16/18 18:50 Completed CMP Routine Lab 05/16/18 16:45 Completed CMP Stat Lab 05/16/18 18:50 Completed NT PRO BNP Stat Lab 05/16/18 18:50 Completed PROTIME WITH INR Stat Lab 05/16/18 18:50 Completed Acetaminophen 325 mg [Tylenol 325 mg] Med 05/16/18 17:50 Active 325 mg PO Q4H PRN PRN Albuterol/Ipratropium 3ml Neb* [DUONEB 0.5-3 MG/3 ml Med 05/16/18 19:00 Active Neb] 3 ml IH Q6HRT Alprazolam 0.5 mg [xanAX 0.5 MG] Med 05/16/18 22:00 Active 0.5 mg PO BID Azithromycin 500 mg/250 ml [Zithromax 500 MG/ 250 ML Med 05/17/18 10:00 Discontinued NaCl Premix] 500 mg in 250 ml IV Q24H10 Azithromycin 500 mg/250 ml [Zithromax 500 MG/ 250 ML Med 05/17/18 22:00 Active NaCl Premix] 500 mg in 250 ml IV Q24H22 Azithromycin 500 mg/250 ml [Zithromax 500 MG/ 250 ML Med 05/16/18 20:10 Discontinued NaCl Premix] 500 mg in 250 ml IV UD Ceftriaxone 2 GM/50 ML PREMIX* [ROCEPHIN 2 Gm-D5w 50ML Med 05/17/18 10:00 Discontinued BAG] 2 g in 50 ml IV Q24H10 Ceftriaxone 2 GM/50 ML PREMIX* [ROCEPHIN 2 Gm-D5w 50ML Med 05/17/18 22:00 Active BAG] 2 g in 50 ml IV Q24H22 Ceftriaxone 2 GM/50 ML PREMIX* [ROCEPHIN 2 Gm-D5w 50ML Med 05/16/18 20:10 Discontinued BAG] 2 g in 50 ml IV UD Diltiazem HCl 240 mg [Cardizem CD 240 MG] Med 05/17/18 10:00 Active 240 mg PO DAILY Fluticasone/Salmeterol 230/21 [Advair Hfa 230/21 Mcg Med 05/16/18 19:00 Active COMMON CANISTER*] 2 puff IH BIDRT Gabapentin 300 mg [Neurontin 300 mg] Med 05/16/18 22:00 Active 600 mg PO TID Glimepiride 2 mg [Amaryl 2 MG] Med 05/17/18 10:00 Active 2 mg PO DAILY Insulin Aspart [NovoLOG Insulin] Med 05/16/18 17:50 Active See Dose Instructions SQ UD PRN Losartan Potassium 50 mg [Cozaar 50 MG] Med 05/17/18 10:00 Active 50 mg PO DAILY Metformin HCl 500 mg [Glucophage 500 MG] Med 05/17/18 08:00 Active 500 mg PO BIDWMEALS Methylprednis Sod Succ 125 mg* [solu-MEDROL 125 MG] Med 05/16/18 18:00 Active 60 mg IV Q6H Metoprolol Tartrate 25 mg [Lopressor 25MG Tab] Med 05/18/18 10:00 Active 25 mg PO DAILY Metoprolol Tartrate 50 mg [Lopressor 50 MG] Med 05/17/18 10:00 Discontinued 25 mg PO DAILY Mirtazapine 30 mg [Remeron 30 mg] Med 05/16/18 22:00 Active 30 mg PO HS NaCl 0.9% 1000 ml [Sodium Chloride 0.9% 1000 ML] 1,000 Med 05/16/18 18:00 Active ml IV 50 mls/hr Non-Formulary Drug [Non-Formulary Item] Med 05/16/18 18:10 Discontinued 1 each PO Q6H PRN Patient Own Med [Patient Own Medication] Med 05/17/18 10:00 Active 0 each PO Q12HT Patient Own Med [Patient Own Medication] Med 05/17/18 06:55 Active 0 each PO Q6H PRN PRN Senna/Docusate Sodium Tab [Senokot-S Tablet] Med 05/17/18 06:58 Active 1 udtab PO DAILY PRN PRN Simvastatin 20Mg [Zocor 20Mg] Med 05/17/18 22:00 Active 40 mg PO HS Tamsulosin HCl 0.4 mg [Flomax 0.4 MG] Med 05/17/18 10:00 Active 0.4 mg PO QAM Theophylline Anhydrous [Theophylline ER 24Hr] Med 05/16/18 22:00 Discontinued 300 mg PO BID Warfarin Sodium 2 mg [Coumadin 2 MG] Med 05/17/18 18:00 Active 2 mg PO COU Warfarin Sodium 5 mg [Coumadin 5 MG] Med 05/17/18 18:00 Active 5 mg PO COU Oxygen NASAL CANNULA 6 lpm RT 05/16/18 20:37 Active Peak Expiratory Flow Rate DAILY RT 05/17/18 07:00 Active Pulse Oximetry ROUTINE RT 05/16/18 20:00 Active Respiratory MDI Q12H RT 05/16/18 19:00 Active Respiratory Therapy Assessment DAILY RT 05/16/18 19:00 Active Respiratory Therapy Consult ROUTINE RT 05/16/18 17:50 Completed neb [Respiratory Nebulizer] Q6H RT 05/16/18 19:00 Active Patient Care Notes (Last 24 hours) 05/17/18 00:11 Respiratory Note by Robinson Santana ASSISTED PT WITH PUTTING 6LPM O2 INLINE W/ HIS TRILOGY VENT AND GETTING HIS MASK ON COMFORTABLY. AFTER ABOUT FIVE MINUTES PT SATS JOJO TO 92% W/ A HR OF 106. Initialized on 05/17/18 00:11 - END OF NOTE Code(s): J44.1 - CHRONIC OBSTRUCTIVE PULMONARY DISEASE W (ACUTE) EXACERBATION (2) Chronic respiratory failure Current Visit: No Status: Chronic Qualifiers: Respiratory failure complication: hypoxia and hypercapnia Qualified Code(s) : J96.11 - Chronic respiratory failure with hypoxia; J96.12 - Chronic respiratory failure with hypercapnia Code(s): J96.10 - CHRONIC RESPIRATORY FAILURE, UNSP W HYPOXIA OR HYPERCAPNIA (3) Hypertension Current Visit: No Status: Chronic Onset Date: ~01/24/18 Qualifiers: Hypertension type: essential hypertension Code(s): I10 - ESSENTIAL (PRIMARY) HYPERTENSION
[2018-05-17] MEDS: PATIENT OWN MEDICATION PO PRN ×2 (14:05→20:07)
[2018-05-17] MEDS: Sodium Chloride 0.9% 1000 ML 1,000 ML IV SCH (15:12)
[2018-05-17] MEDS ORDERED: Coumadin 2 MG PO SCH (18:00)
[2018-05-17] MEDS ORDERED: Coumadin 5 MG PO SCH (18:00)
[2018-05-17] MEDS ORDERED: ZOCOR 20MG PO SCH (22:00)
[2018-05-17] MEDS: REMERON 30 MG PO SCH (22:10)
[2018-05-18] MEDS: solu-MEDROL 125 MG IV SCH ×3 (00:12→11:02)
[2018-05-18] MEDS: PATIENT OWN MEDICATION PO PRN (05:18)
[2018-05-18] MEDS: DUONEB 0.5-3 MG/3 ml Neb IH SCH ×2 (06:48→06:49)
[2018-05-18] MEDS: Advair Hfa 230/21 Mcg COMMON CANISTER IH SCH (06:49)
[2018-05-18] MEDS: Glucophage 500 MG PO SCH (07:36)
[2018-05-18] MEDS: NovoLOG Insulin SQ PRN (07:40)
[2018-05-18 07:43] VITALS: BP 125/65; PULSE 110; O2SAT 91
[2018-05-18] MEDS: xanAX 0.5 MG PO SCH (09:40)
[2018-05-18] MEDS: Flomax 0.4 MG PO SCH (09:40)
[2018-05-18] MEDS: Cozaar 50 MG PO SCH (09:41)
[2018-05-18] MEDS: NEURONTIN 300 MG PO SCH (09:41)
[2018-05-18] MEDS: Cardizem CD 240 MG PO SCH (09:41)
[2018-05-18] MEDS: PATIENT OWN MEDICATION PO SCH (09:41)
[2018-05-18] MEDS: Amaryl 2 MG PO SCH (09:41)
[2018-05-18] MEDS ORDERED: Tessalon Perles 100 MG PO SCH (10:00)
[2018-05-18] MEDS ORDERED: Lopressor 25MG Tab PO SCH (10:00)
--- NOTE | 2018-05-18 10:18 | PCM.DS ---
Discharge Summary Date of Admission: 05/16/18 15:54 Admitting Physician: GEE FERNANDES Primary Care Provider: GEE FERNANDES Allergies Allergies No Known Drug Allergies Allergy (Verified 07/09/17 21:26) Hospital Summary - Hospital Course Hospital Course: Chief Complaint Diagnosis exac copd Allergies Allergy/AdvReac Type Severity Reaction Status Date / Time No Known Drug Allergies Allergy Verified 07/09/17 21:26 Vital Signs (Last 24 hours) Temp Pulse Resp BP Pulse Ox 05/18/18 07:42 97.9 F 110 H 20 125/65 91 L 05/18/18 07:41 18 05/18/18 06:49 100 H 20 92 L 05/18/18 04:00 97.9 F 107 H 24 119/70 92 L 05/18/18 00:10 97.9 F 112 H 24 128/64 92 L 05/18/18 00:00 24 05/17/18 20:00 24 05/17/18 19:54 98.1 F 116 H 24 119/69 90 L 05/17/18 19:48 116 H 22 89 L 05/17/18 16:00 98.2 F 78 22 106/66 88 L 05/17/18 13:00 91 L 05/17/18 11:40 97.5 F 111 H 18 95/52 90 L Home Medications Medication Instructions Recorded Confirmed Last Taken Type ALPRAZolam [Xanax ER 0.5MG] 0.5 mg PO BID 05/16/18 05/16/18 05/16/18 08:00 History Cephalexin Mh 500 mg [Keflex 500 500 mg PO QID #28 capsule 05/18/18 Unknown Rx mg] Prednisone 10 mg [Deltasone 10 10 mg PO DAILY #30 tablet 05/18/18 Unknown Rx mg] Current Medications Generic Name Dose Route Start Last Admin Trade Name Freq PRN Reason Stop Dose Admin Acetaminophen 325 mg 05/16/18 17:50 05/16/18 20:27 Tylenol 325 Mg PO 06/15/18 17:49 325 mg Q4H PRN PRN Administration PAIN, FEVER, HEADACHE Albuterol/Ipratropium 3 ml 05/16/18 19:00 05/18/18 06:49 Duoneb 0.5-3 Mg/3 Ml Neb IH 06/15/18 18:59 Not Given Q6HRT JUAN Alprazolam 0.5 mg 05/16/18 22:00 05/18/18 09:40 Xanax 0.5 Mg PO 06/15/18 21:59 0.5 mg BID JUAN Administration Benzonatate 100 mg 05/18/18 10:00 05/18/18 09:40 Tessalon Perles 100 Mg PO 06/17/18 09:59 100 mg QID JUAN Administration Diltiazem HCl 240 mg 05/17/18 10:00 05/18/18 09:41 Cardizem Cd 240 Mg PO 06/16/18 09:59 240 mg DAILY JUAN Administration Gabapentin 600 mg 05/16/18 22:00 05/18/18 09:41 Neurontin 300 Mg PO 06/15/18 21:59 600 mg TID JUAN Administration Glimepiride 2 mg 05/17/18 10:00 05/18/18 09:41 Amaryl 2 Mg PO 06/16/18 09:59 2 mg DAILY JUAN Administration Sodium Chloride 1,000 mls @ 50 mls/hr 05/16/18 18:00 05/17/18 15:12 Sodium Chloride 0.9% 1000 Ml IV 06/15/18 17:59 50 mls/hr .Q20H JUAN Administration Ceftriaxone Sodium/Dextrose 2 g in 50 mls @ 100 mls/hr 05/17/18 22:00 22:10 Rocephin 2 Gm-D5w 50ml Bag IV 06/16/18 09:59 100 mls/hr Q24H22 JUAN Administration Azithromycin 500 mg in 250 mls @ 250 mls/hr 05/17/18 22:00 05/17/18 22:41 Zithromax 500 Mg/ 250 Ml Nacl Premix IV 06/16/18 09:59 250 mls/hr Q24H22 JUAN Administration Insulin Aspart 0 unit 05/16/18 17:50 05/18/18 07:40 Novolog Insulin SQ 06/15/18 17:49 5 unit UD PRN Administration ACCUCHEK Losartan Potassium 50 mg 05/17/18 10:00 05/18/18 09:41 Cozaar 50 Mg PO 06/16/18 09:59 50 mg DAILY JUAN Administration Metformin HCl 500 mg 05/17/18 08:00 05/18/18 07:36 Glucophage 500 Mg PO 06/16/18 07:59 500 mg BIDWMEALS JUAN Administration Methylprednisolone Sodium Succinate 60 mg 05/16/18 18:00 05/18/18 05:11 Solu-Medrol 125 Mg IV 06/15/18 17:59 60 mg Q6H JUAN Administration Metoprolol Tartrate 25 mg 05/18/18 10:00 05/18/18 09:40 Lopressor 25mg Tab PO 06/17/18 09:59 25 mg DAILY JUAN Administration Mirtazapine 30 mg 05/16/18 22:00 05/17/18 22:10 Remeron 30 Mg PO 06/15/18 21:59 30 mg HS JUAN Administration Patient Own Med ( 0 each 05/17/18 06:55 05/18/18 05:18 Nucynta) PO 06/16/18 06:54 1 each Q6H PRN PRN Administration PAIN Patient Own Med ( 0 each 05/17/18 10:00 05/18/18 09:41 Theophylline Er 300 PO 06/16/18 09:59 1 each Mg) Q12HT JUAN Administration Fluticasone/Salmeterol 2 puff 05/16/18 19:00 05/18/18 06:49 Advair Hfa 230/21 Mcg Common Canister* IH 06/15/18 18:59 2 puff BIDRT JUAN Administration Senna/Docusate Sodium 1 udtab 05/17/18 06:58 Senokot-S Tablet PO 06/16/18 06:57 DAILY PRN PRN CONSTIPATION Simvastatin 40 mg 05/17/18 22:00 05/17/18 22:13 Zocor 20mg PO 06/16/18 21:59 40 mg HS JUAN Administration Tamsulosin HCl 0.4 mg 05/17/18 10:00 05/18/18 09:40 Flomax 0.4 Mg PO 06/16/18 09:59 0.4 mg QAM JUAN Administration Warfarin Sodium 5 mg 05/17/18 18:00 05/17/18 17:02 Coumadin 5 Mg PO 06/16/18 17:59 5 mg COU JUAN Administration Warfarin Sodium 2 mg 05/17/18 18:00 05/17/18 17:02 Coumadin 2 Mg PO 06/16/18 17:59 2 mg COU JUAN Administration Discontinued Medications Generic Name Dose Route Start Last Admin Trade Name Freq PRN Reason Stop Dose Admin Azithromycin 500 mg in 250 mls @ 250 mls/hr 05/17/18 10:00 05/16/18 20:50 Zithromax 500 Mg/ 250 Ml Nacl Premix IV 06/16/18 09:59 250 mls/hr Q24H10 JUAN Administration Ceftriaxone Sodium/Dextrose 2 g in 50 mls @ 100 mls/hr 05/17/18 10:00 20:24 Rocephin 2 Gm-D5w 50ml Bag IV 06/16/18 09:59 100 mls/hr Q24H10 JUAN Administration Azithromycin Confirm 05/16/18 20:10 Zithromax 500 Mg/ 250 Ml Nacl Premix Administered 05/16/18 20:11 Dose 500 mg in 250 mls @ ud IV .STK-MED ONE Ceftriaxone Sodium/Dextrose Confirm 05/16/18 20:10 Rocephin 2 Gm-D5w 50ml Bag Administered 05/16/18 20:11 Dose 2 g in 50 mls @ ud IV .STK-MED ONE Metoprolol Tartrate 25 mg 05/17/18 10:00 05/17/18 09:07 Lopressor 50 Mg PO 06/16/18 09:59 25 mg DAILY JUAN Administration Non-Formulary Medication 1 each 05/16/18 18:10 05/17/18 06:46 Non-Formulary Item PO 06/15/18 18:29 1 each Q6H PRN Administration PAIN Theophylline 300 mg 05/16/18 22:00 05/16/18 21:05 Theophylline Er 24hr PO 06/15/18 21:59 300 mg BID JUAN Administration Intake & Output (Last 24 hours) 05/15/18 05/16/18 05/17/18 05/18/18 11:59 11:59 11:59 11:59 Intake Total 2786 2616 Output Total 200 Balance 2586 2616 Weight 121.9 kg Microbiology Results (Last 24 hours) 05/16/18 16:45 Blood Blood Culture Gram Stain - Pending 05/16/18 16:45 Blood Blood Culture - Preliminary NO GROWTH TO DATE 05/16/18 18:50 Blood Blood Culture Gram Stain - Pending 05/16/18 18:50 Blood Blood Culture - Preliminary NO GROWTH TO DATE Orders (Last 24 hours) Category Date Time Status Blaise Elder, Apply ROUTINE Care 05/17/18 09:58 Active Discharge Routine Discharge 05/18/18 Ordered Azithromycin 500 mg/250 ml [Zithromax 500 MG/ 250 ML Med 05/17/18 10:00 Discontinued NaCl Premix] 500 mg in 250 ml IV Q24H10 Azithromycin 500 mg/250 ml [Zithromax 500 MG/ 250 ML Med 05/17/18 22:00 Active NaCl Premix] 500 mg in 250 ml IV Q24H22 Benzonatate 100 mg [Tessalon Perles 100 MG] Med 05/18/18 10:00 Active 100 mg PO QID Ceftriaxone 2 GM/50 ML PREMIX* [ROCEPHIN 2 Gm-D5w 50ML Med 05/17/18 10:00 Discontinued BAG] 2 g in 50 ml IV Q24H10 Ceftriaxone 2 GM/50 ML PREMIX* [ROCEPHIN 2 Gm-D5w 50ML Med 05/17/18 22:00 Active BAG] 2 g in 50 ml IV Q24H22 Diltiazem HCl 240 mg [Cardizem CD 240 MG] Med 05/17/18 10:00 Active 240 mg PO DAILY Glimepiride 2 mg [Amaryl 2 MG] Med 05/17/18 10:00 Active 2 mg PO DAILY Losartan Potassium 50 mg [Cozaar 50 MG] Med 05/17/18 10:00 Active 50 mg PO DAILY Metoprolol Tartrate 25 mg [Lopressor 25MG Tab] Med 05/18/18 10:00 Active 25 mg PO DAILY Metoprolol Tartrate 50 mg [Lopressor 50 MG] Med 05/17/18 10:00 Discontinued 25 mg PO DAILY Patient Own Med [Patient Own Medication] Med 05/17/18 10:00 Active 0 each PO Q12HT Simvastatin 20Mg [Zocor 20Mg] Med 05/17/18 22:00 Active 40 mg PO HS Tamsulosin HCl 0.4 mg [Flomax 0.4 MG] Med 05/17/18 10:00 Active 0.4 mg PO QAM Warfarin Sodium 2 mg [Coumadin 2 MG] Med 05/17/18 18:00 Active 2 mg PO COU Warfarin Sodium 5 mg [Coumadin 5 MG] Med 05/17/18 18:00 Active 5 mg PO COU Patient Care Notes (Last 24 hours) 05/17/18 12:35 (created 05/17/18 13:09) Case Management Note by Ashley Ballard DR. ROUNDED AND EVALUATED, DISCUSSED PLAN OF CARE WITH PT AND DX: COPD. PT VERBALIZED UNDERSTANDING TO ALL INFORMATION. PT REPORTS HE IS FEELING BETTER TODAY. DR. FERNANDES REPORTS THAT IF PT CONTINUES TO IMPROVE, WILL LIKELY DC HOME TOMORROW. PT DECLINED ADDNL NEEDS AT THIS TIME. Initialized on 05/17/18 13:09 - END OF NOTE - Vitals & Intake/Output Vital Signs: Vital Signs Temperature 97.9 F 05/18/18 07:42 Pulse Rate 110 H 05/18/18 07:42 Respiratory Rate 20 05/18/18 07:42 Blood Pressure 125/65 05/18/18 07:42 O2 Sat by Pulse Oximetry 91 L 05/18/18 07:42 Oxygen-Last Documented O2 Percentage 6 Liters = 44% Intake & Output: Intake & Output 05/15/18 05/16/18 05/17/18 05/18/18 11:59 11:59 11:59 11:59 Intake Total 2786 2616 Output Total 200 Balance 2586 2616 Weight 121.9 kg - Lab Result Diagrams: 05/16/18 18:50 05/16/18 18:50 Lab Results-Last 24 Hrs: Accuchecks Date 05/18/18 Date 05/17/18 Time 07:31 Accucheck Value: 248 Accucheck Value: 349 Accucheck Value: 273 Accucheck Value: 245 Micro Results-Entire Visit: Microbiology 05/16/18 16:45 Blood Culture - Preliminary Blood NO GROWTH TO DATE 05/16/18 18:50 Blood Culture - Preliminary Blood NO GROWTH TO DATE Accuchecks Date 05/18/18 Date 05/17/18 Time 07:31 Accucheck Value: 248 Accucheck Value: 349 Accucheck Value: 273 Accucheck Value: 245 - Radiology Exams Ordered Rad Exams-Entire Visit: Radiology Procedures Category Date Time Status CHEST 2 VIEWS (PA AND LAT) Routine Exams 05/16/18 17:00 Completed - Procedures and Test Procedures and Tests throughout Hospitalization: Therapy Orders & Screens 05/16/18 17:50 Respiratory Therapy Consult ROUTINE Comment: Reason For Exam: Diagnosis: exac copd 05/16/18 19:00 Respiratory MDI Q12H Comment: Diagnosis: exac copd Respiratory Therapy Assessment DAILY Comment: Diagnosis: exac copd neb [Respiratory Nebulizer] Q6H Comment: DUO Q6 Diagnosis: exac copd 05/16/18 20:37 Oxygen NASAL CANNULA 6 lpm Comment: Diagnosis: exac copd 05/17/18 07:00 Peak Expiratory Flow Rate DAILY Comment: Reason For Exam: Diagnosis: exac copd Discharge Exam General Appearance: no apparent distress, alert Neurologic Exam: alert, oriented x 3, cooperative, normal mood/affect, nml cerebellar function, sensation nml, No motor deficits Skin Exam: normal color, warm, dry Eye Exam: PERRL, EOMI, eyes nml inspection Ears, Nose, Throat Exam: normal ENT inspection, pharynx normal, moist mucous membranes Neck Exam: normal inspection, non-tender, supple, full range of motion Respiratory Exam: normal breath sounds, lungs clear, No respiratory distress Cardiovascular Exam: regular rate/rhythm, normal heart sounds Gastrointestinal/Abdomen Exam: soft, No tenderness, No mass Extremity Exam: normal inspection, normal range of motion Back Exam: normal inspection, normal range of motion, No CVA tenderness, No vertebral tenderness Male Genitalia Exam: deferred Rectal Exam: deferred Final Diagnosis/Problem List - Final Discharge Diagnosis/Problem (1) COPD exacerbation Current Visit: Yes Status: Resolved Priority: High Onset Date: ~05/17/18 (2) Chronic respiratory failure Current Visit: Yes Status: Chronic Priority: High (3) Hypertension Current Visit: Yes Status: Chronic Priority: High Onset Date: ~01/24/18 - Discharge Discharge Date: 05/18/18 Disposition: Home, Self-Care Condition: Stable Prescriptions: New Prednisone 10 mg [Deltasone 10 mg] 10 mg PO DAILY #30 tablet Cephalexin Mh 500 mg [Keflex 500 mg] 500 mg PO QID #28 capsule Continue Warfarin Sodium 5 mg [Coumadin 5 MG] 7 mg PO DAILY Sennosides/Docusate Sodium [Stool Softener-Stim Lax Tablet] 1 each PO DAILY PRN PRN PRN Reason: Constipation Metformin HCl 500 mg [Glucophage 500 MG] 500 mg PO BID Metoprolol Tartrate 50 mg [Lopressor 50 MG] 25 mg PO DAILY Mirtazapine 30 mg PO HS Theophylline Anhydrous 300 mg PO BID Tamsulosin HCl 0.4 mg [Flomax 0.4 MG] 0.4 mg PO QAM Albuterol Sulfate [Ventolin Hfa] 18 gm IH QID PRN PRN PRN Reason: Shortness Of Breath/Wheezing Albuterol Sulfate [Proair Hfa] 8.5 gm IH BID PRN PRN PRN Reason: Shortness Of Breath/Wheezing Diltiazem HCl [Dilt-Xr] 240 mg PO DAILY Gabapentin [Neurontin] 600 mg PO TID Tapentadol HCl [Nucynta] 100 mg PO QIDPRN PRN PRN Reason: Pain Losartan Potassium 50 mg [Cozaar 50 MG] 50 mg PO DAILY Budesonide/Formoterol Fumarate [Symbicort 160-4.5 Mcg Inhaler] 2 puff IH BID Rosuvastatin Calcium [Crestor] 20 mg PO DAILY Glimepiride 2 mg [Amaryl 2 MG] 2 mg PO DAILY ALPRAZolam [Xanax ER 0.5MG] 0.5 mg PO BID Instructions: Exacerbation of COPD (DC) Follow up with: GEE FERNANDES MD [Primary Care Provider] - 05/25/18 10:30 am Forms: Discharge Instructions
== END 2018-05-18 11:40 | disposition home or self-care (01) ==
LOC: MED SURG 15:54
PROVIDERS: ADMIT General Practice; ATTEND General Practice
DX: J44.1 Chronic obstructive pulmonary disease with (acute) exacerbation (principal); J96.10 Chronic respiratory failure, unspecified whether with hypoxia or hypercapnia; I10 Essential (primary) hypertension; E11.9 Type 2 diabetes mellitus without complications; Z79.4 Long term (current) use of insulin; K44.9 Diaphragmatic hernia without obstruction or gangrene; F31.9 Bipolar disorder, unspecified; F39 Unspecified mood [affective] disorder; Z79.01 Long term (current) use of anticoagulants; Z79.899 Other long term (current) drug therapy; Z86.73 Personal history of transient ischemic attack (TIA), and cerebral infarction without residual deficits; I82.91 Chronic embolism and thrombosis of unspecified vein
CPT/HCPCS: 36415; 71046; 80053; 83880; 85025; 85027; 85610; 87040; 94150; 94640; 94760; G0378; J0456; J0696; J2930; A9270-GY

== ENCOUNTER 2018-08-12 19:28 | Observation (INO) | payer MEDICARE ==
[2018-08-12] MEDS ORDERED: solu-MEDROL 125 MG IV ONE (19:49)
[2018-08-12] MEDS ORDERED: DUONEB 0.5-3 MG/3 ml Neb IH ONE ×2 (19:49→20:02)
--- NOTE | 2018-08-12 19:59 | ERPHSYRPT ---
- History of Present Illness Time Seen by Provider: 08/12/18 19:57 Source: patient Exam Limitations: no limitations Patient Subjective Stated Complaint: pt states he has been sick for the past week and has been having increased shortness of breath and chest pain today. Triage Nursing Assessment: pt alert and oriented, answers questions approp. pt in per wheelchair, transfers from wheelchair to stretcher with minimal assist. pt short of breath with exertion. lungs diminished. skin pink warm and dry. Physician History: pt states he has been sick for the past week and has been having increased shortness of breath and chest pain today. Timing/Duration: today (chest pain today, left side), week(s) (shortness of breath for 1 week) Activities at Onset: none Severity of Dyspnea-Max: moderate Severity of Dyspnea-Current: moderate Possible Cause: frequent episodes, chronic episodes Associated Symptoms: wheezing, heaviness, tightness International travel in last 2 weeks: No Allergies/Adverse Reactions: No Known Drug Allergies Allergy (Verified 08/12/18 19:52) Home Medications: Warfarin Sodium 5 mg [Coumadin 5 MG] 7 mg PO DAILY 05/14/14 [History] Sennosides/Docusate Sodium [Stool Softener-Stim Lax Tablet] 1 each PO DAILY PRN PRN 11/18/14 [History] Metformin HCl 500 mg [Glucophage 500 MG] 500 mg PO BID 09/13/15 [History] Metoprolol Tartrate 50 mg [Lopressor 50 MG] 25 mg PO DAILY 01/17/16 [ History] Mirtazapine 30 mg PO HS 01/05/17 [History] Albuterol Sulfate [Proair Hfa] 8.5 gm IH BID PRN PRN 04/18/17 [History] Albuterol Sulfate [Ventolin Hfa] 18 gm IH QID PRN PRN 04/18/17 [History] Diltiazem HCl [Dilt-Xr] 240 mg PO DAILY 04/18/17 [History] Gabapentin [Neurontin] 600 mg PO TID 04/18/17 [History] Tamsulosin HCl 0.4 mg [Flomax 0.4 MG] 0.4 mg PO QAM 04/18/17 [History] Theophylline Anhydrous 300 mg PO BID 04/18/17 [History] Budesonide/Formoterol Fumarate [Symbicort 160-4.5 Mcg Inhaler] 2 puff IH BID 08/03 [History] Glimepiride 2 mg [Amaryl 2 MG] 2 mg PO DAILY 01/24/18 [History] Losartan Potassium 50 mg [Cozaar 50 MG] 50 mg PO DAILY 01/24/18 [History] ALPRAZolam [Xanax ER 0.5MG] 0.5 mg PO BID 05/16/18 [History] Hydrocodone/APAP 10/325 mg [[place] 10/325 MG Tablet] 1 tab PO QID 08/12/18 [History] Rosuvastatin Calcium [Crestor] 20 mg PO DAILY 08/12/18 [History] Trazodone HCl 50 mg [Desyrel 50 mg] 100 mg PO HS 08/12/18 [History] Hx Tetanus, Diphtheria Vaccination/Date Given: Yes (UP TO DATE) Hx Influenza Vaccination/Date Given: Yes Hx Pneumococcal Vaccination/Date Given: Yes Immunizations Up to Date: Yes - Review of Systems Constitutional: No Fever, No Chills Eyes: No Symptoms Ears, Nose, & Throat: No Symptoms Respiratory: Dyspnea, Dyspnea on Exertion ([place]), Wheezing, No Cough Cardiac: Chest Pain, No Edema, No Syncope Abdominal/Gastrointestinal: No Abdominal Pain, No Nausea, No Vomiting, No Diarrhea Genitourinary Symptoms: No Dysuria Musculoskeletal: No Back Pain, No Neck Pain Skin: No Rash Neurological: No Dizziness, No Focal Weakness, No Sensory Changes Psychological: No Symptoms Endocrine: No Symptoms All Other Systems: Reviewed and Negative - Past Medical History Pertinent Past Medical History: Yes Neurological History: Stroke ENT History: No Pertinent History Cardiac History: Hypertension Respiratory History: Asthma, COPD Endocrine Medical History: Diabetes Type II Musculoskeletal History: No Pertinent History GI Medical History: No Pertinent History History: No Pertinent History Psycho-Social History: Anxiety, Bipolar, Depression Male Reproductive Disorders: No Pertinent History Other Medical History: Strokes in 2013, 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 Ponce 2005 - Past Surgical History Past Surgical History: Yes (ankle and leg, hernia) Neuro Surgical History: No Pertinent History Cardiac: No Pertinent History Respiratory: No Pertinent History Gastrointestinal: Appendectomy Genitourinary: No Pertinent History Musculoskeletal: No Pertinent History Male Surgical History: No Pertinent History Other Surgical History: Right leg surgery, Sinus surgery - Social History Smoking Status: Former smoker How long have you smoked: 2006 Exposure to second hand smoke: No Drug Use: none Patient Lives Alone: No - Nursing Vital Signs Nursing Vital Signs: Initial Vital Signs Temperature 97.9 F 08/12/18 19:39 Pulse Rate 101 H 08/12/18 19:39 Respiratory Rate 24 08/12/18 19:39 Blood Pressure 128/83 08/12/18 19:39 O2 Sat by Pulse Oximetry 97 08/12/18 19:39 Pain Scale Pain Intensity 9 - Physical Exam General Appearance: no apparent distress, alert Eye Exam: PERRL/EOMI Neck Exam: normal inspection, supple Respiratory Exam: diminished breath sounds, rhonchi, wheezing Cardiovascular/Chest Exam: normal heart sounds, regular rate/rhythm Abdominal/Gastrointestinal Exam: soft, No tenderness, No distention, No mass Extremity Exam: non-tender, normal range of motion, normal inspection, no calf tenderness, no pedal edema Neurologic Exam: alert, oriented x 3, cooperative, 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 nml as tested, sensation nml, No motor deficits Skin Exam: normal color, warm, No dry SpO2 Interpretation: borderline oxygenation SpO2: 97 Oxygen Delivery: Room Air - Course Nursing assessment & vital signs reviewed: Yes EKG Interpreted by Me: Sinus Rhythm, NORMAL ST-T - Radiology Exams Chest X-ray Interpretation: Reviewed by me (COPD changes) Ordered Tests: Active Orders 24 hr Category Date Time Status 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 08/12/18 19:49 Active EKG-ER Only STAT Care 08/12/18 19:49 Active Oxygen-ED Only NASAL CANNULA 3 lpm Care 08/12/18 19:49 Active CHEST 2 VIEWS (PA AND LAT) Stat Exams 08/12/18 19:49 Completed CBC W DIFF Stat Lab 08/12/18 19:49 Completed CMP Stat Lab 08/12/18 20:00 Received NT PRO BNP Stat Lab 08/12/18 20:00 Received TROPONIN Q3H Lab 08/12/18 20:00 Completed TROPONIN Q3H Lab 08/12/18 23:00 Ordered TROPONIN Q3H Lab 08/13/18 02:00 Ordered TROPONIN Q3H Lab 08/13/18 05:00 Ordered TROPONIN Q3H Lab 08/13/18 08:00 Ordered Peak Expiratory Flow Rate ONCE RT 08/12/18 20:07 Active Respiratory Nebulizer STAT RT 08/12/18 19:50 Completed Respiratory Therapy Assessment DAILY RT 08/12/18 20:07 Active Medication Summary Generic Name Dose Route Start Last Admin Trade Name Freq PRN Reason Stop Dose Admin Sodium Chloride 1,000 mls @ 100 mls/hr 08/12/18 20:00 08/12/18 20:10 Sodium Chloride 0.9% 1000 Ml IV 09/11/18 19:59 100 mls/hr .Q10H JUAN Administration Discontinued Medications Generic Name Dose Route Start Last Admin Trade Name Freq PRN Reason Stop Dose Admin Albuterol/Ipratropium 3 ml 08/12/18 19:49 08/12/18 20:03 Duoneb 0.5-3 Mg/3 Ml Neb IH 08/12/18 19:50 3 ml STAT ONE Administration Albuterol/Ipratropium Confirm 08/12/18 20:02 Duoneb 0.5-3 Mg/3 Ml Neb Administered 08/12/18 20:03 Dose 3 ml IH .STK-MED ONE Methylprednisolone Sodium Succinate 80 mg 08/12/18 19:49 08/12/18 20:09 Solu-Medrol 125 Mg IV 08/12/18 19:50 125 mg STAT ONE Administration Methylprednisolone Sodium Succinate Confirm 08/12/18 20:03 Solu-Medrol 125 Mg Administered 08/12/18 20:04 Dose 125 mg .ROUTE .STK-MED ONE Morphine Sulfate 2 mg 08/12/18 20:38 Morphine Sulfate 2 Mg Inj IV 08/12/18 20:39 STAT ONE Lab/Rad Data: Laboratory Result Diagrams 08/12/18 19:49 Laboratory Results 08/12/18 08/12/18 Range/Units 20:00 19:49 WBC 5.9 (4.0-10.5) K/mm3 RBC 4.92 (4.1-5.6) M/mm3 Hgb 13.9 (12.5-18.0) gm/dl Hct 43.4 (42-50) % MCV 88.2 (78-100) fl MCH 28.3 (26-32) pg MCHC 32.0 (32-36) g/dl RDW 16.0 H (11.5-14.0) % Plt Count 233 (150-450) K/mm3 MPV 8.7 (6-9.5) fl Gran % 58.0 (36.0-66.0) % Eos # (Auto) 0.21 (0-0.5) Absolute Lymphs (auto) 1.46 (1.0-4.6) Absolute Monos (auto) 0.80 (0.0-1.3) Lymphocytes % 24.7 (24.0-44.0) % Monocytes % 13.5 H (0.0-12.0) % Eosinophils % 3.6 (0.00-5.0) % Basophils % 0.2 (0.0-0.4) % Absolute Granulocytes 3.43 (1.4-6.9) Basophils # 0.01 (0-0.4) Troponin I < 0.012 (0.000-0.034) ng/mL - Progress Progress: improved Air Movement: fair Discussed with : Zhanna Will see patient in: hospital (observation) Counseled pt/family regarding: lab results, diagnosis, need for follow-up, rad results - Departure Time of Disposition: 20:58 Departure Disposition: Observation Clinical Impression: Chest pain, rule out acute myocardial infarction, COPD exacerbation Condition: Fair Critical Care Time: Yes Critical Care Time(excluding separately billable procedures): 30-74 minutes Referrals: GEE FERNANDES MD [Primary Care Provider] - Instructions: Chronic Obstructive Pulmonary Disease
[2018-08-12] MEDS ORDERED: Sodium Chloride 0.9% 1000 ML 1,000 ML IV SCH (20:00)
[2018-08-12] MEDS ORDERED: solu-MEDROL 125 MG ONE (20:03)
[2018-08-12] MEDS ORDERED: Sodium Chloride 0.9% 1000 ML 1,000 ML ONE (20:03)
[2018-08-12 20:22] LABS: BASOPHIL % 0.2 % (0.0-0.4); Basophil (Absolute #) 0.01 (0-0.4); Eosinophil % 3.6 % (0.00-5.0); Eosinophil (Absolute #) 0.21 (0-0.5); Granulocyte Absolute (ANC) 3.43 (1.4-6.9); Hematocrit 43.4 % (42-50); Hemoglobin 13.9 gm/dl (12.5-18.0); Lymphocyte (Absolute #) 1.46 (1.0-4.6); Lymphocytes % 24.7 % (24.0-44.0); Mean Cell Volume 88.2 fl (78-100); Mean Corpuscular Hemoglobin 28.3 pg (26-32); Mean Platelet Volume 8.7 fl (6-9.5); Monocytes % 13.5 % (0.0-12.0); Platelet Count 233 K/mm3 (150-450); Red Blood Count 4.92 M/mm3 (4.1-5.6); White Blood Count 5.9 K/mm3 (4.0-10.5)
[2018-08-12] MEDS ORDERED: MORPHINE SULFATE 2 MG INJ IV ONE (20:38)
--- NOTE | 2018-08-12 20:47 | XRAY ---
Indication: COPD exacerbation. Comparison: May 16, 2018. PA/lateral chest unchanged again hyperinflated with bibasilar discoid atelectasis/scarring and a few incidental tiny calcified granulomas. Heart is not enlarged. Bony thorax intact. No new/acute findings.
[2018-08-12 21:15] LABS: ALBUMIN 4.5 g/dL (3.5-5.0); ALKALINE PHOSPHATASE 89 U/L (38-126); ANION GAP 14.4 MEQ/L (5-15); BLOOD UREA NITROGEN 13 mg/dL (9-20); CHLORIDE 105 mmol/L (98-107); Calcium 9.5 mg/dL (8.4-10.2); Carbon Dioxide 26 mmol/L (22-30); Creatinine 1 0.76 mg/dL (0.66-1.25); Glucose 130 mg/dL (74-106); NT PRO BNP < 11.1 pg/mL (0-900); Potassium 4.1 mmol/L (3.5-5.1); SGOT/AST 33 U/L (17-59); SGPT/ALT 26 U/L (0-50); SODIUM 141 mmol/L (137-145); Total Protein 7.3 g/dL (6.3-8.2)
[2018-08-12] MEDS ORDERED: MORPHINE SULFATE 2 MG INJ ONE (21:26)
[2018-08-12] MEDS ORDERED: MILK OF MAGNESIA 30 ML PO PRN (22:33)
[2018-08-12] MEDS ORDERED: MAALOX ES 30 ML UNIT DOSE PO PRN (22:33)
[2018-08-12] MEDS ORDERED: Senokot-S Tablet PO PRN (22:33)
[2018-08-12] MEDS ORDERED: solu-MEDROL 40 MG IV SCH (22:33)
[2018-08-12] MEDS ORDERED: TYLENOL 325 MG PO PRN (22:33)
[2018-08-12] MEDS ORDERED: Zofran 4 MG/2 ML VIAL IV PRN (22:33)
[2018-08-12] MEDS ORDERED: MORPHINE SULFATE 2 MG INJ IV PRN (23:09)
[2018-08-12] MEDS: DUONEB 0.5-3 MG/3 ml Neb IH SCH (23:48)
[2018-08-12] MEDS ORDERED: Nitrostat 0.4 MG Tablet SL PRN (23:54)
[2018-08-13] MEDS ORDERED: DESYREL 50 MG PO ONE (00:19)
[2018-08-13] MEDS ORDERED: REMERON 30 MG PO ONE (00:30)
[2018-08-13] MEDS ORDERED: NEURONTIN 300 MG PO ONE (00:30)
[2018-08-13] MEDS ORDERED: THEOPHYLLINE ER 24HR PO ONE (00:30)
[2018-08-13] MEDS ORDERED: Glucophage 500 MG PO ONE (00:30)
[2018-08-13] MEDS: Norco 10/325 MG Tablet PO PRN ×4 (00:41→21:30)
[2018-08-13] MEDS: DUONEB 0.5-3 MG/3 ml Neb IH SCH ×6 (03:39→23:03)
[2018-08-13] MEDS ORDERED: solu-MEDROL 125 MG ONE (03:57)
[2018-08-13] MEDS: solu-MEDROL 40 MG IV SCH ×4 (04:00→21:29)
[2018-08-13 06:11] LABS: Risk Ratio 2.5
[2018-08-13] MEDS: Advair Hfa 230/21 Mcg COMMON CANISTER IH SCH ×2 (07:24→18:50)
[2018-08-13] MEDS ORDERED: Senokot-S Tablet PO PRN ×2 (08:09→08:11)
[2018-08-13] MEDS ORDERED: Ventolin Hfa MDI IH PRN ×2 (08:11)
[2018-08-13] MEDS ORDERED: PROVENTIL COMMON CANISTER IH PRN (08:57)
[2018-08-13 08:59] LABS: INR 2.86 (0.8-3.0)
[2018-08-13] MEDS: Glucophage 500 MG PO SCH ×2 (09:20→17:23)
[2018-08-13] MEDS ORDERED: DILTIAZEM HCL 240 MG PO SCH (10:00)
[2018-08-13] MEDS ORDERED: Lopressor 50 MG PO SCH (10:00)
[2018-08-13] MEDS ORDERED: Coumadin 5 MG PO SCH ×2 (10:00→18:00)
[2018-08-13] MEDS ORDERED: NON-FORMULARY ITEM (Theophylline Anhydrous [Theophylline Anhydrous] 300 MG) PO SCH (10:00)
[2018-08-13] MEDS ORDERED: NON-FORMULARY ITEM (Rosuvastatin Calcium [Crestor] 20 MG) PO SCH (10:00)
[2018-08-13] MEDS ORDERED: NON-FORMULARY ITEM (Gabapentin [Neurontin] 600 MG) PO SCH (10:00)
[2018-08-13] MEDS: ROCEPHIN 1 Gm-D5w 50 ml Bag** 1 G/50 ML IVPB IV SCH (10:19)
[2018-08-13] MEDS: Cardizem CD 240 MG PO SCH (10:22)
[2018-08-13] MEDS: Cozaar 50 MG PO SCH (10:22)
[2018-08-13] MEDS: Flomax 0.4 MG PO SCH (10:23)
[2018-08-13] MEDS: Lopressor 25MG Tab PO SCH (10:23)
[2018-08-13] MEDS: NEURONTIN 300 MG PO SCH ×3 (10:23→21:30)
[2018-08-13] MEDS: Ecotrin 325 MG PO SCH (10:23)
[2018-08-13] MEDS: PATIENT OWN MEDICATION PO SCH ×2 (10:24→21:28)
[2018-08-13] MEDS: xanAX 0.5 MG PO SCH ×2 (10:24→21:30)
[2018-08-13] MEDS: ZOCOR 20MG PO SCH (10:24)
[2018-08-13] MEDS: Amaryl 2 MG PO SCH (10:27)
[2018-08-13] MEDS: NovoLOG Insulin SQ PRN ×2 (11:45→21:29)
[2018-08-13] MEDS ORDERED: DESYREL 50 MG PO SCH (22:00)
[2018-08-13] MEDS ORDERED: MIRTAZAPINE 30 MG PO SCH (22:00)
[2018-08-13] MEDS ORDERED: REMERON 30 MG PO SCH (22:00)
[2018-08-14] MEDS: DUONEB 0.5-3 MG/3 ml Neb IH SCH ×3 (03:22→10:38)
[2018-08-14] MEDS: solu-MEDROL 40 MG IV SCH ×2 (04:13→12:17)
[2018-08-14] MEDS: Norco 10/325 MG Tablet PO PRN ×2 (05:35→11:28)
[2018-08-14] MEDS: Advair Hfa 230/21 Mcg COMMON CANISTER IH SCH (06:49)
[2018-08-14] MEDS: NovoLOG Insulin SQ PRN (08:59)
[2018-08-14] MEDS: Glucophage 500 MG PO SCH (08:59)
[2018-08-14] MEDS: PATIENT OWN MEDICATION PO SCH (10:22)
[2018-08-14] MEDS: Cozaar 50 MG PO SCH (10:23)
[2018-08-14] MEDS: xanAX 0.5 MG PO SCH (10:23)
[2018-08-14] MEDS: Lopressor 25MG Tab PO SCH (10:23)
[2018-08-14] MEDS: Flomax 0.4 MG PO SCH (10:23)
[2018-08-14] MEDS: Ecotrin 325 MG PO SCH (10:23)
[2018-08-14] MEDS: NEURONTIN 300 MG PO SCH (10:23)
[2018-08-14] MEDS: Cardizem CD 240 MG PO SCH (10:24)
[2018-08-14] MEDS: ROCEPHIN 1 Gm-D5w 50 ml Bag** 1 G/50 ML IVPB IV SCH (10:24)
[2018-08-14] MEDS: Amaryl 2 MG PO SCH (10:24)
[2018-08-14] MEDS: ZOCOR 20MG PO SCH (10:24)
[2018-08-14 11:54] VITALS: BP 116/69; PULSE 102; O2SAT 93
--- NOTE | 2018-08-14 11:56 | PCM.SSS ---
History of Present Illness - Chief Complaint Chief Complaint: Shortness of Breath for 3 days History of Present Illness: is a 57 year old male.came with shortness of breath for 4-5 days and was treated as outpatient but failed outpatient treatment so he came to ER. - Review of Systems Constitutional: No Fever, No Chills Eyes: No Symptoms Ears, Nose, & Throat: No Symptoms Respiratory: Cough, Orthopnea, Short Of Breath Cardiac: Chest Pain, Edema, No Syncope Abdominal/Gastrointestinal: No Abdominal Pain, No Nausea, No Vomiting, No Diarrhea Genitourinary Symptoms: No Dysuria Musculoskeletal: No Back Pain, No Neck Pain Skin: No Rash Neurological: No Dizziness, No Focal Weakness, No Sensory Changes Psychological: No Symptoms Endocrine: No Symptoms Hematologic/Lymphatic: No Symptoms Immunological/Allergic: No Symptoms Medications & Allergies Home Medications: Home Medication List Warfarin Sodium 5 mg [Coumadin 5 MG] 5 mg PO DAILY 05/14/14 [History Confirmed 08/12/18] Sennosides/Docusate Sodium [Stool Softener-Stim Lax Tablet] 1 each PO DAILY PRN PRN 11/18/14 [History Confirmed 08/12/18] Metformin HCl 500 mg [Glucophage 500 MG] 500 mg PO BID 09/13/15 [History Confirmed 08/12/18] Metoprolol Tartrate 50 mg [Lopressor 50 MG] 25 mg PO DAILY 01/17/16 [ History Confirmed 08/12/18] Mirtazapine 30 mg PO HS 01/05/17 [History Confirmed 08/12/18] Albuterol Sulfate [Proair Hfa] 8.5 gm IH BID PRN PRN 04/18/17 [History Confirmed 08/12/18] Albuterol Sulfate [Ventolin Hfa] 18 gm IH QID PRN PRN 04/18/17 [History Confirmed 08/12/18] Diltiazem HCl [Dilt-Xr] 240 mg PO DAILY 04/18/17 [History Confirmed 08/12/18] Gabapentin [Neurontin] 600 mg PO TID 04/18/17 [History Confirmed 08/12/18] Tamsulosin HCl 0.4 mg [Flomax 0.4 MG] 0.4 mg PO QAM 04/18/17 [History Confirmed 08/12/18] Theophylline Anhydrous 300 mg PO BID 04/18/17 [History Confirmed 08/12/18] Budesonide/Formoterol Fumarate [Symbicort 160-4.5 Mcg Inhaler] 2 puff IH BID 08/03 [History Confirmed 08/12/18] Glimepiride 2 mg [Amaryl 2 MG] 2 mg PO DAILY 01/24/18 [History Confirmed 08/12/18] Losartan Potassium 50 mg [Cozaar 50 MG] 50 mg PO DAILY 01/24/18 [History Confirmed 08/12/18] ALPRAZolam [Xanax ER 0.5MG] 0.5 mg PO BID 05/16/18 [History Confirmed 08/12/18] Hydrocodone/APAP 10/325 mg [Mcwilliams 10/325 MG Tablet] 1 tab PO Q6H PRN 08/12 [History Confirmed 08/13/18] Rosuvastatin Calcium [Crestor] 20 mg PO DAILY 08/12/18 [History Confirmed ] Trazodone HCl 50 mg [Desyrel 50 mg] 100 mg PO HS 08/12/18 [History Confirmed 08/12/18] Cephalexin [Keflex] 500 mg PO QID 7 Days #28 capsule 08/14/18 [Rx] Methylprednisolone Packet [Medrol Dosepack] 0 mg PO UD #1 packet 08/14/18 [Rx] Allergies/Adverse Reactions: Allergies Allergy/AdvReac Type Severity Reaction Status Date / Time No Known Drug Allergies Allergy Verified 08/12/18 19:52 - Past Medical History Past Medical History: Yes Neurological History: Stroke ENT History: No Pertinent History Cardiac History: Hypertension Respiratory History: Asthma, COPD Endocrine Medical History: Diabetes Type II Musculoskelatal History: No Pertinent History GI Medical History: No Pertinent History History: No Pertinent History Pyscho-Social History: Anxiety, Bipolar, Depression Male Reproductive Disorders: No Pertinent History Comment: Strokes in 2013, 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 Ponce 2005 - Past Surgical History Past Surgical History: Yes (ankle and leg, hernia) Neuro Surgical History: No Pertinent History Cardiac History: No Pertinent History Respiratory Surgery: No Pertinent History GI Surgical History: Appendectomy Genitourinary Surgical Hx: No Pertinent History Musculskeletal Surgical Hx: No Pertinent History Male Surgical History: No Pertinent History Other Surgical History: Right leg surgery, Sinus surgery, hernia repair - Social History Smoking Status: Former smoker How long have you smoked: 2006 Exposure to second hand smoke: No Alcohol: None Drug Use: none - Physical Exam Vital Signs: Vital Signs - 24 hr Temp Pulse Resp BP Pulse Ox 08/14/18 10:40 107 H 22 90 L 08/14/18 07:47 97.9 F 100 H 19 109/64 92 L 08/14/18 06:57 103 H 22 90 L 08/14/18 04:14 98.7 F 88 22 106/54 94 L 08/14/18 04:00 18 08/14/18 03:24 80 18 92 L 08/14/18 00:00 20 08/13/18 23:29 98.5 F 95 H 22 99/58 95 08/13/18 23:07 94 H 22 95 08/13/18 20:00 22 08/13/18 19:38 98.2 F 98 H 22 105/63 94 L 08/13/18 18:54 117 H 20 92 L 08/13/18 16:00 98.4 F 95 H 22 114/56 94 L 08/13/18 15:22 94 H 18 93 L Oxygen-Last 24 hours O2 Percentage 6 Liters = 44% O2 Percentage 6 Liters = 44% O2 Percentage 6 Liters = 44% O2 Percentage 6 Liters = 44% General Appearance: no apparent distress, alert Neurologic Exam: alert, oriented x 3, cooperative, normal mood/affect, nml cerebellar function, nml station & gait, sensation nml, No motor deficits Eye Exam: PERRL/EOMI, eyes nml inspection Ears, Nose, Throat Exam: normal ENT inspection, TMs normal, pharynx normal, moist mucous membranes Neck Exam: normal inspection, non-tender, supple, full range of motion Respiratory Exam: diminished breath sounds, prolonged expirations, crackles/ rales, rhonchi, wheezing, No respiratory distress Cardiovascular Exam: regular rate/rhythm, normal heart sounds, normal peripheral pulses Gastrointestinal/Abdomen Exam: soft, normal bowel sounds, No tenderness, No mass Back Exam: normal inspection, normal range of motion, No CVA tenderness, No vertebral tenderness Extremity Exam: normal inspection, normal range of motion, pelvis stable Skin Exam: normal color, warm, dry, No rash Lymphatic Exam: No adenopathy Results - Labs Lab/Micro Results: Accuchecks Date 08/13/18 Date 08/13/18 Time 22:00 Time 16:45 Accucheck Value: 296 Accucheck Value: 157 Lab Results-Last 24 Hours 08/14/18 Range/Units 05:18 Hemoglobin A1c 6.40 H (4.5-6.0) % Accuchecks Date 08/13/18 Date 08/13/18 Time 22:00 Time 16:45 Accucheck Value: 296 Accucheck Value: 157 - Radiology Impressions Radiology Exams & Impressions: Radiology Procedures Category Date Time Status CHEST 2 VIEWS (PA AND LAT) Stat Exams 08/12/18 19:49 Completed ECHO W/2D AND DOPPLER [US] Routine Exams 08/14/18 07:00 Taken - Other Procedures and Tests Respiratory Therapy 08/15/18 05:00 EKG ROUTINE 08/16/18 05:00 EKG ROUTINE Assessment/Plan (1) COPD exacerbation Current Visit: Yes Status: Acute Assessment & Plan: Last Vital Signs Temp 97.7 F 08/14/18 11:53 Pulse 102 H 08/14/18 11:53 Resp 18 08/14/18 11:53 BP 116/69 08/14/18 11:53 Pulse Ox 93 L 08/14/18 11:53 Allergies No Known Drug Allergies Allergy (Verified 08/12/18 19:52) Active Medications Acetaminophen (Tylenol 325 Mg) 650 mg PO Q4H PRN PRN PRN Reason: PAIN AND/OR FEVER Stop: 09/11/18 22:32 Hydrocodone Bitart/Acetaminophen (Mcwilliams 10/325 Mg Tablet) 1 tab PO Q6HPRN PRN PRN Reason: PAIN Stop: 08/18/18 00:35 Last Admin: 08/14/18 11:28 Dose: 1 tab Al Hydrox/Mg Hydrox/Simethicone (Maalox Es 30 Ml Unit Dose) 30 ml PO Q4H PRN PRN PRN Reason: INDIGESTION Stop: 09/11/18 22:32 Albuterol Sulfate (Proventil Common Canister) 2 puff IH QID PRN PRN PRN Reason: SHORTNESS OF BREATH Stop: 09/12/18 08:56 Albuterol/Ipratropium (Duoneb 0.5-3 Mg/3 Ml Neb) 3 ml IH Q4HRT [facility] Stop: 09/11/18 22:59 Last Admin: 08/14/18 10:38 Dose: 3 ml Alprazolam (Xanax 0.5 Mg) 0.5 mg PO BID [facility] Stop: 09/12/18 09:59 Last Admin: 08/14/18 10:23 Dose: 0.5 mg Aspirin (Ecotrin 325 Mg) 325 mg PO DAILY [facility] Stop: 09/12/18 09:59 Last Admin: 08/14/18 10:23 Dose: 325 mg Diltiazem HCl (Cardizem Cd 240 Mg) 240 mg PO DAILY [facility] Stop: 09/12/18 09:59 Last Admin: 08/14/18 10:24 Dose: 240 mg Gabapentin (Neurontin 300 Mg) 600 mg PO TID [facility] Stop: 09/12/18 09:59 Last Admin: 08/14/18 10:23 Dose: 600 mg Glimepiride (Amaryl 2 Mg) 2 mg PO DAILY [facility] Stop: 09/12/18 09:59 Last Admin: 08/14/18 10:24 Dose: 2 mg Ceftriaxone Sodium/Dextrose (Rocephin 1 Gm-D5w 50 Ml Bag) 1 g in 50 mls @ 100 mls/hr IV Q24H10 [facility] Stop: 09/12/18 09:59 Last Admin: 08/14/18 10:24 Dose: 100 mls/hr Insulin Aspart (Novolog Insulin) 0 unit SQ PRN PRN PRN Reason: HYPERGLYCEMIA Stop: 09/11/18 22:32 Last Admin: 08/14/18 08:59 Dose: 4 unit Losartan Potassium (Cozaar 50 Mg) 50 mg PO DAILY [facility] Stop: 09/12/18 09:59 Last Admin: 08/14/18 10:23 Dose: 50 mg Magnesium Hydroxide (Milk Of Magnesia 30 Ml) 30 - 60 ml PO QDP PRN PRN Reason: CONSTIPATION Stop: 09/11/18 22:32 Metformin HCl (Glucophage 500 Mg) 500 mg PO BIDWMEALS [facility] Stop: 09/12/18 08:29 Last Admin: 08/14/18 08:59 Dose: 500 mg Methylprednisolone Sodium Succinate (Solu-Medrol 40 Mg) 40 mg IV Q8H [facility] Stop: 09/12/18 03:59 Last Admin: 08/14/18 04:13 Dose: 40 mg Metoprolol Tartrate (Lopressor 25mg Tab) 25 mg PO DAILY [facility] Stop: 09/12/18 09:59 Last Admin: 08/14/18 10:23 Dose: 25 mg Mirtazapine (Remeron 30 Mg) 30 mg PO HS [facility] Stop: 09/12/18 21:59 Last Admin: 08/13/18 21:31 Dose: 30 mg Morphine Sulfate (Morphine Sulfate 2 Mg Inj) 2 - 8 mg IV PRN PRN PRN Reason: PAIN Stop: 08/17/18 23:08 Nitroglycerin (Nitrostat 0.4 Mg Tablet) 0.4 mg SL Q5MIN PRN MR X 3 PRN PRN Reason: CHEST PAIN Stop: 09/11/18 23:53 Ondansetron HCl (Zofran 4 Mg/2 Ml Vial) 4 mg IV Q4H PRN PRN PRN Reason: NAUSEA/VOMITING Stop: 09/11/18 22:32 Patient Own Med: Theophylline 300 Mg Er 1 each PO BID [facility] Stop: 09/12/18 09:59 Last Admin: 08/14/18 10:22 Dose: 1 each Fluticasone/Salmeterol (Advair Hfa 230/21 Mcg Common Canister*) 2 puff IH BIDRT [facility] Stop: 09/12/18 06:59 Last Admin: 08/14/18 06:49 Dose: 2 puff Senna/Docusate Sodium (Senokot-S Tablet) 1 udtab PO DAILY PRN PRN PRN Reason: CONSTIPATION Stop: 09/12/18 08:10 Simvastatin (Zocor 20mg) 40 mg PO DAILY [facility] Stop: 09/12/18 09:59 Last Admin: 08/14/18 10:24 Dose: 40 mg Tamsulosin HCl (Flomax 0.4 Mg) 0.4 mg PO QAM [facility] Stop: 09/12/18 09:59 Last Admin: 08/14/18 10:23 Dose: 0.4 mg Trazodone HCl (Desyrel 50 Mg) 100 mg PO HS [facility] Stop: 09/12/18 21:59 Last Admin: 08/13/18 21:30 Dose: 100 mg Warfarin Sodium (Coumadin 5 Mg) 5 mg PO DAILY@1800 [facility] Stop: 09/12/18 17:59 Last Admin: 08/13/18 17:23 Dose: 5 mg Intake & Output 08/13/18 08/14/18 11:59 11:59 Intake Total 1163 2200 Output Total 900 Balance 1163 1300 Weight 119.7 kg 118.3 kg Orders 08/13/18 18:00 Warfarin Sodium 5 mg [Coumadin 5 MG] 5 mg PO DAILY@1800 08/13/18 22:00 Mirtazapine 30 mg [Remeron 30 mg] 30 mg PO HS Trazodone HCl 50 mg [Desyrel 50 mg] 100 mg PO HS 08/14/18 07:00 ECHO W/2D AND DOPPLER [US] Routine 08/14/18 08:36 Discharge Routine 08/15/18 05:00 EKG ROUTINE 08/16/18 05:00 EKG ROUTINE Lab Tests 08/14/18 05:18 Hemoglobin A1c 6.40 H Code(s): J44.1 - CHRONIC OBSTRUCTIVE PULMONARY DISEASE W (ACUTE) EXACERBATION (2) Chest pain, rule out acute myocardial infarction Current Visit: Yes Status: Acute Code(s): R07.9 - CHEST PAIN, UNSPECIFIED (3) Chronic respiratory failure Current Visit: No Status: Chronic Qualifiers: Respiratory failure complication: hypoxia and hypercapnia Qualified Code(s) : J96.11 - Chronic respiratory failure with hypoxia; J96.12 - Chronic respiratory failure with hypercapnia Code(s): J96.10 - CHRONIC RESPIRATORY FAILURE, UNSP W HYPOXIA OR HYPERCAPNIA Hospital Summary - Hospital Course Hospital Course: Chief Complaint Diagnosis Shortness of Breath Allergies Allergy/AdvReac Type Severity Reaction Status Date / Time No Known Drug Allergies Allergy Verified 08/12/18 19:52 Vital Signs (Last 24 hours) Temp Pulse Resp BP Pulse Ox 08/14/18 11:53 97.7 F 102 H 18 116/69 93 L 08/14/18 10:40 107 H 22 90 L 08/14/18 07:47 97.9 F 100 H 19 109/64 92 L 08/14/18 06:57 103 H 22 90 L 08/14/18 04:14 98.7 F 88 22 106/54 94 L 08/14/18 04:00 18 08/14/18 03:24 80 18 92 L 08/14/18 00:00 20 08/13/18 23:29 98.5 F 95 H 22 99/58 95 08/13/18 23:07 94 H 22 95 08/13/18 20:00 22 08/13/18 19:38 98.2 F 98 H 22 105/63 94 L 08/13/18 18:54 117 H 20 92 L 08/13/18 16:00 98.4 F 95 H 22 114/56 94 L 08/13/18 15:22 94 H 18 93 L Home Medications Medication Instructions Recorded Confirmed Last Taken Type Hydrocodone/APAP 10/325 mg 1 tab PO Q6H PRN 08/12/18 08/13/18 08/12/18 History [Mcwilliams 10/325 MG Tablet] Rosuvastatin Calcium [Crestor] 20 mg PO DAILY 08/12/18 08/12/18 08/12/18 History Trazodone HCl 50 mg [Desyrel 50 100 mg PO HS 08/12/18 08/12/18 08/11/18 History mg] Cephalexin [Keflex] 500 mg PO QID 7 Days #28 capsule 08/14/18 Unknown Rx Methylprednisolone Packet 0 mg PO UD #1 packet 08/14/18 Unknown Rx [Medrol Dosepack] Current Medications Generic Name Dose Route Start Last Admin Trade Name Freq PRN Reason Stop Dose Admin Acetaminophen 650 mg 08/12/18 22:33 Tylenol 325 Mg PO 09/11/18 22:32 Q4H PRN PRN PAIN AND/OR FEVER Hydrocodone Bitart/Acetaminophen 1 tab 08/13/18 00:36 08/14/18 11:28 Mcwilliams 10/325 Mg Tablet PO 08/18/18 00:35 1 tab Q6HPRN PRN Administration PAIN Al Hydrox/Mg Hydrox/Simethicone 30 ml 08/12/18 22:33 Maalox Es 30 Ml Unit Dose PO 09/11/18 22:32 Q4H PRN PRN INDIGESTION Albuterol Sulfate 2 puff 08/13/18 08:57 Proventil Common Canister IH 09/12/18 08:56 QID PRN PRN SHORTNESS OF BREATH Albuterol/Ipratropium 3 ml 08/12/18 23:00 08/14/18 10:38 Duoneb 0.5-3 Mg/3 Ml Neb IH 09/11/18 22:59 3 ml Q4HRT JUAN Administration Alprazolam 0.5 mg 08/13/18 10:00 08/14/18 10:23 Xanax 0.5 Mg PO 09/12/18 09:59 0.5 mg BID JUAN Administration Aspirin 325 mg 08/13/18 10:00 08/14/18 10:23 Ecotrin 325 Mg PO 09/12/18 09:59 325 mg DAILY JUAN Administration Diltiazem HCl 240 mg 08/13/18 10:00 08/14/18 10:24 Cardizem Cd 240 Mg PO 09/12/18 09:59 240 mg DAILY JUAN Administration Gabapentin 600 mg 08/13/18 10:00 08/14/18 10:23 Neurontin 300 Mg PO 09/12/18 09:59 600 mg TID JUAN Administration Glimepiride 2 mg 08/13/18 10:00 08/14/18 10:24 Amaryl 2 Mg PO 09/12/18 09:59 2 mg DAILY JUAN Administration Ceftriaxone Sodium/Dextrose 1 g in 50 mls @ 100 mls/hr 08/13/18 10:00 10:24 Rocephin 1 Gm-D5w 50 Ml Bag IV 09/12/18 09:59 100 mls/hr Q24H10 JUAN Administration Insulin Aspart 0 unit 08/12/18 22:33 08/14/18 08:59 Novolog Insulin SQ 09/11/18 22:32 4 unit PRN PRN Administration HYPERGLYCEMIA Losartan Potassium 50 mg 08/13/18 10:00 08/14/18 10:23 Cozaar 50 Mg PO 09/12/18 09:59 50 mg DAILY JUAN Administration Magnesium Hydroxide 30 - 60 ml 08/12/18 22:33 Milk Of Magnesia 30 Ml PO 09/11/18 22:32 QDP PRN CONSTIPATION Metformin HCl 500 mg 08/13/18 08:30 08/14/18 08:59 Glucophage 500 Mg PO 09/12/18 08:29 500 mg BIDWMEALS JAUN Administration Methylprednisolone Sodium Succinate 40 mg 08/13/18 04:00 08/14/18 04:13 Solu-Medrol 40 Mg IV 09/12/18 03:59 40 mg Q8H JUAN Administration Metoprolol Tartrate 25 mg 08/13/18 10:00 08/14/18 10:23 Lopressor 25mg Tab PO 09/12/18 09:59 25 mg DAILY JUAN Administration Mirtazapine 30 mg 08/13/18 22:00 08/13/18 21:31 Remeron 30 Mg PO 09/12/18 21:59 30 mg HS JUAN Administration Morphine Sulfate 2 - 8 mg 08/12/18 23:09 Morphine Sulfate 2 Mg Inj IV 08/17/18 23:08 PRN PRN PAIN Nitroglycerin 0.4 mg 08/12/18 23:54 Nitrostat 0.4 Mg Tablet SL 09/11/18 23:53 Q5MIN PRN MR X 3 PRN CHEST PAIN Ondansetron HCl 4 mg 08/12/18 22:33 Zofran 4 Mg/2 Ml Vial IV 09/11/18 22:32 Q4H PRN PRN NAUSEA/VOMITING Patient Own Med: 1 each 08/13/18 10:00 08/14/18 10:22 Theophylline 300 Mg PO 09/12/18 09:59 1 each Er BID JUAN Administration Fluticasone/Salmeterol 2 puff 08/13/18 07:00 08/14/18 06:49 Advair Hfa 230/21 Mcg Common Canister* IH 09/12/18 06:59 2 puff BIDRT JUAN Administration Senna/Docusate Sodium 1 udtab 08/13/18 08:11 Senokot-S Tablet PO 09/12/18 08:10 DAILY PRN PRN CONSTIPATION Simvastatin 40 mg 08/13/18 10:00 08/14/18 10:24 Zocor 20mg PO 09/12/18 09:59 40 mg DAILY JUAN Administration Tamsulosin HCl 0.4 mg 08/13/18 10:00 08/14/18 10:23 Flomax 0.4 Mg PO 09/12/18 09:59 0.4 mg QAM JUAN Administration Trazodone HCl 100 mg 08/13/18 22:00 08/13/18 21:30 Desyrel 50 Mg PO 09/12/18 21:59 100 mg HS JUAN Administration Warfarin Sodium 5 mg 08/13/18 18:00 08/13/18 17:23 Coumadin 5 Mg PO 09/12/18 17:59 5 mg DAILY@1800 JUAN Administration Discontinued Medications Generic Name Dose Route Start Last Admin Trade Name Freq PRN Reason Stop Dose Admin Albuterol/Ipratropium 3 ml 08/12/18 19:49 08/12/18 20:03 Duoneb 0.5-3 Mg/3 Ml Neb IH 08/12/18 19:50 3 ml STAT ONE Administration Albuterol/Ipratropium Confirm 08/12/18 20:02 Duoneb 0.5-3 Mg/3 Ml Neb Administered 08/12/18 20:03 Dose 3 ml IH .STK-MED ONE Gabapentin 600 mg 08/13/18 00:30 08/13/18 00:44 Neurontin 300 Mg PO 08/13/18 00:31 600 mg ONCE ONE Administration Sodium Chloride 1,000 mls @ 100 mls/hr 08/12/18 20:00 08/12/18 20:10 Sodium Chloride 0.9% 1000 Ml IV 09/11/18 19:59 100 mls/hr .Q10H JUAN Administration Sodium Chloride Confirm 08/12/18 20:03 Sodium Chloride 0.9% 1000 Ml Administered 08/12/18 20:04 Dose 1,000 mls @ ud .ROUTE .STK-MED ONE Metformin HCl 500 mg 08/13/18 00:30 08/13/18 00:45 Glucophage 500 Mg PO 08/13/18 00:31 500 mg ONCE ONE Administration Methylprednisolone Sodium Succinate 80 mg 08/12/18 19:49 10/27/18 20:09 Solu-Medrol 125 Mg IV 08/12/18 19:50 125 mg STAT ONE Administration Methylprednisolone Sodium Succinate Confirm 08/12/18 20:03 Solu-Medrol 125 Mg Administered 08/12/18 20:04 Dose 125 mg .ROUTE .STK-MED ONE Methylprednisolone Sodium Succinate 40 mg 08/12/18 22:33 Solu-Medrol 40 Mg IV 08/12/18 23:59 Q8H JUAN Methylprednisolone Sodium Succinate Confirm 08/13/18 03:57 Solu-Medrol 125 Mg Administered 08/13/18 03:58 Dose 125 mg .ROUTE .STK-MED ONE Mirtazapine 30 mg 08/13/18 00:30 08/13/18 00:45 Remeron 30 Mg PO 08/13/18 00:31 30 mg ONCE ONE Administration Morphine Sulfate 2 mg 08/12/18 20:38 08/12/18 21:27 Morphine Sulfate 2 Mg Inj IV 08/12/18 20:39 2 mg STAT ONE Administration Morphine Sulfate Confirm 08/12/18 21:26 Morphine Sulfate 2 Mg Inj Administered 08/12/18 21:27 Dose 2 mg .ROUTE .STK-MED ONE Senna/Docusate Sodium 2 udtab 08/12/18 22:33 Senokot-S Tablet PO 09/11/18 22:32 BID PRN PRN CONSTIPATION Theophylline 300 mg 08/13/18 00:30 08/13/18 00:46 Theophylline Er 24hr PO 08/13/18 00:31 300 mg ONCE ONE Administration Trazodone HCl 100 mg 08/13/18 00:19 08/13/18 00:45 Desyrel 50 Mg PO 08/13/18 00:20 100 mg ONCE ONE Administration Intake & Output (Last 24 hours) 08/11/18 08/12/18 08/13/18 08/14/18 11:59 11:59 11:59 11:59 Intake Total 1163 2200 Output Total 900 Balance 1163 1300 Weight 119.7 kg 118.3 kg Laboratory Results (Last 24 hours) 08/14/18 05:18 Hemoglobin A1c 6.40 H Orders (Last 24 hours) Category Date Time Status Discharge Routine Discharge 08/14/18 08:36 Ordered ECHO W/2D AND DOPPLER [US] Routine Exams 08/14/18 07:00 Taken HEMOGLOBIN A1C Routine Lab 08/14/18 05:18 Completed Mirtazapine 30 mg [Remeron 30 mg] Med 08/13/18 22:00 Active 30 mg PO HS Trazodone HCl 50 mg [Desyrel 50 mg] Med 08/13/18 22:00 Active 100 mg PO HS Warfarin Sodium 5 mg [Coumadin 5 MG] Med 08/13/18 18:00 Active 5 mg PO DAILY@1800 EKG ROUTINE RT 08/14/18 05:00 Completed EKG ROUTINE RT 08/15/18 05:00 Active EKG ROUTINE RT 08/16/18 05:00 Active Patient Care Notes (Last 24 hours) 08/14/18 08:43 Case Management Note by Camille Raza Talked with TOÑO BARRETO regarding needs at time of discharge. Patient reports residing at [home]. Patient reports plans on returning to [home] upon discharge.HE DOES HAVE TRANSPORTATION AND MEANS TO GET HIS MEDICATIONS AND OXYGEN. DENIES NEED FOR ANY OTHER SERVICES. PLAN TO RETURN HOME TO PRE EPISODIC LEVEL OF FUNCTION. Initialized on 08/14/18 08:43 - END OF NOTE 08/13/18 23:14 Nursing Note by Kimberly Rock Patient educated about fall risk protocol and precautions. Patient is refusing to use of the bed alarm at this time. Will continue to monitor. Initialized on 08/13/18 23:14 - END OF NOTE - Vitals & Intake/Output Vital Signs: Vital Signs Temperature 97.9 F 08/14/18 07:47 Pulse Rate 107 H 08/14/18 10:40 Respiratory Rate 22 08/14/18 10:40 Blood Pressure 109/64 08/14/18 07:47 O2 Sat by Pulse Oximetry 90 L 08/14/18 10:40 Oxygen-Last Documented O2 Percentage 6 Liters = 44% Intake & Output: Intake & Output 08/11/18 08/12/18 08/13/18 08/14/18 11:59 11:59 11:59 11:59 Intake Total 1163 2200 Output Total 900 Balance 1163 1300 Weight 119.7 kg 118.3 kg - Lab Result Diagrams: 08/12/18 19:49 08/12/18 20:00 Lab Results-Last 24 Hrs: Accuchecks Date 08/13/18 Date 08/13/18 Time 22:00 Time 16:45 Accucheck Value: 296 Accucheck Value: 157 Lab Results-Last 24 Hours 08/14/18 Range/Units 05:18 Hemoglobin A1c 6.40 H (4.5-6.0) % Micro Results-Entire Visit: Accuchecks Date 08/13/18 Date 08/13/18 Time 22:00 Time 16:45 Accucheck Value: 296 Accucheck Value: 157 - Radiology Exams Ordered Rad Exams-Entire Visit: Radiology Procedures Category Date Time Status CHEST 2 VIEWS (PA AND LAT) Stat Exams 08/12/18 19:49 Completed ECHO W/2D AND DOPPLER [US] Routine Exams 08/14/18 07:00 Taken - Procedures and Test Procedures and Tests throughout Hospitalization: Therapy Orders & Screens 08/12/18 19:50 Respiratory Nebulizer STAT Comment: Diagnosis: Shortness of Breath 08/12/18 20:07 Peak Expiratory Flow Rate ONCE Comment: Reason For Exam: Diagnosis: Shortness of Breath Respiratory Therapy Assessment DAILY Comment: Diagnosis: Shortness of Breath 08/12/18 22:33 Respiratory Therapy Consult ROUTINE Comment: Reason For Exam: Diagnosis: Shortness of Breath 08/12/18 22:40 Oxygen NASAL CANNULA 6 lpm Comment: Diagnosis: Shortness of Breath 08/12/18 23:30 RT Screen per Nursing Assess ONCE Comment: Protocol Order Physician Instructions: Greater than 3 points order RT Admission Screen Reason For Exam: Triggered on Admission Diagnosis: Shortness of Breath Diagnosis: Shortness of Breath Pneumonia: No Home O2: Yes Asthma: Yes CHF: No Home CPAP/BIPAP: Yes Home Nebs/MDI: Yes Total Points: 19 08/13/18 00:14 Respiratory Therapy Assessment DAILY Comment: Diagnosis: Shortness of Breath 08/13/18 03:36 EKG ROUTINE Comment: Diagnosis: Shortness of Breath 08/13/18 07:00 Peak Expiratory Flow Rate ONCE Comment: Reason For Exam: Diagnosis: Shortness of Breath 08/14/18 05:00 EKG ROUTINE Comment: Diagnosis: Shortness of Breath 08/15/18 05:00 EKG ROUTINE Comment: Diagnosis: Shortness of Breath 08/16/18 05:00 EKG ROUTINE Comment: Diagnosis: Shortness of Breath - Discharge Discharge Date: 08/14/18 Disposition: Home, Self-Care Condition: Fair Prescriptions: New Cephalexin [Keflex] 500 mg PO QID 7 Days #28 capsule Methylprednisolone Packet [Medrol Dosepack] 0 mg PO UD #1 packet Continue Warfarin Sodium 5 mg [Coumadin 5 MG] 5 mg PO DAILY Sennosides/Docusate Sodium [Stool Softener-Stim Lax Tablet] 1 each PO DAILY PRN PRN PRN Reason: Constipation Metformin HCl 500 mg [Glucophage 500 MG] 500 mg PO BID Metoprolol Tartrate 50 mg [Lopressor 50 MG] 25 mg PO DAILY Mirtazapine 30 mg PO HS Theophylline Anhydrous 300 mg PO BID Tamsulosin HCl 0.4 mg [Flomax 0.4 MG] 0.4 mg PO QAM Albuterol Sulfate [Ventolin Hfa] 18 gm IH QID PRN PRN PRN Reason: Shortness Of Breath/Wheezing Albuterol Sulfate [Proair Hfa] 8.5 gm IH BID PRN PRN PRN Reason: Shortness Of Breath/Wheezing Diltiazem HCl [Dilt-Xr] 240 mg PO DAILY Gabapentin [Neurontin] 600 mg PO TID Losartan Potassium 50 mg [Cozaar 50 MG] 50 mg PO DAILY Budesonide/Formoterol Fumarate [Symbicort 160-4.5 Mcg Inhaler] 2 puff IH BID Glimepiride 2 mg [Amaryl 2 MG] 2 mg PO DAILY ALPRAZolam [Xanax ER 0.5MG] 0.5 mg PO BID Rosuvastatin Calcium [Crestor] 20 mg PO DAILY Hydrocodone/APAP 10/325 mg [Mcwilliams 10/325 MG Tablet] 1 tab PO Q6H PRN PRN Reason: Pain Trazodone HCl 50 mg [Desyrel 50 mg] 100 mg PO HS Follow up with: GEE FERNANDES MD [Primary Care Provider] - 08/21/18 2:15 pm ([facility])
--- NOTE | 2018-08-16 14:12 | ECHO ---
Transthoracic echocardiographic examination and color Doppler was done on 08/14/2018. INDICATION: Chest pain. IMPRESSION: 1) NO REGIONAL WALL MOTION ABNORMALITY. ESTIMATED GLOBAL LEFT VENTRICULAR EJECTION FRACTION BETWEEN 60 AND 70%. 2) MODERATE LEFT VENTRICULAR HYPERTROPHY. 3) TRACE TRICUSPID REGURGITATION. RIGHT VENTRICULAR SYSTOLIC PRESSURE OF 39 MM OF MERCURY. 4) MILD LEFT ATRIAL ENLARGEMENT. 5) SCLEROTIC AORTIC VALVE WITH LEFT VENTRICULAR OUTFLOW TRACT GRADIENT OF 22 MM OF MERCURY. The left ventricle is visualized and demonstrated adequate motion of all the segments. Estimated global left ventricular ejection fraction between 60 and 70%. There is moderate left ventricular hypertrophy. The mitral valve is seen and this opens adequately. No significant mitral regurgitation is seen. Left atrium is enlarged. The aortic valve is mildly thickened but opens adequately. The peak gradient across the left ventricular outflow tract is about 22 mm of Mercury. The right side chambers are normal. There is trace tricuspid regurgitation. The right ventricular systolic pressure of 39 mm of Mercury.
== END 2018-08-14 12:45 | disposition home or self-care (01) ==
LOC: ED 19:28 → MED SURG 22:32
PROVIDERS: ADMIT General Practice; ATTEND General Practice
DX: J44.1 Chronic obstructive pulmonary disease with (acute) exacerbation (principal); R07.9 Chest pain, unspecified; J96.10 Chronic respiratory failure, unspecified whether with hypoxia or hypercapnia; I10 Essential (primary) hypertension; E11.9 Type 2 diabetes mellitus without complications; Z79.4 Long term (current) use of insulin; F41.9 Anxiety disorder, unspecified; F31.9 Bipolar disorder, unspecified; J45.909 Unspecified asthma, uncomplicated; Z79.01 Long term (current) use of anticoagulants; Z79.899 Other long term (current) drug therapy; Z86.73 Personal history of transient ischemic attack (TIA), and cerebral infarction without residual deficits
CPT/HCPCS: 36415; 71046; 80053; 80061; 82962; 83036; 83721; 83880; 84484; 85025; 85610; 93005; 93041; 93268; 93306; 94150; 94640; 94760; 96360; 96374; 96375; 99285; J0696; J2270; J2920; J2930; A9270-GY; G0378

== ENCOUNTER 2018-09-02 18:46 | Emergency (ER) | payer MEDICARE ==
[2018-09-02] MEDS ORDERED: TYLENOL 325 MG (19:35)
[2018-09-02] MEDS: TYLENOL 325 MG PO (19:35)
[2018-09-02 19:48] LABS: BASOPHIL % 0.3 % (0.0-0.4); Basophil (Absolute #) 0.02 (0-0.4); Eosinophil % 1.2 % (0.00-5.0); Eosinophil (Absolute #) 0.07 (0-0.5); Granulocyte Absolute (ANC) 3.98 (1.4-6.9); Granulocytes % 68.8 % (36.0-66.0); Hematocrit 40.7 % (42-50); Hemoglobin 13.1 gm/dl (12.5-18.0); Lymphocyte (Absolute #) 1.12 (1.0-4.6); Lymphocytes % 19.3 % (24.0-44.0); Mean Cell Volume 89.8 fl (78-100); Mean Corpuscular Hemoglobin 28.9 pg (26-32); Mean Corpuscular Hgb Concent. 32.2 g/dl (32-36); Monocytes % 10.4 % (0.0-12.0); Platelet Count 206 K/mm3 (150-450); Red Blood Count 4.53 M/mm3 (4.1-5.6); Red Cell Distribution Width 15.8 % (11.5-14.0); White Blood Count 5.8 K/mm3 (4.0-10.5)
[2018-09-02 19:50] LABS: ADD MANUAL DIFF? NO (NO)
[2018-09-02] MEDS ORDERED: Ativan 2 MG/1 ML VIAL (20:01)
[2018-09-02] MEDS: Ativan 2 MG/1 ML VIAL IV (20:03)
[2018-09-02 20:06] LABS: ALBUMIN 4.6 g/dL (3.5-5.0); ALKALINE PHOSPHATASE 76 U/L (38-126); ANION GAP 13.9 MEQ/L (5-15); BLOOD UREA NITROGEN 13 mg/dL (9-20); CHLORIDE 102 mmol/L (98-107); Calcium 9.6 mg/dL (8.4-10.2); Carbon Dioxide 28 mmol/L (22-30); Creatinine 1 0.75 mg/dL (0.66-1.25); EST GLOMERULAR FILTRATION RATE > 60.0 ML/MIN; Glucose 86 mg/dL (74-106); SGOT/AST 21 U/L (17-59); SGPT/ALT 23 U/L (0-50); SODIUM 140 mmol/L (137-145); Total Protein 7.4 g/dL (6.3-8.2)
[2018-09-02 20:13] LABS: ETHYL ALCOHOL < 10 mg/dL (0-10)
[2018-09-02 20:18] LABS: TROPONIN < 0.012 ng/mL (0.000-0.034)
== END 2018-09-02 21:22 | disposition home or self-care (01) ==
LOC: ED 18:46
CPT/HCPCS: 36000; 36415; 70450; 80053; 80307; 82962; 84484; 85025; 93005; 94799; 96374; J2060

== ENCOUNTER 2018-11-23 10:30 | Inpatient (IN) | payer MEDICARE ==
[2018-11-23] MEDS ORDERED: Senokot-S Tablet PO PRN (16:57)
[2018-11-23] MEDS ORDERED: Ventolin Hfa MDI IH PRN ×2 (16:57)
[2018-11-23 17:07] LABS: Hematocrit 40.6 % (42-50); Hemoglobin 13.2 gm/dl (12.5-18.0); Mean Cell Volume 88.8 fl (78-100); Mean Corpuscular Hemoglobin 28.9 pg (26-32); Mean Corpuscular Hgb Concent. 32.5 g/dl (32-36); Mean Platelet Volume 8.5 fl (6-9.5); Platelet Count 247 K/mm3 (150-450); Red Blood Count 4.57 M/mm3 (4.1-5.6); Red Cell Distribution Width 14.9 % (11.5-14.0); White Blood Count 5.3 K/mm3 (4.0-10.5)
[2018-11-23 17:10] LABS: ALBUMIN 4.3 g/dL (3.5-5.0); ALKALINE PHOSPHATASE 104 U/L (38-126); BLOOD UREA NITROGEN 17 mg/dL (9-20); CHLORIDE 101 mmol/L (98-107); Calcium 9.7 mg/dL (8.4-10.2); Carbon Dioxide 29 mmol/L (22-30); Creatinine 1 0.77 mg/dL (0.66-1.25); Glucose 94 mg/dL (74-106); Potassium 4.3 mmol/L (3.5-5.1); SGOT/AST 35 U/L (17-59); SGPT/ALT 23 U/L (0-50); SODIUM 140 mmol/L (137-145); Total Protein 7.2 g/dL (6.3-8.2)
[2018-11-23] MEDS ORDERED: PROVENTIL COMMON CANISTER IH PRN (17:10)
[2018-11-23] MEDS: Sodium Chloride 0.9% 1000 ML 1,000 ML IV SCH (17:40)
[2018-11-23] MEDS: Zithromax 500 MG/ 250 ML NaCl Premix 500 MG/250 ML IVPB IV SCH (17:47)
[2018-11-23] MEDS: solu-MEDROL 40 MG IV SCH (17:50)
[2018-11-23] MEDS: Coumadin 5 MG PO SCH (17:50)
[2018-11-23] MEDS: Norco 10/325 MG Tablet PO PRN (17:50)
[2018-11-23] MEDS: Glucophage 500 MG PO SCH (17:51)
[2018-11-23] MEDS: ROCEPHIN 1 Gm-D5w 50 ml Bag** 1 G/50 ML IVPB IV SCH (17:52)
[2018-11-23] MEDS: Advair Hfa 230/21 Mcg COMMON CANISTER IH SCH (17:58)
[2018-11-23] MEDS: DUONEB 0.5-3 MG/3 ml Neb IH SCH ×2 (17:58→22:19)
[2018-11-23 18:08] LABS: INR 2.56 (0.8-3.0); PROTIME 30.1 SECONDS (8.83-12.87)
[2018-11-23] MEDS ORDERED: TORAdol 30 mg Injection IV ONE (21:17)
[2018-11-23] MEDS: THEOPHYLLINE ER 24HR PO SCH (21:27)
[2018-11-23] MEDS: NEURONTIN 300 MG PO SCH (21:27)
[2018-11-23] MEDS: Flomax 0.4 MG PO SCH (21:27)
[2018-11-23] MEDS: NovoLOG Insulin SQ PRN (21:28)
[2018-11-23] MEDS ORDERED: DESYREL 50 MG PO SCH ×2 (22:00)
[2018-11-23] MEDS ORDERED: NON-FORMULARY ITEM (Gabapentin [Neurontin] 600 MG) PO SCH (22:00)
[2018-11-23] MEDS ORDERED: NON-FORMULARY ITEM (Budesonide/Formoterol Fumarate [Symbicort 160-4.5 Mcg Inhaler] 2 PUFF) IH SCH (22:00)
[2018-11-23] MEDS ORDERED: NON-FORMULARY ITEM (Theophylline Anhydrous [Theophylline Anhydrous] 300 MG) PO SCH (22:00)
[2018-11-24] MEDS: Norco 10/325 MG Tablet PO PRN ×2 (01:13→08:53)
[2018-11-24] MEDS: Seroquel 25 MG PO PRN ×3 (01:23→22:58)
[2018-11-24] MEDS: DUONEB 0.5-3 MG/3 ml Neb IH SCH ×6 (02:48→22:57)
[2018-11-24] MEDS: solu-MEDROL 40 MG IV SCH ×2 (05:40→17:03)
[2018-11-24] MEDS: Advair Hfa 230/21 Mcg COMMON CANISTER IH SCH ×2 (06:50→19:05)
[2018-11-24] MEDS: NovoLOG Insulin SQ PRN ×4 (08:39→22:52)
[2018-11-24] MEDS: Glucophage 500 MG PO SCH ×2 (08:41→17:03)
[2018-11-24] MEDS: Amaryl 2 MG PO SCH (08:41)
[2018-11-24] MEDS: Cozaar 50 MG PO SCH (08:51)
[2018-11-24] MEDS: Cardizem CD 240 MG PO SCH (08:51)
[2018-11-24] MEDS: Lopressor 25MG Tab PO SCH (08:51)
[2018-11-24] MEDS: Zocor 10MG PO SCH (08:53)
--- NOTE | 2018-11-24 08:56 | XRAY ---
Indication: Cough and short of breath. History COPD. Comparison: August 12, 2018. PA/lateral chest unchanged again hyperinflated with bibasilar discoid atelectasis/scarring and a few incidental scattered calcified granulomas. Heart and mediastinal structures within normal limits. Bony thorax intact. Impression: Stable nonacute hyperinflated chest with chronic features.
[2018-11-24] MEDS: NEURONTIN 300 MG PO SCH ×3 (08:57→22:52)
[2018-11-24] MEDS: THEOPHYLLINE ER 24HR PO SCH ×2 (08:58→22:51)
[2018-11-24] MEDS: ROCEPHIN 1 Gm-D5w 50 ml Bag** 1 G/50 ML IVPB IV SCH (09:39)
[2018-11-24] MEDS ORDERED: NON-FORMULARY ITEM (Rosuvastatin Calcium [Crestor] 20 MG) PO SCH (10:00)
[2018-11-24] MEDS ORDERED: DILTIAZEM HCL 240 MG PO SCH (10:00)
[2018-11-24] MEDS: Zofran 4 MG/2 ML VIAL IV PRN ×2 (10:35→19:38)
[2018-11-24] MEDS: Zithromax 500 MG/ 250 ML NaCl Premix 500 MG/250 ML IVPB IV SCH (10:48)
--- NOTE | 2018-11-24 13:33 | PCM.NOTE ---
Date and Time: 11/24/18 1331 Subjective Assessment: doing ok, c/o back Pain - Review of Systems Constitutional: No Fever, No Chills Eyes: No Symptoms Ears, Nose, & Throat: No Symptoms Respiratory: No Cough, No Short Of Breath Cardiac: No Chest Pain, No Edema, No Syncope Abdominal/Gastrointestinal: No Abdominal Pain, No Nausea, No Vomiting, No Diarrhea Genitourinary Symptoms: No Dysuria Musculoskeletal: No Back Pain, No Neck Pain Skin: No Rash Neurological: No Dizziness, No Focal Weakness, No Sensory Changes Psychological: No Symptoms Endocrine: No Symptoms Hematologic/Lymphatic: No Symptoms Immunological/Allergic: No Symptoms Objective Exam General Appearance: no apparent distress, alert Neurologic Exam: alert, oriented x 3, cooperative, normal mood/affect, nml cerebellar function, sensation nml, No motor deficits Skin Exam: normal color, warm, dry Eye Exam: PERRL, EOMI, eyes nml inspection Ears, Nose, Throat Exam: normal ENT inspection, pharynx normal, moist mucous membranes Neck Exam: normal inspection, non-tender, supple, full range of motion Respiratory Exam: normal breath sounds, lungs clear, No respiratory distress Cardiovascular Exam: regular rate/rhythm, normal heart sounds Gastrointestinal/Abdomen Exam: soft, No tenderness, No mass Extremity Exam: normal inspection, normal range of motion Back Exam: normal inspection, normal range of motion, No CVA tenderness, No vertebral tenderness Male Genitalia Exam: deferred Rectal Exam: deferred OBJECTIVE DATA Vital Signs: Vital Signs - 24 hr Temp Pulse Resp BP Pulse Ox 11/24/18 11:31 98.3 F 104 H 18 119/69 93 L 11/24/18 10:35 82 18 94 L 11/24/18 09:00 97.5 F 77 17 155/79 94 L 11/24/18 07:08 98.3 F 120 H 20 107/66 92 L 11/24/18 06:51 118 H 20 92 L 11/24/18 04:21 24 11/24/18 04:18 98.5 F 124 H 24 118/56 95 11/24/18 02:51 112 H 20 93 L 11/24/18 01:00 22 11/23/18 23:48 98.4 F 119 H 22 117/70 91 L 11/23/18 22:53 77 20 93 L 11/23/18 20:11 98.5 F 101 H 22 106/64 94 L 11/23/18 20:00 22 11/23/18 18:01 92 H 22 95 11/23/18 15:38 98 F 88 22 106/66 95 11/23/18 15:30 98 F 88 22 106/66 95 11/23/18 15:13 98 F 88 22 106/66 96 Oxygen-Last 24 hours O2 Percentage 6 Liters = 44% O2 Percentage 6 Liters = 44% O2 Percentage 6 Liters = 44% O2 Percentage 6 Liters = 44% O2 Percentage 6 Liters = 44% O2 Percentage 6 Liters = 44% O2 Percentage 6 Liters = 44% Pain Assessment - Last Documented Pain Intensity 8 Pain Scale Used 0-10 Pain Scale Intake and Output: Intake & Output 11/22/18 11/23/18 11/24/18 11/25/18 11:59 11:59 11:59 11:59 Intake Total 4329 240 Output Total 3200 Balance 1129 240 Weight 117.7 kg Lab Results: Accuchecks Date 11/23/18 Date 11/23/18 Time 22:00 Time 16:30 Accucheck Value: 206 Accucheck Value: 210 Accucheck Value: 97 Lab Results-Last 24 Hours 11/23/18 11/23/18 11/23/18 Range/Units 16:15 16:15 16:15 WBC 5.3 (4.0-10.5) K/mm3 RBC 4.57 (4.1-5.6) M/mm3 Hgb 13.2 (12.5-18.0) gm/dl Hct 40.6 L (42-50) % MCV 88.8 (78-100) fl MCH 28.9 (26-32) pg MCHC 32.5 (32-36) g/dl RDW 14.9 H (11.5-14.0) % Plt Count 247 (150-450) K/mm3 MPV 8.5 (6-9.5) fl PT (8.83-12.87) SECONDS INR (0.8-3.0) Sodium 140 (137-145) mmol/L Potassium 4.3 (3.5-5.1) mmol/L Chloride 101 (98-107) mmol/L Carbon Dioxide 29 (22-30) mmol/L Anion Gap 14.0 (5-15) MEQ/L BUN 17 (9-20) mg/dL Creatinine 0.77 (0.66-1.25) mg/dL Estimated GFR > 60.0 ML/MIN Glucose 94 (74-106) mg/dL Hemoglobin A1c 6.23 H (4.5-6.0) % Calcium 9.7 (8.4-10.2) mg/dL Total Bilirubin 0.30 (0.2-1.3) mg/dL AST 35 (17-59) U/L ALT 23 (0-50) U/L Alkaline Phosphatase 104 (38-126) U/L Serum Total Protein 7.2 (6.3-8.2) g/dL Albumin 4.3 (3.5-5.0) g/dL 11/23/18 Range/Units 17:39 WBC (4.0-10.5) K/mm3 RBC (4.1-5.6) M/mm3 Hgb (12.5-18.0) gm/dl Hct (42-50) % MCV (78-100) fl MCH (26-32) pg MCHC (32-36) g/dl RDW (11.5-14.0) % Plt Count (150-450) K/mm3 MPV (6-9.5) fl PT 30.1 H (8.83-12.87) SECONDS INR 2.56 (0.8-3.0) Sodium (137-145) mmol/L Potassium (3.5-5.1) mmol/L Chloride (98-107) mmol/L Carbon Dioxide (22-30) mmol/L Anion Gap (5-15) MEQ/L BUN (9-20) mg/dL Creatinine (0.66-1.25) mg/dL Estimated GFR ML/MIN Glucose (74-106) mg/dL Hemoglobin A1c (4.5-6.0) % Calcium (8.4-10.2) mg/dL Total Bilirubin (0.2-1.3) mg/dL AST (17-59) U/L ALT (0-50) U/L Alkaline Phosphatase (38-126) U/L Serum Total Protein (6.3-8.2) g/dL Albumin (3.5-5.0) g/dL Radiology Exams: Radiology Procedures Category Date Time Status CHEST 2 VIEWS (PA AND LAT) Urgent Exams 11/23/18 17:27 Completed Multi-Disciplinary Progress Notes: Multi-Disciplinary Progress Notes 11/23/18 17:11 Pharmacy Note by Ravin Garay Please be aware of possible drug interaction with Coumadin and Zithromax. May increase INR. Initialized on 11/23/18 17:11 - END OF NOTE Assessment/Plan (1) Epididymitis Current Visit: Yes Status: Acute Assessment & Plan: continue IV abx Code(s): N45.1 - EPIDIDYMITIS (2) COPD exacerbation Current Visit: No Status: Acute Assessment & Plan: Last Vital Signs Temp 98.3 F 11/24/18 11:31 Pulse 104 H 11/24/18 11:31 Resp 18 11/24/18 11:31 BP 119/69 11/24/18 11:31 Pulse Ox 93 L 11/24/18 11:31 Allergies No Known Drug Allergies Allergy (Verified 08/12/18 19:52) Active Medications Hydrocodone Bitart/Acetaminophen ([place] 10/325 Mg Tablet) 1 tab PO Q6H/PRN PRN PRN Reason: PAIN Stop: 11/28/18 16:56 Last Admin: 11/24/18 08:53 Dose: 1 tab Albuterol Sulfate (Proventil Common Canister) 2 puff IH QID PRN PRN PRN Reason: SHORTNESS OF BREATH/WHEEZING Stop: 12/23/18 17:09 Albuterol/Ipratropium (Duoneb 0.5-3 Mg/3 Ml Neb) 3 ml IH Q4HRT [facility] Stop: 12/23/18 18:59 Last Admin: 11/24/18 10:47 Dose: 3 ml Diltiazem HCl (Cardizem Cd 240 Mg) 240 mg PO DAILY [facility] Stop: 12/24/18 09:59 Last Admin: 11/24/18 08:51 Dose: 240 mg Gabapentin (Neurontin 300 Mg) 600 mg PO TID [facility] Stop: 12/23/18 21:59 Last Admin: 11/24/18 08:57 Dose: 600 mg Glimepiride (Amaryl 2 Mg) 2 mg PO BREAKFAST [facility] Stop: 12/24/18 07:59 Last Admin: 11/24/18 08:41 Dose: 2 mg Ceftriaxone Sodium/Dextrose (Rocephin 1 Gm-D5w 50 Ml Bag) 1 g in 50 mls @ 100 mls/hr IV Q24H10 [facility] Stop: 12/23/18 16:59 Last Admin: 11/24/18 09:39 Dose: 100 mls/hr Sodium Chloride (Sodium Chloride 0.9% 1000 Ml) 1,000 mls @ 40 mls/hr IV .Q24H [facility] Stop: 12/23/18 16:59 Last Admin: 11/23/18 17:40 Dose: 40 mls/hr Insulin Aspart (Novolog Insulin) 0 unit SQ UD PRN PRN Reason: HYPERGLYCEMIA Stop: 12/23/18 16:51 Last Admin: 11/24/18 11:50 Dose: 2 unit Ketorolac Tromethamine (Toradol 30 Mg Injection) 30 mg IV Q8H PRN PRN PRN Reason: PAIN Stop: 11/29/18 13:27 Losartan Potassium (Cozaar 50 Mg) 50 mg PO DAILY [facility] Stop: 12/24/18 09:59 Last Admin: 11/24/18 08:51 Dose: 50 mg Metformin HCl (Glucophage 500 Mg) 500 mg PO BIDWM [facility] Stop: 12/23/18 16:59 Last Admin: 11/24/18 08:41 Dose: 500 mg Methylprednisolone Sodium Succinate (Solu-Medrol 40 Mg) 40 mg IV Q12H [facility] Stop: 12/23/18 17:59 Last Admin: 11/24/18 05:40 Dose: 40 mg Metoprolol Tartrate (Lopressor 25mg Tab) 25 mg PO DAILY [facility] Stop: 12/24/18 09:59 Last Admin: 11/24/18 08:51 Dose: 25 mg Ondansetron HCl (Zofran 4 Mg/2 Ml Vial) 4 mg IV Q4H PRN PRN PRN Reason: NAUSEA/VOMITING Stop: 12/24/18 10:08 Last Admin: 11/24/18 10:35 Dose: 4 mg Quetiapine Fumarate (Seroquel 25 Mg) 25 mg PO TIDPRN PRN PRN Reason: ANXIETY Stop: 12/23/18 18:44 Last Admin: 11/24/18 01:23 Dose: 25 mg Fluticasone/Salmeterol (Advair Hfa 230/21 Mcg Common Canister*) 2 puff IH BIDRT [facility] Stop: 12/23/18 18:59 Last Admin: 11/24/18 06:50 Dose: 2 puff Senna/Docusate Sodium (Senokot-S Tablet) 1 udtab PO DAILY PRN PRN PRN Reason: CONSTIPATION Stop: 12/23/18 16:56 Simvastatin (Zocor 10mg) 10 mg PO DAILY [facility] Stop: 12/24/18 09:59 Last Admin: 11/24/18 08:53 Dose: 10 mg Tamsulosin HCl (Flomax 0.4 Mg) 0.4 mg PO HS [facility] Stop: 12/23/18 21:59 Last Admin: 11/23/18 21:27 Dose: 0.4 mg Theophylline (Theophylline Er 24hr) 300 mg PO BID [facility] Stop: 12/23/18 21:59 Last Admin: 11/24/18 08:58 Dose: 300 mg Trazodone HCl (Desyrel 150 Mg) 150 mg PO HS [facility] Stop: 12/24/18 21:59 Warfarin Sodium (Coumadin 5 Mg) 5 mg PO COU [facility] Stop: 12/23/18 17:59 Last Admin: 11/23/18 17:50 Dose: 5 mg Intake & Output 11/24/18 11/25/18 11:59 11:59 Intake Total 4329 240 Output Total 3200 Balance 1129 240 Weight 117.7 kg Orders 11/23/18 15:29 Oxygen NASAL CANNULA 6 lpm Peak Expiratory Flow Rate ONCE Pulse Oximetry .spot check 11/23/18 15:30 Respiratory Therapy Assessment DAILY 11/23/18 16:32 Management Trainee Program Stores/Discharge Plan OT Screen per Nursing Assess 11/23/18 16:52 Activity as Tolerated TOLERATED Accucheck ACHS Place in Observation ROUTINE Insulin Aspart [NovoLOG Insulin] See Dose Instructions SQ UD PRN 11/23/18 16:57 Hydrocodone/APAP 10/325 mg [[place] 10/325 MG Tablet] 1 tab PO Q6H/PRN PRN Senna/Docusate Sodium Tab [Senokot-S Tablet] 1 udtab PO DAILY PRN PRN 11/23/18 17:00 Ceftriaxone 1 GM/50 ML PREMIX* [ROCEPHIN 1 Gm-D5w 50 ml Bag] 1 g in 50 ml IV Q24H10 Metformin HCl 500 mg [Glucophage 500 MG] 500 mg PO BIDWM NaCl 0.9% 1000 ml [Sodium Chloride 0.9% 1000 ML] 1,000 ml IV 40 mls/hr 11/23/18 17:10 Albuterol Common Canister [Proventil Common Canister] 2 puff IH QID PRN PRN 11/23/18 18:00 Methylprednisolone Sod Suc 40M [solu-MEDROL 40 MG] 40 mg IV Q12H Warfarin Sodium 5 mg [Coumadin 5 MG] 5 mg PO COU 11/23/18 18:38 Quetiapine Fumarate 25 mg [Seroquel 25 MG] 25 mg PO TIDPRN PRN 11/23/18 19:00 Albuterol/Ipratropium 3ml Neb* [DUONEB 0.5-3 MG/3 ml Neb] 3 ml IH Q4HRT Fluticasone/Salmeterol 230/21 [Advair Hfa 230/21 Mcg COMMON CANISTER*] 2 puff IH BIDRT 11/23/18 22:00 Gabapentin 300 mg [Neurontin 300 mg] 600 mg PO TID Tamsulosin HCl 0.4 mg [Flomax 0.4 MG] 0.4 mg PO HS Theophylline Anhydrous [Theophylline ER 24Hr] 300 mg PO BID 11/23/18 Dinner Regular Diet 11/24/18 08:00 Glimepiride 2 mg [Amaryl 2 MG] 2 mg PO BREAKFAST 11/24/18 10:00 Diltiazem HCl 240 mg [Cardizem CD 240 MG] 240 mg PO DAILY Losartan Potassium 50 mg [Cozaar 50 MG] 50 mg PO DAILY Metoprolol Tartrate 25 mg [Lopressor 25MG Tab] 25 mg PO DAILY Simvastatin 10 mg [Zocor 10MG] 10 mg PO DAILY 11/24/18 10:09 Ondansetron HCl 4 mg/2 ml [Zofran 4 MG/2 ML VIAL] 4 mg IV Q4H PRN PRN 11/24/18 13:28 KETOROLAC trometh 30 mg Inj [TORAdol 30 mg Injection] 30 mg IV Q8H PRN PRN 11/24/18 22:00 Trazodone HCl 150 mg [Desyrel 150 MG] 150 mg PO HS 11/25/18 05:00 PT INR [PROTIME WITH INR] DAILY 11/26/18 05:00 PT INR [PROTIME WITH INR] DAILY Lab Tests 11/23/18 11/23/18 11/23/18 16:15 16:15 16:15 WBC 5.3 RBC 4.57 Hgb 13.2 Hct 40.6 L MCV 88.8 MCH 28.9 MCHC 32.5 RDW 14.9 H Plt Count 247 MPV 8.5 PT INR Sodium 140 Potassium 4.3 Chloride 101 Carbon Dioxide 29 Anion Gap 14.0 BUN 17 Creatinine 0.77 Estimated GFR > 60.0 Glucose 94 Hemoglobin A1c 6.23 H Calcium 9.7 Total Bilirubin 0.30 AST 35 ALT 23 Alkaline Phosphatase 104 Serum Total Protein 7.2 Albumin 4.3 11/23/18 17:39 WBC RBC Hgb Hct MCV MCH MCHC RDW Plt Count MPV PT 30.1 H INR 2.56 Sodium Potassium Chloride Carbon Dioxide Anion Gap BUN Creatinine Estimated GFR Glucose Hemoglobin A1c Calcium Total Bilirubin AST ALT Alkaline Phosphatase Serum Total Protein Albumin Code(s): J44.1 - CHRONIC OBSTRUCTIVE PULMONARY DISEASE W (ACUTE) EXACERBATION
[2018-11-24] MEDS: TORAdol 30 mg Injection IV PRN (14:01)
[2018-11-24] MEDS: Coumadin 5 MG PO SCH (17:03)
[2018-11-24] MEDS: Sodium Chloride 0.9% 1000 ML 1,000 ML IV SCH (19:45)
[2018-11-24] MEDS: Desyrel 150 MG PO SCH (22:51)
[2018-11-24] MEDS: Flomax 0.4 MG PO SCH (22:51)
[2018-11-25] MEDS: DUONEB 0.5-3 MG/3 ml Neb IH SCH ×6 (03:00→22:52)
[2018-11-25 06:03] LABS: INR 3.8 (0.8-3.0); PROTIME 44.8 SECONDS (8.83-12.87)
[2018-11-25] MEDS: Advair Hfa 230/21 Mcg COMMON CANISTER IH SCH ×2 (06:37→19:18)
[2018-11-25] MEDS: solu-MEDROL 40 MG IV SCH (06:57)
[2018-11-25] MEDS: Glucophage 500 MG PO SCH ×2 (08:10→16:47)
[2018-11-25] MEDS: Amaryl 2 MG PO SCH (08:10)
[2018-11-25] MEDS: TORAdol 30 mg Injection IV PRN ×2 (08:16→16:48)
[2018-11-25] MEDS: Zofran 4 MG/2 ML VIAL IV PRN (08:17)
[2018-11-25] MEDS: THEOPHYLLINE ER 24HR PO SCH ×2 (09:14→22:06)
[2018-11-25] MEDS: Cozaar 50 MG PO SCH (09:15)
[2018-11-25] MEDS: NEURONTIN 300 MG PO SCH ×3 (09:15→22:06)
[2018-11-25] MEDS: Lopressor 25MG Tab PO SCH (09:15)
[2018-11-25] MEDS: Cardizem CD 240 MG PO SCH (09:15)
[2018-11-25] MEDS: ROCEPHIN 1 Gm-D5w 50 ml Bag** 1 G/50 ML IVPB IV SCH (09:15)
[2018-11-25] MEDS: Seroquel 25 MG PO PRN ×2 (09:24→19:33)
[2018-11-25] MEDS: Zocor 10MG PO SCH (09:24)
[2018-11-25] MEDS: NovoLOG Insulin SQ PRN ×3 (11:25→22:07)
[2018-11-25 11:48] LABS: A-aADO2 178; ABG HEMOGLOBIN 12.5; ABG POTASSIUM 4.9 (3.5-5.1); ARTERIAL BLD GAS O2 SATURATION 97.4 % (95-100); ARTERIAL BLOOD GAS BASE EXCESS 2.8 (-2.0-2.0); ARTERIAL BLOOD GAS FIO2 44 %; ARTERIAL BLOOD GAS PCO2 47 mmHg (35-45); ARTERIAL BLOOD GAS PO2 77 mmHg (75-100); ARTERIAL BLOOD GAS pH 7.39 (7.35-7.45); CARBOXYHEMOGLOBIN 1.3 % THgb (0.0-6.9); HCO3- 28.5 (22-28); HGB O2 SAT 95.3 g/dF (94-100); Methhemoglobin 0.9 % (1.4-1.5)
[2018-11-25 11:49] LABS: ABG SITE RIGHT RADIAL; ALLEN TEST OK? YES
[2018-11-25] MEDS: Zithromax 250 MG TABLET PO SCH (12:24)
[2018-11-25] MEDS: solu-MEDROL 125 MG IV SCH ×3 (12:25→23:44)
[2018-11-25] MEDS: Lasix 20 MG/2 ML IV SCH (12:26)
[2018-11-25] MEDS: PULMICORT 0.5 MG/2 ML RESPULES IH SCH ×2 (13:17→19:16)
[2018-11-25] MEDS: Norco 10/325 MG Tablet PO PRN ×2 (15:14→22:07)
[2018-11-25] MEDS: Desyrel 150 MG PO SCH (22:06)
[2018-11-25] MEDS: Flomax 0.4 MG PO SCH (22:06)
[2018-11-26] MEDS: TORAdol 30 mg Injection IV PRN ×3 (00:48→17:18)
[2018-11-26] MEDS: DUONEB 0.5-3 MG/3 ml Neb IH SCH ×5 (03:04→22:55)
[2018-11-26] MEDS: solu-MEDROL 125 MG IV SCH ×2 (05:45→12:46)
[2018-11-26 05:59] LABS: INR 3.61 (0.8-3.0); PROTIME 42.5 SECONDS (8.83-12.87)
[2018-11-26] MEDS: Amaryl 2 MG PO SCH (07:48)
[2018-11-26] MEDS: Glucophage 500 MG PO SCH ×2 (07:48→17:19)
[2018-11-26] MEDS: NovoLOG Insulin SQ PRN ×4 (07:49→21:44)
[2018-11-26] MEDS: Norco 10/325 MG Tablet PO PRN ×3 (07:51→21:40)
[2018-11-26] MEDS: Lasix 20 MG/2 ML IV SCH (09:12)
--- NOTE | 2018-11-26 09:14 | XRAY ---
Indication: COPD exacerbation. Comparison: November 23, 2018. PA/lateral chest remains hyperinflated again with bibasilar discoid atelectasis/scarring, improved on the right. Remaining heart and lungs unremarkable. No new/acute findings.
[2018-11-26] MEDS: Zithromax 250 MG TABLET PO SCH (09:15)
[2018-11-26] MEDS: NEURONTIN 300 MG PO SCH ×3 (09:15→21:41)
[2018-11-26] MEDS: Lopressor 25MG Tab PO SCH (09:15)
[2018-11-26] MEDS: THEOPHYLLINE ER 24HR PO SCH ×2 (09:15→21:41)
[2018-11-26] MEDS: Cardizem CD 240 MG PO SCH (09:15)
[2018-11-26] MEDS: Cozaar 50 MG PO SCH (09:15)
[2018-11-26] MEDS: Zocor 10MG PO SCH (09:15)
[2018-11-26] MEDS: ROCEPHIN 1 Gm-D5w 50 ml Bag** 1 G/50 ML IVPB IV SCH (09:17)
[2018-11-26] MEDS: Seroquel 25 MG PO PRN ×2 (09:24→21:40)
[2018-11-26] MEDS: Advair Hfa 230/21 Mcg COMMON CANISTER IH SCH ×2 (10:43→18:53)
[2018-11-26] MEDS: PULMICORT 0.5 MG/2 ML RESPULES IH SCH ×2 (10:44→18:51)
[2018-11-26] MEDS: Desyrel 150 MG PO SCH (21:41)
[2018-11-26] MEDS: solu-MEDROL 40 MG IV SCH (21:41)
[2018-11-26] MEDS: Flomax 0.4 MG PO SCH (21:41)
[2018-11-27] MEDS: DUONEB 0.5-3 MG/3 ml Neb IH SCH ×3 (03:34→11:31)
[2018-11-27] MEDS: solu-MEDROL 40 MG IV SCH (05:13)
[2018-11-27 06:26] LABS: INR 2.61 (0.8-3.0); PROTIME 30.7 SECONDS (8.83-12.87)
[2018-11-27] MEDS: TORAdol 30 mg Injection IV PRN (07:59)
[2018-11-27] MEDS: Amaryl 2 MG PO SCH (08:00)
[2018-11-27] MEDS: NovoLOG Insulin SQ PRN ×2 (08:00→11:56)
[2018-11-27] MEDS: Glucophage 500 MG PO SCH (08:00)
[2018-11-27] MEDS: PULMICORT 0.5 MG/2 ML RESPULES IH SCH (08:22)
[2018-11-27] MEDS: Advair Hfa 230/21 Mcg COMMON CANISTER IH SCH (08:23)
[2018-11-27] MEDS: Cardizem CD 240 MG PO SCH (09:21)
[2018-11-27] MEDS: Lasix 20 MG/2 ML IV SCH (09:21)
[2018-11-27] MEDS: NEURONTIN 300 MG PO SCH (09:21)
[2018-11-27] MEDS: Zocor 10MG PO SCH (09:21)
[2018-11-27] MEDS: Cozaar 50 MG PO SCH (09:21)
[2018-11-27] MEDS: Lopressor 25MG Tab PO SCH (09:21)
[2018-11-27] MEDS: Zithromax 250 MG TABLET PO SCH (09:21)
[2018-11-27] MEDS: ROCEPHIN 1 Gm-D5w 50 ml Bag** 1 G/50 ML IVPB IV SCH (09:22)
[2018-11-27] MEDS: THEOPHYLLINE ER 24HR PO SCH (09:22)
[2018-11-27 13:01] VITALS: BP 100/56; PULSE 91; O2SAT 93
--- NOTE | 2018-11-27 13:16 | PCM.DS ---
Discharge Summary Date of Admission: 11/25/18 10:30 Admitting Physician: GEE FERNANDES Primary Care Provider: GEE FERNANDES Allergies Allergies No Known Drug Allergies Allergy (Verified 08/12/18 19:52) Hospital Summary - Hospital Course Hospital Course: Last Vital Signs Temp 97.6 F 11/27/18 12:00 Pulse 91 H 11/27/18 12:00 Resp 18 11/27/18 12:00 BP 100/56 11/27/18 12:00 Pulse Ox 93 L 11/27/18 12:00 Allergies No Known Drug Allergies Allergy (Verified 08/12/18 19:52) Active Medications Hydrocodone Bitart/Acetaminophen (Gilby 10/325 Mg Tablet) 1 tab PO Q6H/PRN PRN PRN Reason: PAIN Stop: 11/28/18 16:56 Last Admin: 11/26/18 21:40 Dose: 1 tab Albuterol Sulfate (Proventil Common Canister) 2 puff IH QID PRN PRN PRN Reason: SHORTNESS OF BREATH/WHEEZING Stop: 12/23/18 17:09 Albuterol/Ipratropium (Duoneb 0.5-3 Mg/3 Ml Neb) 3 ml IH Q4HRT [facility] Stop: 12/23/18 18:59 Last Admin: 11/27/18 11:31 Dose: 3 ml Azithromycin (Zithromax 250 Mg Tablet) 500 mg PO DAILY [facility] Stop: 12/25/18 11:59 Last Admin: 11/27/18 09:21 Dose: 500 mg Budesonide (Pulmicort 0.5 Mg/2 Ml Respules) 0.5 mg IH Q12HRT [facility] Stop: 12/25/18 11:59 Last Admin: 11/27/18 08:22 Dose: 0.5 mg Diltiazem HCl (Cardizem Cd 240 Mg) 240 mg PO DAILY [facility] Stop: 12/24/18 09:59 Last Admin: 11/27/18 09:21 Dose: 240 mg Furosemide (Lasix 20 Mg/2 Ml) 20 mg IV DAILY [facility] Stop: 12/25/18 11:59 Last Admin: 11/27/18 09:21 Dose: 20 mg Gabapentin (Neurontin 300 Mg) 600 mg PO TID [facility] Stop: 12/23/18 21:59 Last Admin: 11/27/18 09:21 Dose: 600 mg Glimepiride (Amaryl 2 Mg) 2 mg PO BREAKFAST [facility] Stop: 12/24/18 07:59 Last Admin: 11/27/18 08:00 Dose: 2 mg Ceftriaxone Sodium/Dextrose (Rocephin 1 Gm-D5w 50 Ml Bag) 1 g in 50 mls @ 100 mls/hr IV Q24H10 [facility] Stop: 12/23/18 16:59 Last Admin: 11/27/18 09:22 Dose: 100 mls/hr Insulin Aspart (Novolog Insulin) 0 unit SQ UD PRN PRN Reason: HYPERGLYCEMIA Stop: 12/23/18 16:51 Last Admin: 11/27/18 11:56 Dose: 6 unit Ketorolac Tromethamine (Toradol 30 Mg Injection) 30 mg IV Q8H PRN PRN PRN Reason: PAIN Stop: 11/29/18 13:27 Last Admin: 11/27/18 07:59 Dose: 30 mg Losartan Potassium (Cozaar 50 Mg) 50 mg PO DAILY [facility] Stop: 12/24/18 09:59 Last Admin: 11/27/18 09:21 Dose: 50 mg Metformin HCl (Glucophage 500 Mg) 500 mg PO BIDWM [facility] Stop: 12/23/18 16:59 Last Admin: 11/27/18 08:00 Dose: 500 mg Methylprednisolone Sodium Succinate (Solu-Medrol 40 Mg) 40 mg IV Q8HT [facility] Stop: 12/26/18 21:59 Last Admin: 11/27/18 05:13 Dose: 40 mg Metoprolol Tartrate (Lopressor 25mg Tab) 25 mg PO DAILY [facility] Stop: 12/24/18 09:59 Last Admin: 11/27/18 09:21 Dose: 25 mg Ondansetron HCl (Zofran 4 Mg/2 Ml Vial) 4 mg IV Q4H PRN PRN PRN Reason: NAUSEA/VOMITING Stop: 12/24/18 10:08 Last Admin: 11/25/18 08:17 Dose: 4 mg Quetiapine Fumarate (Seroquel 25 Mg) 25 mg PO TIDPRN PRN PRN Reason: ANXIETY Stop: 12/23/18 18:44 Last Admin: 11/26/18 21:40 Dose: 25 mg Fluticasone/Salmeterol (Advair Hfa 230/21 Mcg Common Canister*) 2 puff IH BIDRT [facility] Stop: 12/23/18 18:59 Last Admin: 11/27/18 08:23 Dose: 2 puff Senna/Docusate Sodium (Senokot-S Tablet) 1 udtab PO DAILY PRN PRN PRN Reason: CONSTIPATION Stop: 12/23/18 16:56 Simvastatin (Zocor 10mg) 10 mg PO DAILY [facility] Stop: 12/24/18 09:59 Last Admin: 11/27/18 09:21 Dose: 10 mg Tamsulosin HCl (Flomax 0.4 Mg) 0.4 mg PO HS [facility] Stop: 12/23/18 21:59 Last Admin: 11/26/18 21:41 Dose: 0.4 mg Theophylline (Theophylline Er 24hr) 300 mg PO BID [facility] Stop: 12/23/18 21:59 Last Admin: 11/27/18 09:22 Dose: 300 mg Trazodone HCl (Desyrel 150 Mg) 150 mg PO HS [facility] Stop: 12/24/18 21:59 Last Admin: 11/26/18 21:41 Dose: 150 mg Intake & Output 11/27/18 11/28/18 11:59 11:59 Intake Total 1840 Output Total 2275 Balance -435 Weight 117.7 kg Orders 11/26/18 22:00 Methylprednisolone Sod Suc 40M [solu-MEDROL 40 MG] 40 mg IV Q8HT Lab Tests 11/27/18 05:33 PT 30.7 H INR 2.61 - Vitals & Intake/Output Vital Signs: Vital Signs Temperature 97.6 F 11/27/18 12:00 Pulse Rate 91 H 11/27/18 12:00 Respiratory Rate 18 11/27/18 12:00 Blood Pressure 100/56 11/27/18 12:00 O2 Sat by Pulse Oximetry 93 L 11/27/18 12:00 Oxygen-Last Documented O2 Percentage 6 Liters = 44% Intake & Output: Intake & Output 11/25/18 11/26/18 11/27/18 11/28/18 11:59 11:59 11:59 11:59 Intake Total 3345 2767 1840 Output Total 679 1995 7635 Balance 2545 292 -435 Weight 117.7 kg - Lab Result Diagrams: 11/23/18 16:15 11/23/18 16:15 Lab Results-Last 24 Hrs: Accuchecks Date 11/26/18 Date 11/26/18 Time 22:00 Time 16:30 Accucheck Value: 330 Accucheck Value: 260 Accucheck Value: 280 Accucheck Value: 282 Lab Results-Last 24 Hours 11/27/18 Range/Units 05:33 PT 30.7 H (8.83-12.87) SECONDS INR 2.61 (0.8-3.0) Micro Results-Entire Visit: Accuchecks Date 11/26/18 Date 11/26/18 Time 22:00 Time 16:30 Accucheck Value: 330 Accucheck Value: 260 Accucheck Value: 280 Accucheck Value: 282 - Radiology Exams Ordered Rad Exams-Entire Visit: Radiology Procedures Category Date Time Status CHEST 2 VIEWS (PA AND LAT) Routine Exams 11/26/18 07:00 Completed - Procedures and Test Procedures and Tests throughout Hospitalization: Therapy Orders & Screens 11/23/18 15:29 Oxygen NASAL CANNULA 6 lpm Comment: Peak Expiratory Flow Rate ONCE Comment: Reason For Exam: 11/23/18 15:30 Respiratory Therapy Assessment DAILY Comment: 11/23/18 16:32 OT Screen per Nursing Assess Comment: Protocol Order Physician Instructions: Greater than 3 points order OT Admission Screening Reason For Exam: Triggered on Admission Diagnosis: SOB, HEAD AND CHEST CONGESTION Open Wound/Cellutlitis/Pressure Ulcers: No Acute Fx/ORIF/Change in wt bearing status: No Severe MUSCULOSKELETAL pain: Yes: R LOW LEG ADL Dysfunction: No Acute CVA w/Hemiparesis/Hemiplegia: No Decreased Functional Mobility/Strength: Yes: R LOW LEG Sprain/Strain: No Acute Post-op Mobility Dysfunction: No Total Points: 6 PT Screen per Nursing Assess Comment: Protocol Order Physician Instructions: Greater than 3 points order PT Admission Screenin Reason For Exam: Triggered on Admission Diagnosis: SOB, HEAD AND CHEST CONGESTION Open Wound/Cellutlitis/Pressure Ulcers: No Acute Fx/ORIF/Change in wt bearing status: No Severe MUSCULOSKELETAL pain: Yes: R LOW LEG ADL Dysfunction: No Acute CVA w/Hemiparesis/Hemiplegia: No Decreased Functional Mobility/Strength: Yes: R LOW LEG Sprain/Strain: No Acute Post-op Mobility Dysfunction: No Total Points: 6 RT Screen per Nursing Assess ONCE Comment: Protocol Order Physician Instructions: Greater than 3 points order RT Admission Screen Reason For Exam: Triggered on Admission Diagnosis: SOB, HEAD AND CHEST CONGESTION Diagnosis: SOB, HEAD AND CHEST CONGESTION Pneumonia: No Home O2: Yes: 6 L Asthma: Yes CHF: No Home CPAP/BIPAP: TRILOGOY Home Nebs/MDI: Yes Total Points: 14 11/25/18 11:30 Respiratory Nebulizer Q4H Comment: duonebs every 4 hrs for next 2 weeks Diagnosis: EXAC COPD 11/26/18 12:35 PT Eval & Treat (MD Order) ROUTINE Reason for Eval:: ambulate for strengthening Diagnosis: EXAC COPD Discharge Exam General Appearance: no apparent distress, alert Neurologic Exam: alert, oriented x 3, cooperative, normal mood/affect, nml cerebellar function, sensation nml, No motor deficits Skin Exam: normal color, warm, dry Eye Exam: PERRL, EOMI, eyes nml inspection Ears, Nose, Throat Exam: normal ENT inspection, pharynx normal, moist mucous membranes Neck Exam: normal inspection, non-tender, supple, full range of motion Respiratory Exam: normal breath sounds, lungs clear, No respiratory distress Cardiovascular Exam: regular rate/rhythm, normal heart sounds Gastrointestinal/Abdomen Exam: soft, No tenderness, No mass Extremity Exam: normal inspection, normal range of motion Back Exam: normal inspection, normal range of motion, No CVA tenderness, No vertebral tenderness Male Genitalia Exam: deferred Rectal Exam: deferred Final Diagnosis/Problem List - Final Discharge Diagnosis/Problem (1) Epididymitis Current Visit: Yes Status: Acute Assessment & Plan: Last Vital Signs Temp 97.6 F 11/27/18 12:00 Pulse 91 H 11/27/18 12:00 Resp 18 11/27/18 12:00 BP 100/56 11/27/18 12:00 Pulse Ox 93 L 11/27/18 12:00 Allergies No Known Drug Allergies Allergy (Verified 08/12/18 19:52) Active Medications Hydrocodone Bitart/Acetaminophen (Gilby 10/325 Mg Tablet) 1 tab PO Q6H/PRN PRN PRN Reason: PAIN Stop: 11/28/18 16:56 Last Admin: 11/26/18 21:40 Dose: 1 tab Albuterol Sulfate (Proventil Common Canister) 2 puff IH QID PRN PRN PRN Reason: SHORTNESS OF BREATH/WHEEZING Stop: 12/23/18 17:09 Albuterol/Ipratropium (Duoneb 0.5-3 Mg/3 Ml Neb) 3 ml IH Q4HRT [facility] Stop: 12/23/18 18:59 Last Admin: 11/27/18 11:31 Dose: 3 ml Azithromycin (Zithromax 250 Mg Tablet) 500 mg PO DAILY [facility] Stop: 12/25/18 11:59 Last Admin: 11/27/18 09:21 Dose: 500 mg Budesonide (Pulmicort 0.5 Mg/2 Ml Respules) 0.5 mg IH Q12HRT [facility] Stop: 12/25/18 11:59 Last Admin: 11/27/18 08:22 Dose: 0.5 mg Diltiazem HCl (Cardizem Cd 240 Mg) 240 mg PO DAILY [facility] Stop: 12/24/18 09:59 Last Admin: 11/27/18 09:21 Dose: 240 mg Furosemide (Lasix 20 Mg/2 Ml) 20 mg IV DAILY [facility] Stop: 12/25/18 11:59 Last Admin: 11/27/18 09:21 Dose: 20 mg Gabapentin (Neurontin 300 Mg) 600 mg PO TID [facility] Stop: 12/23/18 21:59 Last Admin: 11/27/18 09:21 Dose: 600 mg Glimepiride (Amaryl 2 Mg) 2 mg PO BREAKFAST [facility] Stop: 12/24/18 07:59 Last Admin: 11/27/18 08:00 Dose: 2 mg Ceftriaxone Sodium/Dextrose (Rocephin 1 Gm-D5w 50 Ml Bag) 1 g in 50 mls @ 100 mls/hr IV Q24H10 [facility] Stop: 12/23/18 16:59 Last Admin: 11/27/18 09:22 Dose: 100 mls/hr Insulin Aspart (Novolog Insulin) 0 unit SQ UD PRN PRN Reason: HYPERGLYCEMIA Stop: 12/23/18 16:51 Last Admin: 11/27/18 11:56 Dose: 6 unit Ketorolac Tromethamine (Toradol 30 Mg Injection) 30 mg IV Q8H PRN PRN PRN Reason: PAIN Stop: 11/29/18 13:27 Last Admin: 11/27/18 07:59 Dose: 30 mg Losartan Potassium (Cozaar 50 Mg) 50 mg PO DAILY [facility] Stop: 12/24/18 09:59 Last Admin: 11/27/18 09:21 Dose: 50 mg Metformin HCl (Glucophage 500 Mg) 500 mg PO BIDWM [facility] Stop: 12/23/18 16:59 Last Admin: 11/27/18 08:00 Dose: 500 mg Methylprednisolone Sodium Succinate (Solu-Medrol 40 Mg) 40 mg IV Q8HT [facility] Stop: 12/26/18 21:59 Last Admin: 11/27/18 05:13 Dose: 40 mg Metoprolol Tartrate (Lopressor 25mg Tab) 25 mg PO DAILY [facility] Stop: 12/24/18 09:59 Last Admin: 11/27/18 09:21 Dose: 25 mg Ondansetron HCl (Zofran 4 Mg/2 Ml Vial) 4 mg IV Q4H PRN PRN PRN Reason: NAUSEA/VOMITING Stop: 12/24/18 10:08 Last Admin: 11/25/18 08:17 Dose: 4 mg Quetiapine Fumarate (Seroquel 25 Mg) 25 mg PO TIDPRN PRN PRN Reason: ANXIETY Stop: 12/23/18 18:44 Last Admin: 11/26/18 21:40 Dose: 25 mg Fluticasone/Salmeterol (Advair Hfa 230/21 Mcg Common Canister*) 2 puff IH BIDRT [facility] Stop: 12/23/18 18:59 Last Admin: 11/27/18 08:23 Dose: 2 puff Senna/Docusate Sodium (Senokot-S Tablet) 1 udtab PO DAILY PRN PRN PRN Reason: CONSTIPATION Stop: 12/23/18 16:56 Simvastatin (Zocor 10mg) 10 mg PO DAILY [facility] Stop: 12/24/18 09:59 Last Admin: 02/11/19 09:21 Dose: 10 mg Tamsulosin HCl (Flomax 0.4 Mg) 0.4 mg PO HS [facility] Stop: 12/23/18 21:59 Last Admin: 11/26/18 21:41 Dose: 0.4 mg Theophylline (Theophylline Er 24hr) 300 mg PO BID [facility] Stop: 12/23/18 21:59 Last Admin: 11/27/18 09:22 Dose: 300 mg Trazodone HCl (Desyrel 150 Mg) 150 mg PO HS [facility] Stop: 12/24/18 21:59 Last Admin: 11/26/18 21:41 Dose: 150 mg Intake & Output 11/27/18 11/28/18 11:59 11:59 Intake Total 1840 Output Total 2275 Balance -435 Weight 117.7 kg Orders 11/26/18 22:00 Methylprednisolone Sod Suc 40M [solu-MEDROL 40 MG] 40 mg IV Q8HT Lab Tests 11/27/18 05:33 PT 30.7 H INR 2.61 (2) COPD exacerbation Current Visit: Yes Status: Resolved - Discharge Discharge Date: 11/27/18 Disposition: Home, Self-Care Condition: Stable Prescriptions: New Azithromycin 500 mg PO DAILY #3 tablet Continue Warfarin Sodium 5 mg [Coumadin 5 MG] 5 mg PO DAILY Sennosides/Docusate Sodium [Stool Softener-Stim Lax Tablet] 1 each PO DAILY PRN PRN PRN Reason: Constipation Metformin HCl 500 mg [Glucophage 500 MG] 500 mg PO BID Metoprolol Tartrate 50 mg [Lopressor 50 MG] 25 mg PO DAILY Theophylline Anhydrous 300 mg PO BID Tamsulosin HCl 0.4 mg [Flomax 0.4 MG] 0.4 mg PO HS Albuterol Sulfate [Ventolin Hfa] 18 gm IH QID PRN PRN PRN Reason: Shortness Of Breath/Wheezing Albuterol Sulfate [Proair Hfa] 8.5 gm IH BID PRN PRN PRN Reason: Shortness Of Breath/Wheezing Diltiazem HCl [Dilt-Xr] 240 mg PO DAILY Gabapentin [Neurontin] 600 mg PO TID Losartan Potassium 50 mg [Cozaar 50 MG] 50 mg PO DAILY Budesonide/Formoterol Fumarate [Symbicort 160-4.5 Mcg Inhaler] 2 puff IH BID Glimepiride 2 mg [Amaryl 2 MG] 2 mg PO DAILY Rosuvastatin Calcium [Crestor] 20 mg PO DAILY Hydrocodone/APAP 10/325 mg [Gilby 10/325 MG Tablet] 1 tab PO Q6H PRN PRN Reason: Pain Trazodone HCl 50 mg [Desyrel 50 mg] 150 mg PO HS Quetiapine Fumarate 25 mg [Seroquel 25 MG] 25 mg PO TIDPRN Follow up with: GEE FERNANDES MD [Primary Care Provider] - 11/30/18 10:15 am ([facility] )
== END 2018-11-27 13:30 | disposition home or self-care (01) | DRG 191 ==
LOC: MED SURG 10:30 → OBSVTOIN 11-25 10:30
PROVIDERS: ADMIT General Practice; ATTEND General Practice
DX: J44.1 Chronic obstructive pulmonary disease with (acute) exacerbation (principal); I82.91 Chronic embolism and thrombosis of unspecified vein; D68.9 Coagulation defect, unspecified; N45.1 Epididymitis; E11.9 Type 2 diabetes mellitus without complications; G47.30 Sleep apnea, unspecified; I48.91 Unspecified atrial fibrillation; Z79.01 Long term (current) use of anticoagulants; Z79.899 Other long term (current) drug therapy
CPT/HCPCS: 36415; 36600; 71046; 80053; 82375; 82803; 82962; 83036; 83880; 85027; 85610; 94150; 94640; 94760; G0378; J0456; J0696; J1885; J1940; J2405; J2920; J2930; A9270-GY

== ENCOUNTER 2018-12-29 09:29 | Inpatient (IN) | payer MEDICARE ==
[2018-12-29] MEDS: DUONEB 0.5-3 MG/3 ml Neb IH SCH ×2 (18:42→22:40)
[2018-12-29] MEDS: Advair Hfa 230/21 Mcg COMMON CANISTER IH SCH (18:42)
[2018-12-29] MEDS ORDERED: TYLENOL 325 MG PO PRN (19:01)
[2018-12-29 19:19] LABS: ALBUMIN 4.1 g/dL (3.5-5.0); ALKALINE PHOSPHATASE 76 U/L (38-126); ANION GAP 11.4 MEQ/L (5-15); BLOOD UREA NITROGEN 15 mg/dL (9-20); CHLORIDE 103 mmol/L (98-107); Calcium 9.1 mg/dL (8.4-10.2); Carbon Dioxide 30 mmol/L (22-30); Creatinine 1 0.89 mg/dL (0.66-1.25); Glucose 123 mg/dL (74-106); Potassium 3.9 mmol/L (3.5-5.1); SGOT/AST 18 U/L (17-59); SGPT/ALT 18 U/L (0-50); SODIUM 140 mmol/L (137-145)
[2018-12-29 19:21] LABS: BASOPHIL % 0.2 % (0.0-0.4); Basophil (Absolute #) 0.01 (0-0.4); Eosinophil % 0.7 % (0.00-5.0); Eosinophil (Absolute #) 0.04 (0-0.5); Granulocyte Absolute (ANC) 4.07 (1.4-6.9); Granulocytes % 66.4 % (36.0-66.0); Hematocrit 39.1 % (42-50); Hemoglobin 12.4 gm/dl (12.5-18.0); Lymphocytes % 14.7 % (24.0-44.0); Mean Corpuscular Hgb Concent. 31.7 g/dl (32-36); Mean Platelet Volume 8.7 fl (6-9.5); Platelet Count 239 K/mm3 (150-450); Red Blood Count 4.25 M/mm3 (4.1-5.6); Red Cell Distribution Width 15.9 % (11.5-14.0); White Blood Count 6.1 K/mm3 (4.0-10.5)
[2018-12-29 19:24] LABS: Mean Corpuscular Hemoglobin 29.1 pg (26-32)
[2018-12-29] MEDS ORDERED: Seroquel 25 MG PO PRN (20:00)
[2018-12-29] MEDS: Norco 10/325 MG Tablet PO PRN (20:27)
[2018-12-29] MEDS: Sodium Chloride 0.9% 1000 ML 1,000 ML IV SCH (20:40)
[2018-12-29 21:49] LABS: Appearance CLEAR (CLEAR); Bilirubin NEGATIVE (NEGATIVE); Blood NEGATIVE Ery/ul (0-5); Glucose 50 mg/dL (NEGATIVE); Ketones NEGATIVE (NEGATIVE); Leukocyte Esterase NEGATIVE (NEGATIVE); Mucus SLIGHT /HPF (NEGATIVE); Nitrite NEGATIVE (NEGATIVE); Protein,Urine Dip 100 (Negative); RBC 0-2 /HPF (0-2); Specific Gravity 1.023 (1.005-1.025); Urobilinogen 2 mg/dL (0-1)
[2018-12-29] MEDS: Desyrel 150 MG PO SCH (22:26)
[2018-12-29] MEDS: Flomax 0.4 MG PO SCH (22:26)
[2018-12-29] MEDS: Pepcid 20 MG PO SCH (22:27)
[2018-12-29] MEDS: NEURONTIN 300 MG PO SCH (22:27)
[2018-12-29] MEDS: THEOPHYLLINE ER 24HR PO SCH (23:00)
[2018-12-29 23:23] LABS: VBG BASE EXCESS 2.3 (-2.0-2.0); VBG CARBOXYHEMOGLOBIN 2.8 % T HGB (0.0-6.9); VBG HCO3- 28.3 meq/L (22-28); VBG HEMOGLOBIN 12.2; VBG O2 SATURATION 98.7 (95-100); VBG pH 7.37 (7.32-7.42)
[2018-12-30] MEDS: Norco 10/325 MG Tablet PO PRN ×4 (02:43→21:36)
[2018-12-30] MEDS ORDERED: DUONEB 0.5-3 MG/3 ml Neb IH ONE (07:07)
[2018-12-30] MEDS: DUONEB 0.5-3 MG/3 ml Neb IH SCH ×6 (07:15→23:16)
[2018-12-30] MEDS: Advair Hfa 230/21 Mcg COMMON CANISTER IH SCH (07:16)
[2018-12-30] MEDS: Glucophage 500 MG PO SCH ×2 (08:44→17:36)
[2018-12-30] MEDS ORDERED: Ventolin Hfa MDI IH PRN ×2 (08:55)
[2018-12-30] MEDS ORDERED: Senokot-S Tablet PO PRN (08:55)
--- NOTE | 2018-12-30 08:55 | XRAY ---
Indication: Short of breath. Comparison: November 26, 2018. PA/lateral chest again demonstrates bibasilar discoid atelectasis/scarring, worsened on the right. Stable right apical calcified granuloma. Remaining heart and lungs unremarkable. No new/acute findings.
[2018-12-30] MEDS ORDERED: PROVENTIL COMMON CANISTER IH PRN (09:01)
--- NOTE | 2018-12-30 09:34 | PCM.HP ---
History of Present Illness - Chief Complaint Chief Complaint: Exacerbation COPD History of Present Illness: is a 58 year old male pt of Dr. Chao with COPD ("black lung"), HTN, DM, and hx DVT who was admitted yesterday directly after being seen in office ( see office note on chart). He complains of 3-4 d of productive cough, difficulty breathing (has been sleeping in his chair), and subjective fevers. In ER treatment was begun for COPD exacerbation. Pt is still complaining of quite a bit of of cough. Pt was vomiting off and on for the psat 3-4 d. He also c/o dizziness, worse with bending over and with coughing. Some chest and back pain with the cough. C/o head congestion. - Review of Systems Constitutional: Fever, Fatigue Respiratory: Cough, Short Of Breath Cardiac: Chest Pain Musculoskeletal: Back Pain Neurological: Dizziness Psychological: No Anxiety, No Depression, No Suicidal Ideations All Other Systems: Reviewed and Negative Medications & Allergies Home Medications: Home Medication List Warfarin Sodium 5 mg [Coumadin 5 MG] 5 mg PO DAILY 05/14/14 [History Confirmed 12/29/18] Sennosides/Docusate Sodium [Stool Softener-Stim Lax Tablet] 1 each PO DAILY PRN PRN 11/18/14 [History Confirmed 12/29/18] Metformin HCl 500 mg [Glucophage 500 MG] 500 mg PO BID 09/13/15 [History Confirmed 12/29/18] Metoprolol Tartrate 50 mg [Lopressor 50 MG] 25 mg PO DAILY 01/17/16 [ History Confirmed 12/29/18] Albuterol Sulfate [Proair Hfa] 8.5 gm IH BID PRN PRN 04/18/17 [History Confirmed 12/29/18] Albuterol Sulfate [Ventolin Hfa] 18 gm IH QID PRN PRN 04/18/17 [History Confirmed 12/29/18] Diltiazem HCl [Dilt-Xr] 240 mg PO DAILY 04/18/17 [History Confirmed 12/29/18] Gabapentin [Neurontin] 600 mg PO TID 04/18/17 [History Confirmed 12/29/18] Tamsulosin HCl 0.4 mg [Flomax 0.4 MG] 0.4 mg PO HS 04/18/17 [History Confirmed 12/29/18] Theophylline Anhydrous 300 mg PO BID 04/18/17 [History Confirmed 12/29/18] Budesonide/Formoterol Fumarate [Symbicort 160-4.5 Mcg Inhaler] 2 puff IH BID 08/03 [History Confirmed 12/29/18] Glimepiride 2 mg [Amaryl 2 MG] 2 mg PO DAILY 01/24/18 [History Confirmed 12/29/18] Losartan Potassium 50 mg [Cozaar 50 MG] 50 mg PO DAILY 01/24/18 [History Confirmed 12/29/18] Hydrocodone/APAP 10/325 mg [[place] 10/325 MG Tablet] 1 tab PO Q6H PRN 08/12 [History Confirmed 12/29/18] Rosuvastatin Calcium [Crestor] 20 mg PO DAILY 08/12/18 [History Confirmed ] Trazodone HCl 50 mg [Desyrel 50 mg] 150 mg PO HS 08/12/18 [History Confirmed 12/29/18] Quetiapine Fumarate 25 mg [Seroquel 25 MG] 25 mg PO TIDPRN 11/23/18 [ History Confirmed 12/29/18] Allergies/Adverse Reactions: Allergies Allergy/AdvReac Type Severity Reaction Status Date / Time No Known Drug Allergies Allergy Verified 08/12/18 19:52 - Past Medical History Past Medical History: Yes Neurological History: Stroke ENT History: No Pertinent History Cardiac History: Hypertension Respiratory History: Asthma, COPD Endocrine Medical History: Diabetes Type II Musculoskelatal History: Other GI Medical History: No Pertinent History History: No Pertinent History Pyscho-Social History: Anxiety, Bipolar, Depression Male Reproductive Disorders: No Pertinent History Comment: Strokes in 2013, 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 Ponce 2005. Lower Back pain. Decreased urine output. - Past Surgical History Past Surgical History: Yes Neuro Surgical History: No Pertinent History Cardiac History: No Pertinent History Respiratory Surgery: No Pertinent History GI Surgical History: Appendectomy Genitourinary Surgical Hx: No Pertinent History Musculskeletal Surgical Hx: No Pertinent History Male Surgical History: No Pertinent History Other Surgical History: Right leg surgery(pins and plates), Sinus surgery, hernia repair - Social History Smoking Status: Former smoker How long have you smoked: 2006 Exposure to second hand smoke: Yes Alcohol: None Drug Use: none - Physical Exam Vital Signs: Vital Signs - 24 hr Temp Pulse Resp BP Pulse Ox 12/30/18 08:00 99.3 F 120 H 20 132/65 93 L 12/30/18 07:17 128 H 24 90 L 12/30/18 04:00 98.3 F 112 H 18 120/74 95 12/30/18 00:00 97.5 F 97 H 20 119/73 95 12/29/18 22:41 90 18 94 L 12/29/18 20:00 97.8 F 113 H 24 113/61 91 L 12/29/18 18:45 105 H 18 94 L 12/29/18 17:58 99 H 20 96 12/29/18 17:30 98.3 F 96 H 20 107/65 93 L Oxygen-Last 24 hours O2 Percentage 6 Liters = 44% O2 Percentage 6 Liters = 44% O2 Percentage 6 Liters = 44% Oxygen Flowrate (L/min)-RT 6 Oxygen Flowrate (L/min)-RT 6 Oxygen Flowrate (L/min)-RT 6 Oxygen Flowrate (L/min)-RT 6 General Appearance: no apparent distress, alert, other (coughs frequently during exam with expectoration) Neurologic Exam: oriented x 3, cooperative Eye Exam: eyes nml inspection Ears, Nose, Throat Exam: moist mucous membranes Neck Exam: normal inspection, non-tender, No lymphadenopathy Respiratory Exam: diminished breath sounds (poor air exchange), No crackles/ rales, No rhonchi, No wheezing Cardiovascular Exam: regular rate/rhythm, normal heart sounds, No murmur Gastrointestinal/Abdomen Exam: soft, normal bowel sounds, No tenderness, No distention, No mass, No guarding, No rebound Back Exam: normal inspection, No rash Extremity Exam: normal inspection, No pedal edema, No swelling Skin Exam: normal color, warm, dry, No rash Results - Labs Lab/Micro Results: Accuchecks Date 12/30/18 Time 07:30 Accucheck Value: 161 Accucheck Value: 136 Lab Results-Last 24 Hours 12/29/18 12/29/18 12/29/18 Range/Units 18:50 19:01 21:22 WBC 6.1 (4.0-10.5) K/mm3 RBC 4.25 (4.1-5.6) M/mm3 Hgb 12.4 L (12.5-18.0) gm/dl Hct 39.1 L (42-50) % MCV 92.0 (78-100) fl MCH 29.1 (26-32) pg MCHC 31.7 L (32-36) g/dl RDW 15.9 H (11.5-14.0) % Plt Count 239 (150-450) K/mm3 MPV 8.7 (6-9.5) fl Gran % 66.4 H (36.0-66.0) % Eos # (Auto) 0.04 (0-0.5) Absolute Lymphs (auto) 0.90 L (1.0-4.6) Absolute Monos (auto) 1.10 (0.0-1.3) Lymphocytes % 14.7 L (24.0-44.0) % Monocytes % 18.0 H (0.0-12.0) % Eosinophils % 0.7 (0.00-5.0) % Basophils % 0.2 (0.0-0.4) % Absolute Granulocytes 4.07 (1.4-6.9) Basophils # 0.01 (0-0.4) pO2/FiO2 Ratio % VBG pH (7.32-7.42) VBG pCO2 at Pat Temp (42-55) mm/Hg VBG pO2 at Pat Temp (25-40) mm/Hg VBG HCO3 (22-28) meq/L VBG O2 Sat (Billie) (95-100) VBG Base Excess (-2.0-2.0) VBG Hemoglobin VBG Carboxyhemoglobin (0.0-6.9) % T HGB POC Potassium (3.5-5.1) Sodium 140 (137-145) mmol/L Potassium 3.9 (3.5-5.1) mmol/L Chloride 103 (98-107) mmol/L Carbon Dioxide 30 (22-30) mmol/L Anion Gap 11.4 (5-15) MEQ/L BUN 15 (9-20) mg/dL Creatinine 0.89 (0.66-1.25) mg/dL Estimated GFR > 60.0 ML/MIN Glucose 123 H (74-106) mg/dL Calcium 9.1 (8.4-10.2) mg/dL Total Bilirubin 0.40 (0.2-1.3) mg/dL AST 18 (17-59) U/L ALT 18 (0-50) U/L Alkaline Phosphatase 76 (38-126) U/L Serum Total Protein 7.0 (6.3-8.2) g/dL Albumin 4.1 (3.5-5.0) g/dL Urine Color YELLOW (YELLOW) Urine Appearance CLEAR (CLEAR) Urine pH 5.0 (5-6) Ur Specific [place] 1.023 (1.005-1.025) Urine Protein 100 (Negative) Urine Ketones NEGATIVE (NEGATIVE) Urine Blood NEGATIVE (0-5) Alexy/ul Urine Nitrite NEGATIVE (NEGATIVE) Urine Bilirubin NEGATIVE (NEGATIVE) Urine Urobilinogen 2 (0-1) mg/dL Ur Leukocyte Esterase NEGATIVE (NEGATIVE) Urine WBC (Auto) NONE (0-5) /HPF Urine RBC (Auto) 0-2 (0-2) /HPF U Epithel Cells (Auto) NONE (FEW) /HPF Urine Bacteria (Auto) NONE (NEGATIVE) /HPF Urine Mucus (Auto) SLIGHT (NEGATIVE) /HPF Urine Culture Reflexed NO (NO) Urine Glucose 50 (NEGATIVE) mg/dL 12/29/18 Range/Units 22:55 WBC (4.0-10.5) K/mm3 RBC (4.1-5.6) M/mm3 Hgb (12.5-18.0) gm/dl Hct (42-50) % MCV (78-100) fl MCH (26-32) pg MCHC (32-36) g/dl RDW (11.5-14.0) % Plt Count (150-450) K/mm3 MPV (6-9.5) fl Gran % (36.0-66.0) % Eos # (Auto) (0-0.5) Absolute Lymphs (auto) (1.0-4.6) Absolute Monos (auto) (0.0-1.3) Lymphocytes % (24.0-44.0) % Monocytes % (0.0-12.0) % Eosinophils % (0.00-5.0) % Basophils % (0.0-0.4) % Absolute Granulocytes (1.4-6.9) Basophils # (0-0.4) pO2/FiO2 Ratio 40.0 % VBG pH 7.37 (7.32-7.42) VBG pCO2 at Pat Temp 49 (42-55) mm/Hg VBG pO2 at Pat Temp 152 H (25-40) mm/Hg VBG HCO3 28.3 H (22-28) meq/L VBG O2 Sat (Billie) 98.7 (95-100) VBG Base Excess 2.3 H (-2.0-2.0) VBG Hemoglobin 12.2 VBG Carboxyhemoglobin 2.8 (0.0-6.9) % T HGB POC Potassium 4.0 (3.5-5.1) Sodium (137-145) mmol/L Potassium (3.5-5.1) mmol/L Chloride (98-107) mmol/L Carbon Dioxide (22-30) mmol/L Anion Gap (5-15) MEQ/L BUN (9-20) mg/dL Creatinine (0.66-1.25) mg/dL Estimated GFR ML/MIN Glucose (74-106) mg/dL Calcium (8.4-10.2) mg/dL Total Bilirubin (0.2-1.3) mg/dL AST (17-59) U/L ALT (0-50) U/L Alkaline Phosphatase (38-126) U/L Serum Total Protein (6.3-8.2) g/dL Albumin (3.5-5.0) g/dL Urine Color (YELLOW) Urine Appearance (CLEAR) Urine pH (5-6) Ur Specific [place] (1.005-1.025) Urine Protein (Negative) Urine Ketones (NEGATIVE) Urine Blood (0-5) Alexy/ul Urine Nitrite (NEGATIVE) Urine Bilirubin (NEGATIVE) Urine Urobilinogen (0-1) mg/dL Ur Leukocyte Esterase (NEGATIVE) Urine WBC (Auto) (0-5) /HPF Urine RBC (Auto) (0-2) /HPF U Epithel Cells (Auto) (FEW) /HPF Urine Bacteria (Auto) (NEGATIVE) /HPF Urine Mucus (Auto) (NEGATIVE) /HPF Urine Culture Reflexed (NO) Urine Glucose (NEGATIVE) mg/dL Accuchecks Date 12/30/18 Time 07:30 Accucheck Value: 161 Accucheck Value: 136 - Radiology Impressions Radiology Exams & Impressions: Radiology Procedures Category Date Time Status CHEST 2 VIEWS (PA AND LAT) Stat Exams 12/29/18 19:20 Completed - Other Procedures and Tests Respiratory Therapy 12/29/18 17:58 BiPap/CPAP ROUTINE Oxygen NASAL CANNULA 6 lpm Peak Expiratory Flow Rate ONCE Respiratory Therapy Assessment DAILY Assessment/Plan (1) COPD exacerbation Current Visit: No Status: Resolved Onset Date: ~05/17/18 Assessment & Plan: On day #2 of rocephin. Today I added zithromax and IV solumedrol (air exchange is poor), which I think may also help with his nasal congestion. Code(s): J44.1 - CHRONIC OBSTRUCTIVE PULMONARY DISEASE W (ACUTE) EXACERBATION (2) Hypertension Current Visit: No Status: Chronic Onset Date: ~01/24/18 Qualifiers: Hypertension type: essential hypertension Assessment & Plan: well controlled here. Code(s): I10 - ESSENTIAL (PRIMARY) HYPERTENSION (3) Chronic respiratory failure Current Visit: No Status: Chronic Qualifiers: Respiratory failure complication: hypoxia and hypercapnia Qualified Code(s) : J96.11 - Chronic respiratory failure with hypoxia; J96.12 - Chronic respiratory failure with hypercapnia Assessment & Plan: currently on 6L NC Code(s): J96.10 - CHRONIC RESPIRATORY FAILURE, UNSP W HYPOXIA OR HYPERCAPNIA (4) Diabetes mellitus Current Visit: Yes Status: Acute Qualifiers: Diabetes mellitus type: type 2 Diabetes mellitus alf insulin use: without longwall foreman use Diabetes mellitus complication status: without complication Qualified Code(s): E11.9 - Type 2 diabetes mellitus without complications Code(s): E11.9 - TYPE 2 DIABETES MELLITUS WITHOUT COMPLICATIONS (5) Hx of deep venous thrombosis Current Visit: Yes Status: Chronic Assessment & Plan: On coumadin - will check INR daily as may be affected by abx. Code(s): Z86.718 - PERSONAL HISTORY OF OTHER VENOUS THROMBOSIS AND EMBOLISM
[2018-12-30] MEDS ORDERED: ROCEPHIN 1 Gm-D5w 50 ml Bag** 1 G/50 ML IVPB IV SCH (10:00)
[2018-12-30] MEDS ORDERED: DILTIAZEM HCL 240 MG PO SCH (10:00)
[2018-12-30] MEDS ORDERED: FLUZONE QUAD (36mo-64yo) 2018-2019 SYRINGE IM ONE (10:00)
[2018-12-30] MEDS ORDERED: NON-FORMULARY ITEM (Rosuvastatin Calcium [Crestor] 20 MG) PO SCH (10:00)
[2018-12-30] MEDS: Lopressor 25MG Tab PO SCH (10:14)
[2018-12-30] MEDS: Zithromax 500 MG/ 250 ML NaCl Premix 500 MG/250 ML IVPB IV SCH (10:14)
[2018-12-30] MEDS: Pepcid 20 MG PO SCH ×2 (10:14→21:34)
[2018-12-30] MEDS: Cozaar 50 MG PO SCH (10:14)
[2018-12-30] MEDS: Zocor 10MG PO SCH (10:14)
[2018-12-30] MEDS: Cardizem CD 240 MG PO SCH (10:14)
[2018-12-30] MEDS: NEURONTIN 300 MG PO SCH ×3 (10:15→21:34)
[2018-12-30] MEDS: THEOPHYLLINE ER 24HR PO SCH ×2 (10:15→21:35)
[2018-12-30] MEDS: solu-MEDROL 125 MG IV SCH ×2 (10:20→17:36)
[2018-12-30] MEDS: Tessalon Perles 100 MG PO PRN ×2 (10:20→20:25)
[2018-12-30] MEDS: Amaryl 2 MG PO SCH (10:32)
[2018-12-30 10:51] LABS: INR 2.19 (0.8-3.0); PROTIME 25.7 SECONDS (8.83-12.87)
[2018-12-30] MEDS: Sodium Chloride 0.9% 1000 ML 1,000 ML IV SCH (13:58)
[2018-12-30] MEDS: Coumadin 5 MG PO SCH (17:36)
[2018-12-30] MEDS: NovoLOG Insulin SQ PRN ×2 (17:36→21:36)
[2018-12-30] MEDS: ROCEPHIN 1 Gm-D5w 50 ml Bag** 1 G/50 ML IVPB IV SCH (21:34)
[2018-12-30] MEDS: Desyrel 150 MG PO SCH (21:34)
[2018-12-30] MEDS: Flomax 0.4 MG PO SCH (21:34)
[2018-12-31] MEDS: solu-MEDROL 125 MG IV SCH ×3 (02:22→17:49)
[2018-12-31] MEDS: DUONEB 0.5-3 MG/3 ml Neb IH SCH ×6 (03:45→23:49)
[2018-12-31] MEDS: Norco 10/325 MG Tablet PO PRN ×2 (04:11→10:32)
[2018-12-31] MEDS: Tessalon Perles 100 MG PO PRN ×2 (08:16→22:53)
[2018-12-31] MEDS: Amaryl 2 MG PO SCH (08:16)
[2018-12-31] MEDS: Glucophage 500 MG PO SCH ×2 (08:16→16:57)
[2018-12-31] MEDS: NovoLOG Insulin SQ PRN ×4 (08:16→22:15)
[2018-12-31] MEDS: Zithromax 500 MG/ 250 ML NaCl Premix 500 MG/250 ML IVPB IV SCH (10:24)
[2018-12-31] MEDS: Lopressor 25MG Tab PO SCH (10:24)
[2018-12-31] MEDS: NEURONTIN 300 MG PO SCH ×3 (10:24→22:14)
[2018-12-31] MEDS: Cozaar 50 MG PO SCH (10:24)
[2018-12-31] MEDS: Cardizem CD 240 MG PO SCH (10:24)
[2018-12-31] MEDS: Pepcid 20 MG PO SCH ×2 (10:25→22:14)
[2018-12-31] MEDS: THEOPHYLLINE ER 24HR PO SCH ×2 (10:25→22:14)
[2018-12-31] MEDS: Zocor 10MG PO SCH (10:26)
[2018-12-31] MEDS: Advair Hfa 230/21 Mcg COMMON CANISTER IH SCH ×2 (11:22→19:21)
[2018-12-31] MEDS: Sodium Chloride 0.9% 1000 ML 1,000 ML IV SCH (11:34)
--- NOTE | 2018-12-31 13:54 | PCM.NOTE ---
Date and Time: 12/31/18 1351 Subjective Assessment: Pt was having watery stool yesterday, but today it is formed. His cough is much better on the tessalon perles. He is having increased back pain since being in the hospital. c/o feeling "hot then cold" today. Is afebrile. - Review of Systems Constitutional: No Fever Respiratory: Cough, Short Of Breath Objective Exam General Appearance: no apparent distress, alert Neurologic Exam: oriented x 3, cooperative Skin Exam: normal color, warm, dry, No rash Respiratory Exam: diminished breath sounds (poor air exchange), No crackles/ rales, No rhonchi, No wheezing Cardiovascular Exam: regular rate/rhythm, normal heart sounds, No murmur Back Exam: normal inspection, No rash OBJECTIVE DATA Vital Signs: Vital Signs - 24 hr Temp Pulse Resp BP Pulse Ox 12/31/18 13:00 97.8 F 80 22 130/74 92 L 12/31/18 11:55 91 H 22 91 L 12/31/18 11:53 20 12/31/18 09:00 97.3 F 92 H 20 115/71 92 L 12/31/18 08:00 20 12/31/18 05:02 98 F 103 H 20 123/68 91 L 12/31/18 03:45 98 H 20 90 L 12/31/18 00:00 97.4 F 97 H 20 101/67 91 L 12/30/18 23:17 97 H 20 91 L 12/30/18 20:00 98.5 F 109 H 22 118/71 90 L 12/30/18 16:00 98.4 F 110 H 20 123/62 90 L 12/30/18 15:29 87 22 91 L Oxygen-Last 24 hours O2 Percentage 6 Liters = 44% O2 Percentage 6 Liters = 44% O2 Percentage 6 Liters = 44% O2 Percentage 2 Liters = 28% O2 Percentage 6 Liters = 44% Oxygen Flowrate (L/min)-RT 6 Pain Assessment - Last Documented Pain Intensity 3 Pain Scale Used 0-10 Pain Scale Intake and Output: Intake & Output 12/29/18 12/30/18 12/31/18 01/01/19 11:59 11:59 11:59 11:59 Intake Total 2155 3707 480 Output Total 5029 3005 Balance 206 702 480 Weight 116.3 kg Lab Results: Accuchecks Date 12/31/18 Date 12/31/18 Date 12/30/18 Time 11:30 Time 07:30 Time 11:30 Accucheck Value: 281 Accucheck Value: 268 Accucheck Value: 233 Radiology Exams: Radiology Procedures Category Date Time Status CHEST 2 VIEWS (PA AND LAT) Stat Exams 12/29/18 19:20 Completed Multi-Disciplinary Progress Notes: Multi-Disciplinary Progress Notes 12/30/18 21:55 Respiratory Note by Robinson Santana WHEN I WENT TO DO PT 1900 NEB TX HE WAS ASLEEP ON HIS TRILOGY. I CHOSE TO DO ALL OTHER TX AND COME BACK TO HIM LAST BUT WAS THEN CALLED TO ER FOR AN INCOMING CODE. PT 1900 TX WAS SKIPPED. I WILL GO TO THIS PT 1ST FOR MY 2300 ROUNDS. Initialized on 12/30/18 21:55 - END OF NOTE Assessment/Plan (1) COPD exacerbation Current Visit: No Status: Resolved Onset Date: ~05/17/18 Assessment & Plan: On rocephin day #3 and zithromax day #2. solumedrol 80mg IV q8h. Looks better today clinically. Advised may be several more days before ready to d/c to home. Code(s): J44.1 - CHRONIC OBSTRUCTIVE PULMONARY DISEASE W (ACUTE) EXACERBATION (2) Hypertension Current Visit: No Status: Chronic Onset Date: ~01/24/18 Qualifiers: Hypertension type: essential hypertension Code(s): I10 - ESSENTIAL (PRIMARY) HYPERTENSION (3) Chronic respiratory failure Current Visit: No Status: Chronic Qualifiers: Respiratory failure complication: hypoxia and hypercapnia Qualified Code(s) : J96.11 - Chronic respiratory failure with hypoxia; J96.12 - Chronic respiratory failure with hypercapnia Code(s): J96.10 - CHRONIC RESPIRATORY FAILURE, UNSP W HYPOXIA OR HYPERCAPNIA (4) Diabetes mellitus Current Visit: Yes Status: Acute Qualifiers: Diabetes mellitus type: type 2 Diabetes mellitus buttermaker continuous churn insulin use: without care home use Diabetes mellitus complication status: without complication Qualified Code(s): E11.9 - Type 2 diabetes mellitus without complications Code(s): E11.9 - TYPE 2 DIABETES MELLITUS WITHOUT COMPLICATIONS (5) Hx of deep venous thrombosis Current Visit: Yes Status: Chronic Code(s): Z86.718 - PERSONAL HISTORY OF OTHER VENOUS THROMBOSIS AND EMBOLISM (6) Back pain Current Visit: No Status: Chronic Qualifiers: Back pain location: back pain in unspecified location Chronicity: chronic Back pain laterality: unspecified Qualified Code(s): M54.9 - Dorsalgia, unspecified; G89.29 - Other chronic pain Assessment & Plan: When we talked about the back pain, I offered to increase the pain pill. Will change from [place] 10 to percocet 5, 1 po q4h prn. Code(s): M54.9 - DORSALGIA, UNSPECIFIED
[2018-12-31 14:33] LABS: INR 1.88 (0.8-3.0)
[2018-12-31] MEDS: Acidophilus TABLET PO SCH (15:16)
[2018-12-31] MEDS: PERCOCET TABLET 5/325MG PO PRN ×2 (15:24→22:16)
[2018-12-31] MEDS: Coumadin 5 MG PO SCH (17:49)
[2018-12-31] MEDS: ROCEPHIN 1 Gm-D5w 50 ml Bag** 1 G/50 ML IVPB IV SCH (22:14)
[2018-12-31] MEDS: Desyrel 150 MG PO SCH (22:14)
[2018-12-31] MEDS: Flomax 0.4 MG PO SCH (22:14)
[2019-01-01] MEDS: solu-MEDROL 125 MG IV SCH ×2 (01:30→09:43)
[2019-01-01 02:19] VITALS: O2SAT 93
[2019-01-01] MEDS: PERCOCET TABLET 5/325MG PO PRN ×3 (02:48→13:25)
[2019-01-01] MEDS: DUONEB 0.5-3 MG/3 ml Neb IH SCH ×3 (03:50→11:21)
[2019-01-01 06:32] LABS: INR 2.09 (0.8-3.0); PROTIME 24.5 SECONDS (8.83-12.87)
[2019-01-01] MEDS: Sodium Chloride 0.9% 1000 ML 1,000 ML IV SCH (07:03)
[2019-01-01] MEDS: NovoLOG Insulin SQ PRN ×2 (08:04→11:49)
[2019-01-01] MEDS: Amaryl 2 MG PO SCH (08:04)
[2019-01-01] MEDS: Glucophage 500 MG PO SCH (08:04)
[2019-01-01] MEDS: THEOPHYLLINE ER 24HR PO SCH (09:27)
[2019-01-01] MEDS: Cozaar 50 MG PO SCH (09:27)
[2019-01-01] MEDS: Pepcid 20 MG PO SCH (09:28)
[2019-01-01] MEDS: Acidophilus TABLET PO SCH (09:28)
[2019-01-01] MEDS: Lopressor 25MG Tab PO SCH (09:28)
[2019-01-01] MEDS: Zocor 10MG PO SCH (09:28)
[2019-01-01] MEDS: Cardizem CD 240 MG PO SCH (09:28)
[2019-01-01] MEDS: NEURONTIN 300 MG PO SCH (09:28)
[2019-01-01] MEDS: Zithromax 500 MG/ 250 ML NaCl Premix 500 MG/250 ML IVPB IV SCH (09:29)
[2019-01-01 11:22] VITALS: BP 123/58
[2019-01-01] MEDS: Advair Hfa 230/21 Mcg COMMON CANISTER IH SCH (11:22)
[2019-01-01 11:29] VITALS: PULSE 80
[2019-01-01] MEDS: Tessalon Perles 100 MG PO PRN (11:49)
--- NOTE | 2019-01-01 13:22 | PCM.DS ---
Discharge Summary Date of Admission: 12/30/18 09:29 Admitting Physician: GEE FERNANDES Primary Care Provider: GEE FERNANDES Allergies Allergies No Known Drug Allergies Allergy (Verified 08/12/18 19:52) Hospital Summary - Hospital Course Hospital Course: Last Vital Signs Temp 97.9 F 01/01/19 11:21 Pulse 80 01/01/19 11:23 Resp 18 01/01/19 12:00 BP 123/58 01/01/19 11:21 Pulse Ox 93 L 01/01/19 11:23 Allergies No Known Drug Allergies Allergy (Verified 08/12/18 19:52) Active Medications Acetaminophen (Tylenol 325 Mg) 325 mg PO Q4H PRN PRN PRN Reason: PAIN, FEVER, HEADACHE Stop: 01/28/19 19:00 Albuterol Sulfate (Proventil Common Canister) 2 puff IH QID PRN PRN PRN Reason: BREATHING Stop: 01/29/19 09:00 Albuterol/Ipratropium (Duoneb 0.5-3 Mg/3 Ml Neb) 3 ml IH Q4HRT [facility] Stop: 01/28/19 18:59 Last Admin: 01/01/19 11:21 Dose: 3 ml Benzonatate (Tessalon Perles 100 Mg) 100 mg PO TID PRN PRN PRN Reason: COUGH Stop: 01/29/19 09:27 Last Admin: 01/01/19 11:49 Dose: 100 mg Diltiazem HCl (Cardizem Cd 240 Mg) 240 mg PO DAILY [facility] Stop: 01/29/19 09:59 Last Admin: 01/01/19 09:28 Dose: 240 mg Famotidine (Pepcid 20 Mg) 20 mg PO BID [facility] Stop: 01/28/19 21:59 Last Admin: 01/01/19 09:28 Dose: 20 mg Gabapentin (Neurontin 300 Mg) 600 mg PO TID [facility] Stop: 01/28/19 21:59 Last Admin: 01/01/19 09:28 Dose: 600 mg Glimepiride (Amaryl 2 Mg) 2 mg PO BREAKFAST [facility] Stop: 01/29/19 08:59 Last Admin: 01/01/19 08:04 Dose: 2 mg Sodium Chloride (Sodium Chloride 0.9% 1000 Ml) 1,000 mls @ 50 mls/hr IV .Q20H [facility] Stop: 01/28/19 19:14 Last Admin: 01/01/19 07:03 Dose: 50 mls/hr Ceftriaxone Sodium/Dextrose (Rocephin 1 Gm-D5w 50 Ml Bag) 1 g in 50 mls @ 100 mls/hr IV QPM [facility] Stop: 01/29/19 09:59 Last Admin: 12/31/18 22:14 Dose: 100 mls/hr Azithromycin (Zithromax 500 Mg/ 250 Ml Nacl Premix) 500 mg in 250 mls @ 250 mls /hr IV Q24H10 [facility] Stop: 01/29/19 09:59 Last Admin: 01/01/19 09:29 Dose: 250 mls/hr Insulin Aspart (Novolog Insulin) 0 unit SQ UD PRN PRN Reason: Accuchek Stop: 01/28/19 19:00 Last Admin: 01/01/19 11:49 Dose: 2 unit Lactobacillus Acidophilus (Acidophilus Tablet) 1 tab PO DAILY [facility] Stop: 01/30/19 14:59 Last Admin: 01/01/19 09:28 Dose: 1 tab Losartan Potassium (Cozaar 50 Mg) 50 mg PO DAILY [facility] Stop: 01/29/19 09:59 Last Admin: 01/01/19 09:27 Dose: 50 mg Metformin HCl (Glucophage 500 Mg) 500 mg PO BIDWM [facility] Stop: 01/29/19 07:59 Last Admin: 01/01/19 08:04 Dose: 500 mg Methylprednisolone Sodium Succinate (Solu-Medrol 125 Mg) 80 mg IV Q8H [facility] Stop: 01/29/19 09:59 Last Admin: 01/01/19 09:43 Dose: 80 mg Metoprolol Tartrate (Lopressor 25mg Tab) 25 mg PO DAILY [facility] Stop: 01/29/19 09:59 Last Admin: 01/01/19 09:28 Dose: 25 mg Oxycodone/Acetaminophen (Percocet Tablet 5/325mg) 1 tab PO Q4H PRN PRN PRN Reason: PAIN Stop: 01/05/19 13:49 Last Admin: 01/01/19 09:28 Dose: 1 tab Quetiapine Fumarate (Seroquel 25 Mg) 25 mg PO TIDPRN PRN Stop: 01/28/19 19:59 Fluticasone/Salmeterol (Advair Hfa 230/21 Mcg Common Canister*) 2 puff IH BIDRT [facility] Stop: 01/28/19 18:59 Last Admin: 01/01/19 11:22 Dose: 2 puff Senna/Docusate Sodium (Senokot-S Tablet) 1 udtab PO DAILY PRN PRN PRN Reason: CONSTIPATION Stop: 01/29/19 08:54 Simvastatin (Zocor 10mg) 10 mg PO DAILY [facility] Stop: 01/29/19 09:59 Last Admin: 01/01/19 09:28 Dose: 10 mg Tamsulosin HCl (Flomax 0.4 Mg) 0.4 mg PO HS [facility] Stop: 01/28/19 21:59 Last Admin: 12/31/18 22:14 Dose: 0.4 mg Theophylline (Theophylline Er 24hr) 300 mg PO BID [facility] Stop: 01/28/19 21:59 Last Admin: 01/01/19 09:27 Dose: 300 mg Trazodone HCl (Desyrel 150 Mg) 150 mg PO HS [facility] Stop: 01/28/19 21:59 Last Admin: 12/31/18 22:14 Dose: 150 mg Warfarin Sodium (Coumadin 5 Mg) 5 mg PO COU [facility] Stop: 01/29/19 17:59 Last Admin: 12/31/18 17:49 Dose: 5 mg Intake & Output 01/01/19 01/02/19 11:59 11:59 Intake Total 2811 Output Total 1475 Balance 1336 Lab Tests 12/31/18 01/01/19 14:00 05:10 PT 22.0 H 24.5 H INR 1.88 2.09 Microbiology 12/29/18 19:40 Blood Blood Culture - Preliminary NO GROWTH TO DATE 12/29/18 19:30 Blood Blood Culture - Preliminary NO GROWTH TO DATE - Vitals & Intake/Output Vital Signs: Vital Signs Temperature 97.9 F 01/01/19 11:21 Pulse Rate 80 01/01/19 11:23 Respiratory Rate 18 01/01/19 12:00 Blood Pressure 123/58 01/01/19 11:21 O2 Sat by Pulse Oximetry 93 L 01/01/19 11:23 Oxygen-Last Documented O2 Percentage 3 Liters = 32% Intake & Output: Intake & Output 12/30/18 12/31/18 01/01/19 01/02/19 11:59 11:59 11:59 11:59 Intake Total 2156 3707 2811 Output Total 6377 3005 1475 Balance 906 364 4519 Weight 116.3 kg - Lab Result Diagrams: 12/29/18 19:01 12/29/18 18:50 Lab Results-Last 24 Hrs: Accuchecks Date 01/01/19 Date 01/01/19 Date 12/31/18 Time 11:30 Time 07:30 Time 16:30 Accucheck Value: 219 Accucheck Value: 262 Accucheck Value: 244 Accucheck Value: 209 Lab Results-Last 24 Hours 12/31/18 01/01/19 Range/Units 14:00 05:10 PT 22.0 H 24.5 H (8.83-12.87) SECONDS INR 1.88 2.09 (0.8-3.0) Micro Results-Entire Visit: Microbiology 12/29/18 19:40 Blood Culture - Preliminary Blood NO GROWTH TO DATE 12/29/18 19:30 Blood Culture - Preliminary Blood NO GROWTH TO DATE Accuchecks Date 01/01/19 Date 01/01/19 Date 12/31/18 Time 11:30 Time 07:30 Time 16:30 Accucheck Value: 219 Accucheck Value: 262 Accucheck Value: 244 Accucheck Value: 209 - Procedures and Test Procedures and Tests throughout Hospitalization: Therapy Orders & Screens 12/29/18 17:58 BiPap/CPAP ROUTINE Comment: HOME TRILOGY Oxygen NASAL CANNULA 6 lpm Comment: Peak Expiratory Flow Rate ONCE Comment: Reason For Exam: Respiratory Therapy Assessment DAILY Comment: 12/29/18 18:11 RT Screen per Nursing Assess ONCE Comment: Protocol Order Physician Instructions: Greater than 3 points order RT Admission Screen Reason For Exam: Triggered on Admission Diagnosis: Exacerbation COPD Diagnosis: Exacerbation COPD Pneumonia: No Home O2: Yes Asthma: Yes CHF: No Home CPAP/BIPAP: Yes Home Nebs/MDI: Yes Total Points: 19 Discharge Exam General Appearance: no apparent distress, alert Neurologic Exam: alert, oriented x 3, cooperative, normal mood/affect, nml cerebellar function, sensation nml, No motor deficits Skin Exam: normal color, warm, dry Eye Exam: PERRL, EOMI, eyes nml inspection Ears, Nose, Throat Exam: normal ENT inspection, pharynx normal, moist mucous membranes Neck Exam: normal inspection, non-tender, supple, full range of motion Respiratory Exam: normal breath sounds, lungs clear, No respiratory distress Cardiovascular Exam: regular rate/rhythm, normal heart sounds Gastrointestinal/Abdomen Exam: soft, No tenderness, No mass Extremity Exam: normal inspection, normal range of motion Back Exam: normal inspection, normal range of motion, No CVA tenderness, No vertebral tenderness Male Genitalia Exam: deferred Rectal Exam: deferred Final Diagnosis/Problem List - Final Discharge Diagnosis/Problem (1) COPD exacerbation Current Visit: Yes Status: Acute Assessment & Plan: resolved (2) Diabetes mellitus Current Visit: Yes Status: Acute (3) Hx of deep venous thrombosis Current Visit: Yes Status: Chronic (4) Chronic respiratory failure Current Visit: No Status: Chronic Priority: High (5) Hypertension Current Visit: No Status: Chronic Priority: High Onset Date: ~01/24/18 - Discharge Discharge Date: 01/01/19 Disposition: Home, Self-Care Condition: Stable Prescriptions: Continue Warfarin Sodium 5 mg [Coumadin 5 MG] 5 mg PO DAILY Sennosides/Docusate Sodium [Stool Softener-Stim Lax Tablet] 1 each PO DAILY PRN PRN PRN Reason: Constipation Metformin HCl 500 mg [Glucophage 500 MG] 500 mg PO BID Metoprolol Tartrate 50 mg [Lopressor 50 MG] 25 mg PO DAILY Theophylline Anhydrous 300 mg PO BID Tamsulosin HCl 0.4 mg [Flomax 0.4 MG] 0.4 mg PO HS Albuterol Sulfate [Ventolin Hfa] 18 gm IH QID PRN PRN PRN Reason: Shortness Of Breath/Wheezing Albuterol Sulfate [Proair Hfa] 8.5 gm IH BID PRN PRN PRN Reason: Shortness Of Breath/Wheezing Diltiazem HCl [Dilt-Xr] 240 mg PO DAILY Gabapentin [Neurontin] 600 mg PO TID Losartan Potassium 50 mg [Cozaar 50 MG] 50 mg PO DAILY Budesonide/Formoterol Fumarate [Symbicort 160-4.5 Mcg Inhaler] 2 puff IH BID Glimepiride 2 mg [Amaryl 2 MG] 2 mg PO DAILY Rosuvastatin Calcium [Crestor] 20 mg PO DAILY Hydrocodone/APAP 10/325 mg [Hayes 10/325 MG Tablet] 1 tab PO Q6H PRN PRN Reason: Pain Trazodone HCl 50 mg [Desyrel 50 mg] 150 mg PO HS Quetiapine Fumarate 25 mg [Seroquel 25 MG] 25 mg PO TIDPRN Follow up with: GEE FERNANDES MD [Primary Care Provider] - 1 Week
== END 2019-01-01 14:10 | disposition home or self-care (01) | DRG 191 ==
LOC: MED SURG 09:29 → OBSVTOIN 12-30 09:29 → MED SURG 12-30 17:16
PROVIDERS: ADMIT General Practice; ATTEND General Practice
DX: J44.1 Chronic obstructive pulmonary disease with (acute) exacerbation (principal); J96.10 Chronic respiratory failure, unspecified whether with hypoxia or hypercapnia; E11.9 Type 2 diabetes mellitus without complications; R42 Dizziness and giddiness; I10 Essential (primary) hypertension; Z86.718 Personal history of other venous thrombosis and embolism; Z79.01 Long term (current) use of anticoagulants; Z79.899 Other long term (current) drug therapy
CPT/HCPCS: 36415; 71046; 80053; 81001; 82805; 82962; 85025; 85610; 87040; 94150; 94640; 94760; G0008; G0378; 90686; J0456; J0696; J2930; A9270-GY

== ENCOUNTER 2019-06-27 21:05 | Emergency (ER) | payer MEDICARE ==
--- NOTE | 2019-06-27 21:22 | ERPHSYRPT ---
- History of Present Illness Time Seen by Provider: 06/27/19 21:10 Source: patient, family Exam Limitations: no limitations Physician History: 58 y/o overweight, oxygen dependent(6L nc) copd pt, with niddm, htn, chronic asthma on coumadin presents with worsening soa over a week and a nonproductive cough and painful deep respirations Timing/Duration: week(s) (1), worse Activities at Onset: none Severity of Dyspnea-Max: mild Severity of Dyspnea-Current: mild Possible Cause: occasional episodes Modifying Factors: Improves With: activity, coughing, deep breath Associated Symptoms: cough, painful breathing Allergies/Adverse Reactions: No Known Drug Allergies Allergy (Verified 06/27/19 21:09) Home Medications: Warfarin Sodium 5 mg [Coumadin 5 MG] 5 mg PO DAILY 05/14/14 [History] Sennosides/Docusate Sodium [Stool Softener-Stim Lax Tablet] 1 each PO DAILY PRN PRN 11/18/14 [History] Metformin HCl 500 mg [Glucophage 500 MG] 500 mg PO BID 09/13/15 [History] Metoprolol Tartrate 50 mg [Lopressor 50 MG] 25 mg PO DAILY 01/17/16 [ History] Albuterol Sulfate [Proair Hfa] 8.5 gm IH BID PRN PRN 04/18/17 [History] Albuterol Sulfate [Ventolin Hfa] 18 gm IH QID PRN PRN 04/18/17 [History] Diltiazem HCl [Dilt-Xr] 240 mg PO DAILY 04/18/17 [History] Gabapentin [Neurontin] 600 mg PO TID 04/18/17 [History] Tamsulosin HCl 0.4 mg [Flomax 0.4 MG] 0.4 mg PO HS 04/18/17 [History] Theophylline Anhydrous 300 mg PO BID 04/18/17 [History] Budesonide/Formoterol Fumarate [Symbicort 160-4.5 Mcg Inhaler] 2 puff IH BID 08/03 [History] Glimepiride 2 mg [Amaryl 2 MG] 2 mg PO DAILY 01/24/18 [History] Losartan Potassium 50 mg [Cozaar 50 MG] 50 mg PO DAILY 01/24/18 [History] Hydrocodone/APAP 10/325 mg [[place] 10/325 MG Tablet] 1 tab PO Q6H PRN 08/12 [History] Rosuvastatin Calcium [Crestor] 20 mg PO DAILY 08/12/18 [History] Trazodone HCl 50 mg [Desyrel 50 mg] 150 mg PO HS 08/12/18 [History] Quetiapine Fumarate 25 mg [Seroquel 25 MG] 25 mg PO TIDPRN 11/23/18 [ History] Hx Tetanus, Diphtheria Vaccination/Date Given: Yes (UP TO DATE) Hx Influenza Vaccination/Date Given: Yes Hx Pneumococcal Vaccination/Date Given: Yes - Review of Systems Constitutional: No Symptoms Eyes: No Symptoms Ears, Nose, & Throat: No Symptoms Respiratory: Cough, Dyspnea Cardiac: No Symptoms Abdominal/Gastrointestinal: No Symptoms Genitourinary Symptoms: No Symptoms Musculoskeletal: No Symptoms Skin: No Symptoms Neurological: No Symptoms Psychological: No Symptoms Endocrine: No Symptoms Hematologic/Lymphatic: No Symptoms Immunological/Allergic: No Symptoms All Other Systems: Reviewed and Negative - Past Medical History Pertinent Past Medical History: Yes Neurological History: Stroke ENT History: No Pertinent History Cardiac History: Hypertension Respiratory History: Asthma, COPD Endocrine Medical History: Diabetes Type II Musculoskeletal History: Other GI Medical History: No Pertinent History History: No Pertinent History Psycho-Social History: Anxiety, Bipolar, Depression Male Reproductive Disorders: No Pertinent History Other Medical History: Strokes in 2013, 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 Ponce 2005. Lower Back pain. Decreased urine output. - Past Surgical History Past Surgical History: Yes Neuro Surgical History: No Pertinent History Cardiac: No Pertinent History Respiratory: No Pertinent History Gastrointestinal: Appendectomy Genitourinary: No Pertinent History Musculoskeletal: No Pertinent History Male Surgical History: No Pertinent History Other Surgical History: Right leg surgery(pins and plates), Sinus surgery, hernia repair - Social History Smoking Status: Former smoker How long have you smoked: 2006 Exposure to second hand smoke: Yes Drug Use: none Patient Lives Alone: No - Nursing Vital Signs Nursing Vital Signs: Initial Vital Signs Temperature 98.8 F 06/27/19 21:09 Pulse Rate 98 H 06/27/19 21:09 Respiratory Rate 20 06/27/19 21:09 Blood Pressure 156/83 06/27/19 21:09 O2 Sat by Pulse Oximetry 93 L 06/27/19 21:09 Pain Scale Pain Intensity 9 - Physical Exam General Appearance: mild distress, alert, anxiety Eye Exam: PERRL/EOMI, eyes nml inspection Ears, Nose, Throat Exam: hearing grossly normal Neck Exam: normal inspection, non-tender, supple, carotid bruit Respiratory Exam: normal breath sounds, chest tenderness, lungs clear, airway intact, No respiratory distress, No accessory muscle use, No rhonchi, No wheezing, No stridor Cardiovascular/Chest Exam: normal heart sounds, regular rate/rhythm, normal peripheral pulses Abdominal/Gastrointestinal Exam: soft, normal bowel sounds, No tenderness Rectal Exam: not done Extremity Exam: non-tender, normal range of motion, normal inspection Neurologic Exam: alert, oriented x 3, cooperative, 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 Skin Exam: normal color, warm, dry Lymphatic Exam: No adenopathy SpO2 Interpretation: borderline oxygenation SpO2: 5 (5 liters) O2 Delivery: Nasal Cannula - Course Nursing assessment & vital signs reviewed: Yes Ordered Tests: Active Orders 24 hr Category Date Time Status Pelt Inspector STAT Care 06/27/19 21:12 Active EKG-ER Only STAT Care 06/27/19 21:11 Active IV Insertion STAT Care 06/27/19 21:11 Active Pulse Oximetry (ED) STAT Care 06/27/19 21:11 Active CHEST 1 VIEW (PORTABLE) Stat Exams 06/27/19 21:26 Taken BLOOD CULTURE Stat Lab 06/27/19 21:30 Received CBC W DIFF Stat Lab 06/27/19 21:25 Completed CMP Stat Lab 06/27/19 21:25 Completed CULTURE,SPUTUM Stat Lab 06/28/19 00:12 Ordered D-DIMER QUANTITATION Stat Lab 06/27/19 21:25 Completed Lactic Acid Stat Lab 06/27/19 21:22 Completed NT PRO BNP Stat Lab 06/27/19 21:25 Completed PROTIME WITH INR Stat Lab 06/27/19 21:25 Completed TROPONIN Q3H Lab 06/27/19 21:25 Completed TROPONIN Q3H Lab 06/28/19 00:15 Ordered TROPONIN Q3H Lab 06/28/19 03:15 Ordered TROPONIN Q3H Lab 06/28/19 06:15 Ordered TROPONIN Q3H Lab 06/28/19 09:15 Ordered Peak Expiratory Flow Rate ONCE RT 06/27/19 21:39 Active Respiratory Therapy Assessment DAILY RT 06/27/19 21:39 Active Medication Summary Generic Name Dose Route Start Last Admin Trade Name Larry PRN Reason Stop Dose Admin Azithromycin 500 mg in 250 mls @ 250 mls/hr 06/27/19 23:38 Zithromax 500 Mg/ 250 Ml Nacl Premix IV 06/28/19 00:37 STAT STA Discontinued Medications Generic Name Dose Route Start Last Admin Trade Name Larry PRN Reason Stop Dose Admin Albuterol/Ipratropium 3 ml 06/27/19 21:38 06/27/19 21:40 Duoneb 0.5-3 Mg/3 Ml Neb IH 06/27/19 21:39 3 ml STAT ONE Administration Albuterol/Ipratropium Confirm 06/27/19 21:38 Duoneb 0.5-3 Mg/3 Ml Neb Administered 06/27/19 21:39 Dose 3 ml IH .STK-MED ONE Ceftriaxone Sodium/Dextrose 1 g in 50 mls @ 100 mls/hr 06/27/19 23:38 23:57 Rocephin 1 Gm-D5w 50 Ml Bag IV 06/28/19 00:07 100 mls/hr STAT STA 100 mls/hr Administration Azithromycin Confirm 06/27/19 23:50 Zithromax 500 Mg/ 250 Ml Nacl Premix Administered 06/27/19 23:51 Dose 500 mg in 250 mls @ ud IV .STK-MED ONE Ceftriaxone Sodium/Dextrose Confirm 06/27/19 23:51 Rocephin 1 Gm-D5w 50 Ml Bag Administered 06/27/19 23:52 Dose 1 g in 50 mls @ ud IV .STK-MED ONE Morphine Sulfate 4 mg 06/27/19 23:37 06/27/19 23:54 Morphine Sulfate 4 Mg Inj IV 06/27/19 23:38 4 mg STAT ONE Administration Morphine Sulfate Confirm 06/27/19 23:50 Morphine Sulfate 4 Mg Inj Administered 06/27/19 23:51 Dose 4 mg .ROUTE .STK-MED ONE Ondansetron HCl 4 mg 06/27/19 23:38 06/27/19 23:53 Zofran 4 Mg/2 Ml Vial IV 06/27/19 23:39 4 mg STAT ONE Administration Ondansetron HCl Confirm 06/27/19 23:50 Zofran 4 Mg/2 Ml Vial Administered 06/27/19 23:51 Dose 4 mg .ROUTE .STK-MED ONE Lab/Rad Data: Laboratory Result Diagrams 06/27/19 21:25 06/27/19 21:25 Laboratory Results 06/27/19 06/27/19 06/27/19 Range/Units 21:25 21:25 21:25 WBC (4.0-10.5) K/mm3 RBC (4.1-5.6) M/mm3 Hgb (12.5-18.0) gm/dl Hct (42-50) % MCV (78-100) fl MCH (26-32) pg MCHC (32-36) g/dl RDW (11.5-14.0) % Plt Count (150-450) K/mm3 MPV (6-9.5) fl Gran % (36.0-66.0) % Eos # (Auto) (0-0.5) Absolute Lymphs (auto) (1.0-4.6) Absolute Monos (auto) (0.0-1.3) Lymphocytes % (24.0-44.0) % Monocytes % (0.0-12.0) % Eosinophils % (0.00-5.0) % Basophils % (0.0-0.4) % Absolute Granulocytes (1.4-6.9) Basophils # (0-0.4) PT 36.3 H (8.83-12.87) SECONDS INR 3.14 H (0.8-3.0) D-Dimer < 215 L (215-500) ng/mL Sodium 142 (137-145) mmol/L Potassium 4.7 (3.5-5.1) mmol/L Chloride 108 H (98-107) mmol/L Carbon Dioxide 28 (22-30) mmol/L Anion Gap 10.0 (5-15) MEQ/L BUN 11 (9-20) mg/dL Creatinine 0.79 (0.66-1.25) mg/dL Estimated GFR > 60.0 ML/MIN Glucose 161 H (74-106) mg/dL Lactic Acid (0.4-2.0) Calcium 8.8 (8.4-10.2) mg/dL Total Bilirubin 0.20 (0.2-1.3) mg/dL AST 20 (17-59) U/L ALT 17 (0-50) U/L Alkaline Phosphatase 73 (38-126) U/L Troponin I < 0.012 (0.000-0.034) ng/mL NT-Pro-B Natriuret Pep 45.6 (0-900) pg/mL Serum Total Protein 6.5 (6.3-8.2) g/dL Albumin 3.9 (3.5-5.0) g/dL 06/27/19 06/27/19 Range/Units 21:25 21:22 WBC 6.5 (4.0-10.5) K/mm3 RBC 4.09 L (4.1-5.6) M/mm3 Hgb 12.0 L (12.5-18.0) gm/dl Hct 38.2 L (42-50) % MCV 93.4 (78-100) fl MCH 29.3 (26-32) pg MCHC 31.4 L (32-36) g/dl RDW 17.2 H (11.5-14.0) % Plt Count 222 (150-450) K/mm3 MPV 8.2 (6-9.5) fl Gran % 67.3 H (36.0-66.0) % Eos # (Auto) 0.15 (0-0.5) Absolute Lymphs (auto) 1.20 (1.0-4.6) Absolute Monos (auto) 0.75 (0.0-1.3) Lymphocytes % 18.4 L (24.0-44.0) % Monocytes % 11.5 (0.0-12.0) % Eosinophils % 2.3 (0.00-5.0) % Basophils % 0.5 (0.0-0.4) % Absolute Granulocytes 4.39 (1.4-6.9) Basophils # 0.03 (0-0.4) PT (8.83-12.87) SECONDS INR (0.8-3.0) D-Dimer (215-500) ng/mL Sodium (137-145) mmol/L Potassium (3.5-5.1) mmol/L Chloride (98-107) mmol/L Carbon Dioxide (22-30) mmol/L Anion Gap (5-15) MEQ/L BUN (9-20) mg/dL Creatinine (0.66-1.25) mg/dL Estimated GFR ML/MIN Glucose (74-106) mg/dL Lactic Acid 1.4 (0.4-2.0) Calcium (8.4-10.2) mg/dL Total Bilirubin (0.2-1.3) mg/dL AST (17-59) U/L ALT (0-50) U/L Alkaline Phosphatase (38-126) U/L Troponin I (0.000-0.034) ng/mL NT-Pro-B Natriuret Pep (0-900) pg/mL Serum Total Protein (6.3-8.2) g/dL Albumin (3.5-5.0) g/dL - Progress Progress: improved, re-examined Air Movement: good Progress Note: 06/28/19 00:16 pt states he is feeling better. cxr-? bibasilar atelectasis vs early infiltrates. no sig change from prior comparison cxr Counseled pt/family regarding: lab results, diagnosis, need for follow-up, rad results - Departure Departure Disposition: Home Clinical Impression: Lung infiltrate, COPD exacerbation Condition: Stable Critical Care Time: No Referrals: GEE FERNANDES MD [Primary Care Provider] - Instructions: Chronic Obstructive Pulmonary Disease Additional Instructions: take your pain medications as prescribed. monitor your blood sugar closely while taking your steroids. follow up with primary doctor for further management. Prescriptions: Azithromycin 250 mg [Zithromax 250 MG TABLET] 250 mg PO ZPACK #6 tablet Prednisone 10 mg [Deltasone 10 mg] 10 mg PO BID #4 tablet
[2019-06-27 21:36] LABS: BASOPHIL % 0.5 % (0.0-0.4); Basophil (Absolute #) 0.03 (0-0.4); Eosinophil % 2.3 % (0.00-5.0); Eosinophil (Absolute #) 0.15 (0-0.5); Granulocyte Absolute (ANC) 4.39 (1.4-6.9); Granulocytes % 67.3 % (36.0-66.0); Hematocrit 38.2 % (42-50); Lymphocytes % 18.4 % (24.0-44.0); Mean Cell Volume 93.4 fl (78-100); Mean Corpuscular Hemoglobin 29.3 pg (26-32); Mean Corpuscular Hgb Concent. 31.4 g/dl (32-36); Mean Platelet Volume 8.2 fl (6-9.5); Monocyte (Absolute #) 0.75 (0.0-1.3); Monocytes % 11.5 % (0.0-12.0); Platelet Count 222 K/mm3 (150-450); Red Blood Count 4.09 M/mm3 (4.1-5.6); Red Cell Distribution Width 17.2 % (11.5-14.0); White Blood Count 6.5 K/mm3 (4.0-10.5)
[2019-06-27] MEDS ORDERED: DUONEB 0.5-3 MG/3 ml Neb IH ONE ×2 (21:38)
[2019-06-27 21:44] LABS: INR 3.14 (0.8-3.0); PROTIME 36.3 SECONDS (8.83-12.87)
[2019-06-27 21:51] LABS: D-DIMER QUANTITATION < 215 ng/mL (215-500)
[2019-06-27 21:59] LABS: ALBUMIN 3.9 g/dL (3.5-5.0); ALKALINE PHOSPHATASE 73 U/L (38-126); BLOOD UREA NITROGEN 11 mg/dL (9-20); CHLORIDE 108 mmol/L (98-107); Calcium 8.8 mg/dL (8.4-10.2); Carbon Dioxide 28 mmol/L (22-30); Creatinine 1 0.79 mg/dL (0.66-1.25); Glucose 161 mg/dL (74-106); NT PRO BNP 45.6 pg/mL (0-900); Potassium 4.7 mmol/L (3.5-5.1); SGOT/AST 20 U/L (17-59); SGPT/ALT 17 U/L (0-50); SODIUM 142 mmol/L (137-145); Total Protein 6.5 g/dL (6.3-8.2)
[2019-06-27] MEDS ORDERED: MORPHINE SULFATE 4 MG INJ IV ONE (23:37)
[2019-06-27] MEDS ORDERED: Zithromax 500 MG/ 250 ML NaCl Premix 500 MG/250 ML IVPB IV STA (23:38)
[2019-06-27] MEDS ORDERED: Zofran 4 MG/2 ML VIAL IV ONE (23:38)
[2019-06-27] MEDS ORDERED: ROCEPHIN 1 Gm-D5w 50 ml Bag** 1 G/50 ML IVPB IV STA (23:38)
[2019-06-27] MEDS ORDERED: Zofran 4 MG/2 ML VIAL ONE (23:50)
[2019-06-27] MEDS ORDERED: Zithromax 500 MG/ 250 ML NaCl Premix 500 MG/250 ML IVPB IV ONE (23:50)
[2019-06-27] MEDS ORDERED: MORPHINE SULFATE 4 MG INJ ONE (23:50)
[2019-06-27] MEDS ORDERED: ROCEPHIN 1 Gm-D5w 50 ml Bag** 1 G/50 ML IVPB IV ONE (23:51)
[2019-06-28 01:42] VITALS: BP 133/87; PULSE 102; O2SAT 93
--- NOTE | 2019-06-28 09:02 | XRAY ---
Indication: Short of breath. Comparison: December 29, 2018. Portable chest again demonstrates bibasilar discoid atelectasis/scarring and a few tiny calcified granulomas. Remaining heart and lungs unremarkable. No new/acute findings.
== END 2019-06-28 00:47 | disposition home or self-care (01) ==
LOC: ED 21:05
DX: R91.8 Other nonspecific abnormal finding of lung field (principal); J44.1 Chronic obstructive pulmonary disease with (acute) exacerbation; I10 Essential (primary) hypertension; Z79.01 Long term (current) use of anticoagulants; R06.02 Shortness of breath
CPT/HCPCS: 36000; 36415; 71045; 80053; 83605; 83880; 84484; 85025; 85379; 85610; 87040; 87070; 93005; 93041; 94150; 94640; 94760; 96365; 96367; 96374; 96375; 99285; J0456; J0696; J2270; J2405; A9270-GY

== ENCOUNTER 2019-10-22 15:32 | Emergency (ER) | payer MEDICARE ==
[2019-10-22 15:49] VITALS: O2SAT 98
--- NOTE | 2019-10-22 15:52 | ERPHSYRPT ---
- History of Present Illness Time Seen by Provider: 10/22/19 15:51 Source: patient Exam Limitations: no limitations Patient Subjective Stated Complaint: Pt states "My blood pressure has been up and down all morning. I have not felt well for about a week." Triage Nursing Assessment: Pt presented alert and oriented X 3, skin wpd PT ambulates with an upright steady gait, able to speak in clear full sentences pt in no apparent respiratory distress. PT on home O2 at 6 lpm Physician History: 59 y/o diabetic white male with h/o htn, copd and is oxygen dependent presents with several day h/o n/v/d. pt is feeling weak. pts bp has been low earlier today. despite knowing this he took his bp meds anyway. pts pcp told pt to come to ED for further management Timing/Duration: day(s) (5 to 6 days) Severity: moderate Associated Symptoms: nausea, vomiting, shortness of breath, cough, weakness, No chest pain Allergies/Adverse Reactions: No Known Drug Allergies Allergy (Verified 06/27/19 21:09) Home Medications: Warfarin Sodium 5 mg [Coumadin 5 MG] 5 mg PO DAILY 05/14/14 [History] Sennosides/Docusate Sodium [Stool Softener-Stim Lax Tablet] 1 each PO DAILY PRN PRN 11/18/14 [History] Metformin HCl 500 mg [Glucophage 500 MG] 500 mg PO BID 09/13/15 [History] Metoprolol Tartrate 50 mg [Lopressor 50 MG] 25 mg PO DAILY 01/17/16 [ History] Albuterol Sulfate [Proair Hfa] 8.5 gm IH BID PRN PRN 04/18/17 [History] Albuterol Sulfate [Ventolin Hfa] 18 gm IH QID PRN PRN 04/18/17 [History] Diltiazem HCl [Dilt-Xr] 240 mg PO DAILY 04/18/17 [History] Gabapentin [Neurontin] 600 mg PO TID 04/18/17 [History] Tamsulosin HCl 0.4 mg [Flomax 0.4 MG] 0.4 mg PO HS 04/18/17 [History] Theophylline Anhydrous 300 mg PO BID 04/18/17 [History] Budesonide/Formoterol Fumarate [Symbicort 160-4.5 Mcg Inhaler] 2 puff IH BID 08/03 [History] Glimepiride 2 mg [Amaryl 2 MG] 2 mg PO DAILY 01/24/18 [History] Losartan Potassium 50 mg [Cozaar 50 MG] 50 mg PO DAILY 01/24/18 [History] Hydrocodone/APAP 10/325 mg [[place] 10/325 MG Tablet] 1 tab PO Q6H PRN 08/12 [History] Rosuvastatin Calcium [Crestor] 20 mg PO DAILY 08/12/18 [History] Trazodone HCl 50 mg [Desyrel 50 mg] 150 mg PO HS 08/12/18 [History] Quetiapine Fumarate 25 mg [Seroquel 25 MG] 25 mg PO TIDPRN 11/23/18 [ History] Hx Tetanus, Diphtheria Vaccination/Date Given: Yes Hx Influenza Vaccination/Date Given: Yes Hx Pneumococcal Vaccination/Date Given: Yes Immunizations Up to Date: Yes - Review of Systems Constitutional: Weakness Eyes: No Symptoms Ears, Nose, & Throat: No Symptoms Respiratory: Cough, Dyspnea Cardiac: No Symptoms, No Chest Pain Abdominal/Gastrointestinal: Nausea, Vomiting, Diarrhea Genitourinary Symptoms: No Symptoms Musculoskeletal: No Symptoms Skin: No Symptoms Neurological: No Symptoms Psychological: No Symptoms Endocrine: No Symptoms Hematologic/Lymphatic: No Symptoms Immunological/Allergic: No Symptoms All Other Systems: Reviewed and Negative - Past Medical History Pertinent Past Medical History: Yes Neurological History: Stroke ENT History: No Pertinent History Cardiac History: Hypertension Respiratory History: Asthma, COPD Endocrine Medical History: Diabetes Type II Musculoskeletal History: Other GI Medical History: No Pertinent History History: No Pertinent History Psycho-Social History: Anxiety, Bipolar, Depression Male Reproductive Disorders: No Pertinent History Other Medical History: Strokes in 2013, 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 Ponce 2005. Lower Back pain. Decreased urine output. - Past Surgical History Past Surgical History: Yes Neuro Surgical History: No Pertinent History Cardiac: No Pertinent History Respiratory: No Pertinent History Gastrointestinal: Appendectomy Genitourinary: No Pertinent History Musculoskeletal: No Pertinent History Male Surgical History: No Pertinent History Other Surgical History: Right leg surgery(pins and plates), Sinus surgery, hernia repair - Social History Smoking Status: Former smoker How long have you smoked: 2006 Exposure to second hand smoke: No Drug Use: none Patient Lives Alone: No - Nursing Vital Signs Nursing Vital Signs: Initial Vital Signs Temperature 98.0 F 10/22/19 15:44 Pulse Rate 84 10/22/19 15:44 Respiratory Rate 18 10/22/19 15:44 Blood Pressure 103/66 10/22/19 15:44 O2 Sat by Pulse Oximetry 98 10/22/19 15:44 Pain Scale Pain Intensity 2 - Physical Exam General Appearance: mild distress, alert, anxiety Eye Exam: PERRL/EOMI, eyes nml inspection Ears, Nose, Throat Exam: normal ENT inspection, dry mucous membranes Neck Exam: normal inspection, non-tender, supple, full range of motion Respiratory Exam: normal breath sounds, lungs clear, airway intact, No chest tenderness, No respiratory distress Cardiovascular Exam: regular rate/rhythm, normal heart sounds, normal peripheral pulses Gastrointestinal/Abdomen Exam: soft, normal bowel sounds, No tenderness, No guarding Rectal Exam: not done Back Exam: normal inspection, normal range of motion, No CVA tenderness, No vertebral tenderness Extremity Exam: normal inspection, normal range of motion, pelvis stable Neurologic Exam: alert, oriented x 3, cooperative, 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 as tested Skin Exam: normal color, warm, dry Lymphatic Exam: adenopathy SpO2 Interpretation: normal SpO2: 98 O2 Delivery: Room Air - Course Nursing assessment & vital signs reviewed: Yes Ordered Tests: Active Orders 24 hr Category Date Time Status IV Insertion STAT Care 10/22/19 16:33 Active Pulse Oximetry (ED) STAT Care 10/22/19 16:33 Active CHEST 1 VIEW (PORTABLE) Stat Exams 10/22/19 16:34 Completed CBC W DIFF Stat Lab 10/22/19 16:45 Completed CMP Stat Lab 10/22/19 16:45 Completed Lactic Acid Stat Lab 10/22/19 16:48 Completed Irion Screen Stat Lab 10/22/19 16:45 Completed UA W/RFX UR CULTURE Stat Lab 10/22/19 17:15 Completed Medication Summary Generic Name Dose Route Start Last Admin Trade Name Freq PRN Reason Stop Dose Admin Sodium Chloride 1,000 mls @ 999 mls/hr 10/22/19 18:17 Sodium Chloride 0.9% 1000 Ml IV 10/22/19 19:17 .Q1H1M STA Discontinued Medications Generic Name Dose Route Start Last Admin Trade Name Larry PRN Reason Stop Dose Admin Hydrocodone Bitart/Acetaminophen 15 ml 10/22/19 16:35 10/22/19 16:54 Hydrocodone-Acetamin 2.5-108/5 Ml Solution PO 10/22/19 16:36 15 ml STAT STA Administration Hydrocodone Bitart/Acetaminophen Confirm 10/22/19 16:46 Hydrocodone-Acetamin 2.5-108/5 Ml Solution Administered 10/22/19 16:47 Dose 15 ml .ROUTE .STK-MED ONE Sodium Chloride 1,000 mls @ 999 mls/hr 10/22/19 16:33 10/22/19 17:57 Sodium Chloride 0.9% 1000 Ml IV 10/22/19 17:33 Infused .Q1H1M STA Infusion Sodium Chloride Confirm 10/22/19 16:47 Sodium Chloride 0.9% 1000 Ml Administered 10/22/19 16:48 Dose 1,000 mls @ ud .ROUTE .STK-MED ONE Ondansetron HCl 4 mg 10/22/19 16:33 10/22/19 16:55 Zofran 4 Mg/2 Ml Vial IV 10/22/19 16:34 4 mg STAT STA Administration Ondansetron HCl Confirm 10/22/19 16:46 Zofran 4 Mg/2 Ml Vial Administered 10/22/19 16:47 Dose 4 mg .ROUTE .STK-MED ONE Lab/Rad Data: Laboratory Result Diagrams 10/22/19 16:45 10/22/19 16:45 Laboratory Results 10/22/19 10/22/19 10/22/19 Range/Units 17:15 17:00 16:48 WBC (4.0-10.5) K/mm3 RBC (4.1-5.6) M/mm3 Hgb (12.5-18.0) gm/dl Hct (42-50) % MCV (78-100) fl MCH (26-32) pg MCHC (32-36) g/dl RDW (11.5-14.0) % Plt Count (150-450) K/mm3 MPV (7.5-11.0) fl Gran % (36.0-66.0) % Eos # (Auto) (0-0.5) Absolute Lymphs (auto) (1.0-4.6) Absolute Monos (auto) (0.0-1.3) Lymphocytes % (24.0-44.0) % Monocytes % (0.0-12.0) % Eosinophils % (0.00-5.0) % Basophils % (0.0-0.4) % Absolute Granulocytes (1.4-6.9) Basophils # (0-0.4) Sodium (137-145) mmol/L Potassium (3.5-5.1) mmol/L Chloride (98-107) mmol/L Carbon Dioxide (22-30) mmol/L Anion Gap (5-15) MEQ/L BUN (9-20) mg/dL Creatinine (0.66-1.25) mg/dL Estimated GFR ML/MIN Glucose (74-106) mg/dL Lactic Acid 1.5 (0.4-2.0) Calcium (8.4-10.2) mg/dL Total Bilirubin (0.2-1.3) mg/dL AST (17-59) U/L ALT (0-50) U/L Alkaline Phosphatase (38-126) U/L Serum Total Protein (6.3-8.2) g/dL Albumin (3.5-5.0) g/dL Urine Color YELLOW (YELLOW) Urine Appearance CLEAR (CLEAR) Urine pH 6.0 (5-6) Ur Specific [place] 1.026 (1.005-1.025) Urine Protein NEGATIVE (Negative) Urine Ketones NEGATIVE (NEGATIVE) Urine Blood NEGATIVE (0-5) Alexy/ul Urine Nitrite NEGATIVE (NEGATIVE) Urine Bilirubin NEGATIVE (NEGATIVE) Urine Urobilinogen 2 (0-1) mg/dL Ur Leukocyte Esterase NEGATIVE (NEGATIVE) Urine WBC (Auto) NONE (0-5) /HPF Urine RBC (Auto) NONE (0-2) /HPF U Epithel Cells (Auto) NONE (FEW) /HPF Urine Bacteria (Auto) NONE (NEGATIVE) /HPF Urine Mucus (Auto) SLIGHT (NEGATIVE) /HPF Urine Culture Reflexed NO (NO) Urine Glucose NEGATIVE (NEGATIVE) mg/dL Monoscreen (Negative) Influenza Type A Ag NEGATIVE (NEGATIVE) Influenza Type B Ag NEGATIVE (NEGATIVE) RSV (PCR) NEGATIVE (Negative) Group A Strep Antibody NEGATIVE (NEGATIVE) 10/22/19 10/22/19 10/22/19 Range/Units 16:45 16:45 16:45 WBC 4.9 (4.0-10.5) K/mm3 RBC 4.41 (4.1-5.6) M/mm3 Hgb 13.1 (12.5-18.0) gm/dl Hct 41.0 L (42-50) % MCV 93.0 (78-100) fl MCH 29.7 (26-32) pg MCHC 32.0 (32-36) g/dl RDW 15.0 H (11.5-14.0) % Plt Count 227 (150-450) K/mm3 MPV 8.3 (7.5-11.0) fl Gran % 54.3 (36.0-66.0) % Eos # (Auto) 0.10 (0-0.5) Absolute Lymphs (auto) 1.37 (1.0-4.6) Absolute Monos (auto) 0.72 (0.0-1.3) Lymphocytes % 28.2 (24.0-44.0) % Monocytes % 14.8 H (0.0-12.0) % Eosinophils % 2.1 (0.00-5.0) % Basophils % 0.6 (0.0-0.4) % Absolute Granulocytes 2.64 (1.4-6.9) Basophils # 0.03 (0-0.4) Sodium 139 (137-145) mmol/L Potassium 4.3 (3.5-5.1) mmol/L Chloride 104 (98-107) mmol/L Carbon Dioxide 29 (22-30) mmol/L Anion Gap 10.6 (5-15) MEQ/L BUN 13 (9-20) mg/dL Creatinine 0.92 (0.66-1.25) mg/dL Estimated GFR > 60.0 ML/MIN Glucose 137 H (74-106) mg/dL Lactic Acid (0.4-2.0) Calcium 9.1 (8.4-10.2) mg/dL Total Bilirubin 0.40 (0.2-1.3) mg/dL AST 21 (17-59) U/L ALT 16 (0-50) U/L Alkaline Phosphatase 67 (38-126) U/L Serum Total Protein 7.6 (6.3-8.2) g/dL Albumin 4.4 (3.5-5.0) g/dL Urine Color (YELLOW) Urine Appearance (CLEAR) Urine pH (5-6) Ur Specific [place] (1.005-1.025) Urine Protein (Negative) Urine Ketones (NEGATIVE) Urine Blood (0-5) Alexy/ul Urine Nitrite (NEGATIVE) Urine Bilirubin (NEGATIVE) Urine Urobilinogen (0-1) mg/dL Ur Leukocyte Esterase (NEGATIVE) Urine WBC (Auto) (0-5) /HPF Urine RBC (Auto) (0-2) /HPF U Epithel Cells (Auto) (FEW) /HPF Urine Bacteria (Auto) (NEGATIVE) /HPF Urine Mucus (Auto) (NEGATIVE) /HPF Urine Culture Reflexed (NO) Urine Glucose (NEGATIVE) mg/dL Monoscreen NEGATIVE (Negative) Influenza Type A Ag (NEGATIVE) Influenza Type B Ag (NEGATIVE) RSV (PCR) (Negative) Group A Strep Antibody (NEGATIVE) - Progress Progress: improved Progress Note: 10/22/19 18:23 cxr-no acute process. pt states he is better. not perfect yet. headache better. does want another liter of fluid. Counseled pt/family regarding: lab results, diagnosis, need for follow-up, rad results - Departure Departure Disposition: Home Clinical Impression: Vomiting and diarrhea, Dehydration Condition: Stable Critical Care Time: No Referrals: GEE FERNANDES MD [Primary Care Provider] - Additional Instructions: drink plenty of fluids. stop your blood pressure medications. may restart your blood pressure medication tomorrow if you are tolerating oral intake well and your systolic blood pressure is 150 or greater. Prescriptions: Hydrocodone Bit/Acetaminophen [Hydrocodone-Acetaminophen Soln] 10 ml PO Q6H # 120 ml Promethazine HCl 25 mg [Phenergan 25 mg] 25 mg PO QID PRN #10 tablet PRN Reason: Nausea/Vomiting
[2019-10-22] MEDS ORDERED: Sodium Chloride 0.9% 1000 ML 1,000 ML IV STA ×2 (16:33→18:17)
[2019-10-22] MEDS ORDERED: Zofran 4 MG/2 ML VIAL IV STA (16:33)
[2019-10-22] MEDS ORDERED: HYDROCODONE-ACETAMIN 2.5-108/5 ML SOLUTION PO STA (16:35)
[2019-10-22] MEDS ORDERED: HYDROCODONE-ACETAMIN 2.5-108/5 ML SOLUTION ONE (16:46)
[2019-10-22] MEDS ORDERED: Zofran 4 MG/2 ML VIAL ONE (16:46)
[2019-10-22] MEDS ORDERED: Sodium Chloride 0.9% 1000 ML 1,000 ML ONE ×2 (16:47→18:27)
--- NOTE | 2019-10-22 16:54 | XRAY ---
Indication: Cough. Comparison: June 27, 2019. Portable chest continues to demonstrate bibasilar discoid atelectasis/scarring and a few tiny calcified granulomas. Remaining heart and lungs unremarkable. No new/acute findings.
[2019-10-22 16:59] LABS: Absolute Neutrophil Ct (ANC) 2.64 (1.4-6.9); BASOPHIL % 0.6 % (0.0-0.4); Basophil (Absolute #) 0.03 (0-0.4); Eosinophil % 2.1 % (0.00-5.0); Hemoglobin 13.1 gm/dl (12.5-18.0); Lymphocyte (Absolute #) 1.37 (1.0-4.6); Lymphocytes % 28.2 % (24.0-44.0); Mean Corpuscular Hemoglobin 29.7 pg (26-32); Mean Platelet Volume 8.3 fl (7.5-11.0); Monocyte (Absolute #) 0.72 (0.0-1.3); Monocytes % 14.8 % (0.0-12.0); Neutrophil % 54.3 % (36.0-66.0); Platelet Count 227 K/mm3 (150-450); Red Blood Count 4.41 M/mm3 (4.1-5.6); White Blood Count 4.9 K/mm3 (4.0-10.5)
[2019-10-22 17:10] LABS: ALBUMIN 4.4 g/dL (3.5-5.0); ALKALINE PHOSPHATASE 67 U/L (38-126); ANION GAP 10.6 MEQ/L (5-15); BLOOD UREA NITROGEN 13 mg/dL (9-20); CHLORIDE 104 mmol/L (98-107); Calcium 9.1 mg/dL (8.4-10.2); Carbon Dioxide 29 mmol/L (22-30); Creatinine 1 0.92 mg/dL (0.66-1.25); Glucose 137 mg/dL (74-106); Potassium 4.3 mmol/L (3.5-5.1); SGOT/AST 21 U/L (17-59); SGPT/ALT 16 U/L (0-50); SODIUM 139 mmol/L (137-145); Total Protein 7.6 g/dL (6.3-8.2)
[2019-10-22 17:25] LABS: Appearance CLEAR (CLEAR); Bilirubin NEGATIVE (NEGATIVE); Blood NEGATIVE Ery/ul (0-5); Glucose NEGATIVE (NEGATIVE); Ketones NEGATIVE (NEGATIVE); Leukocyte Esterase NEGATIVE (NEGATIVE); Mucus SLIGHT /HPF (NEGATIVE); Nitrite NEGATIVE (NEGATIVE); Protein,Urine Dip NEGATIVE (Negative); Specific Gravity 1.026 (1.005-1.025); Urobilinogen 2 mg/dL (0-1)
[2019-10-22 17:51] LABS: INFLUENZA A NEGATIVE (NEGATIVE); INFLUENZA B NEGATIVE (NEGATIVE); RESPIRATORY SYNCTIAL VIRUS NEGATIVE (Negative)
[2019-10-22 19:58] VITALS: BP 100/62; PULSE 67
== END 2019-10-22 19:53 | disposition home or self-care (01) ==
LOC: ED 15:32
DX: R11.2 Nausea with vomiting, unspecified (principal); E86.0 Dehydration; R06.02 Shortness of breath; R05 Cough; R53.1 Weakness; Z79.899 Other long term (current) drug therapy; Z79.01 Long term (current) use of anticoagulants; R19.7 Diarrhea, unspecified; E11.9 Type 2 diabetes mellitus without complications; I10 Essential (primary) hypertension; J44.9 Chronic obstructive pulmonary disease, unspecified
CPT/HCPCS: 36415; 71045; 80053; 81001; 83605; 85025; 86308; 87631; 87651; 94760; 96360; 96361; 96374; 99284; J2405; A9270-GY

== ENCOUNTER 2019-12-10 15:05 | Observation (INO) | payer MEDICARE ==
[2019-12-10] MEDS ORDERED: PROVENTIL 2.5 MG/3 ML NEB IH ONE (16:46)
[2019-12-10] MEDS ORDERED: Ventolin Hfa MDI IH PRN ×2 (17:12)
[2019-12-10] MEDS ORDERED: Senokot-S Tablet PO PRN (17:12)
[2019-12-10] MEDS ORDERED: VENTOLIN COMMON CANISTER IH PRN (17:28)
[2019-12-10] MEDS ORDERED: MEDICATION INTERVENTION MC SCH (17:30)
[2019-12-10] MEDS: PROVENTIL 2.5 MG/3 ML NEB IH SCH ×2 (17:39→22:49)
[2019-12-10] MEDS: PHENERGAN 25 MG PO PRN (17:43)
[2019-12-10] MEDS ORDERED: Coumadin 5 MG ONE (17:48)
[2019-12-10 17:59] LABS: INR 1.86 (0.8-3.0); PROTIME 21.3 SECONDS (8.83-12.87)
[2019-12-10] MEDS: TYLENOL 325 MG PO PRN (18:37)
[2019-12-10] MEDS: Glucophage 500 MG PO SCH (18:38)
[2019-12-10] MEDS: Coumadin 5 MG PO SCH (18:57)
[2019-12-10] MEDS: Advair Hfa 230/21 Mcg COMMON CANISTER IH SCH (19:34)
[2019-12-10] MEDS ORDERED: HUMALOG SQ PRN (20:19)
[2019-12-10] MEDS: solu-MEDROL 40 MG IV SCH (20:32)
[2019-12-10] MEDS: PERCOCET TABLET 5/325MG PO PRN (20:32)
[2019-12-10] MEDS: Sodium Chloride 0.9% 1000 ML 1,000 ML IV SCH (20:33)
[2019-12-10] MEDS: ZOCOR 20MG PO SCH (21:36)
[2019-12-10] MEDS: Flomax 0.4 MG PO SCH (21:36)
[2019-12-10] MEDS: DESYREL 50 MG PO SCH (21:36)
[2019-12-10] MEDS: Neurontin 400 MG PO SCH (21:37)
[2019-12-10] MEDS: THEOPHYLLINE ER 24HR PO SCH (21:38)
[2019-12-10 21:59] LABS: Absolute Neutrophil Ct (ANC) 3.85 (1.4-6.9); BASOPHIL % 0.3 % (0.0-0.4); Basophil (Absolute #) 0.02 (0-0.4); Eosinophil % 1.8 % (0.00-5.0); Eosinophil (Absolute #) 0.11 (0-0.5); Hematocrit 38.8 % (42-50); Hemoglobin 12.2 gm/dl (12.5-18.0); Lymphocyte (Absolute #) 1.52 (1.0-4.6); Lymphocytes % 24.8 % (24.0-44.0); Mean Cell Volume 96.3 fl (78-100); Mean Corpuscular Hemoglobin 30.3 pg (26-32); Mean Corpuscular Hgb Concent. 31.4 g/dl (32-36); Monocyte (Absolute #) 0.63 (0.0-1.3); Monocytes % 10.3 % (0.0-12.0); Neutrophil % 62.8 % (36.0-66.0); Platelet Count 268 K/mm3 (150-450); Red Blood Count 4.03 M/mm3 (4.1-5.6); Red Cell Distribution Width 15.6 % (11.5-14.0); White Blood Count 6.1 K/mm3 (4.0-10.5)
[2019-12-10] MEDS ORDERED: NON-FORMULARY ITEM (Budesonide/Formoterol Fumarate [Symbicort 160-4.5 Mcg Inhaler] 2 PUFF) IH SCH (22:00)
[2019-12-10] MEDS ORDERED: NON-FORMULARY ITEM (Theophylline Anhydrous [Theophylline Anhydrous] 300 MG) PO SCH (22:00)
[2019-12-10] MEDS ORDERED: ROCEPHIN 1 Gm-D5w 50 ml Bag** 1 G/50 ML IVPB IV SCH (22:00)
[2019-12-10] MEDS ORDERED: NON-FORMULARY ITEM (Gabapentin [Neurontin] 800 MG) PO SCH (22:00)
[2019-12-10 22:05] LABS: ALBUMIN 4.1 g/dL (3.5-5.0); ALKALINE PHOSPHATASE 81 U/L (38-126); ANION GAP 10.1 MEQ/L (5-15); BLOOD UREA NITROGEN 8 mg/dL (9-20); CHLORIDE 105 mmol/L (98-107); Calcium 8.8 mg/dL (8.4-10.2); Carbon Dioxide 29 mmol/L (22-30); Creatinine 1 0.62 mg/dL (0.66-1.25); Glucose 166 mg/dL (74-106); SGOT/AST 24 U/L (17-59); SGPT/ALT 19 U/L (0-50); SODIUM 140 mmol/L (137-145)
[2019-12-11] MEDS: PROVENTIL 2.5 MG/3 ML NEB IH SCH ×6 (02:39→22:43)
[2019-12-11] MEDS: solu-MEDROL 40 MG IV SCH ×3 (06:05→21:48)
[2019-12-11] MEDS: PERCOCET TABLET 5/325MG PO PRN ×3 (06:11→21:44)
[2019-12-11] MEDS: Advair Hfa 230/21 Mcg COMMON CANISTER IH SCH ×2 (06:36→19:09)
[2019-12-11] MEDS: Sodium Chloride 0.9% 1000 ML 1,000 ML IV SCH ×2 (07:29→16:55)
[2019-12-11] MEDS: Glucophage 500 MG PO SCH ×2 (07:30→16:59)
--- NOTE | 2019-12-11 09:14 | XRAY ---
Indication: Cough and short of breath. Comparison: October 22, 2019. PA/lateral chest unchanged again hyperinflated with bibasilar discoid atelectasis/scarring and a few scattered tiny calcified granulomas. Heart is not enlarged. No new or acute cardiopulmonary abnormalities. Comment: Preliminary interpretation was made by [facility]. No critical discrepancy.
[2019-12-11] MEDS: Neurontin 400 MG PO SCH ×3 (09:52→21:48)
[2019-12-11] MEDS: Lopressor 50 MG PO SCH (09:53)
[2019-12-11] MEDS: THEOPHYLLINE ER 24HR PO SCH ×2 (09:54→21:49)
[2019-12-11] MEDS: Amaryl 2 MG PO SCH (09:56)
[2019-12-11] MEDS: TYLENOL 325 MG PO PRN ×2 (09:58→16:59)
[2019-12-11] MEDS ORDERED: VILAZODONE HCL 10 MG PO SCH (10:00)
[2019-12-11] MEDS ORDERED: NON-FORMULARY ITEM (Rosuvastatin Calcium [Crestor] 20 MG) PO SCH (10:00)
[2019-12-11] MEDS ORDERED: NovoLOG Insulin SQ PRN (12:15)
--- NOTE | 2019-12-11 12:56 | PCM.NOTE ---
Date and Time: 12/11/19 1254 Subjective Assessment: doing ok - Review of Systems Constitutional: No Fever, No Chills Eyes: No Symptoms Ears, Nose, & Throat: No Symptoms Respiratory: No Cough, No Short Of Breath Cardiac: No Chest Pain, No Edema, No Syncope Abdominal/Gastrointestinal: No Abdominal Pain, No Nausea, No Vomiting, No Diarrhea Genitourinary Symptoms: No Dysuria Musculoskeletal: No Back Pain, No Neck Pain Skin: No Rash Neurological: No Dizziness, No Focal Weakness, No Sensory Changes Psychological: No Symptoms Endocrine: No Symptoms Hematologic/Lymphatic: No Symptoms Immunological/Allergic: No Symptoms Objective Exam General Appearance: no apparent distress, alert Neurologic Exam: alert, oriented x 3, cooperative, normal mood/affect, nml cerebellar function, sensation nml, No motor deficits Skin Exam: normal color, warm, dry Eye Exam: PERRL, EOMI, eyes nml inspection Ears, Nose, Throat Exam: normal ENT inspection, pharynx normal, moist mucous membranes Neck Exam: normal inspection, non-tender, supple, full range of motion Respiratory Exam: normal breath sounds, diminished breath sounds, No respiratory distress Cardiovascular Exam: regular rate/rhythm, normal heart sounds Gastrointestinal/Abdomen Exam: soft, No tenderness, No mass Extremity Exam: normal inspection, normal range of motion Back Exam: normal inspection, normal range of motion, No CVA tenderness, No vertebral tenderness Male Genitalia Exam: deferred Rectal Exam: deferred OBJECTIVE DATA Vital Signs: Vital Signs - 24 hr Temp Pulse Resp BP Pulse Ox 12/11/19 11:39 98.2 F 116 H 18 142/78 93 L 12/11/19 11:19 110 H 20 93 L 12/11/19 07:20 97.5 F 80 18 133/63 96 12/11/19 06:35 82 16 95 12/11/19 04:00 97.8 F 73 22 102/62 97 12/11/19 02:41 73 22 97 12/11/19 00:00 97.9 F 79 20 123/59 97 12/10/19 22:52 79 22 97 12/10/19 20:00 98.1 F 97 H 20 131/74 95 12/10/19 17:38 78 22 95 12/10/19 15:52 98.3 F 76 16 121/70 96 Pain Assessment - Last Documented Pain Intensity 5 Pain Scale Used 0-10 Pain Scale Intake and Output: Intake & Output 12/09/19 12/10/19 12/11/19 12/12/19 11:59 11:59 11:59 11:59 Intake Total 2467 Balance 2467 Weight 111.2 kg Lab Results: Accuchecks Date 12/11/19 Date 12/11/19 Date 12/10/19 Time 11:30 Time 07:30 Time 22:00 Accucheck Value: 215 Accucheck Value: 177 Accucheck Value: 102 Lab Results-Last 24 Hours 12/10/19 12/10/19 12/10/19 Range/Units 15:35 15:35 15:35 WBC 6.1 (4.0-10.5) K/mm3 RBC 4.03 L (4.1-5.6) M/mm3 Hgb 12.2 L (12.5-18.0) gm/dl Hct 38.8 L (42-50) % MCV 96.3 (78-100) fl MCH 30.3 (26-32) pg MCHC 31.4 L (32-36) g/dl RDW 15.6 H (11.5-14.0) % Plt Count 268 (150-450) K/mm3 MPV 9.0 (7.5-11.0) fl Gran % 62.8 (36.0-66.0) % Eos # (Auto) 0.11 (0-0.5) Absolute Lymphs (auto) 1.52 (1.0-4.6) Absolute Monos (auto) 0.63 (0.0-1.3) Lymphocytes % 24.8 (24.0-44.0) % Monocytes % 10.3 (0.0-12.0) % Eosinophils % 1.8 (0.00-5.0) % Basophils % 0.3 (0.0-0.4) % Absolute Granulocytes 3.85 (1.4-6.9) Basophils # 0.02 (0-0.4) PT 21.3 H (8.83-12.87) SECONDS INR 1.86 (0.8-3.0) Sodium 140 (137-145) mmol/L Potassium 4.0 (3.5-5.1) mmol/L Chloride 105 (98-107) mmol/L Carbon Dioxide 29 (22-30) mmol/L Anion Gap 10.1 (5-15) MEQ/L BUN 8 L (9-20) mg/dL Creatinine 0.62 L (0.66-1.25) mg/dL Estimated GFR > 60.0 ML/MIN Glucose 166 H (74-106) mg/dL Calcium 8.8 (8.4-10.2) mg/dL Total Bilirubin 0.30 (0.2-1.3) mg/dL AST 24 (17-59) U/L ALT 19 (0-50) U/L Alkaline Phosphatase 81 (38-126) U/L Serum Total Protein 7.0 (6.3-8.2) g/dL Albumin 4.1 (3.5-5.0) g/dL Radiology Exams: Radiology Procedures Category Date Time Status CHEST 2 VIEWS (PA AND LAT) Stat Exams 12/11/19 00:50 Completed Assessment/Plan (1) COPD exacerbation Current Visit: Yes Status: Acute Assessment & Plan: Last Vital Signs Temp 98.2 F 12/11/19 11:39 Pulse 116 H 12/11/19 11:39 Resp 18 12/11/19 11:39 BP 142/78 12/11/19 11:39 Pulse Ox 93 L 12/11/19 11:39 Allergies No Known Drug Allergies Allergy (Verified 12/10/19 15:18) Active Medications Acetaminophen (Tylenol 325 Mg) 650 mg PO Q4H PRN PRN PRN Reason: PAIN, FEVER, HEADACHE Stop: 01/09/20 17:33 Last Admin: 12/11/19 09:58 Dose: 650 mg Albuterol Sulfate (Ventolin Common Canister) 2 puff IH QID PRN PRN Stop: 01/09/20 17:27 Albuterol Sulfate (Proventil 2.5 Mg/3 Ml Neb) 2.5 mg IH Q4HRT JUAN Stop: 01/09/20 18:59 Last Admin: 12/11/19 11:11 Dose: 2.5 mg Gabapentin (Neurontin 400 Mg) 800 mg PO TID JUAN Stop: 01/09/20 21:59 Last Admin: 12/11/19 09:52 Dose: 800 mg Glimepiride (Amaryl 2 Mg) 2 mg PO DAILY [facility] Stop: 01/10/20 09:59 Last Admin: 12/11/19 09:56 Dose: 2 mg Sodium Chloride (Sodium Chloride 0.9% 1000 Ml) 1,000 mls @ 100 mls/hr IV .Q10H JUAN Stop: 01/09/20 20:29 Last Admin: 12/11/19 07:29 Dose: 100 mls/hr Ceftriaxone Sodium/Dextrose (Rocephin 1 Gm-D5w 50 Ml Bag) 1 g in 50 mls @ 100 mls/hr IV Q24H22 JUAN Stop: 01/10/20 21:59 Insulin Aspart (Novolog Insulin) 0 unit SQ UD PRN Stop: 01/10/20 12:14 Last Admin: 12/11/19 12:30 Dose: 2 unit Metformin HCl (Glucophage 500 Mg) 500 mg PO BIDWM JUAN Stop: 01/09/20 17:59 Last Admin: 12/11/19 07:30 Dose: 500 mg Methylprednisolone Sodium Succinate (Solu-Medrol 40 Mg) 40 mg IV Q8H JUAN Stop: 01/09/20 21:59 Last Admin: 12/11/19 06:05 Dose: 40 mg Metoprolol Tartrate (Lopressor 50 Mg) 25 mg PO DAILY JUAN Stop: 01/10/20 09:59 Last Admin: 12/11/19 09:53 Dose: 25 mg Miscellaneous Information (Medication Intervention) 0 each MC .RN TO CHECK WITH PT [facility] Stop: 01/09/20 17:29 Oxycodone/Acetaminophen (Percocet Tablet 5/325mg) 1.5 tab PO QIDP PRN PRN Reason: PAIN Stop: 12/15/19 20:16 Last Admin: 12/11/19 11:21 Dose: 1.5 tab Promethazine HCl (Phenergan 25 Mg) 25 mg PO QID PRN PRN PRN Reason: NAUSEA/VOMITING Stop: 01/09/20 17:11 Last Admin: 12/10/19 17:43 Dose: 25 mg Fluticasone/Salmeterol (Advair Hfa 230/21 Mcg Common Canister*) 2 puff IH BIDRT JUAN Stop: 01/09/20 18:59 Last Admin: 12/11/19 06:36 Dose: 2 puff Senna/Docusate Sodium (Senokot-S Tablet) 1 udtab PO DAILY PRN PRN PRN Reason: CONSTIPATION Stop: 01/09/20 17:11 Simvastatin (Zocor 20mg) 40 mg PO HS [facility] Stop: 01/09/20 21:59 Last Admin: 12/10/19 21:36 Dose: 40 mg Tamsulosin HCl (Flomax 0.4 Mg) 0.4 mg PO [facility] Stop: 01/09/20 21:59 Last Admin: 12/10/19 21:36 Dose: 0.4 mg Theophylline (Theophylline Er 24hr) 300 mg PO BID [facility] Stop: 01/09/20 21:59 Last Admin: 12/11/19 09:54 Dose: 300 mg Trazodone HCl (Desyrel 50 Mg) 150 mg PO HS [facility] Stop: 01/09/20 21:59 Last Admin: 12/10/19 21:36 Dose: 150 mg Warfarin Sodium (Coumadin 5 Mg) 5 mg PO COU [facility] Stop: 01/09/20 17:59 Last Admin: 12/10/19 18:57 Dose: 5 mg Intake & Output 12/11/19 12/12/19 11:59 11:59 Intake Total 2467 Balance 2467 Weight 111.2 kg Orders 12/10/19 17:12 Promethazine HCl 25 mg [Phenergan 25 mg] 25 mg PO QID PRN PRN Senna/Docusate Sodium Tab [Senokot-S Tablet] 1 udtab PO DAILY PRN PRN 12/10/19 17:28 Albuterol Common Canister [Ventolin Common Canister] 2 puff IH QID PRN PRN 12/10/19 17:30 Medication Intervention 0 each MC .RN TO CHECK WITH PT 12/10/19 17:34 Acetaminophen 325 mg [Tylenol 325 mg] 650 mg PO Q4H PRN PRN 12/10/19 17:36 Oxygen NASAL CANNULA 6 lpm 12/10/19 17:38 Pulse Oximetry ROUTINE 12/10/19 18:00 Metformin HCl 500 mg [Glucophage 500 MG] 500 mg PO BIDWM Warfarin Sodium 5 mg [Coumadin 5 MG] 5 mg PO COU 12/10/19 18:30 ACCUCHECK [Accucheck] ACHS 12/10/19 19:00 Albuterol 2.5 mg/3 ml Neb [Proventil 2.5 mg/3 ml Neb] 2.5 mg IH Q4HRT Fluticasone/Salmeterol 230/21 [Advair Hfa 230/21 Mcg COMMON CANISTER*] 2 puff IH BIDRT 12/10/19 20:17 Oxycodone/APAP 5 mg/325 mg [Percocet Tablet 5/325Mg] 1.5 tab PO QIDP PRN 12/10/19 20:18 Activity as Tolerated TOLERATED 12/10/19 20:29 BiPap/CPAP ROUTINE 12/10/19 20:30 NaCl 0.9% 1000 ml [Sodium Chloride 0.9% 1000 ML] 1,000 ml IV 100 mls/hr 12/10/19 22:00 Gabapentin 400 mg [Neurontin 400 MG] 800 mg PO TID Methylprednisolone Sod Suc 40M [solu-MEDROL 40 MG] 40 mg IV Q8H Simvastatin 20Mg [Zocor 20Mg] 40 mg PO HS Tamsulosin HCl 0.4 mg [Flomax 0.4 MG] 0.4 mg PO HS Theophylline Anhydrous [Theophylline ER 24Hr] 300 mg PO BID Trazodone HCl 50 mg [Desyrel 50 mg] 150 mg PO HS 12/10/19 Dinner 1800 Calorie ADA 12/11/19 07:00 Peak Expiratory Flow Rate DAILY Respiratory Therapy Assessment DAILY 12/11/19 10:00 Glimepiride 2 mg [Amaryl 2 MG] 2 mg PO DAILY Metoprolol Tartrate 50 mg [Lopressor 50 MG] 25 mg PO DAILY 12/11/19 12:15 Insulin Aspart [NovoLOG Insulin] 0 unit SQ UD PRN 12/11/19 22:00 Ceftriaxone 1 GM/50 ML PREMIX* [ROCEPHIN 1 Gm-D5w 50 ml Bag] 1 g in 50 ml IV Q24H22 Lab Tests 12/10/19 12/10/19 12/10/19 15:35 15:35 15:35 WBC 6.1 RBC 4.03 L Hgb 12.2 L Hct 38.8 L MCV 96.3 MCH 30.3 MCHC 31.4 L RDW 15.6 H Plt Count 268 MPV 9.0 Gran % 62.8 Eos # (Auto) 0.11 Absolute Lymphs (auto) 1.52 Absolute Monos (auto) 0.63 Lymphocytes % 24.8 Monocytes % 10.3 Eosinophils % 1.8 Basophils % 0.3 Absolute Granulocytes 3.85 Basophils # 0.02 PT 21.3 H INR 1.86 Sodium 140 Potassium 4.0 Chloride 105 Carbon Dioxide 29 Anion Gap 10.1 BUN 8 L Creatinine 0.62 L Estimated GFR > 60.0 Glucose 166 H Calcium 8.8 Total Bilirubin 0.30 AST 24 ALT 19 Alkaline Phosphatase 81 Serum Total Protein 7.0 Albumin 4.1 Code(s): J44.1 - CHRONIC OBSTRUCTIVE PULMONARY DISEASE W (ACUTE) EXACERBATION
[2019-12-11] MEDS: PATIENT OWN MEDICATION PO SCH (14:17)
[2019-12-11] MEDS: PHENERGAN 25 MG PO PRN (15:28)
[2019-12-11] MEDS: Coumadin 5 MG PO SCH (17:00)
[2019-12-11] MEDS: HUMALOG SQ PRN (21:47)
[2019-12-11] MEDS: DESYREL 50 MG PO SCH (21:48)
[2019-12-11] MEDS: Flomax 0.4 MG PO SCH (21:48)
[2019-12-11] MEDS: ZOCOR 20MG PO SCH (21:48)
[2019-12-11] MEDS ORDERED: ROCEPHIN 1 Gm-D5w 50 ml Bag** 1 G/50 ML IVPB IV SCH (22:00)
[2019-12-12] MEDS: PROVENTIL 2.5 MG/3 ML NEB IH SCH ×3 (03:00→11:01)
[2019-12-12] MEDS: Sodium Chloride 0.9% 1000 ML 1,000 ML IV SCH (03:20)
[2019-12-12] MEDS: solu-MEDROL 40 MG IV SCH ×2 (06:08→12:50)
[2019-12-12] MEDS: Advair Hfa 230/21 Mcg COMMON CANISTER IH SCH (07:06)
[2019-12-12] MEDS: PERCOCET TABLET 5/325MG PO PRN (07:21)
[2019-12-12] MEDS: Glucophage 500 MG PO SCH (07:21)
[2019-12-12] MEDS: THEOPHYLLINE ER 24HR PO SCH (09:21)
[2019-12-12] MEDS: Lopressor 50 MG PO SCH (09:21)
[2019-12-12] MEDS: Neurontin 400 MG PO SCH (09:21)
[2019-12-12] MEDS: Amaryl 2 MG PO SCH (09:21)
[2019-12-12] MEDS: PATIENT OWN MEDICATION PO SCH (09:22)
[2019-12-12 12:01] VITALS: BP 132/82; PULSE 106; O2SAT 93
[2019-12-12] MEDS: HUMALOG SQ PRN (12:51)
== END 2019-12-12 14:05 | disposition home or self-care (01) ==
LOC: MED SURG 15:05
PROVIDERS: ADMIT General Practice; ATTEND General Practice
DX: J96.90 Respiratory failure, unspecified, unspecified whether with hypoxia or hypercapnia (principal); J44.1 Chronic obstructive pulmonary disease with (acute) exacerbation; E11.9 Type 2 diabetes mellitus without complications; Z79.01 Long term (current) use of anticoagulants; Z79.899 Other long term (current) drug therapy; Z86.718 Personal history of other venous thrombosis and embolism
CPT/HCPCS: 36415; 71046; 80053; 82962; 83036; 85025; 85610; 94150; 94640; 94760; G0378; J0696; J1817; J2920; J7609; A9270-GY

== ENCOUNTER 2020-05-30 16:32 | Emergency (ER) | payer MEDICARE ==
[2020-05-30] MEDS ORDERED: Sodium Chloride 0.9% 1000 ML 1,000 ML IV STA ×2 (16:54→18:06)
[2020-05-30] MEDS ORDERED: Zofran 4 MG/2 ML VIAL IV ONE (16:54)
[2020-05-30] MEDS ORDERED: Pepcid 20 MG VIAL IV ONE ×2 (16:54→17:14)
--- NOTE | 2020-05-30 16:54 | ERPHSYRPT ---
- History of Present Illness Time Seen by Provider: 05/30/20 16:52 Historian: patient Exam Limitations: no limitations Physician History: This is a 59-year-old diabetic white gentleman has a history of hypertension and 6 L nasal cannula oxygen dependent COPD patient on metformin, metoprolol, diltiazem and warfarin. Patient presents with a few day history of nausea vom iting diarrhea. They occurred on the same day. He has not been eating or drinking well. Patient denies chest pain. He has chronic shortness of breath and that is not worse. He does have muscle aches and pains. He denies fever. He states that he is never around other individuals. He had a COVID 19 test approximately a month to 6 weeks ago and this was a negative test result Timing/Duration: day(s) (Couple of days) Quality: cramping (Mild diffuse) Abdominal Pain Onset Location: generalized abdomen Pain Radiation: no radiation Severity of Pain-Max: mild Severity of Pain-Current: mild Modifying Factors: Improves With: vomiting Associated Symptoms: diarrhea, loss of appetite, nausea, shortness of breath, vomiting, No headache Previous symptoms: no prior history Allergies/Adverse Reactions: No Known Drug Allergies Allergy (Verified 05/30/20 16:41) Home Medications: Warfarin Sodium 5 mg [Coumadin 5 MG] 5 mg PO DAILY 05/14/14 [History] Sennosides/Docusate Sodium [Stool Softener-Stim Lax Tablet] 1 each PO DAILY PRN PRN 11/18/14 [History] Metformin HCl 500 mg [Glucophage 500 MG] 500 mg PO BID 09/13/15 [History] Metoprolol Tartrate 50 mg [Lopressor 50 MG] 25 mg PO DAILY 01/17/16 [Hi story] Albuterol Sulfate [Proair Hfa] 8.5 gm IH BID PRN PRN 04/18/17 [History] Albuterol Sulfate [Ventolin Hfa] 18 gm IH QID PRN PRN 04/18/17 [History] Gabapentin [Neurontin] 800 mg PO TID 04/18/17 [History] Tamsulosin HCl 0.4 mg [Flomax 0.4 MG] 0.4 mg PO HS 04/18/17 [History] Theophylline Anhydrous 300 mg PO BID 04/18/17 [History] Budesonide/Formoterol Fumarate [Symbicort 160-4.5 Mcg Inhaler] 2 puff IH BID 01/24/18 [History] Glimepiride 2 mg [Amaryl 2 MG] 2 mg PO DAILY 01/24/18 [History] Trazodone HCl 50 mg [Desyrel 50 mg] 150 mg PO HS 08/12/18 [History] Vilazodone HCl [Viibryd] 10 mg PO DAILY 12/10/19 [History] Hx Tetanus, Diphtheria Vaccination/Date Given: Yes Hx Influenza Vaccination/Date Given: Yes Hx Pneumococcal Vaccination/Date Given: Yes Travel Risk - International Travel Have you traveled outside of the country in past 3 weeks: No - Coronavirus Screening Are you exhibiting any of the following symptoms?: Yes Symptoms: Vomiting/Diarrhea, Headaches/Body Aches/Fatigue Close contact with a COVID-19 positive Pt in past 14-21 Days: No - Review of Systems Constitutional: No Symptoms Eyes: No Symptoms Ears, Nose, & Throat: No Symptoms Respiratory: No Symptoms Cardiac: No Symptoms Abdominal/Gastrointestinal: Abdominal Pain (Mild diffuse cramping), Nausea, Vomiting, Diarrhea Genitourinary Symptoms: No No Symptoms Musculoskeletal: No Symptoms Skin: No Symptoms Neurological: Dizziness (Mild) Psychological: No Symptoms Endocrine: No Symptoms Hematologic/Lymphatic: No Symptoms Immunological/Allergic: No Symptoms All Other Systems: Reviewed and Negative - Past Medical History Pertinent Past Medical History: Yes Neurological History: Stroke ENT History: No Pertinent History Cardiac History: High Cholesterol, Hypertension Respiratory History: Asthma, COPD, Emphysema Endocrine Medical History: Diabetes Type II Musculoskeletal History: Other GI Medical History: No Pertinent History History: No Pertinent History Psycho-Social History: Anxiety, Bipolar, Depression Male Reproductive Disorders: No Pertinent History Other Medical History: Strokes in 2013, 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 Ponce 2005. Lower Back pain. Decreased urine output. - Past Surgical History Past Surgical History: Yes Neuro Surgical History: No Pertinent History Cardiac: No Pertinent History Respiratory: No Pertinent History Gastrointestinal: Appendectomy Genitourinary: No Pertinent History Musculoskeletal: No Pertinent History, Other Male Surgical History: No Pertinent History Other Surgical History: Right leg surgery(pins and plates), Sinus surgery, hernia repair - Social History Smoking Status: Former smoker How long have you smoked: 2006 Exposure to second hand smoke: No Drug Use: none Patient Lives Alone: No - Nursing Vital Signs Nursing Vital Signs: Initial Vital Signs Temperature 98.5 F 05/30/20 16:33 Pulse Rate 81 05/30/20 16:33 Respiratory Rate 20 05/30/20 16:33 O2 Sat by Pulse Oximetry 97 05/30/20 16:33 Pain Scale Pain Intensity 7 - Physical Exam General Appearance: no apparent distress, alert, anxiety Eye Exam: PERRL/EOMI, eyes nml inspection Ears, Nose, Throat Exam: normal ENT inspection, moist mucous membranes Neck Exam: normal inspection, non-tender, supple, full range of motion Respiratory Exam: normal breath sounds, lungs clear, airway intact, No chest tenderness, No respiratory distress Cardiovascular Exam: regular rate/rhythm, normal heart sounds, normal peripheral pulses Gastrointestinal/Abdomen Exam: soft, normal bowel sounds, No tenderness, No guarding, No rebound Rectal Exam: not done Back Exam: normal inspection, normal range of motion, No CVA tenderness, No vertebral tenderness Extremity Exam: normal inspection, normal range of motion, pelvis stable Neurologic Exam: alert, oriented x 3, cooperative, 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 When compared to the EKG dated 06/27/2019 there is no changes from this EKG.) Ordered Tests: Active Orders 24 hr Category Date Time Status EKG-ER Only STAT Care 05/30/20 16:54 Active IV Insertion STAT Care 05/30/20 16:54 Active CHEST 1 VIEW (PORTABLE) Stat Exams 05/30/20 17:00 Taken AMYLASE Stat Lab 05/30/20 17:15 Completed CBC W DIFF Stat Lab 05/30/20 17:15 Completed CMP Stat Lab 05/30/20 17:15 Completed LIPASE Stat Lab 05/30/20 17:15 Completed Lactic Acid Stat Lab 05/30/20 16:54 Completed [place] Screen Stat Lab 05/30/20 17:15 Completed PROTIME WITH INR Stat Lab 05/30/20 17:15 Completed TROPONIN Q3H Lab 05/30/20 17:15 Completed TROPONIN Q3H Lab 05/30/20 20:00 Ordered TROPONIN Q3H Lab 05/30/20 23:00 Ordered TROPONIN Q3H Lab 05/31/20 02:00 Ordered TROPONIN Q3H Lab 05/31/20 05:00 Ordered UA W/RFX UR CULTURE Stat Lab 05/30/20 16:59 Completed Medication Summary Generic Name Dose Route Start Last Admin Trade Name Freq PRN Reason Stop Dose Admin Sodium Chloride 1,000 mls @ 999 mls/hr 05/30/20 18:06 05/30/20 18:21 Sodium Chloride 0.9% 1000 Ml IV 05/30/20 19:06 999 mls/hr .Q1H1M STA Administration Discontinued Medications Generic Name Dose Route Start Last Admin Trade Name Freq PRN Reason Stop Dose Admin Famotidine 20 mg 05/30/20 16:54 05/30/20 17:18 Pepcid 20 Mg Vial IV 05/30/20 16:55 20 mg STAT ONE Administration Famotidine Confirm 05/30/20 17:14 Pepcid 20 Mg Vial Administered 05/30/20 17:15 Dose 20 mg IV .STK-MED ONE Hydromorphone HCl 1 mg 05/30/20 18:28 05/30/20 18:38 Hydromorphone 1 Mg/Ml Ampule IV 05/30/20 18:29 1 mg STAT ONE Administration Hydromorphone HCl Confirm 05/30/20 18:38 Hydromorphone 1 Mg/Ml Ampule Administered 05/30/20 18:39 Dose 1 mg .ROUTE .STK-MED ONE Sodium Chloride 1,000 mls @ 999 mls/hr 05/30/20 16:54 05/30/20 18:22 Sodium Chloride 0.9% 1000 Ml IV 05/30/20 17:54 Infused .Q1H1M STA Infusion Sodium Chloride Confirm 05/30/20 17:14 Sodium Chloride 0.9% 1000 Ml Administered 05/30/20 17:15 Dose 1,000 mls @ ud .ROUTE .STK-MED ONE Sodium Chloride Confirm 05/30/20 18:19 Sodium Chloride 0.9% 1000 Ml Administered 05/30/20 18:20 Dose 1,000 mls @ ud .ROUTE .STK-MED ONE Ondansetron HCl 4 mg 05/30/20 16:54 05/30/20 17:18 Zofran 4 Mg/2 Ml Vial IV 05/30/20 16:55 4 mg STAT ONE Administration Ondansetron HCl Confirm 05/30/20 17:13 Zofran 4 Mg/2 Ml Vial Administered 05/30/20 17:14 Dose 4 mg .ROUTE .[facility]-MED ONE Lab/Rad Data: Laboratory Result Diagrams 05/30/20 17:15 05/30/20 17:15 Laboratory Results 05/30/20 05/30/20 05/30/20 Range/Units 17:15 17:15 17:15 WBC (4.0-10.5) K/mm3 RBC (4.1-5.6) M/mm3 Hgb (12.5-18.0) gm/dl Hct (42-50) % MCV (78-100) fl MCH (26-32) pg MCHC (32-36) g/dl RDW (11.5-14.0) % Plt Count (150-450) K/mm3 MPV (7.5-11.0) fl Gran % (36.0-66.0) % Eos # (Auto) (0-0.5) Absolute Lymphs (auto) (1.0-4.6) Absolute Monos (auto) (0.0-1.3) Lymphocytes % (24.0-44.0) % Monocytes % (0.0-12.0) % Eosinophils % (0.00-5.0) % Basophils % (0.0-0.4) % Absolute Granulocytes (1.4-6.9) Basophils # (0-0.4) PT 17.8 H (8.83-12.87) SECONDS INR 1.57 (0.8-3.0) Sodium (137-145) mmol/L Potassium (3.5-5.1) mmol/L Chloride (98-107) mmol/L Carbon Dioxide (22-30) mmol/L Anion Gap (5-15) MEQ/L BUN (9-20) mg/dL Creatinine (0.66-1.25) mg/dL Estimated GFR ML/MIN Glucose (74-106) mg/dL Lactic Acid (0.4-2.0) Calcium (8.4-10.2) mg/dL Total Bilirubin (0.2-1.3) mg/dL AST (17-59) U/L ALT (0-50) U/L Alkaline Phosphatase (38-126) U/L Troponin I < 0.012 (0.000-0.034) ng/mL Serum Total Protein (6.3-8.2) g/dL Albumin (3.5-5.0) g/dL Amylase (30-110) U/L Lipase (23-300) U/L Urine Color (YELLOW) Urine Appearance (CLEAR) Urine pH (5-6) Ur Specific [place] (1.005-1.025) Urine Protein (Negative) Urine Ketones (NEGATIVE) Urine Blood (0-5) Alexy/ul Urine Nitrite (NEGATIVE) Urine Bilirubin (NEGATIVE) Urine Urobilinogen (0-1) mg/dL Ur Leukocyte Esterase (NEGATIVE) Urine WBC (Auto) (0-5) /HPF Urine RBC (Auto) (0-2) /HPF U Epithel Cells (Auto) (FEW) /HPF Urine Bacteria (Auto) (NEGATIVE) /HPF Urine Mucus (Auto) (NEGATIVE) /HPF Urine Culture Reflexed (NO) Urine Glucose (NEGATIVE) mg/dL Monoscreen NEGATIVE (Negative) Influenza Type A Ag (NEGATIVE) Influenza Type B Ag (NEGATIVE) RSV (PCR) (Negative) 05/30/20 05/30/20 05/30/20 Range/Units 17:15 17:15 17:00 WBC 5.4 (4.0-10.5) K/mm3 RBC 4.76 (4.1-5.6) M/mm3 Hgb 13.8 (12.5-18.0) gm/dl Hct 43.3 (42-50) % MCV 91.0 (78-100) fl MCH 29.0 (26-32) pg MCHC 31.9 L (32-36) g/dl RDW 14.8 H (11.5-14.0) % Plt Count 228 (150-450) K/mm3 MPV 8.5 (7.5-11.0) fl Gran % 54.0 (36.0-66.0) % Eos # (Auto) 0.15 (0-0.5) Absolute Lymphs (auto) 1.79 (1.0-4.6) Absolute Monos (auto) 0.54 (0.0-1.3) Lymphocytes % 32.9 (24.0-44.0) % Monocytes % 9.9 (0.0-12.0) % Eosinophils % 2.8 (0.00-5.0) % Basophils % 0.4 (0.0-0.4) % Absolute Granulocytes 2.94 (1.4-6.9) Basophils # 0.02 (0-0.4) PT (8.83-12.87) SECONDS INR (0.8-3.0) Sodium 136 L (137-145) mmol/L Potassium 3.9 (3.5-5.1) mmol/L Chloride 99 (98-107) mmol/L Carbon Dioxide 30 (22-30) mmol/L Anion Gap 11.0 (5-15) MEQ/L BUN 13 (9-20) mg/dL Creatinine 0.89 (0.66-1.25) mg/dL Estimated GFR > 60.0 ML/MIN Glucose 155 H (74-106) mg/dL Lactic Acid (0.4-2.0) Calcium 9.2 (8.4-10.2) mg/dL Total Bilirubin 0.40 (0.2-1.3) mg/dL AST 29 (17-59) U/L ALT 23 (0-50) U/L Alkaline Phosphatase 88 (38-126) U/L Troponin I (0.000-0.034) ng/mL Serum Total Protein 7.2 (6.3-8.2) g/dL Albumin 4.4 (3.5-5.0) g/dL Amylase 65 (30-110) U/L Lipase 48 (23-300) U/L Urine Color (YELLOW) Urine Appearance (CLEAR) Urine pH (5-6) Ur Specific [place] (1.005-1.025) Urine Protein (Negative) Urine Ketones (NEGATIVE) Urine Blood (0-5) Alexy/ul Urine Nitrite (NEGATIVE) Urine Bilirubin (NEGATIVE) Urine Urobilinogen (0-1) mg/dL Ur Leukocyte Esterase (NEGATIVE) Urine WBC (Auto) (0-5) /HPF Urine RBC (Auto) (0-2) /HPF U Epithel Cells (Auto) (FEW) /HPF Urine Bacteria (Auto) (NEGATIVE) /HPF Urine Mucus (Auto) (NEGATIVE) /HPF Urine Culture Reflexed (NO) Urine Glucose (NEGATIVE) mg/dL Monoscreen (Negative) Influenza Type A Ag NEGATIVE (NEGATIVE) Influenza Type B Ag NEGATIVE (NEGATIVE) RSV (PCR) NEGATIVE (Negative) 05/30/20 05/30/20 Range/Units 16:59 16:54 WBC (4.0-10.5) K/mm3 RBC (4.1-5.6) M/mm3 Hgb (12.5-18.0) gm/dl Hct (42-50) % MCV (78-100) fl MCH (26-32) pg MCHC (32-36) g/dl RDW (11.5-14.0) % Plt Count (150-450) K/mm3 MPV (7.5-11.0) fl Gran % (36.0-66.0) % Eos # (Auto) (0-0.5) Absolute Lymphs (auto) (1.0-4.6) Absolute Monos (auto) (0.0-1.3) Lymphocytes % (24.0-44.0) % Monocytes % (0.0-12.0) % Eosinophils % (0.00-5.0) % Basophils % (0.0-0.4) % Absolute Granulocytes (1.4-6.9) Basophils # (0-0.4) PT (8.83-12.87) SECONDS INR (0.8-3.0) Sodium (137-145) mmol/L Potassium (3.5-5.1) mmol/L Chloride (98-107) mmol/L Carbon Dioxide (22-30) mmol/L Anion Gap (5-15) MEQ/L BUN (9-20) mg/dL Creatinine (0.66-1.25) mg/dL Estimated GFR ML/MIN Glucose (74-106) mg/dL Lactic Acid 1.6 (0.4-2.0) Calcium (8.4-10.2) mg/dL Total Bilirubin (0.2-1.3) mg/dL AST (17-59) U/L ALT (0-50) U/L Alkaline Phosphatase (38-126) U/L Troponin I (0.000-0.034) ng/mL Serum Total Protein (6.3-8.2) g/dL Albumin (3.5-5.0) g/dL Amylase (30-110) U/L Lipase (23-300) U/L Urine Color YELLOW (YELLOW) Urine Appearance CLEAR (CLEAR) Urine pH 5.0 (5-6) Ur Specific [place] 1.032 (1.005-1.025) Urine Protein 30 (Negative) Urine Ketones NEGATIVE (NEGATIVE) Urine Blood NEGATIVE (0-5) Alexy/ul Urine Nitrite NEGATIVE (NEGATIVE) Urine Bilirubin NEGATIVE (NEGATIVE) Urine Urobilinogen 2 (0-1) mg/dL Ur Leukocyte Esterase NEGATIVE (NEGATIVE) Urine WBC (Auto) NONE (0-5) /HPF Urine RBC (Auto) NONE (0-2) /HPF U Epithel Cells (Auto) NONE (FEW) /HPF Urine Bacteria (Auto) NONE (NEGATIVE) /HPF Urine Mucus (Auto) SLIGHT (NEGATIVE) /HPF Urine Culture Reflexed NO (NO) Urine Glucose NEGATIVE (NEGATIVE) mg/dL Monoscreen (Negative) Influenza Type A Ag (NEGATIVE) Influenza Type B Ag (NEGATIVE) RSV (PCR) (Negative) - Progress Progress: improved Progress Note: 05/30/20 18:50 Chest x-ray shows persistent bilateral lower lobe scarring. I compared this to prior chest x-rays including that of November 2019 and October 2019. There is no significant change. There is no evidence of any acute infiltrate present 05/30/20 18:53 Clinically, patient states he is feeling much better now. He desires to be discharged to home. Counseled pt/family regarding: lab results, diagnosis, need for follow-up, rad results - Departure Departure Disposition: Home Clinical Impression: Vomiting and diarrhea, Dehydration Condition: Stable Critical Care Time: No Referrals: GEE FERNANDES MD [Primary Care Provider] - Additional Instructions: Drink plenty of clear liquids before advancing your diet. Monitor and treat your blood sugar as directed. Take your medication as prescribed. Follow-up with your primary care physician for persistent symptoms. Prescriptions: Ondansetron ODT 4 MG [Zofran Odt 4 mg] 4 mg PO Q6H PRN PRN #10 tab.rapdis PRN Reason: Vomiting
[2020-05-30] MEDS ORDERED: Zofran 4 MG/2 ML VIAL ONE (17:13)
[2020-05-30] MEDS ORDERED: Sodium Chloride 0.9% 1000 ML 1,000 ML ONE ×2 (17:14→18:19)
[2020-05-30 17:32] LABS: Absolute Neutrophil Ct (ANC) 2.94 (1.4-6.9); BASOPHIL % 0.4 % (0.0-0.4); Basophil (Absolute #) 0.02 (0-0.4); Eosinophil % 2.8 % (0.00-5.0); Eosinophil (Absolute #) 0.15 (0-0.5); Hematocrit 43.3 % (42-50); Hemoglobin 13.8 gm/dl (12.5-18.0); Lymphocyte (Absolute #) 1.79 (1.0-4.6); Lymphocytes % 32.9 % (24.0-44.0); Mean Corpuscular Hgb Concent. 31.9 g/dl (32-36); Mean Platelet Volume 8.5 fl (7.5-11.0); Monocyte (Absolute #) 0.54 (0.0-1.3); Monocytes % 9.9 % (0.0-12.0); Platelet Count 228 K/mm3 (150-450); Red Blood Count 4.76 M/mm3 (4.1-5.6); Red Cell Distribution Width 14.8 % (11.5-14.0); White Blood Count 5.4 K/mm3 (4.0-10.5)
[2020-05-30 17:33] LABS: Appearance CLEAR (CLEAR); Bilirubin NEGATIVE (NEGATIVE); Blood NEGATIVE Ery/ul (0-5); Glucose NEGATIVE (NEGATIVE); Ketones NEGATIVE (NEGATIVE); Leukocyte Esterase NEGATIVE (NEGATIVE); Mucus SLIGHT /HPF (NEGATIVE); Nitrite NEGATIVE (NEGATIVE); Protein,Urine Dip 30 (Negative); Specific Gravity 1.032 (1.005-1.025); Urobilinogen 2 mg/dL (0-1)
[2020-05-30 17:40] LABS: INR 1.57 (0.8-3.0); PROTIME 17.8 SECONDS (8.83-12.87)
[2020-05-30 17:46] LABS: ALBUMIN 4.4 g/dL (3.5-5.0); ALKALINE PHOSPHATASE 88 U/L (38-126); AMYLASE 65 U/L (30-110); BLOOD UREA NITROGEN 13 mg/dL (9-20); CHLORIDE 99 mmol/L (98-107); Calcium 9.2 mg/dL (8.4-10.2); Carbon Dioxide 30 mmol/L (22-30); Creatinine 1 0.89 mg/dL (0.66-1.25); Glucose 155 mg/dL (74-106); LIPASE 48 U/L (23-300); Potassium 3.9 mmol/L (3.5-5.1); SGOT/AST 29 U/L (17-59); SGPT/ALT 23 U/L (0-50); SODIUM 136 mmol/L (137-145); Total Protein 7.2 g/dL (6.3-8.2)
[2020-05-30 18:00] LABS: INFLUENZA A NEGATIVE (NEGATIVE); INFLUENZA B NEGATIVE (NEGATIVE); RESPIRATORY SYNCTIAL VIRUS NEGATIVE (Negative)
[2020-05-30] MEDS ORDERED: Hydromorphone 1 mg/ml Ampule IV ONE (18:28)
[2020-05-30] MEDS ORDERED: Hydromorphone 1 mg/ml Ampule ONE (18:38)
[2020-05-30 19:03] VITALS: PULSE 71; O2SAT 97
[2020-05-30 19:50] VITALS: BP 110/76
--- NOTE | 2020-05-31 08:14 | XRAY ---
Indication: Cough, vomiting, and diarrhea. Comparison: December 11, 2019. Portable chest unchanged again demonstrating bibasilar discoid atelectasis/scarring and a few scattered tiny calcified granulomas. Heart is not enlarged. Bony thorax intact again with mild degenerative changes. No new/acute findings.
== END 2020-05-30 19:49 | disposition home or self-care (01) ==
LOC: ED 16:32
DX: R11.10 Vomiting, unspecified (principal); R19.7 Diarrhea, unspecified; E86.0 Dehydration; R06.02 Shortness of breath
CPT/HCPCS: 36000; 36415; 71045; 80053; 81001; 82150; 83605; 83690; 84484; 85025; 85610; 86308; 87631; 93005; 96360; 96361; 96374; 96375; 99285; J1170; J2405

== ENCOUNTER 2020-07-08 14:29 | Observation (INO) | payer MEDICARE ==
[2020-07-08] MEDS ORDERED: Colace 100 MG PO PRN (16:07)
[2020-07-08] MEDS ORDERED: Zofran 4 MG/2 ML VIAL IV PRN (16:07)
[2020-07-08] MEDS ORDERED: HYDROXYZINE PAMOATE 50 MG PO PRN (16:33)
[2020-07-08 16:47] LABS: Absolute Neutrophil Ct (ANC) 3.35 (1.4-6.9); BASOPHIL % 0.5 % (0.0-0.4); Basophil (Absolute #) 0.03 (0-0.4); Eosinophil % 2.8 % (0.00-5.0); Eosinophil (Absolute #) 0.16 (0-0.5); Hematocrit 44.6 % (42-50); Lymphocyte (Absolute #) 1.43 (1.0-4.6); Lymphocytes % 24.7 % (24.0-44.0); Mean Cell Volume 91.6 fl (78-100); Mean Corpuscular Hemoglobin 28.7 pg (26-32); Mean Corpuscular Hgb Concent. 31.4 g/dl (32-36); Mean Platelet Volume 8.4 fl (7.5-11.0); Monocyte (Absolute #) 0.83 (0.0-1.3); Monocytes % 14.3 % (0.0-12.0); Neutrophil % 57.7 % (36.0-66.0); Platelet Count 229 K/mm3 (150-450); Red Blood Count 4.87 M/mm3 (4.1-5.6); White Blood Count 5.8 K/mm3 (4.0-10.5)
[2020-07-08] MEDS ORDERED: NON-FORMULARY ITEM (Oxycodone Hcl/Acetaminophen [Oxycodon-Acetaminophen 7.5-325] 1 EACH) PO SCH (17:00)
[2020-07-08] MEDS ORDERED: MEDICATION INTERVENTION MC SCH (17:00)
[2020-07-08] MEDS ORDERED: ATARAX 25 MG PO PRN (17:06)
[2020-07-08 17:27] LABS: ALBUMIN 4.2 g/dL (3.5-5.0); ALKALINE PHOSPHATASE 95 U/L (38-126); ANION GAP 10.3 MEQ/L (5-15); BLOOD UREA NITROGEN 18 mg/dL (9-20); CHLORIDE 97 mmol/L (98-107); Calcium 9.1 mg/dL (8.4-10.2); Carbon Dioxide 33 mmol/L (22-30); Creatinine 1 0.84 mg/dL (0.66-1.25); EST GLOMERULAR FILTRATION RATE > 60.0 ML/MIN; Glucose 197 mg/dL (74-106); NT PRO BNP < 11.1 pg/mL (0-900); Potassium 4.4 mmol/L (3.5-5.1); SGOT/AST 37 U/L (17-59); SGPT/ALT 35 U/L (0-50); SODIUM 136 mmol/L (137-145); Total Protein 7.3 g/dL (6.3-8.2)
[2020-07-08] MEDS: ROCEPHIN 1 Gm-D5w 50 ml Bag** 1 G/50 ML IVPB IV SCH (17:38)
[2020-07-08] MEDS: Sodium Chloride 0.9% 1000 ML 1,000 ML IV SCH (17:38)
[2020-07-08] MEDS: Glucophage 500 MG PO SCH (17:38)
[2020-07-08] MEDS: Coumadin 1 MG PO SCH (17:39)
[2020-07-08] MEDS: Coumadin 5 MG PO SCH (17:39)
[2020-07-08] MEDS: PERCOCET TABLET 5/325MG PO SCH ×2 (17:39→22:04)
[2020-07-08] MEDS: DUONEB 0.5-3 MG/3 ml Neb IH SCH (17:53)
[2020-07-08] MEDS ORDERED: DUONEB 0.5-3 MG/3 ml Neb IH SCH (19:00)
[2020-07-08] MEDS: Lopressor 50 MG PO SCH (21:57)
[2020-07-08] MEDS: NEURONTIN 300 MG PO SCH (21:57)
[2020-07-08] MEDS: Pepcid 20 MG PO SCH (21:57)
[2020-07-08] MEDS: Desyrel 150 MG PO SCH (21:57)
[2020-07-08] MEDS: Flomax 0.4 MG PO SCH (21:57)
[2020-07-08] MEDS: Protonix 40MG Tablet PO SCH (21:57)
[2020-07-08] MEDS: Seroquel 100 MG PO SCH (21:58)
[2020-07-08] MEDS: THEOPHYLLINE ER 24HR PO SCH (21:59)
[2020-07-08] MEDS ORDERED: NON-FORMULARY ITEM (Omeprazole [Omeprazole] 20 MG) PO SCH (22:00)
[2020-07-08] MEDS ORDERED: NON-FORMULARY ITEM (Theophylline Anhydrous [Theophylline Anhydrous] 300 MG) PO SCH (22:00)
[2020-07-08] MEDS ORDERED: NON-FORMULARY ITEM (Gabapentin [Neurontin] 600 MG) PO SCH (22:00)
[2020-07-08] MEDS ORDERED: DESYREL 50 MG PO SCH (22:00)
[2020-07-08] MEDS ORDERED: QUETIAPINE FUMARATE 50 MG PO SCH (22:00)
--- NOTE | 2020-07-08 22:23 | XRAY ---
Indication: Short of breath. Comparison: May 30, 2020. PA/lateral chest unchanged again demonstrating COPD, bibasilar discoid atelectasis/scarring, and a few scattered calcified granulomas. Heart is not enlarged. Bony thorax intact again with mild degenerative changes. No new/acute findings.
[2020-07-09] MEDS: TYLENOL 325 MG PO PRN ×2 (03:12→20:13)
[2020-07-09] MEDS: DUONEB 0.5-3 MG/3 ml Neb IH SCH ×4 (07:02→19:30)
[2020-07-09] MEDS: Glucophage 500 MG PO SCH ×2 (07:49→16:50)
--- NOTE | 2020-07-09 09:00 | PCM.NOTE ---
Date and Time: 07/09/20857 Subjective Assessment: doing ok - Review of Systems Constitutional: No Fever, No Chills Eyes: No Symptoms Ears, Nose, & Throat: No Symptoms Respiratory: Cough, Orthopnea, Short Of Breath, Wheezing Cardiac: No Chest Pain, No Edema, No Syncope Abdominal/Gastrointestinal: No Abdominal Pain, No Nausea, No Vomiting, No Diarrhea Genitourinary Symptoms: No Dysuria Musculoskeletal: No Back Pain, No Neck Pain Skin: No Rash Neurological: No Dizziness, No Focal Weakness, No Sensory Changes Psychological: No Symptoms Endocrine: No Symptoms Hematologic/Lymphatic: No Symptoms Immunological/Allergic: No Symptoms Objective Exam General Appearance: no apparent distress, alert Neurologic Exam: alert, oriented x 3, cooperative, normal mood/affect, nml cerebellar function, sensation nml, No motor deficits Skin Exam: normal color, warm, dry Eye Exam: PERRL, EOMI, eyes nml inspection Ears, Nose, Throat Exam: normal ENT inspection, pharynx normal, moist mucous membranes Neck Exam: normal inspection, non-tender, supple, full range of motion Respiratory Exam: normal breath sounds, crackles/rales, rhonchi, wheezing, No respiratory distress Cardiovascular Exam: regular rate/rhythm, normal heart sounds Gastrointestinal/Abdomen Exam: soft, No tenderness, No mass Extremity Exam: normal inspection, normal range of motion Back Exam: normal inspection, normal range of motion, No CVA tenderness, No vertebral tenderness Male Genitalia Exam: deferred Rectal Exam: deferred OBJECTIVE DATA Vital Signs: Vital Signs - 24 hr Temp Pulse Resp BP BP Pulse Ox 07/09/20 07:41 97.2 F 72 16 107/54 93 L 07/09/20 07:02 71 18 93 L 07/09/20 04:00 97.8 F 86 20 113/65 94 L 07/08/20 23:28 98.7 F 95 H 20 107/66 96 07/08/20 19:43 97.7 F 105 H 19 102/63 92 L 07/08/20 16:53 100 H 24 91 L 07/08/20 16:23 98.0 F 91 H 23 135/84 94 L Oxygen-Last 24 hours Oxygen Flowrate (L/min)-RT 6 Pain Assessment - Last Documented Pain Intensity 4 Pain Scale Used 0-10 Pain Scale Intake and Output: Intake & Output 09/07/07/20 07/08/20 07/09/20 11:59 11:59 11:59 11:59 Intake Total 1796 Output Total 1700 Balance 96 Weight 112.73 kg Lab Results: Lab Results-Last 24 Hours 07/08/20 07/08/20 07/08/20 Range/Units 16:07 16:07 16:47 WBC 5.8 (4.0-10.5) K/mm3 RBC 4.87 (4.1-5.6) M/mm3 Hgb 14.0 (12.5-18.0) gm/dl Hct 44.6 (42-50) % MCV 91.6 (78-100) fl MCH 28.7 (26-32) pg MCHC 31.4 L (32-36) g/dl RDW 15.0 H (11.5-14.0) % Plt Count 229 (150-450) K/mm3 MPV 8.4 (7.5-11.0) fl Gran % 57.7 (36.0-66.0) % Eos # (Auto) 0.16 (0-0.5) Absolute Lymphs (auto) 1.43 (1.0-4.6) Absolute Monos (auto) 0.83 (0.0-1.3) Lymphocytes % 24.7 (24.0-44.0) % Monocytes % 14.3 H (0.0-12.0) % Eosinophils % 2.8 (0.00-5.0) % Basophils % 0.5 (0.0-0.4) % Absolute Granulocytes 3.35 (1.4-6.9) Basophils # 0.03 (0-0.4) Sodium 136 L (137-145) mmol/L Potassium 4.4 (3.5-5.1) mmol/L Chloride 97 L (98-107) mmol/L Carbon Dioxide 33 H (22-30) mmol/L Anion Gap 10.3 (5-15) MEQ/L BUN 18 (9-20) mg/dL Creatinine 0.84 (0.66-1.25) mg/dL Estimated GFR > 60.0 ML/MIN Glucose 197 H (74-106) mg/dL POC Glucometer (74 to 106) mg/dL Calcium 9.1 (8.4-10.2) mg/dL Total Bilirubin 0.30 (0.2-1.3) mg/dL AST 37 (17-59) U/L ALT 35 (0-50) U/L Alkaline Phosphatase 95 (38-126) U/L NT-Pro-B Natriuret Pep < 11.1 (0-900) pg/mL Serum Total Protein 7.3 (6.3-8.2) g/dL Albumin 4.2 (3.5-5.0) g/dL Theophylline 4.4 L (10-20) ug/mL 07/08/20 07/09/20 Range/Units 20:42 07:21 WBC (4.0-10.5) K/mm3 RBC (4.1-5.6) M/mm3 Hgb (12.5-18.0) gm/dl Hct (42-50) % MCV (78-100) fl MCH (26-32) pg MCHC (32-36) g/dl RDW (11.5-14.0) % Plt Count (150-450) K/mm3 MPV (7.5-11.0) fl Gran % (36.0-66.0) % Eos # (Auto) (0-0.5) Absolute Lymphs (auto) (1.0-4.6) Absolute Monos (auto) (0.0-1.3) Lymphocytes % (24.0-44.0) % Monocytes % (0.0-12.0) % Eosinophils % (0.00-5.0) % Basophils % (0.0-0.4) % Absolute Granulocytes (1.4-6.9) Basophils # (0-0.4) Sodium (137-145) mmol/L Potassium (3.5-5.1) mmol/L Chloride (98-107) mmol/L Carbon Dioxide (22-30) mmol/L Anion Gap (5-15) MEQ/L BUN (9-20) mg/dL Creatinine (0.66-1.25) mg/dL Estimated GFR ML/MIN Glucose (74-106) mg/dL POC Glucometer 172 H 152 H (74 to 106) mg/dL Calcium (8.4-10.2) mg/dL Total Bilirubin (0.2-1.3) mg/dL AST (17-59) U/L ALT (0-50) U/L Alkaline Phosphatase (38-126) U/L NT-Pro-B Natriuret Pep (0-900) pg/mL Serum Total Protein (6.3-8.2) g/dL Albumin (3.5-5.0) g/dL Theophylline (10-20) ug/mL Radiology Exams: Radiology Procedures Category Date Time Status CHEST 2 VIEWS (PA AND LAT) Stat Exams 07/08/20 16:40 Completed Assessment/Plan (1) COPD exacerbation Current Visit: Yes Status: Resolved Code(s): J44.1 - CHRONIC OBSTRUCTIVE PULMONARY DISEASE W (ACUTE) EXACERBATION (2) Diabetes mellitus Current Visit: No Status: Acute Qualifiers: Diabetes mellitus type: type 2 Diabetes mellitus complication status: with circulatory complication Diabetes mellitus complication detail: with other circulatory complications Code(s): E11.9 - TYPE 2 DIABETES MELLITUS WITHOUT COMPLICATIONS (3) Hypertension Current Visit: Yes Status: Chronic Onset Date: ~01/24/18 Qualifiers: Hypertension type: essential hypertension Code(s): I10 - ESSENTIAL (PRIMARY) HYPERTENSION
[2020-07-09] MEDS: ENOXAPARIN SODIUM SQ SCH (09:19)
[2020-07-09] MEDS: Protonix 40MG Tablet PO SCH ×2 (09:20→22:08)
[2020-07-09] MEDS: NEURONTIN 300 MG PO SCH ×3 (09:20→22:09)
[2020-07-09] MEDS: ROCEPHIN 1 Gm-D5w 50 ml Bag** 1 G/50 ML IVPB IV SCH (09:20)
[2020-07-09] MEDS: Lopressor 50 MG PO SCH ×2 (09:20→22:08)
[2020-07-09] MEDS: Pepcid 20 MG PO SCH ×2 (09:20→22:08)
[2020-07-09] MEDS: PERCOCET TABLET 5/325MG PO SCH ×4 (09:22→22:09)
[2020-07-09] MEDS: Cymbalta 30 MG Capsule PO SCH (09:26)
[2020-07-09] MEDS: THEOPHYLLINE ER 24HR PO SCH ×2 (09:26→22:08)
[2020-07-09] MEDS: Cozaar 50 MG PO SCH (09:26)
[2020-07-09] MEDS: Cardizem CD 120 MG PO SCH (09:26)
[2020-07-09] MEDS ORDERED: CARIPRAZINE HCL 3 MG PO SCH (10:00)
[2020-07-09] MEDS ORDERED: NON-FORMULARY ITEM (Duloxetine Hcl [Cymbalta] 60 MG) PO SCH (10:00)
[2020-07-09] MEDS ORDERED: NON-FORMULARY ITEM (Losartan Potassium [Losartan Potassium] 50 MG) PO SCH (10:00)
[2020-07-09 11:43] LABS: INR 2.19 (0.8-3.0)
[2020-07-09] MEDS: solu-MEDROL 40 MG IV SCH ×2 (12:28→17:00)
[2020-07-09] MEDS: Sodium Chloride 0.9% 1000 ML 1,000 ML IV SCH (14:30)
[2020-07-09] MEDS: HUMALOG SQ PRN ×2 (16:51→22:18)
[2020-07-09] MEDS: Coumadin 1 MG PO SCH (17:00)
[2020-07-09] MEDS: Coumadin 5 MG PO SCH (17:00)
[2020-07-09] MEDS: Flomax 0.4 MG PO SCH (22:08)
[2020-07-09] MEDS: Desyrel 150 MG PO SCH (22:09)
[2020-07-09] MEDS: Seroquel 100 MG PO SCH (22:09)
[2020-07-10] MEDS: solu-MEDROL 40 MG IV SCH ×2 (00:35→05:53)
[2020-07-10] MEDS: TYLENOL 325 MG PO PRN (05:55)
[2020-07-10] MEDS: DUONEB 0.5-3 MG/3 ml Neb IH SCH (07:06)
[2020-07-10 07:12] VITALS: BP 103/56; PULSE 88; O2SAT 92
[2020-07-10] MEDS: Glucophage 500 MG PO SCH (07:49)
[2020-07-10] MEDS: HUMALOG SQ PRN (07:50)
[2020-07-10] MEDS: PERCOCET TABLET 5/325MG PO SCH (07:53)
[2020-07-10] MEDS: ENOXAPARIN SODIUM SQ SCH (09:16)
[2020-07-10] MEDS: Cardizem CD 120 MG PO SCH (09:17)
[2020-07-10] MEDS: Cozaar 50 MG PO SCH (09:17)
[2020-07-10] MEDS: ROCEPHIN 1 Gm-D5w 50 ml Bag** 1 G/50 ML IVPB IV SCH (09:17)
[2020-07-10] MEDS: Cymbalta 30 MG Capsule PO SCH (09:17)
[2020-07-10] MEDS: Protonix 40MG Tablet PO SCH (09:17)
[2020-07-10] MEDS: NEURONTIN 300 MG PO SCH (09:17)
[2020-07-10] MEDS: Pepcid 20 MG PO SCH (09:17)
[2020-07-10] MEDS: Lopressor 50 MG PO SCH (09:18)
--- NOTE | 2020-07-10 09:18 | PCM.DS ---
Discharge Summary Date of Admission: 07/08/20 15:17 Admitting Physician: GEE FERNANDES Primary Care Provider: GEE FERNANDES Allergies Allergies No Known Drug Allergies Allergy (Verified 05/30/20 16:41) Hospital Summary - Hospital Course Hospital Course: Chief Complaint Diagnosis Exac COPD Allergies Allergy/AdvReac Type Severity Reaction Status Date / Time No Known Drug Allergies Allergy Verified 05/30/20 16:41 Vital Signs (Last 24 hours) Temp Pulse Resp BP Pulse Ox 07/10/20 07:11 97.4 F 88 20 103/56 92 L 07/10/20 07:07 94 H 18 91 L 07/10/20 03:54 97.9 F 87 18 96/55 93 L 07/09/20 23:46 98 F 75 18 120/60 94 L 07/09/20 20:00 98.4 F 100 H 20 118/69 91 L 07/09/20 19:30 90 L 07/09/20 16:00 98.3 F 88 16 133/59 94 L 07/09/20 14:46 93 H 22 91 L 07/09/20 12:00 98.3 F 92 H 18 129/84 95 07/09/20 11:02 93 H 18 93 L Home Medications Medication Instructions Recorded Confirmed Last Taken Type Cariprazine HCl [Vraylar] 3 mg PO DAILY 07/08/20 07/08/20 Unknown History Diltiazem HCl 120 mg [Cardizem 120 mg PO DAILY 07/08/20 07/08/20 Unknown H istory CD 120 MG] Duloxetine HCl [Cymbalta] 60 mg PO DAILY 07/08/20 07/08/20 Unknown History Ipratropium/Albuterol Sulfate 3 ml IH QID 07/08/20 07/08/20 Unknown History [Iprat-Albut 0.5-3(2.5) mg/3 ml] Losartan Potassium 50 mg PO DAILY 07/08/20 07/08/20 Unknown History Omeprazole 20 mg PO BID 07/08/20 07/08/20 Unknown History Oxycodone HCl/Acetaminophen 1 each PO QID 07/08/20 07/08/20 Unknown History [Oxycodon-Acetaminophen 7.5-325] Quetiapine Fumarate 50 mg PO HS 07/08/20 07/08/20 Unknown History Warfarin Sodium 1 mg [Coumadin 1 mg PO DAILY 07/08/20 07/08/20 Unknown History 1 MG] hydrOXYzine pamoate [Vistaril] 50 mg PO TIDPRN PRN 07/08/20 07/08/20 Unknown History Current Medications Generic Name Dose Route Start Last Admin Trade Name Freq PRN Reason Stop Dose Admin Acetaminophen 325 mg 07/08/20 16:07 07/10/20 05:55 Tylenol 325 Mg PO 08/07/20 16:06 325 mg Q4H PRN PRN Administration PAIN, FEVER, HEADACHE Albuterol/Ipratropium 3 ml 07/08/20 19:00 07/10/20 07:06 Duoneb 0.5-3 Mg/3 Ml Neb IH 08/07/20 18:59 3 ml QIDRT JUAN Administration Diltiazem HCl 120 mg 07/09/20 10:00 07/09/20 09:26 Cardizem Cd 120 Mg PO 08/08/20 09:59 120 mg DAILY JUAN Administration Docusate Sodium 100 mg 07/08/20 16:07 Colace 100 Mg PO 08/07/20 16:06 BIDPRN PRN CONSTIPATION Duloxetine HCl 60 mg 07/09/20 10:00 07/09/20 09:26 Cymbalta 30 Mg Capsule PO 08/08/20 09:59 60 mg DAILY JUAN Administration Enoxaparin Sodium 40 mg 07/09/20 10:00 07/09/20 09:19 Enoxaparin Sodium SQ 08/08/20 09:59 40 mg DAILY JUAN Administration Famotidine 20 mg 07/08/20 22:00 07/09/20 22:08 Pepcid 20 Mg PO 08/07/20 21:59 20 mg BID JUAN Administration Gabapentin 600 mg 07/08/20 22:00 07/09/20 22:09 Neurontin 300 Mg PO 08/07/20 21:59 600 mg TID JUAN Administration Hydroxyzine HCl 50 mg 07/08/20 17:06 Atarax 25 Mg PO 08/07/20 17:05 TIDPRN PRN ANXIETY Sodium Chloride 1,000 mls @ 50 mls/hr 07/08/20 16:15 07/09/20 14:30 Sodium Chloride 0.9% 1000 Ml IV 08/07/20 16:14 50 mls/hr .Q20H JUAN Administration Ceftriaxone Sodium/Dextrose 1 g in 50 mls @ 100 mls/hr 07/08/20 16:15 07/09/20 09:20 Rocephin 1 Gm-D5w 50 Ml Bag IV 08/07/20 16:14 100 mls/hr Q24H10 JUAN Administration Insulin Human Lispro 0 unit 07/09/20 16:41 07/10/20 07:50 Humalog SQ 08/08/20 16:40 2 unit UD PRN Administration HYPERGLYCEMIA Losartan Potassium 50 mg 07/09/20 10:00 07/09/20 09:26 Cozaar 50 Mg PO 08/08/20 09:59 50 mg DAILY JUAN Administration Metformin HCl 500 mg 07/08/20 17:00 07/10/20 07:49 Glucophage 500 Mg PO 08/07/20 16:59 500 mg BIDWM JUAN Administration Methylprednisolone Sodium Succinate 40 mg 07/09/20 12:00 07/10/20 05:53 Solu-Medrol 40 Mg IV 08/08/20 11:59 40 mg Q6HT JUAN Administration Metoprolol Tartrate 25 mg 07/08/20 22:00 07/09/20 22:08 Lopressor 50 Mg PO 08/07/20 21:59 25 mg BID JUAN Administration Miscellaneous Information 0 each 07/08/20 17:00 Medication Intervention MC 08/07/20 16:59 .RN TO CHECK WITH PT JUAN Ondansetron HCl 4 mg 07/08/20 16:07 07/09/20 12:36 Zofran 4 Mg/2 Ml Vial IV 08/07/20 16:06 4 mg Q6H PRN PRN Administration NAUSEA/VOMITING Oxycodone/Acetaminophen 1.5 tab 07/08/20 17:00 07/10/20 07:53 Percocet Tablet 5/325mg PO 07/13/20 16:59 1.5 tab QID JUAN Administration Pantoprazole Sodium 40 mg 07/08/20 22:00 07/09/20 22:08 Protonix 40mg Tablet PO 08/07/20 21:59 40 mg BID JUAN Administration Quetiapine Fumarate 50 mg 07/08/20 22:00 07/09/20 22:09 Seroquel 100 Mg PO 08/07/20 21:59 50 mg HS JUAN Administration Tamsulosin HCl 0.4 mg 07/08/20 22:00 07/09/20 22:08 Flomax 0.4 Mg PO 08/07/20 21:59 0.4 mg HS JUAN Administration Theophylline 300 mg 07/08/20 22:00 07/09/20 22:08 Theophylline Er 24hr PO 08/07/20 21:59 300 mg BID JUAN Administration Trazodone HCl 150 mg 07/08/20 22:00 07/09/20 22:09 Desyrel 150 Mg PO 08/07/20 21:59 150 mg HS JUAN Administration Warfarin Sodium 1 mg 07/08/20 18:00 07/09/20 17:00 Coumadin 1 Mg PO 08/07/20 17:59 1 mg COU JUAN Administration Warfarin Sodium 5 mg 07/08/20 18:00 07/09/20 17:00 Coumadin 5 Mg PO 08/07/20 17:59 5 mg COU JUAN Administration Intake & Output (Last 24 hours) 07/07/20 07/08/20 07/09/20 07/10/20 11:59 11:59 11:59 11:59 Intake Total 1796 3378 Output Total 1700 2750 Balance 96 628 Weight 112.73 kg Laboratory Results (Last 24 hours) 07/10/20 07/09/20 07/09/20 06:42 20:32 16:31 PT INR POC Glucometer 210 H 322 H 264 H 07/09/20 07/09/20 11:54 11:25 PT 25.0 H INR 2.19 POC Glucometer 185 H Orders (Last 24 hours) Category Date Time Status POCT GLUCOSE Stat Lab 07/09/20 11:54 Completed POCT GLUCOSE Stat Lab 07/09/20 16:31 Completed POCT GLUCOSE Stat Lab 07/09/20 20:32 Completed POCT GLUCOSE Stat Lab 07/10/20 06:42 Completed PT INR [PROTIME WITH INR] Urgent Lab 07/09/20 11:25 Completed Diltiazem HCl 120 mg [Cardizem CD 120 MG] Med 07/09/20 10:00 Active 120 mg PO DAILY Duloxetine HCl 30 mg [Cymbalta 30 MG Capsule] Med 07/09/20 10:00 Active 60 mg PO DAILY Enoxaparin Sodium [Enoxaparin Sodium] Med 07/09/20 10:00 Active 40 mg SQ DAILY Insulin Lispro [Humalog] Med 07/09/20 16:41 Active See Dose Instructions SQ UD PRN Losartan Potassium 50 mg [Cozaar 50 MG] Med 07/09/20 10:00 Active 50 mg PO DAILY Methylprednisolone Sod Suc 40M [solu-MEDROL 40 MG] Med 07/09/20 12:00 Active 40 mg IV Q6HT Patient Care Notes (Last 24 hours) 07/10/20 08:46 Case Management Note by Rosa Edwards S/W PATIENT THIS AM- HE CONTINUES TO DENY ANY NEEDS REGARDING DC AT THIS TIME. HE IS CURRENTLY ON HIS HOME OXYGEN SETTING. Initialized on 07/10/20 08:46 - END OF NOTE - Vitals & Intake/Output Vital Signs: Vital Signs Temperature 97.4 F 07/10/20 07:11 Pulse Rate 88 07/10/20 07:11 Respiratory Rate 20 07/10/20 07:11 Blood Pressure 103/56 07/10/20 07:11 O2 Sat by Pulse Oximetry 92 L 07/10/20 07:11 Intake & Output: Intake & Output 07/07/20 07/08/20 07/09/20 07/10/20 11:59 11:59 11:59 11:59 Intake Total 1796 3378 Output Total 1700 2750 Balance 96 628 Weight 112.73 kg - Lab Result Diagrams: 07/08/20 16:07 07/08/20 16:07 Lab Results-Last 24 Hrs: Lab Results-Last 24 Hours 07/09/20 07/09/20 07/09/20 Range/Units 11:25 11:54 16:31 PT 25.0 H (8.83-12.87) SECONDS INR 2.19 (0.8-3.0) POC Glucometer 185 H 264 H (74 to 106) mg/dL 07/09/20 07/10/20 Range/Units 20:32 06:42 PT (8.83-12.87) SECONDS INR (0.8-3.0) POC Glucometer 322 H 210 H (74 to 106) mg/dL Micro Results-Entire Visit: Accuchecks Date 07/10/20 Date 07/09/20 Date 07/09/20 Date 07/09/20 Time 06:42 Time 16:42 - Radiology Exams Ordered Rad Exams-Entire Visit: Radiology Procedures Category Date Time Status CHEST 2 VIEWS (PA AND LAT) Stat Exams 07/08/20 16:40 Completed - Procedures and Test Procedures and Tests throughout Hospitalization: Therapy Orders & Screens 07/08/20 17:33 RT Screen per Nursing Assess ONCE Comment: Protocol Order Physician Instructions: Greater than 3 points order RT Admission Screen Reason For Exam: Triggered on Admission Diagnosis: Exac COPD Diagnosis: Exac COPD Pneumonia: No Home O2: Yes Home CPAP/BIPAP: Yes Home Nebs/MDI: Yes Total Points: 15 07/08/20 18:03 Oxygen NASAL CANNULA 6 lpm Comment: Diagnosis: Exac COPD 07/09/20 07:00 Peak Expiratory Flow Rate DAILY Comment: Reason For Exam: Diagnosis: Exac COPD Respiratory Therapy Assessment DAILY Comment: Diagnosis: Exac COPD Discharge Exam General Appearance: no apparent distress, alert Neurologic Exam: alert, oriented x 3, cooperative, normal mood/affect, nml c erebellar function, sensation nml, No motor deficits Eye Exam: PERRL, EOMI, eyes nml inspection Ears, Nose, Throat Exam: normal ENT inspection, pharynx normal, moist mucous membranes Neck Exam: normal inspection, non-tender, supple, full range of motion Respiratory Exam: normal breath sounds, lungs clear, No respiratory distress Cardiovascular Exam: regular rate/rhythm, normal heart sounds Gastrointestinal/Abdomen Exam: soft, No tenderness, No mass Male Genitalia Exam: deferred Rectal Exam: deferred Back Exam: normal inspection, normal range of motion, No CVA tenderness, No vertebral tenderness Extremity Exam: normal inspection, normal range of motion Skin Exam: normal color, warm, dry Final Diagnosis/Problem List - Final Discharge Diagnosis/Problem (1) COPD exacerbation Current Visit: Yes Status: Resolved Code(s): J44.1 - CHRONIC OBSTRUCTIVE PULMONARY DISEASE W (ACUTE) EXACERBATION (2) Diabetes mellitus Current Visit: No Status: Chronic Code(s): E11.9 - TYPE 2 DIABETES MELLITUS WITHOUT COMPLICATIONS (3) Hypertension Current Visit: Yes Status: Chronic Priority: High Onset Date: ~01/24/18 Code(s): I10 - ESSENTIAL (PRIMARY) HYPERTENSION - Discharge Discharge Date: 07/10/20 Disposition: Home, Self-Care Condition: Stable Prescriptions: New Fexofenadine/Pseudoephedrine [Nevaeh-D 24 Hour Tablet] 1 each PO QAM #20 tab.er.24h Warfarin Sodium 1 mg [Coumadin 1 MG] 1 mg PO DAILY #30 tablet Cephalexin Mh 500 mg [Keflex 500 mg] 500 mg PO QID #20 capsule Continue Warfarin Sodium 5 mg [Coumadin 5 MG] 5 mg PO DAILY Metformin HCl 500 mg [Glucophage 500 MG] 500 mg PO BID Metoprolol Tartrate 50 mg [Lopressor 50 MG] 25 mg PO BID Theophylline Anhydrous 300 mg PO BID Tamsulosin HCl 0.4 mg [Flomax 0.4 MG] 0.4 mg PO HS Gabapentin [Neurontin] 600 mg PO TID Trazodone HCl 50 mg [Desyrel 50 mg] 150 mg PO HS Cariprazine HCl [Vraylar] 3 mg PO DAILY Diltiazem HCl 120 mg [Cardizem CD 120 MG] 120 mg PO DAILY Oxycodone HCl/Acetaminophen [Oxycodon-Acetaminophen 7.5-325] 1 each PO QID Ipratropium/Albuterol Sulfate [Iprat-Albut 0.5-3(2.5) mg/3 ml] 3 ml IH QID Omeprazole 20 mg PO BID hydrOXYzine pamoate [Vistaril] 50 mg PO TIDPRN PRN PRN Reason: Anxiety Quetiapine Fumarate 50 mg PO HS Duloxetine HCl [Cymbalta] 60 mg PO DAILY Warfarin Sodium 1 mg [Coumadin 1 MG] 1 mg PO DAILY Losartan Potassium 50 mg PO DAILY Follow up with: GEE FERNANDES MD [Primary Care Provider] - 1 Week
[2020-07-10] MEDS: THEOPHYLLINE ER 24HR PO SCH (09:26)
== END 2020-07-10 10:34 | disposition home or self-care (01) ==
LOC: MED SURG 15:17
PROVIDERS: ADMIT General Practice; ATTEND General Practice
DX: J44.1 Chronic obstructive pulmonary disease with (acute) exacerbation (principal); E11.9 Type 2 diabetes mellitus without complications; J96.11 Chronic respiratory failure with hypoxia; E11.65 Type 2 diabetes mellitus with hyperglycemia; I10 Essential (primary) hypertension; R53.83 Other fatigue; Z79.01 Long term (current) use of anticoagulants; Z79.899 Other long term (current) drug therapy; Z99.81 Dependence on supplemental oxygen
CPT/HCPCS: 36415; 71046; 80053; 80198; 82962; 83880; 85025; 85610; 93268; 94150; 94640; 94760; G0378; J0696; J1650; J1817; J2405; J2920; A9270-GY

== ENCOUNTER 2020-09-30 11:15 | Inpatient (IN) | payer MEDICARE ==
--- NOTE | 2020-09-30 11:32 | ERPHSYRPT ---
- History of Present Illness Time Seen by Provider: 09/30/20 11:32 Source: patient Exam Limitations: clinical condition Physician History: This is a 59-year-old white male with history of COPD and cardiac dysrhythmias. Patient does not recall which medications he takes for his dysrhythmia. However, he presents with shortness of breath and rapid heart rate. He denies fever. He denies chest pain. He has some abdominal pain but he attributes this to the vomiting and diarrhea that he has had in the last week. Patient states that he has myalgias and arthralgias. The symptoms have been going on for approximately 1 week. Patient did not take his medications this morning. He states he has no known drug allergies. He states he has no known exposures to anybody with COVID-19 positive test. Timing/Duration: today Activities at Onset: none Severity of Dyspnea-Max: moderate Severity of Dyspnea-Current: moderate Possible Cause: occasional episodes Modifying Factors: Improves With: nothing Associated Symptoms: No chest pain/discomfort, No fever Allergies/Adverse Reactions: No Known Drug Allergies Allergy (Verified 09/30/20 12:16) Home Medications: Warfarin Sodium 5 mg [Coumadin 5 MG] 5 mg PO DAILY 05/14/14 [History] Metformin HCl 500 mg [Glucophage 500 MG] 500 mg PO BID 09/13/15 [History] Metoprolol Tartrate 50 mg [Lopressor 50 MG] 25 mg PO BID 01/17/16 [History] Gabapentin [Neurontin] 600 mg PO TID 04/18/17 [History] Tamsulosin HCl 0.4 mg [Flomax 0.4 MG] 0.4 mg PO HS 04/18/17 [History] Theophylline Anhydrous 300 mg PO BID 04/18/17 [History] Diltiazem HCl 120 mg [Cardizem CD 120 MG] 120 mg PO DAILY 07/08/20 [History] Ipratropium/Albuterol Sulfate [Iprat-Albut 0.5-3(2.5) mg/3 ml] 3 ml IH QID 07/08/20 [History] Losartan Potassium 50 mg PO DAILY 07/08/20 [History] Omeprazole 20 mg PO BID 07/08/20 [History] Oxycodone HCl/Acetaminophen [Oxycodon-Acetaminophen 7.5-325] 1 each PO QID [History] Quetiapine Fumarate 50 mg PO HS 07/08/20 [History] Warfarin Sodium 1 mg [Coumadin 1 MG] 1 mg PO DAILY 07/08/20 [History] hydrOXYzine pamoate [Vistaril] 50 mg PO TID 07/08/20 [History] Hx Tetanus, Diphtheria Vaccination/Date Given: Yes Hx Influenza Vaccination/Date Given: Yes Hx Pneumococcal Vaccination/Date Given: Yes Travel Risk - International Travel Have you traveled outside of the country in past 3 weeks: No - Coronavirus Screening Are you exhibiting any of the following symptoms?: Yes Symptoms: Shortness of Breath, Vomiting/Diarrhea, Headaches/Body Aches/Fatigue Close contact with a COVID-19 positive Pt in past 14-21 Days: No - Review of Systems Constitutional: No Symptoms Eyes: No Symptoms Ears, Nose, & Throat: No Symptoms Respiratory: No Symptoms Cardiac: No Symptoms Abdominal/Gastrointestinal: No Symptoms Genitourinary Symptoms: No Symptoms Musculoskeletal: No Symptoms Skin: No Symptoms Neurological: No Symptoms Psychological: No Symptoms Endocrine: No Symptoms Hematologic/Lymphatic: No Symptoms Immunological/Allergic: No Symptoms All Other Systems: Reviewed and Negative - Past Medical History Pertinent Past Medical History: Yes Neurological History: TIA ENT History: No Pertinent History Cardiac History: Arrhythmia, Coronary Artery Disease, High Cholesterol, Hypertension, Myocardial Infarction ([place]) Respiratory History: Asthma, COPD, Emphysema, Pneumonia Endocrine Medical History: Diabetes Type II Musculoskeletal History: Other GI Medical History: No Pertinent History History: No Pertinent History Psycho-Social History: Anxiety, Bipolar, Depression Male Reproductive Disorders: Prostate Problems Other Medical History: Mini-Strokes in 2013, notes he has had 3; epidurals in the back from Dr. Ponce 2005. Lower Back pain. Decreased urine output. A- Fib - Past Surgical History Past Surgical History: Yes Neuro Surgical History: No Pertinent History Cardiac: No Pertinent History Respiratory: No Pertinent History Gastrointestinal: Appendectomy Genitourinary: No Pertinent History Musculoskeletal: No Pertinent History, Other Male Surgical History: No Pertinent History Other Surgical History: Right leg surgery(pins and plates), Sinus surgery, hernia repairx3 - Social History Smoking Status: Former smoker How long have you smoked: 2006 Exposure to second hand smoke: No Drug Use: none Patient Lives Alone: No - Nursing Vital Signs Nursing Vital Signs: Initial Vital Signs Temperature 100.0 F 09/30/20 11:50 Pulse Rate 130 H 09/30/20 11:50 Respiratory Rate 30 H 09/30/20 11:50 Blood Pressure 168/96 09/30/20 11:50 O2 Sat by Pulse Oximetry 80 L 09/30/20 11:50 Pain Scale Pain Intensity 0 - Physical Exam General Appearance: moderate distress, alert, anxiety Eye Exam: PERRL/EOMI, eyes nml inspection Ears, Nose, Throat Exam: hearing grossly normal, normal ENT inspection, normal pharynx Neck Exam: normal inspection, non-tender, supple, full range of motion Respiratory Exam: normal breath sounds, lungs clear, respiratory distress, airway intact, No chest tenderness Cardiovascular/Chest Exam: tachycardia Abdominal/Gastrointestinal Exam: soft, normal bowel sounds, No tenderness Rectal Exam: not done Extremity Exam: non-tender, normal range of motion, normal inspection Neurologic Exam: alert, oriented x 3, cooperative, customer marketing assistant II-XII nml as tested, normal mood/affect, nml cerebellar function, nml station & gait, sensation nml Skin Exam: normal color, warm, dry Lymphatic Exam: No adenopathy SpO2 Interpretation: normal O2 Delivery: Room Air - Course Nursing assessment & vital signs reviewed: Yes EKG Interpreted by Me: RATE ([id number]), Sinus Tach, NORMAL AXIS, NORMAL INTERVALS, NORMAL QRS, Other (When compared to EKG dated 05/30/2020, there is new sinus tachycardia on today's EKG. There are no acute ischemic changes.) Ordered Tests: Active Orders 24 hr Category Date Time Status Television Program Director STAT Care 09/30/20 11:33 Active EKG-ER Only STAT Care 09/30/20 11:32 Active IV Insertion STAT Care 09/30/20 11:32 Active Oxygen-ED Only NON-REBREATHER 100% Care 09/30/20 11:32 Active Pulse Oximetry (ED) STAT Care 09/30/20 11:32 Active CHEST 1 VIEW (PORTABLE) Stat Exams 09/30/20 11:33 Completed CHEST WITH CONTRAST [CT] Stat Exams 09/30/20 13:15 Ordered ABG [ARTERIAL BLOOD GASES] Urgent Lab 09/30/20 14:58 Completed BLOOD CULTURE Stat Lab 09/30/20 12:30 Received CBC W DIFF Stat Lab 09/30/20 11:55 Completed CMP Routine Lab 09/30/20 11:55 Completed D-DIMER QUANTITATIVE Stat Lab 09/30/20 11:55 Completed INFLUENZA A+B KIMANI Stat Lab 09/30/20 12:15 Completed Lactic Acid Stat Lab 09/30/20 11:47 Completed Lactic Acid Stat Lab 09/30/20 13:50 Completed MAGNESIUM Routine Lab 09/30/20 11:55 Completed Emmet Screen Stat Lab 09/30/20 11:55 Completed NT PRO BNP Routine Lab 09/30/20 11:55 Completed PROTIME WITH INR Stat Lab 09/30/20 11:55 Completed TROPONIN Q3H Lab 09/30/20 11:55 Completed TROPONIN Q3H Lab 09/30/20 14:45 Completed TROPONIN Q3H Lab 09/30/20 17:45 Ordered TROPONIN Q3H Lab 09/30/20 20:45 Ordered TROPONIN Q3H Lab 09/30/20 23:45 Ordered Oxygen High Flow per RT 100% RT 09/30/20 15:58 Ordered Respiratory MDI STAT RT 09/30/20 15:57 Active Respiratory Therapy Assessment DAILY RT 09/30/20 15:57 Active Transfer Order Routine Transfer 09/30/20 Ordered Medication Summary Generic Name Dose Route Start Last Admin Trade Name Freq PRN Reason Stop Dose Admin Sodium Chloride 1,000 mls @ 100 mls/hr 09/30/20 11:45 09/30/20 15:38 Sodium Chloride 0.9% 1000 Ml IV 10/30/20 11:44 1,000 mls/hr .Q10H JUAN Infusion Sodium Chloride 1,000 mls @ 100 mls/hr 09/30/20 15:15 09/30/20 15:41 Sodium Chloride 0.9% 1000 Ml IV 10/30/20 15:14 100 mls/hr .Q10H JUAN Administration Remdesivir 200 mg/ Sodium 250 mls @ 125 mls/hr 09/30/20 15:50 Chloride IV 09/30/20 17:49 ONCE ONE Discontinued Medications Generic Name Dose Route Start Last Admin Trade Name Freq PRN Reason Stop Dose Admin Acetaminophen 650 mg 09/30/20 14:24 09/30/20 14:26 Tylenol 325 Mg PO 09/30/20 14:25 650 mg STAT STA Administration Acetaminophen Confirm 09/30/20 14:25 Tylenol 325 Mg Administered 09/30/20 14:26 Dose 650 mg .ROUTE .STK-MED ONE Albuterol Sulfate 4 puff 09/30/20 15:57 Ventolin Common Canister IH 09/30/20 15:58 STAT ONE Diltiazem HCl 15 mg 09/30/20 13:56 09/30/20 14:09 Cardizem Iv 50 Mg/10 Ml IV 09/30/20 13:57 15 mg STAT ONE Administration Diltiazem HCl Confirm 09/30/20 14:03 Cardizem Iv 50 Mg/10 Ml Administered 09/30/20 14:04 Dose 50 mg IV .STK-MED ONE Sodium Chloride 500 mls @ 500 mls/hr 09/30/20 13:51 09/30/20 14:09 Sodium Chloride 0.9% 500 Ml IV 09/30/20 14:50 500 mls/hr .Q1H ONE Administration Sodium Chloride Confirm 09/30/20 14:03 Sodium Chloride 0.9% 500 Ml Administered 09/30/20 14:04 Dose 500 mls @ ud IV .STK-MED ONE Metoprolol Tartrate 5 mg 09/30/20 11:52 09/30/20 12:05 Lopressor 5 Mg/5 Ml Injection IV 09/30/20 11:53 5 mg STAT ONE Administration Metoprolol Tartrate Confirm 09/30/20 11:59 Lopressor 5 Mg/5 Ml Injection Administered 09/30/20 12:00 Dose 5 mg IV .STK-MED ONE Morphine Sulfate 4 mg 09/30/20 12:57 09/30/20 13:03 Morphine Sulfate 4 Mg Inj IV 09/30/20 12:58 4 mg STAT ONE Administration Morphine Sulfate Confirm 09/30/20 13:00 Morphine Sulfate 4 Mg Inj Administered 09/30/20 13:01 Dose 4 mg .ROUTE .STK-MED ONE Ondansetron HCl Confirm 09/30/20 12:01 Zofran 4 Mg/2 Ml Vial Administered 09/30/20 12:02 Dose 4 mg .ROUTE .STK-MED ONE Ondansetron HCl 4 mg 09/30/20 12:04 09/30/20 12:05 Zofran 4 Mg/2 Ml Vial IV 09/30/20 12:05 4 mg STAT ONE Administration Lab/Rad Data: Laboratory Result Diagrams 09/30/20 11:55 09/30/20 11:55 Laboratory Results 09/30/20 09/30/20 09/30/20 Range/Units 14:58 14:45 14:24 WBC (4.0-10.5) K/mm3 RBC (4.1-5.6) M/mm3 Hgb (12.5-18.0) gm/dl Hct (42-50) % MCV (78-100) fl MCH (26-32) pg MCHC (32-36) g/dl RDW (11.5-14.0) % Plt Count (150-450) K/mm3 MPV (7.5-11.0) fl Gran % (36.0-66.0) % Eos # (Auto) (0-0.5) Absolute Lymphs (auto) (1.0-4.6) Absolute Monos (auto) (0.0-1.3) Lymphocytes % (24.0-44.0) % Monocytes % (0.0-12.0) % Eosinophils % (0.00-5.0) % Basophils % (0.0-0.4) % Absolute Granulocytes (1.4-6.9) Basophils # (0-0.4) PT (8.83-12.87) SECONDS INR (0.8-3.0) D-Dimer (215-500) ng/mL Puncture Site RIGHT RADIAL pCO2 52 H (35-45) mmHg pO2 65 L (75-100) mmHg Base Excess 2.8 H (-2.0-2.0) O2 Saturation 91.0 L (94-100) g/dF ABG pH 7.36 (7.35-7.45) ABG HCO3 29.4 H* (22-28) ABG O2 Sat (Measured) 92.7 L (95-100) % Keo Test YES A-a Gradient 583 a/A Ratio 0.10 Hemoglobin 13.4 Carboxyhemoglobin 0.9 (0.0-6.9) % THgb Methemoglobin 0.9 L (1.4-1.5) % Temperature 37.0 C POC O2 Flow Rate 100 % Sodium (137-145) mmol/L Potassium 3.9 (3.5-5.1) mmol/L Chloride (98-107) mmol/L Carbon Dioxide (22-30) mmol/L Anion Gap (5-15) MEQ/L BUN (9-20) mg/dL Creatinine (0.66-1.25) mg/dL Estimated GFR ML/MIN Glucose (74-106) mg/dL Lactic Acid (0.4-2.0) Calcium (8.4-10.2) mg/dL Magnesium (1.6-2.3) mg/dL Total Bilirubin (0.2-1.3) mg/dL AST (17-59) U/L ALT (0-50) U/L Alkaline Phosphatase (38-126) U/L Troponin I < 0.012 (0.000-0.034) ng/mL NT-Pro-B Natriuret Pep (0-900) pg/mL Serum Total Protein (6.3-8.2) g/dL Albumin (3.5-5.0) g/dL Urinalys Dipstick Clnc Urine Color (YELLOW) Urine Appearance (CLEAR) Urine pH (5-6) Ur Specific [place] (1.005-1.025) POC Urine Protein Conf (Negative) Urine Ketones (NEGATIVE) Urine Nitrite (NEGATIVE) Urine Bilirubin (NEGATIVE) Urine Urobilinogen (0-1) mg/dL Urine Leukocytes (NEGATIVE) Urine WBC (Auto) (0-5) /HPF Urine RBC (Auto) (0-2) /HPF U Epithel Cells (Auto) (FEW) /HPF Urine Bacteria (Auto) (NEGATIVE) /HPF Urine RBC (0-5) Alexy/ul Urine Mucus (Auto) (NEGATIVE) /HPF Ur Culture Indicated? Urine Glucose (NEGATIVE) mg/dL Monoscreen (Negative) Influenza Type A Ag (NEGATIVE) Influenza Type B Ag (NEGATIVE) SARS-CoV-2 (PCR) POSITIVE A (NEGATIVE) 09/30/20 09/30/20 09/30/20 Range/Units 13:50 12:36 12:15 WBC (4.0-10.5) K/mm3 RBC (4.1-5.6) M/mm3 Hgb (12.5-18.0) gm/dl Hct (42-50) % MCV (78-100) fl MCH (26-32) pg MCHC (32-36) g/dl RDW (11.5-14.0) % Plt Count (150-450) K/mm3 MPV (7.5-11.0) fl Gran % (36.0-66.0) % Eos # (Auto) (0-0.5) Absolute Lymphs (auto) (1.0-4.6) Absolute Monos (auto) (0.0-1.3) Lymphocytes % (24.0-44.0) % Monocytes % (0.0-12.0) % Eosinophils % (0.00-5.0) % Basophils % (0.0-0.4) % Absolute Granulocytes (1.4-6.9) Basophils # (0-0.4) PT (8.83-12.87) SECONDS INR (0.8-3.0) D-Dimer (215-500) ng/mL Puncture Site pCO2 (35-45) mmHg pO2 (75-100) mmHg Base Excess (-2.0-2.0) O2 Saturation (94-100) g/dF ABG pH (7.35-7.45) ABG HCO3 (22-28) ABG O2 Sat (Measured) (95-100) % Keo Test A-a Gradient a/A Ratio Hemoglobin Carboxyhemoglobin (0.0-6.9) % THgb Methemoglobin (1.4-1.5) % Temperature C POC O2 Flow Rate % Sodium (137-145) mmol/L Potassium (3.5-5.1) mmol/L Chloride (98-107) mmol/L Carbon Dioxide (22-30) mmol/L Anion Gap (5-15) MEQ/L BUN (9-20) mg/dL Creatinine (0.66-1.25) mg/dL Estimated GFR ML/MIN Glucose (74-106) mg/dL Lactic Acid 0.8 (0.4-2.0) Calcium (8.4-10.2) mg/dL Magnesium (1.6-2.3) mg/dL Total Bilirubin (0.2-1.3) mg/dL AST (17-59) U/L ALT (0-50) U/L Alkaline Phosphatase (38-126) U/L Troponin I (0.000-0.034) ng/mL NT-Pro-B Natriuret Pep (0-900) pg/mL Serum Total Protein (6.3-8.2) g/dL Albumin (3.5-5.0) g/dL Urinalys Dipstick Clnc MAIN LAB Urine Color YELLOW (YELLOW) Urine Appearance CLEAR (CLEAR) Urine pH 6.5 (5-6) Ur Specific [place] >=1.030 (1.005-1.025) POC Urine Protein Conf >=300 (Negative) Urine Ketones LARGE-80 (NEGATIVE) Urine Nitrite NEGATIVE (NEGATIVE) Urine Bilirubin SMALL (NEGATIVE) Urine Urobilinogen 4 (0-1) mg/dL Urine Leukocytes NEGATIVE (NEGATIVE) Urine WBC (Auto) 3-5 (0-5) /HPF Urine RBC (Auto) 3-5 (0-2) /HPF U Epithel Cells (Auto) RARE (FEW) /HPF Urine Bacteria (Auto) NONE (NEGATIVE) /HPF Urine RBC SMALL (0-5) Alexy/ul Urine Mucus (Auto) SLIGHT (NEGATIVE) /HPF Ur Culture Indicated? NO Urine Glucose NEGATIVE (NEGATIVE) mg/dL Monoscreen (Negative) Influenza Type A Ag NEGATIVE (NEGATIVE) Influenza Type B Ag NEGATIVE (NEGATIVE) SARS-CoV-2 (PCR) (NEGATIVE) 09/30/20 09/30/20 09/30/20 Range/Units 11:55 11:55 11:55 WBC (4.0-10.5) K/mm3 RBC (4.1-5.6) M/mm3 Hgb (12.5-18.0) gm/dl Hct (42-50) % MCV (78-100) fl MCH (26-32) pg MCHC (32-36) g/dl RDW (11.5-14.0) % Plt Count (150-450) K/mm3 MPV (7.5-11.0) fl Gran % (36.0-66.0) % Eos # (Auto) (0-0.5) Absolute Lymphs (auto) (1.0-4.6) Absolute Monos (auto) (0.0-1.3) Lymphocytes % (24.0-44.0) % Monocytes % (0.0-12.0) % Eosinophils % (0.00-5.0) % Basophils % (0.0-0.4) % Absolute Granulocytes (1.4-6.9) Basophils # (0-0.4) PT 19.3 H (8.83-12.87) SECONDS INR 1.70 (0.8-3.0) D-Dimer 719 H* (215-500) ng/mL Puncture Site pCO2 (35-45) mmHg pO2 (75-100) mmHg Base Excess (-2.0-2.0) O2 Saturation (94-100) g/dF ABG pH (7.35-7.45) ABG HCO3 (22-28) ABG O2 Sat (Measured) (95-100) % Keo Test A-a Gradient a/A Ratio Hemoglobin Carboxyhemoglobin (0.0-6.9) % THgb Methemoglobin (1.4-1.5) % Temperature C POC O2 Flow Rate % Sodium 136 L (137-145) mmol/L Potassium 4.0 (3.5-5.1) mmol/L Chloride 95 L (98-107) mmol/L Carbon Dioxide 34 H (22-30) mmol/L Anion Gap 11.8 (5-15) MEQ/L BUN 9 (9-20) mg/dL Creatinine 0.71 (0.66-1.25) mg/dL Estimated GFR > 60.0 ML/MIN Glucose 168 H (74-106) mg/dL Lactic Acid (0.4-2.0) Calcium 8.9 (8.4-10.2) mg/dL Magnesium 2.0 (1.6-2.3) mg/dL Total Bilirubin 0.50 (0.2-1.3) mg/dL AST 45 (17-59) U/L ALT 24 (0-50) U/L Alkaline Phosphatase 107 (38-126) U/L Troponin I < 0.012 (0.000-0.034) ng/mL NT-Pro-B Natriuret Pep 38.0 (0-900) pg/mL Serum Total Protein 7.8 (6.3-8.2) g/dL Albumin 4.1 (3.5-5.0) g/dL Urinalys Dipstick Clnc Urine Color (YELLOW) Urine Appearance (CLEAR) Urine pH (5-6) Ur Specific [place] (1.005-1.025) POC Urine Protein Conf (Negative) Urine Ketones (NEGATIVE) Urine Nitrite (NEGATIVE) Urine Bilirubin (NEGATIVE) Urine Urobilinogen (0-1) mg/dL Urine Leukocytes (NEGATIVE) Urine WBC (Auto) (0-5) /HPF Urine RBC (Auto) (0-2) /HPF U Epithel Cells (Auto) (FEW) /HPF Urine Bacteria (Auto) (NEGATIVE) /HPF Urine RBC (0-5) Alexy/ul Urine Mucus (Auto) (NEGATIVE) /HPF Ur Culture Indicated? Urine Glucose (NEGATIVE) mg/dL Monoscreen NEGATIVE (Negative) Influenza Type A Ag (NEGATIVE) Influenza Type B Ag (NEGATIVE) SARS-CoV-2 (PCR) (NEGATIVE) 09/30/20 09/30/20 Range/Units 11:55 11:47 WBC 7.3 (4.0-10.5) K/mm3 RBC 4.88 (4.1-5.6) M/mm3 Hgb 14.1 (12.5-18.0) gm/dl Hct 44.2 (42-50) % MCV 90.6 (78-100) fl MCH 28.9 (26-32) pg MCHC 31.9 L (32-36) g/dl RDW 14.8 H (11.5-14.0) % Plt Count 227 (150-450) K/mm3 MPV 8.9 (7.5-11.0) fl Gran % 74.8 H (36.0-66.0) % Eos # (Auto) 0.01 (0-0.5) Absolute Lymphs (auto) 1.16 (1.0-4.6) Absolute Monos (auto) 0.65 (0.0-1.3) Lymphocytes % 16.0 L (24.0-44.0) % Monocytes % 9.0 (0.0-12.0) % Eosinophils % 0.1 (0.00-5.0) % Basophils % 0.1 (0.0-0.4) % Absolute Granulocytes 5.43 (1.4-6.9) Basophils # 0.01 (0-0.4) PT (8.83-12.87) SECONDS INR (0.8-3.0) D-Dimer (215-500) ng/mL Puncture Site pCO2 (35-45) mmHg pO2 (75-100) mmHg Base Excess (-2.0-2.0) O2 Saturation (94-100) g/dF ABG pH (7.35-7.45) ABG HCO3 (22-28) ABG O2 Sat (Measured) (95-100) % Keo Test A-a Gradient a/A Ratio Hemoglobin Carboxyhemoglobin (0.0-6.9) % THgb Methemoglobin (1.4-1.5) % Temperature C POC O2 Flow Rate % Sodium (137-145) mmol/L Potassium (3.5-5.1) mmol/L Chloride (98-107) mmol/L Carbon Dioxide (22-30) mmol/L Anion Gap (5-15) MEQ/L BUN (9-20) mg/dL Creatinine (0.66-1.25) mg/dL Estimated GFR ML/MIN Glucose (74-106) mg/dL Lactic Acid 2.0 (0.4-2.0) Calcium (8.4-10.2) mg/dL Magnesium (1.6-2.3) mg/dL Total Bilirubin (0.2-1.3) mg/dL AST (17-59) U/L ALT (0-50) U/L Alkaline Phosphatase (38-126) U/L Troponin I (0.000-0.034) ng/mL NT-Pro-B Natriuret Pep (0-900) pg/mL Serum Total Protein (6.3-8.2) g/dL Albumin (3.5-5.0) g/dL Urinalys Dipstick Clnc Urine Color (YELLOW) Urine Appearance (CLEAR) Urine pH (5-6) Ur Specific [place] (1.005-1.025) POC Urine Protein Conf (Negative) Urine Ketones (NEGATIVE) Urine Nitrite (NEGATIVE) Urine Bilirubin (NEGATIVE) Urine Urobilinogen (0-1) mg/dL Urine Leukocytes (NEGATIVE) Urine WBC (Auto) (0-5) /HPF Urine RBC (Auto) (0-2) /HPF U Epithel Cells (Auto) (FEW) /HPF Urine Bacteria (Auto) (NEGATIVE) /HPF Urine RBC (0-5) Alexy/ul Urine Mucus (Auto) (NEGATIVE) /HPF Ur Culture Indicated? Urine Glucose (NEGATIVE) mg/dL Monoscreen (Negative) Influenza Type A Ag (NEGATIVE) Influenza Type B Ag (NEGATIVE) SARS-CoV-2 (PCR) (NEGATIVE) - Progress Progress: improved, re-examined Air Movement: fair Progress Note: 09/30/20 13:53 Chest x-ray shows new bilateral mid to lower lung airspace disease without large effusion 09/30/20 14:33 Medical decision making: This patient is slowly improving. Patient states that he prefers to stay here at this institution if at all possible. He states when he presents to the emergency department with acute exacerbation of his chronic COPD, he is always admitted here. He prefers to stay if possible, and not be transferred out 09/30/20 15:05 pt refusing cta chest 09/30/20 15:43 Medical decision making: This patient continues to improve slowly. This patient is well-known to the respiratory therapy staff here. He usually does very well on BiPAP. His arterial blood glass is not too terribly bad but we will put him on BiPAP for symptomatic improvement. Patient is COVID-19 positive. I spoke with Dr. Jack and he accepts the patient for placement in the Covid unit providing there is a bed available for him. Blood Culture(s) Obtained: Yes Antibiotics given: No Counseled pt/family regarding: lab results, diagnosis, rad results - Departure Departure Disposition: In-patient Admission Clinical Impression: Pneumonia due to COVID-19 virus, Hypoxia, COPD (chronic obstructive pulmonary disease), Sinus tachycardia by electrocardiogram Condition: Fair Critical Care Time: Yes Critical Care Time(excluding separately billable procedures): Critical 30-74 mins Referrals: GEE FERNANDES MD [Primary Care Provider] - Instructions: Chronic Obstructive Pulmonary Disease
[2020-09-30] MEDS ORDERED: Sodium Chloride 0.9% 1000 ML 1,000 ML ONE ×2 (11:43→15:38)
[2020-09-30] MEDS ORDERED: Sodium Chloride 0.9% 1000 ML 1,000 ML IV SCH ×2 (11:45→15:15)
[2020-09-30] MEDS ORDERED: LOPRESSOR 5 MG/5 ML INJECTION IV ONE ×2 (11:52→11:59)
[2020-09-30] MEDS ORDERED: Zofran 4 MG/2 ML VIAL ONE (12:01)
[2020-09-30] MEDS ORDERED: Zofran 4 MG/2 ML VIAL IV ONE (12:04)
--- NOTE | 2020-09-30 12:06 | XRAY ---
Indication: Short of breath. Comparison: July 08, 2020. Portable chest demonstrates new bilateral mid to lower lung airspace disease without large effusion. Remaining heart and bony thorax unremarkable.
[2020-09-30 12:11] LABS: Absolute Neutrophil Ct (ANC) 5.43 (1.4-6.9); BASOPHIL % 0.1 % (0.0-0.4); Basophil (Absolute #) 0.01 (0-0.4); Eosinophil % 0.1 % (0.00-5.0); Eosinophil (Absolute #) 0.01 (0-0.5); Hematocrit 44.2 % (42-50); Hemoglobin 14.1 gm/dl (12.5-18.0); Lymphocyte (Absolute #) 1.16 (1.0-4.6); Mean Cell Volume 90.6 fl (78-100); Mean Corpuscular Hemoglobin 28.9 pg (26-32); Mean Corpuscular Hgb Concent. 31.9 g/dl (32-36); Mean Platelet Volume 8.9 fl (7.5-11.0); Monocyte (Absolute #) 0.65 (0.0-1.3); Neutrophil % 74.8 % (36.0-66.0); Platelet Count 227 K/mm3 (150-450); Red Blood Count 4.88 M/mm3 (4.1-5.6); Red Cell Distribution Width 14.8 % (11.5-14.0); White Blood Count 7.3 K/mm3 (4.0-10.5)
[2020-09-30 12:20] LABS: INR 1.7 (0.8-3.0); PROTIME 19.3 SECONDS (8.83-12.87)
[2020-09-30 12:38] LABS: ALBUMIN 4.1 g/dL (3.5-5.0); ALKALINE PHOSPHATASE 107 U/L (38-126); ANION GAP 11.8 MEQ/L (5-15); BLOOD UREA NITROGEN 9 mg/dL (9-20); CHLORIDE 95 mmol/L (98-107); Calcium 8.9 mg/dL (8.4-10.2); Carbon Dioxide 34 mmol/L (22-30); Creatinine 1 0.71 mg/dL (0.66-1.25); EST GLOMERULAR FILTRATION RATE > 60.0 ML/MIN; Glucose 168 mg/dL (74-106); SGOT/AST 45 U/L (17-59); SGPT/ALT 24 U/L (0-50); SODIUM 136 mmol/L (137-145); Total Protein 7.8 g/dL (6.3-8.2)
[2020-09-30 12:40] LABS: TROPONIN < 0.012 ng/mL (0.000-0.034)
[2020-09-30 12:53] LABS: Appearance CLEAR (CLEAR); Bilirubin SMALL (NEGATIVE); Glucose NEGATIVE (NEGATIVE); Ketones LARGE-80 (NEGATIVE); Nitrite NEGATIVE (NEGATIVE); Protein,Urine Dip >=300 (Negative); RBC SMALL Ery/ul (0-5); Specific Gravity >=1.030 (1.005-1.025); Urobilinogen 4 mg/dL (0-1)
[2020-09-30 12:54] LABS: Dipstick done @ ? MAIN LAB
[2020-09-30 12:57] LABS: Epithelial Cells RARE /HPF (FEW); Mucus SLIGHT /HPF (NEGATIVE)
[2020-09-30] MEDS ORDERED: MORPHINE SULFATE 4 MG INJ IV ONE ×2 (12:57→16:32)
[2020-09-30] MEDS ORDERED: MORPHINE SULFATE 4 MG INJ ONE ×2 (13:00→16:31)
[2020-09-30 13:01] LABS: INFLUENZA A NEGATIVE (NEGATIVE); INFLUENZA B NEGATIVE (NEGATIVE)
[2020-09-30] MEDS ORDERED: Sodium Chloride 0.9% 500 ML 500 ML IV ONE ×2 (13:51→14:03)
[2020-09-30] MEDS ORDERED: Cardizem IV 50 MG/10 ML IV ONE ×2 (13:56→14:03)
[2020-09-30] MEDS ORDERED: TYLENOL 325 MG PO STA (14:24)
[2020-09-30] MEDS ORDERED: TYLENOL 325 MG ONE (14:25)
[2020-09-30 14:58] LABS: A-aADO2 583; ABG HEMOGLOBIN 13.4; ABG POTASSIUM 3.9 (3.5-5.1); ABG SITE RIGHT RADIAL; ALLEN TEST OK? YES; ARTERIAL BLD GAS O2 SATURATION 92.7 % (95-100); ARTERIAL BLOOD GAS BASE EXCESS 2.8 (-2.0-2.0); ARTERIAL BLOOD GAS FIO2 100 %; ARTERIAL BLOOD GAS PCO2 52 mmHg (35-45); ARTERIAL BLOOD GAS PO2 65 mmHg (75-100); ARTERIAL BLOOD GAS pH 7.36 (7.35-7.45); CARBOXYHEMOGLOBIN 0.9 % THgb (0.0-6.9); HCO3- 29.4 (22-28); Methhemoglobin 0.9 % (1.4-1.5)
[2020-09-30] MEDS ORDERED: REMDESIVIR 200 MG in Sodium Chloride 0.9% 250 ML 250 ML IV ONE (15:50)
[2020-09-30] MEDS ORDERED: VENTOLIN COMMON CANISTER IH ONE (15:57)
[2020-09-30] MEDS ORDERED: VENTOLIN COMMON CANISTER IH PRN ×2 (18:26→18:35)
[2020-09-30] MEDS ORDERED: TYLENOL 325 MG PO PRN (18:27)
[2020-09-30] MEDS ORDERED: REMDESIVIR 100 MG in Sodium Chloride 0.9% 100 ML IVPB 100 ML IV SCH (18:27)
[2020-09-30] MEDS ORDERED: MORPHINE SULFATE 4 MG INJ IV PRN (18:27)
[2020-09-30] MEDS ORDERED: Zofran 4 MG/2 ML VIAL IV PRN (18:27)
[2020-09-30] MEDS ORDERED: VENTOLIN COMMON CANISTER IH SCH (19:00)
[2020-09-30] MEDS: Sodium Chloride 0.9% 1000 ML 1,000 ML IV SCH (19:02)
[2020-09-30] MEDS: VENTOLIN COMMON CANISTER IH SCH (19:15)
[2020-09-30] MEDS ORDERED: NEURONTIN 300 MG ONE (20:53)
[2020-09-30] MEDS ORDERED: Seroquel 25 MG ONE (20:53)
[2020-09-30] MEDS ORDERED: Flomax 0.4 MG ONE (20:53)
[2020-09-30] MEDS ORDERED: Glucophage 500 MG ONE (20:54)
[2020-09-30] MEDS ORDERED: Lopressor 25MG Tab ONE (20:54)
[2020-09-30] MEDS ORDERED: Protonix 40MG Tablet ONE (21:04)
[2020-09-30] MEDS ORDERED: HUMALOG ONE (21:29)
[2020-09-30] MEDS ORDERED: Coumadin 5 MG ONE (21:33)
[2020-09-30] MEDS ORDERED: Coumadin 1 MG ONE (21:33)
[2020-09-30] MEDS: Glucophage 500 MG PO SCH (22:18)
[2020-09-30] MEDS: Seroquel 25 MG PO SCH (22:19)
[2020-09-30] MEDS: NEURONTIN 300 MG PO SCH (22:20)
[2020-09-30] MEDS: OXYCODONE-ACETAMINOPHEN 10-325 PO PRN (22:20)
[2020-09-30] MEDS: Protonix 40MG Tablet PO SCH (22:21)
[2020-09-30] MEDS: HUMULIN R SQ PRN (22:23)
[2020-09-30] MEDS: Flomax 0.4 MG PO SCH (22:27)
[2020-09-30] MEDS ORDERED: Coumadin 1 MG PO SCH (22:30)
[2020-10-01] MEDS ORDERED: Sodium Chloride 0.9% 1000 ML 1,000 ML ONE (02:18)
[2020-10-01] MEDS: Sodium Chloride 0.9% 1000 ML 1,000 ML IV SCH ×3 (02:24→17:02)
[2020-10-01] MEDS: VENTOLIN COMMON CANISTER IH SCH ×4 (05:15→19:05)
[2020-10-01 05:50] LABS: Hematocrit 40.4 % (42-50); Hemoglobin 12.8 gm/dl (12.5-18.0); Mean Cell Volume 91.8 fl (78-100); Mean Corpuscular Hemoglobin 29.1 pg (26-32); Mean Corpuscular Hgb Concent. 31.7 g/dl (32-36); Mean Platelet Volume 8.8 fl (7.5-11.0); Platelet Count 239 K/mm3 (150-450); Red Cell Distribution Width 15.1 % (11.5-14.0); White Blood Count 7.1 K/mm3 (4.0-10.5)
[2020-10-01] MEDS: Lopressor 25MG Tab PO SCH ×3 (06:24→20:16)
[2020-10-01 06:31] LABS: ALBUMIN 3.6 g/dL (3.5-5.0); ALKALINE PHOSPHATASE 87 U/L (38-126); ANION GAP 10.4 MEQ/L (5-15); BLOOD UREA NITROGEN 8 mg/dL (9-20); CHLORIDE 98 mmol/L (98-107); Calcium 8.2 mg/dL (8.4-10.2); Carbon Dioxide 31 mmol/L (22-30); Creatinine 1 0.59 mg/dL (0.66-1.25); EST GLOMERULAR FILTRATION RATE > 60.0 ML/MIN; Glucose 139 mg/dL (74-106); NT PRO BNP 55.9 pg/mL (0-900); SGOT/AST 44 U/L (17-59); SGPT/ALT 20 U/L (0-50); SODIUM 136 mmol/L (137-145); Total Protein 6.8 g/dL (6.3-8.2)
[2020-10-01 06:46] LABS: INR 1.59 (0.8-3.0); PROTIME 18.1 SECONDS (8.83-12.87)
[2020-10-01 07:52] LABS: BAND 10 % (0.0-2.0); Lymphocytes 15 % (24-44); Monocyte 7 % (0.0-12.0); Neutrophils 68 % (36.-66.); Total Cells Counted 100
[2020-10-01 08:00] LABS: Platelet Estimate NORMAL (NORMAL)
[2020-10-01] MEDS: Glucophage 500 MG PO SCH ×2 (09:10→16:33)
--- NOTE | 2020-10-01 09:36 | HP ---
CHIEF COMPLAINT: Increased shortness of breath. HISTORY OF PRESENT ILLNESS: The patient states that over the last three or four days he has been more short of breath. BiPAP is not helping as much. He had some abdominal pain and had some vomiting and diarrhea the last week. He has chronic arthritis, muscle aches which have been worse. It has been going on approximately one week. He cannot point to a starting date. He does not know anybody that has COVID but he tested positive today in the emergency room. He has severe chronic obstructive pulmonary disease and has been in many times with exacerbation of chronic obstructive pulmonary disease apparently. He quit smoking 12 years ago. He has no risks for lung disease. TRAVEL RISK: None. CORONAVIRUS SCREENING: No previous COVID testing. MEDICATIONS: Warfarin 5 mg and 1 mg q.d. for atrial fibrillation. Metformin 500 b.i.d., metoprolol 25 b.i.d., gabapentin 600 t.i.d., Flomax 0.4 q.d., theophylline 300 b.i.d., diltiazem 120 q.d., albuterol, Atrovent by nebulizer q.i.d., losartan 50 q.d., Prilosec 20 q.d., Percocet 7.5 four times a day, quinapril 50 h.s. I think for restless leg, Vistaril 50 mg t.i.d. ALLERGIES: NKDA. VACCINATIONS: He has had his flu shot, pneumonia vaccine, tetanus. PAST MEDICAL HISTORY: Diabetes mellitus. Transient ischemic attack. Benign prostatic hypertrophy. PAST SURGICAL HISTORY: Three epidurals in the past for back pain. Appendectomy. Right leg surgery with some plates in his tibia. Inguinal hernia repairs x3. REVIEW OF SYSTEMS: HEENT: No problems hearing or seeing. CHEST: Short of breath all the time, nonproductive cough. CVS: He has intermittent atrial fibrillation. He does not think he has had a heart attack before or heart failure although he is not real sure. He has coronary artery disease, high cholesterol and did have a myocardial infarction which he did not relate to me. ABDOMEN: As above, He has had bouts of nausea, diarrhea and cramping for the last five days. SKIN: No symptoms. PSYCHOLOGIC: He appears alert, orientated, very pleasant man at the present time. Apparently he has a history of anxiety, bipolar, depression. ENDOCRINE: The patient has diabetes mellitus. NEUROLOGIC: He has had a transient ischemic attack in the past. : He has benign prostatic hypertrophy. PHYSICAL EXAMINATION: The patient is alert, orientated, bearded gentleman who is on a BiPAP and talking quickly with that. VITAL SIGNS: Temperature 100F, pulse 120, respiratory rate approximately 30, blood pressure 150/70. Pain intensity is 0. HEENT: He seems to hear and see okay. CHEST: Clear. No wheeze or rales. CVS: Sinus rhythm right now but it has been rapid. ABDOMEN: No tenderness. No masses. EXTREMITIES: Decreased pulses. No edema. Decreased hair over the legs. IMPRESSION: A patient with exacerbation of chronic obstructive pulmonary disease caused by COVID virus as demonstrated by new bilateral mid to lower lung airspace disease without effusion, a positive COVID test and D-dimer of 719. His INR is 1.7. PLAN: The patient will be treated with Decadron, Remdesivir, oxygen and BiPAP with high flow oxygen if needed. He requested to be full code. PROGNOSIS: Guarded although he is stable at the present time.
[2020-10-01] MEDS: THEOPHYLLINE ER 24HR PO SCH ×2 (09:59→20:13)
[2020-10-01] MEDS: Decadron 4 MG INJ IV SCH (09:59)
[2020-10-01] MEDS: NEURONTIN 300 MG PO SCH ×3 (10:00→20:13)
[2020-10-01] MEDS ORDERED: HYDROXYZINE PAMOATE 50 MG PO SCH (10:00)
[2020-10-01] MEDS ORDERED: Coumadin 5 MG PO SCH (10:00)
[2020-10-01] MEDS: Cozaar 50 MG PO SCH (10:01)
[2020-10-01] MEDS: Cardizem CD 120 MG PO SCH (10:04)
[2020-10-01] MEDS: ATARAX 25 MG PO SCH ×3 (10:05→20:17)
--- NOTE | 2020-10-01 11:10 | PROG NOTE ---
DATE: 10/01/2020 HISTORY: The patient's second day of being here. The patient looks stable from when I saw him at 2000 hours last night. He is comfortable with his high flow oxygen. He is having no fever or chills. He is coughing. He is eating a little bit. No abdominal pain. Chest is actually clear. Abdomen soft no tenderness. White count 7.1, hemoglobin 12. Yesterday his blood gas pCO2 52 before really getting stabilized. His pO2 was 65, pH was 7.36. Lactic acid 2.0. There are no new lab tests to look at. The patient is stabilized with Decadron and Remdesivir at this time. He is really approaching his normal state which at home he uses high flow oxygen or BiPAP. Did cut down his fluids last night. Unfortunately his chest x-ray shows new bilateral airspace disease. He is holding his own. IMPRESSION: 1) COVID pneumonia. 2) Severe emphysema. PROGNOSIS: Fair but guarded due to the severity of his chronic obstructive pulmonary disease.
[2020-10-01] MEDS: REMDESIVIR 100 MG in Sodium Chloride 0.9% 100 ML IVPB 100 ML IV SCH (15:21)
[2020-10-01] MEDS: Coumadin 1 MG PO SCH (17:03)
[2020-10-01] MEDS: Coumadin 5 MG PO SCH (17:03)
[2020-10-01] MEDS: Protonix 40MG Tablet PO SCH (20:16)
[2020-10-01] MEDS: Flomax 0.4 MG PO SCH (20:17)
[2020-10-01] MEDS: Seroquel 25 MG PO SCH (20:18)
[2020-10-01 22:59] LABS: A-aADO2 558; ABG POTASSIUM 4.4 (3.5-5.1); ABG SITE RIGHT BRACHIAL; ARTERIAL BLD GAS TIDAL VOLUME 550 cc; ARTERIAL BLOOD GAS BASE EXCESS 5.2 (-2.0-2.0); ARTERIAL BLOOD GAS FIO2 100 %; ARTERIAL BLOOD GAS PCO2 59 mmHg (35-45); ARTERIAL BLOOD GAS PEEP 8 cmH2O; ARTERIAL BLOOD GAS PO2 81 mmHg (75-100); ARTERIAL BLOOD GAS VENT MODE AVAPS; ARTERIAL BLOOD GAS VENT RATE 14 /MIN; ARTERIAL BLOOD GAS pH 7.35 (7.35-7.45); CARBOXYHEMOGLOBIN 0.8 % THgb (0.0-6.9); HCO3- 32.6 (22-28); HGB O2 SAT 95.4 g/dF (94-100); Methhemoglobin 0.8 % (1.4-1.5); paO2 pAO1 0.13
[2020-10-01] MEDS: HUMULIN R SQ PRN (23:05)
[2020-10-02 05:11] LABS: Hematocrit 45.2 % (42-50); Hemoglobin 13.9 gm/dl (12.5-18.0); Mean Cell Volume 92.4 fl (78-100); Mean Corpuscular Hemoglobin 28.4 pg (26-32); Mean Corpuscular Hgb Concent. 30.8 g/dl (32-36); Mean Platelet Volume 8.5 fl (7.5-11.0); Platelet Count 278 K/mm3 (150-450); Red Blood Count 4.89 M/mm3 (4.1-5.6); Red Cell Distribution Width 15.2 % (11.5-14.0); White Blood Count 13.7 K/mm3 (4.0-10.5)
[2020-10-02 05:34] LABS: ALBUMIN 3.9 g/dL (3.5-5.0); ALKALINE PHOSPHATASE 96 U/L (38-126); BLOOD UREA NITROGEN 11 mg/dL (9-20); CHLORIDE 97 mmol/L (98-107); Carbon Dioxide 38 mmol/L (22-30); Creatinine 1 0.57 mg/dL (0.66-1.25); EST GLOMERULAR FILTRATION RATE > 60.0 ML/MIN; Glucose 208 mg/dL (74-106); Potassium 4.4 mmol/L (3.5-5.1); SGOT/AST 44 U/L (17-59); SGPT/ALT 25 U/L (0-50); SODIUM 141 mmol/L (137-145); Total Protein 7.6 g/dL (6.3-8.2)
[2020-10-02 07:02] LABS: BAND 6 % (0.0-2.0); Lymphocytes 1 % (24-44); Monocyte 6 % (0.0-12.0); Neutrophils 87 % (36.-66.); Platelet Estimate NORMAL (NORMAL); Total Cells Counted 100
[2020-10-02] MEDS: VENTOLIN COMMON CANISTER IH SCH ×4 (07:12→19:30)
[2020-10-02] MEDS: Glucophage 500 MG PO SCH ×2 (08:04→16:53)
[2020-10-02] MEDS: HUMULIN R SQ PRN ×4 (08:16→21:29)
[2020-10-02] MEDS: Decadron 4 MG INJ IV SCH (08:29)
[2020-10-02] MEDS: Cozaar 50 MG PO SCH (08:29)
[2020-10-02] MEDS: THEOPHYLLINE ER 24HR PO SCH ×2 (08:41→21:27)
[2020-10-02] MEDS: NEURONTIN 300 MG PO SCH ×3 (08:41→21:24)
[2020-10-02] MEDS: Lopressor 25MG Tab PO SCH ×2 (08:42→21:24)
[2020-10-02] MEDS: Protonix 40MG Tablet PO SCH ×2 (08:42→21:24)
[2020-10-02] MEDS: Cardizem CD 120 MG PO SCH (08:49)
[2020-10-02] MEDS: ATARAX 25 MG PO SCH ×3 (08:49→21:24)
[2020-10-02] MEDS ORDERED: DECADRON 10MG INJ. IV SCH (10:00)
[2020-10-02] MEDS: solu-MEDROL 40 MG IV SCH ×2 (13:03→21:26)
--- NOTE | 2020-10-02 14:17 | CONS ---
CONSULT DATE: 10/02/2020 HISTORY: Winsome Sanon is a 59 year old male with advanced chronic obstructive pulmonary disease and chronic respiratory failure, well known to me, who had been hospitalized on 09/30/2020 after the patient was found to have positive COVID test. He is currently being treated with IV Remdesivir. In addition, he has been placed on BiPAP and has been requiring 100% oxygen. His chest x-ray appeared somewhat typical of COVID-19 infection with bibasilar infiltrate. The patient has a history of advanced chronic obstructive pulmonary disease. He is on noninvasive ventilation at home. In addition, his effort tolerance has been reduced. He has had multiple hospitalizations in the past for pulmonary problems although at that time he was not suffering from COVID-19 infection. At the time of my evaluation the patient is in bed and appears to be rotating with postural therapy with BiPAP in place. He is able to answer simple questions and does acknowledge recommendations. PAST MEDICAL HISTORY: Besides chronic obstructive pulmonary disease the patient has history of chronic atrial fibrillation. He is on anticoagulation. He has history of diabetes mellitus, hypertension, prostate enlargement and anxiety problem. PAST SURGICAL HISTORY: No recent surgery. PERSONAL AND SOCIAL HISTORY: He is a former smoker. MEDICATIONS: Home and current medications are reviewed. ALLERGIES: NKDA. PHYSICAL EXAMINATION: This is a middle aged male who appears mildly tachypneic even with BiPAP in place. BiPAP settings reviewed. HEENT: Normocephalic. BiPAP mask in place. NECK: Accessory muscle prominent. CVS: First and second heart sounds are normal, regular, rhythmic. RESPIRATORY: Shows diminished breath sounds. Basilar crackles are heard. ABDOMEN: Soft. EXTREMITIES: No edema is noted. LABORATORY DATA AND TESTS: The pH is 7.35, pCO2 59, pO2 81. White count 13.7, hemoglobin 13.9, hematocrit 45, PLT 278,000. Sodium 141, potassium 4.4, chloride 97, bicarb 38, glucose 208, BUN 11, creatinine 0.5. D-dimer 1451. Chest x-ray noted. UA reviewed. ASSESSMENT: This is a 59 year old male admitted with: 1) Acute on chronic hypoxic respiratory failure. 2) COVID-19 positive. 3) Viral pneumonia. 4) Underlying advanced chronic obstructive pulmonary disease. 5) History of chronic atrial fibrillation on anticoagulation.6) Positive D-dimer likely from COVID-19 coagulopathy. 7) History of hypertension and diabetes mellitus. RECOMMENDATIONS: 1) I agree with the present treatment. The patient has been started on Remdesivir therapy. 2) Will change Decadron to IV Solu-Medrol mainly to have more around the clock effect if you will. 3) I believe the patient will definitely benefit from convalescent plasma. I have discussed with him the risks, benefits, potential complications. The patient is in agreement. Will ordered 2 units of convalescent plasma. 4) He is on anticoagulation, will obtain INR. Keep INR at least between 2 to 3 to remain therapeutic. 5) Continue home medications. 6) Await clinical improvement. The patient's pulmonary status is marginal at best. I will be available as needed to follow through the weekend. Thank you for allowing me to participate in the care of Winsome Sanon.
[2020-10-02 14:18] LABS: ABO TYPING O; RH TYPING NEGATIVE
[2020-10-02 14:29] LABS: Antibody Screen NEGATIVE (NEGATIVE)
[2020-10-02] MEDS: REMDESIVIR 100 MG in Sodium Chloride 0.9% 100 ML IVPB 100 ML IV SCH (16:53)
[2020-10-02] MEDS: Coumadin 5 MG PO SCH (16:53)
[2020-10-02] MEDS: Coumadin 1 MG PO SCH (16:53)
[2020-10-02] MEDS: OXYCODONE-ACETAMINOPHEN 10-325 PO PRN (17:08)
[2020-10-02] MEDS: Sodium Chloride 0.9% 1000 ML 1,000 ML IV SCH (20:08)
[2020-10-02] MEDS: Seroquel 25 MG PO SCH (21:23)
[2020-10-02] MEDS: Flomax 0.4 MG PO SCH (21:24)
[2020-10-03 05:10] LABS: Mean Cell Volume 95.9 fl (78-100); Mean Corpuscular Hemoglobin 28.8 pg (26-32); Mean Platelet Volume 8.6 fl (7.5-11.0); Platelet Count 267 K/mm3 (150-450); Red Blood Count 4.17 M/mm3 (4.1-5.6); Red Cell Distribution Width 15.6 % (11.5-14.0); White Blood Count 13.7 K/mm3 (4.0-10.5)
[2020-10-03 05:37] LABS: INR 2.94 (0.8-3.0); PROTIME 33.6 SECONDS (8.83-12.87)
[2020-10-03 05:39] LABS: ALBUMIN 3.5 g/dL (3.5-5.0); ALKALINE PHOSPHATASE 89 U/L (38-126); BLOOD UREA NITROGEN 19 mg/dL (9-20); CHLORIDE 98 mmol/L (98-107); Creatinine 1 0.76 mg/dL (0.66-1.25); EST GLOMERULAR FILTRATION RATE > 60.0 ML/MIN; Glucose 211 mg/dL (74-106); Potassium 4.6 mmol/L (3.5-5.1); SGOT/AST 34 U/L (17-59); SGPT/ALT 20 U/L (0-50); SODIUM 141 mmol/L (137-145); Total Protein 6.7 g/dL (6.3-8.2)
[2020-10-03 05:45] LABS: Carbon Dioxide 36 mmol/L (22-30)
[2020-10-03 06:19] LABS: ANION GAP 11.6 MEQ/L (5-15)
[2020-10-03 06:37] LABS: A-aADO2 547; ABG HEMOGLOBIN 13.2; ABG POTASSIUM 4.3 (3.5-5.1); ARTERIAL BLD GAS O2 SATURATION 92.3 % (95-100); ARTERIAL BLOOD GAS BASE EXCESS 7.9 (-2.0-2.0); ARTERIAL BLOOD GAS FIO2 100 %; ARTERIAL BLOOD GAS PO2 62 mmHg (75-100); ARTERIAL BLOOD GAS pH 7.27 (7.35-7.45); CARBOXYHEMOGLOBIN 1.1 % THgb (0.0-6.9); HCO3- 38.1 (22-28); HGB O2 SAT 90.4 g/dF (94-100)
[2020-10-03 06:38] LABS: ARTERIAL BLOOD GAS PCO2 83 mmHg (35-45)
[2020-10-03 06:39] LABS: ABG SITE LEFT RADIAL; ALLEN TEST OK? y; ARTERIAL BLD GAS TIDAL VOLUME 550 cc; ARTERIAL BLOOD GAS PEEP 8 cmH2O; ARTERIAL BLOOD GAS VENT MODE avaps; ARTERIAL BLOOD GAS VENT RATE 14 /MIN
[2020-10-03] MEDS: solu-MEDROL 40 MG IV SCH (06:39)
[2020-10-03] MEDS ORDERED: Quelicin Fliptop 200 MG/10 ML IV ONE (06:49)
[2020-10-03] MEDS ORDERED: Versed 50 MG/ 10 Ml MDV*** 50 MG in Sodium Chloride 0.9% 250 ML 240 ML IV PRN (06:51)
[2020-10-03] MEDS: VENTOLIN COMMON CANISTER IH SCH ×2 (07:00→11:13)
[2020-10-03] MEDS ORDERED: Zemuron 100 MG/10 ML ONE (07:30)
[2020-10-03] MEDS ORDERED: MORPHINE SULFATE 10 MG/ML ONE (07:30)
[2020-10-03] MEDS ORDERED: VERSED 5 MG/5 ML ONE (07:30)
[2020-10-03] MEDS ORDERED: SUBLIMAZE 1000 Mcg/ 20 Ml*** 1,500 MCG in Sodium Chloride 0.9% 150 ML 120 ML IV SCH (07:45)
[2020-10-03] MEDS ORDERED: BUMEX 1 MG IV ONE (08:00)
[2020-10-03] MEDS: Zemuron 100 MG/10 ML 100 MG in Sodium Chloride 0.9% 100 ML IVPB 90 ML IV SCH ×2 (08:42→13:16)
[2020-10-03] MEDS: Glucophage 500 MG PO SCH (08:42)
[2020-10-03] MEDS: Cozaar 50 MG PO SCH (08:45)
[2020-10-03] MEDS: NEURONTIN 300 MG PO SCH (08:45)
[2020-10-03] MEDS: Lopressor 25MG Tab PO SCH (08:45)
[2020-10-03] MEDS: ATARAX 25 MG PO SCH (08:45)
[2020-10-03] MEDS: Cardizem CD 120 MG PO SCH (08:47)
[2020-10-03] MEDS: THEOPHYLLINE ER 24HR PO SCH (08:49)
--- NOTE | 2020-10-03 08:55 | XRAY ---
Indication: Endotracheal tube placement. Covid 19. Comparison: September 30, 2020. Portable chest demonstrates new endotracheal tube tip 4 cm above roberto carlos. Interval worsening bilateral mid to lower lung airspace disease now appearing more consolidative and partially obscuring cardiac silhouette. Heart is not enlarged.
[2020-10-03 09:28] LABS: A-aADO2 547; ABG HEMOGLOBIN 12.6; ABG POTASSIUM 4.6 (3.5-5.1); ARTERIAL BLD GAS O2 SATURATION 86.4 % (95-100); ARTERIAL BLD GAS TIDAL VOLUME 600 cc; ARTERIAL BLOOD GAS BASE EXCESS 3.2 (-2.0-2.0); ARTERIAL BLOOD GAS FIO2 100 %; ARTERIAL BLOOD GAS PCO2 90 mmHg (35-45); ARTERIAL BLOOD GAS PO2 54 mmHg (75-100); ARTERIAL BLOOD GAS VENT MODE A/C; ARTERIAL BLOOD GAS pH 7.19 (7.35-7.45); CARBOXYHEMOGLOBIN 1.1 % THgb (0.0-6.9); HCO3- 34.4 (22-28); HGB O2 SAT 84.9 g/dF (94-100); Methhemoglobin 0.6 % (1.4-1.5); paO2 pAO1 0.09
[2020-10-03 09:29] LABS: ABG SITE RIGHT RADIAL; ALLEN TEST OK? YES
[2020-10-03 09:31] LABS: A-aADO2 551; ARTERIAL BLD GAS O2 SATURATION 69.1 % (95-100); ARTERIAL BLD GAS TIDAL VOLUME 600 cc; ARTERIAL BLOOD GAS BASE EXCESS 4.7 (-2.0-2.0); ARTERIAL BLOOD GAS FIO2 100 %; ARTERIAL BLOOD GAS PCO2 98 mmHg (35-45); ARTERIAL BLOOD GAS VENT MODE A/C; ARTERIAL BLOOD GAS pH 7.18 (7.35-7.45); CARBOXYHEMOGLOBIN 0.8 % THgb (0.0-6.9); HCO3- 36.6 (22-28); HGB O2 SAT 68.1 g/dF (94-100); Methhemoglobin 0.7 % (1.4-1.5); paO2 pAO1 0.07
[2020-10-03 09:32] LABS: ABG SITE RIGHT RADIAL; ALLEN TEST OK? YES; ARTERIAL BLOOD GAS PO2 40 mmHg (75-100)
[2020-10-03] MEDS ORDERED: PROTONIX 40 MG IV IV SCH (10:00)
[2020-10-03 10:07] LABS: Appearance SLIGHTLY CLOUDY (CLEAR); Bacteria RARE /HPF (NEGATIVE); Bilirubin NEGATIVE (NEGATIVE); Blood SMALL Ery/ul (0-5); Glucose >=500 mg/dL (NEGATIVE); Hyaline Casts 0-2 /LPF (0-2); Ketones SMALL (NEGATIVE); Leukocyte Esterase NEGATIVE (NEGATIVE); Mucus SLIGHT /HPF (NEGATIVE); Nitrite NEGATIVE (NEGATIVE); Protein,Urine Dip 100 (Negative); RBC 0-2 /HPF (0-2); Specific Gravity 1.025 (1.005-1.025); Urobilinogen NEGATIVE mg/dL (0-1); WBC 0-2 /HPF (0-5)
--- NOTE | 2020-10-03 11:07 | DS ---
ADMISSION DIAGNOSES: 1) COVID pneumonia. 2) Chronic obstructive pulmonary disease. 3) Restless leg syndrome. 4) Benign prostatic hypertrophy. 5) Diabetes mellitus. 6) Hypertension. 7) Gout. DISCHARGE DIAGNOSES: 1) COVID PNEUMONIA. 2) RESPIRATORY ARREST DUE TO COVID PNEUMONIA. 3) CHRONIC OBSTRUCTIVE PULMONARY DISEASE. 4) HYPERTENSION. 5) DIABETES MELLITUS. 6) GOUT. INTUBATION: Intubated him on 10/03/2020 at 0700 hours due to retained CO2 and dropping pH to 7.2 and severe air hunger. Intubation went smoothly and was given some Versed, morphine and succinylcholine. Respiratory intubated him easily with the first attempt. We bagged him and his oxygen slowly came up to low 90's finally. His pH is starting to correct. He is already anticoagulated with 6 mg of Coumadin for atrial fibrillation. HOSPITAL COURSE: The patient kind of maintained his O2's in the low 90's to high 80's on 100% rebreather BiPAP until he crashed on the morning of 10/03/2020. Dr. Lawson is trying to find him an ICU bed at this time. He was seen in consultation the other day. PROGNOSIS: Guarded due to his severe underlying lung disease as well as the COVID pneumonia.
[2020-10-03 11:51] VITALS: BP 89/55
[2020-10-03] MEDS: HUMULIN R SQ PRN (12:00)
[2020-10-03] MEDS ORDERED: LEVOPHED 4 MG/4 ML 4,000 MCG in Dextrose 5%/Water IV Soln. 500 ML 500 ML IV PRN (12:18)
[2020-10-03 12:44] VITALS: PULSE 114; O2SAT 88
== END 2020-10-03 13:00 | disposition home or self-care (01) | DRG 177 ==
LOC: ED 11:15 → MED SURG 17:50
PROVIDERS: ADMIT Family Medicine; ATTEND Family Medicine
DX: U07.1 COVID-19 (principal); J12.89 Other viral pneumonia; J96.21 Acute and chronic respiratory failure with hypoxia; I48.20 Chronic atrial fibrillation, unspecified; R51.9 Headache, unspecified; E78.00 Pure hypercholesterolemia, unspecified; J44.9 Chronic obstructive pulmonary disease, unspecified; E11.9 Type 2 diabetes mellitus without complications; I25.10 Atherosclerotic heart disease of native coronary artery without angina pectoris; I10 Essential (primary) hypertension; Z79.01 Long term (current) use of anticoagulants; Z79.899 Other long term (current) drug therapy; G25.81 Restless legs syndrome; N40.0 Benign prostatic hyperplasia without lower urinary tract symptoms; M10.9 Gout, unspecified
CPT/HCPCS: 31500; 36000; 36415; 36430; 36600; 71045; 80053; 81001; 81015; 82375; 82803; 82947; 83605; 83735; 83880; 84484; 85025; 85027; 85379; 85610; 86308; 86850; 86900; 86901; 86931; 87040; 87086; 87400; 93005; 93041; 94002; 94003; 94640; 94760; 94762; 94770; 96360; 96361; 96365; 96374; 96375; 96376; 99285; 99291; P9017; U0003; J0330; J1100; J1815; J1817; J2250; J2270; J2405; J2920; J3010; A9270-GY